=== PATIENT | female | born 1965 | race Caucasian/White ===

== ENCOUNTER → 2016-09-18 | Day surgery (SDC) | payer BC ==
[2016-09-13 16:17] VITALS: BMI 34.9
[~2016-09-18] MED LIST: LACTATED RINGERS 1,000 ML IV SCH; LIDOCAINE 1% 20 ML VIAL (10MG/ML) FOR IV START INTRADERMA ONE; PROPOFOL 10 MG/ML 20 ML VIAL IV ONE
[2016-09-18 10:21] VITALS: TEMP 97.4
[2016-09-18 11:36] VITALS: RESP 16
--- NOTE | 2016-09-18 11:44 | P.PCN ---
Date of Procedure: 09/18/16 Procedure(s) Performed: Procedure: Total colonoscopy. Preoperative diagnosis screening for neoplasia. Postoperative diagnosis: Sigmoid diverticulosis with no evidence of acute diverticulitis, strictures, polyps or cancer. Preparation: HalfLytely prep. Sedation: Was provided by anesthesia. Brief clinical history: The patient is a 51-year-old female who is referred for this evaluation for screening for neoplasia. The patient had no prior colonoscopy. She has been having issues with urinary incontinence and she is having bladder suspension surgery and hysterectomy in the near future. This evaluation was requested for screening. Procedure: With the patient on her left lateral decubitus position and after informed consent and adequate sedation, the perianal area was inspected and it did not show any fissures or fistulas. There were no masses felt on digital rectal examination. The Olympus CFQ 160L video colonoscope was then inserted in the rectum in the usual fashion and advanced to the cecum. There were multiple diverticular orifices seen scattered in the sigmoid but I saw no evidence of acute diverticulitis or strictures. The mucosa appeared healthy. No polyps or tumors were seen. I retroflexed endoscope in the rectum before the endoscope was withdrawn. The patient tolerated the procedure well. Plan: The patient was reassured. Discussed dietary measures. She will follow- up with you as planned. I recommended repeat exam in 10 years.
[2016-09-18 11:51] VITALS: BP 140/86; PULSE 96
== END | disposition home or self-care (01) ==
LOC: ORWHC2ENDO 09:20
DX: Z12.11 Encounter for screening for malignant neoplasm of colon (principal); K57.30 Diverticulosis of large intestine without perforation or abscess without bleeding; J44.9 Chronic obstructive pulmonary disease, unspecified; J45.909 Unspecified asthma, uncomplicated; Z79.899 Other long term (current) drug therapy
CPT/HCPCS: J2704; G0121

== ENCOUNTER → 2016-09-18 | Outpatient (CLI) | payer BC ==
--- NOTE | 2016-09-18 14:52 | MM ---
Reason for exam: screening (asymptomatic). Baseline mammogram. Physical Findings: Nurse did not find any significant physical abnormalities on exam. MG Screening Mammo w CAD Bilateral CC and MLO view(s) were taken. There are scattered fibroglandular densities. Finding: There is a typically benign varied sized masses in the right breast laterally on CC view, 6-7cm from the nipple. These results were verbally communicated with the patient and result sheet given to the patient on 09/18/16. ASSESSMENT: Incomplete: need additional imaging evaluation, BI-RAD 0 RECOMMENDATION: Ultrasound of the right breast.
--- NOTE | 2016-09-18 14:54 | USB ---
Reason for exam: additional evaluation requested from abnormal screening. US Breast Workup Limited RT Right breast ultrasound demonstrates a 0.3 x 0.2 x 0.3cm oval lesion too small to characterize and a 0.6 x 0.3 x 0.6cm oval, cystic cluster. These results were verbally communicated with the patient and result sheet given to the patient on 09/18/16. ASSESSMENT: Probably benign, BI-RAD 3 RECOMMENDATION: Follow-up diagnostic mammogram and ultrasound of the right breast in 6 months.
== END | disposition home or self-care (01) ==
LOC: RADMAMWWP 12:27
PROVIDERS: ATTEND Obstetrics & Gynecology
DX: Z12.31 Encounter for screening mammogram for malignant neoplasm of breast (principal); R92.8 Other abnormal and inconclusive findings on diagnostic imaging of breast
CPT/HCPCS: 76642; G0202

== ENCOUNTER → 2016-10-30 | Outpatient (CLI) | payer BC ==
[2016-10-30 15:31] LABS: Basophils % (A) 1 %; CH 30.5; Eosinophils # (A) 0.1 k/uL (0-0.7); Eosinophils % (A) 2 %; HGB 16.5 gm/dL (11.4-16.0); Luc # (Auto) 0.09; Luc % (Auto) 2; Lymphocytes # (A) 1.5 k/uL (1.0-4.8); Lymphocytes % (A) 28 %; MCH 29.3 pg (25.0-35.0); MCHC 30.6 g/dL (31.0-37.0); MCV 95.8 fL (80.0-100.0); Mean Platelet Volume 6.7; Monocytes # (A) 0.3 k/uL (0-1.0); Monocytes % (A) 5 %; Neutrophils # (A) 3.4 k/uL (1.3-7.7); Neutrophils % (A) 62 %; RBC 5.63 m/uL (3.80-5.40); RDW 14.2 % (11.5-15.5); WBC 5.4 k/uL (3.8-10.6); WBC (Perox) 5.27
[2016-10-30 15:48] LABS: Anion Gap 10 mmol/L; Blood Urea Nitrogen 6 mg/dL (7-17); Calcium 9.8 mg/dL (8.4-10.2); Carbon Dioxide 31 mmol/L (22-30); Chloride 101 mmol/L (98-107); Glucose 116 mg/dL (74-99); Non-African American GFR(MDRD) >60 (>60 ml/min/1.73 sqM); Sodium 142 mmol/L (137-145)
== END | disposition home or self-care (01) ==
LOC: LABPAT 14:49
PROVIDERS: ATTEND Obstetrics & Gynecology
DX: Z01.818 Encounter for other preprocedural examination (principal); N39.3 Stress incontinence (female) (male); R35.0 Frequency of micturition; N81.2 Incomplete uterovaginal prolapse; E66.9 Obesity, unspecified
CPT/HCPCS: 80048; 85025; 86850; 86900; 86901; 87086

== ENCOUNTER 2016-11-09 05:55 | Day surgery (SDC) | payer BC ==
--- NOTE | 2016-11-02 09:45 | HP ---
DATE OF ADMISSION: This is a 51-year-old white female, 3, para 1-2-0-3, who presented for consultation with a symptomatic cystocele, being cared for by Dr. Nino. Question was would patient be candidate for vaginal hysterectomy concurrently. Patient does report a urinary bulge that has increased over the past several years. She is sexually active. There is no pain with intercourse. There has been no unusual vaginal bleeding. Recent Pap smear is within normal limits. Patient does complain of urinary stress incontinence daily, and is scheduled for a sling procedure with Dr. Nino. Review of systems is otherwise negative. Past medical history is significant for asthma, emphysema, obesity, and a history of kidney infection in the past. PAST SURGICAL HISTORY: Adenoidectomy and tonsillectomy in 1980, cholecystectomy 2011, collapsed lung repair in the past, laser ablation of the cervix, tubal ligation 1989. CURRENT MEDICATIONS: 1. Chantix orally twice daily. 2. Spiriva inhaler daily. 3. Ventolin HFA 90 mcg inhaler 1 puff every 4 hours and p.r.n. ALLERGIES: None known. Family history is significant for blood clots in the lungs and legs of her brother, father and sister, COPD of her mother, obesity in the family, as well as thyroid issues on the maternal side of the family. Reproductive history is significant for 3 vaginal deliveries, healthy, normal infants. 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 REVIEW OF SYSTEMS: As noted, is otherwise negative. On exam, this is a pleasant white female, 5 foot 5-1/2 inches, 208 pounds, BMI 34, blood pressure 122/82, patient is afebrile. The HEENT exam reveals no thyromegaly, good dentition, good range of motion in the neck, no lymphadenopathy. Cardiac exam reveals regular rate and rhythm with no murmur, click or rub. Chest is clear to auscultation in all garcia anteriorly and posteriorly. Breast exam reveals breasts to be bilaterally symmetric, nontender, mobile, no nipple discharge, skin changes or axillary adenopathy. Abdominal exam reveals the abdomen to be moderately obese, no organosplenomegaly, active bowel sounds, no CVA tenderness, there are no hernias present. On external genitalia evaluation the external genitalia are normal in appearance for stated age, no unusual discharge or inflammatory lesions. The bladder is nontender. The cervix appears multiparous, healthy and pink. Pap smear is performed. There is a grade 2 to 3 uterine prolapse noted with cough, as well as a grade 2 to 3 cystocele and urinary leakage with Valsalva. Adnexa reveal no masses, adnexa are smooth and symmetric bilaterally. Rectal exam reveals no hemorrhoids, no rectal lesions or masses, no obvious rectocele. FIT negative stool sample. No unusual lymphadenopathy noted in the inguinal region. Neurologic exam reveals normal judgment and insight, normal mood and affect, patient is oriented x3. IMPRESSION: Increasingly symptomatic stress urinary incontinence, cystocele and uterine prolapse. PLAN: We will proceed with vaginal hysterectomy along with cystocele repair at the time of sling procedure. This is scheduled at [facility] for 11/08/2016. Patient is aware of the risks, benefits, and alternatives of our plan. We have discussed the risk of bleeding, infection, perforation or damage to bladder, bowel, ureters, blood vessels, or indeed any pelvic or abdominal organs. A second opinion has been offered and declined. The ACOG pamphlet on this procedure have been given to the patient for her review. I believe she understands our discussion with no reservation or question.
[2016-11-06 15:34] VITALS: BMI 34.4
[~2016-11-09 05:55] MED LIST changes: +DEXAMETHASONE SOD PHOSPHATE 10 MG/ML 1 ML VIAL IV ONE; +GENTAMICIN 120 MG in SODIUM CHLORIDE 0.9% 100 ML IVPB ONE; +HYDROmorphone 1 MG/ML 1 ML SYRINGE IVP PRN; -LACTATED RINGERS 1,000 ML IV SCH; -LIDOCAINE 1% 20 ML VIAL (10MG/ML) FOR IV START INTRADERMA ONE; +LIDOCAINE 1% 20 ML VIAL (10MG/ML) FOR IV START INTRADERMA PRN; +MIDAZOLAM 2 MG/2 ML VIAL IV PRN; +ONDANSETRON 4 MG/2 ML VIAL IVP ONE; -PROPOFOL 10 MG/ML 20 ML VIAL IV ONE; +SCOPOLAMINE 1.5MG/72HR PATCH TRANSDERM ONE; +ceFAZolin 1,000 MG in DEXTROSE/WATER 1 50ML.BAG IV ONE
[2016-11-09] MEDS ORDERED: ALBUTEROL NEBULIZED 2.5 MG/3 ML INHALATION STA (06:36)
[2016-11-09] MEDS: LACTATED RINGERS 1,000 ML IV SCH ×3 (07:00→21:42)
[2016-11-09] MEDS ORDERED: PROPOFOL 10 MG/ML 20 ML VIAL IV ONE (07:05)
[2016-11-09] MEDS ORDERED: PHENYLEPHRINE-0.9% NACL SYG 1 MG/10 ML SYRINGE ONE (07:05)
[2016-11-09] MEDS ORDERED: MORPHINE SULFATE (PF) 0.3 MG/0.3 ML SYR ONE (07:05)
[2016-11-09] MEDS ORDERED: MIDAZOLAM 2 MG/2 ML VIAL ONE (07:05)
[2016-11-09] MEDS ORDERED: VASOPRESSIN 20 UNIT/ML 1 ML VIAL SQ ONE ×2 (07:34→08:07)
[2016-11-09] MEDS ORDERED: BACITRACIN 500 UNIT/GM OINT 28.4 GM TUBE TOPICAL ONE ×2 (07:39→08:07)
[2016-11-09] MEDS ORDERED: KETOROLAC 30 MG/ML 1 ML VIAL IVP PRN (07:51)
[2016-11-09] MEDS ORDERED: diphenhydrAMINE 50 MG/ML 1 ML VIAL IVP PRN ×2 (07:51→08:41)
[2016-11-09] MEDS ORDERED: ONDANSETRON 4 MG/2 ML VIAL IVP PRN ×2 (07:51→08:41)
[2016-11-09] MEDS ORDERED: NALOXONE 0.4 MG/ML 1 ML VIAL IV PRN (07:51)
[2016-11-09] MEDS ORDERED: MORPHINE SULFATE 4 MG/ML SYRINGE IVP PRN (07:51)
[2016-11-09] MEDS ORDERED: GENTAMICIN 80 MG in SODIUM CHLORIDE 0.9% 500 ML IRRIGATION ONE (08:17)
[2016-11-09] MEDS ORDERED: LACTATED RINGERS 1,000 ML IV ONE (08:38)
[2016-11-09] MEDS ORDERED: IBUPROFEN 600 MG TAB PO PRN (08:41)
[2016-11-09] MEDS ORDERED: METOCLOPRAMIDE 5 MG/ML 2 ML VIAL IVP PRN (08:41)
[2016-11-09] MEDS ORDERED: ZOLPIDEM 5 MG TAB PO PRN (08:41)
[2016-11-09] MEDS ORDERED: Acetaminophen-Codeine 300-30mg TAB PO PRN (08:41)
--- NOTE | 2016-11-09 08:41 | P.OP ---
Date of Procedure: 11/09/16 Preoperative Diagnosis: Uterine prolapse, cystocele, stress urinary incontinence Postoperative Diagnosis: Normal, atrophic appearing ovaries bilaterally Procedure(s) Performed: Vaginal hysterectomy, cystocele repair, transvaginal tape Anesthesia: spinal Surgeon: Mary Stephens Roofing Foreman #1: Yary Muñoz Estimated Blood Loss (ml): 50 IV fluids (ml): 850 Urine output (ml): 50 Pathology: other (Cervix and uterus) Condition: stable Disposition: PACU Operative Findings: Normal-appearing, atrophic ovaries bilaterally Description of Procedure: Patient is brought to the operating suite where a spinal analgesia is administered. She's placed in the dorsal lithotomy position. The cervix, vagina, perineum and lower abdominal regions are all prepped and draped in the usual sterile fashion. The appropriate timeout was performed to assure proper patient and procedural identification. Antibiotics are given. Bladder is drained for approximately 50 mL of clear yellow urine. Weighted speculum was placed into the vagina and the anterior lip is grasped with a double-tooth tenaculum. The cervix is injected circumferentially with a dilute Pitressin solution. A [place]goon blade scalpel is used circumferentially with V like positioning at 6:00, to incise the vaginal mucosa. Sponge rolled finger is used to sweep the mucosa from the underlying fascial plane. Peritoneum was entered at 6:00, suture tied with 2-0 Vicryl, held with a hemostat, and then the large billed speculum was placed into the peritoneal cavity. The right uterosacral ligament is identified, clamped and held with a hemostat. Same is done on the contralateral side. At all times the vaginal mucosa is swept well from the operative field to avoid bladder and/or ureteral injury. Uterine vasculature is identified, clamped cut and suture ligated. 2 additional pedicles are taken superior to the vessels. The uterus is then "walked out" posteriorly. Robert clamps are used across the final pedicles and the cervix and uterus are removed and sent to pathology for evaluation. These pedicles are Robin stitched, flashed, and re-stitched for excellent hemostasis. Sponge stick is used to visualize the ovaries, they are small and atrophic bilaterally. The billed speculum is replaced with the shallow speculum, and the previously placed 2-0 Vicryl suture at 6:00 is brought around in a pursestring fashion to close the peritoneal cavity. The previously held uterosacral cardinal ligament complex these are brought across to incorporate the opposite complex as well as vaginal mucosa. The vagina is then closed posteriorly with a additional [id number] suture. Allis clamps are used on the remaining vaginal mucosa. It is injected in the midline with the same dilute Pitressin solution. Metzenbaum scissors are used to undermine the mucosa and it is opened in the midline to approximately 1-1/2 cm inferior to the urethra. The tissue is held in a fanlike fashion with Allis clamps, a single 2-0 Vicryl stitches placed. Guevara catheter was also placed in the urine is noted to be clear. Dr. Buckner then joins us in the room and the transvaginal tape procedure is performed. Please see separately dictated note for details. The vaginal mucosa is then brought together in the midline to close the mucosal defect in a running locking manner using 2-0 Vicryl suture. Hemostasis is good. The vagina is packed with a 1 inch iodophor gauze with basic tracing. All sponge needle and enhancement counts are correct at the end of the procedure. Patient is brought back to the recovery room in good condition with stable vital signs including blood pressure 98/49, pulse 97, 98% O2 saturation.
--- NOTE | 2016-11-09 09:06 | P.OP ---
Date of Procedure: 11/09/16 Preoperative Diagnosis: Mixed Urinary Incontinence Postoperative Diagnosis: Same Procedure(s) Performed: Obtryx trans-obturator sling Anesthesia: GETACHEW Surgeon: Vicente Nino Die Reamer #1: Mary Stephens Estimated Blood Loss (ml): 50 IV fluids (ml): 150 Pathology: none sent Condition: stable Disposition: PACU Indications for Procedure: She is a 51 year old female with mixed urinary incontinence, which requires the use of 3-4 pads daily. The stress component is predominant. She has a cystocele on exam. She was unable to tolerate oxybutynin, and Myrbetriq failed to help. 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 Dr. Stephens will perform a TVH with anterior repair. Operative Findings: No evidence of bladder injury. Description of Procedure: I entered the operating room after Dr. Stephens had completed the vaginal hysterectomy and cystocele repair. The patient was in the dorsolithotomy position, with her legs supported in candycane stirrups. The patient's condition was stable. Metzenbaum scissors were used to dissect laterally within the submucosal plane, to the inferior pubic ramus. The scalpel was used to make bilateral groin incisions at the level of the clitoris. Subcutaneous tissues were spread with a hemostat. Each of the helical needles were passed through the respective groin incision, and turned such that the needle tip wrapped around the pubis. The needle tips were guided digitally into the vaginal incision. The Obtryx graft, which had been previously soaked in antibiotic solution, was secured to the needle tips in the standard fashion. The needles were then withdrawn, and the position of the graft was adjusted such that it overlie the mid urethra, as desired. With a hemostat placed between the graft and the urethra to prevent tension of the graft over the urethra, the plastic sheath was removed from the ends of the graft. The ends of the graft were cut beneath the skin incisions, and these incisions were closed using 4-0 Vicryl suture in a subcuticular fashion. Some oozing was noted from the right side of the vaginal incision, and electrocautery was used to controlsuch that there was only minimal bruising. The vaginal incision was closed using 2-0 Vicryl suture in a running fashion. Cystoscopy was performed. The 30 lens was used to introduce the 17-Greek Storz cystoscopic sheath through the urethra and into the bladder under direct vision. The urethra and bladder were unremarkable. There was no evidence of perforation. Both ureteral orifices were of normal anatomic location and configuration, and clear urine effluxed from both. No tumors or foreign bodies were seen. The cystoscope was removed, and the Guevara catheter was replaced into the bladder. Vaginal packing was placed. All sponge and needle counts were correct. The patient tolerated the procedure well was taken to the recovery room in stable condition.
[2016-11-09] MEDS: ALBUTEROL NEBULIZED 2.5 MG/3 ML INHALATION PRN (15:11)
[2016-11-09] MEDS: ceFAZolin 1,000 MG in DEXTROSE/WATER 1 50ML.BAG IVPB SCH (15:48)
[2016-11-09] MEDS ORDERED: ceFAZolin 1 GM in SODIUM CHLORIDE 0.9% 100 ML IVPB SCH (16:00)
[2016-11-09] MEDS ORDERED: SODIUM CHLORIDE 0.9% 500 ML IV ONE (19:40)
[2016-11-10] MEDS: ceFAZolin 1,000 MG in DEXTROSE/WATER 1 50ML.BAG IVPB SCH ×2 (00:33→07:44)
[2016-11-10] MEDS: ALBUTEROL NEBULIZED 2.5 MG/3 ML INHALATION PRN ×2 (06:09→11:31)
--- NOTE | 2016-11-10 07:25 | P.DS ---
Providers Date of admission: 11/09/16 Expected date of discharge: 11/10/16 Attending physician: Mary Stephens Primary care physician: Feliciano Vasu [facility] Course: Male presented to the hospital with increasing perineal bulge as well as stress urinary incontinence. She elected to proceed with vaginal hysterectomy, cystocele repair, and transvaginal tape procedure. Urology in gynecology both following the patient, surgery scheduled, currently. Please see dictated history and physical for details. Patient underwent a vaginal hysterectomy, anterior colporrhaphy, and transvaginal tape procedure on 11/09/2016. She did well intraoperatively. Ovaries were inspected, noted to be atrophic and bilaterally symmetric, left in situ. Please see dictated operative note for details. Postoperatively are biggest issue has been the patient's respiratory status. She has received breathing treatments, but continues to have bilateral crackles. She has a long-term history of smoking, at least 1 pack per day. I have discussed with her this morning the importance of smoking cessation. I discussed this with her family yesterday postoperatively as well. She has made the commitment to me to stop smoking. Her abdomen is soft and nontender, no CVA tenderness. Extremities are negative for edema. There are good peripheral pulses. The vaginal pack is been removed, the Guevara catheter has also been discontinued. 's to advance diet and activity this morning. Patient may shower. Bladder training has commenced. If residuals are less than 100 mL, plan is for discharge home later today. She will follow-up in the office with me in 2 weeks. She will use [id number] Aleve, 2 pills as needed for pain. I have reminded her no intercourse, tampons or douching. No heavy lifting. No driving or vacuuming for 2 weeks. She will call with any foul smelling or copious vaginal drainage, with any pain not alleviated by the Aleve, with any difficulties voiding, or indeed with any concerns. Patient will follow-up with Dr. Hudson per his specific recommendations. Patient Condition at Discharge: Good Plan - Discharge Summary New Discharge Prescriptions: Cephalexin [Keflex] 500 mg PO Q8HR #15 cap Hydrocodone/Acetaminophen [[place] 5-325] 1 - 2 each PO Q4HR PRN #20 tab PRN Reason: Pain Discharge Medication List Albuterol Inhaler [Ventolin Hfa Inhaler] 1 - 2 puff INHALATION Q6HR PRN [History] Tiotropium [place] [Spiriva] 1 cap INHALATION DAILY 11/06/16 [History] Cephalexin [Keflex] 500 mg PO Q8HR #15 cap 11/09/16 [Rx] Hydrocodone/Acetaminophen [[place] 5-325] 1 - 2 each PO Q4HR PRN #20 tab 11/09/16 [Rx] Activity/Diet/Wound Care/Special Instructions: Diet as tolerated. Okay to shower. No driving for 1 week. No lifting or strenuous activity.
--- NOTE | 2016-11-10 07:34 | P.PN ---
Subjective The patient underwent an anterior repair and trans-obturator tape by Drs. Stephens and Mica yesterday. She is feeling well. Her catheter and packing of been removed. If she voids well she'll be discharged home later today. She will follow-up in our office in one week. Postoperative instructions have been given. Objective - Vital Signs Vital signs: Vital Signs Temp 97.1 F L 11/10/16 06:00 Pulse 80 11/10/16 06:15 Resp 16 11/10/16 06:00 BP 94/64 11/10/16 06:00 Pulse Ox 90 L 11/10/16 06:00 Intake & Output 11/09/16 11/10/16 11/10/16 18:59 06:59 18:59 Intake Total 1504 340 Output Total 240 400 Balance 1264 -60 Intake: IV 1504 Oral 340 Output: Urine 140 400 Estimated Blood Loss 100 Other: Voiding Method Indwelling Catheter Indwelling Catheter # Voids 100
[2016-11-10] MEDS ORDERED: ACETAMINOPHEN TAB 325 MG TAB PO PRN (08:43)
--- NOTE | 2016-11-10 09:44 | P.PN ---
Progress Note - Text Postoperative day 1 status post vaginal hysterectomy under spinal anesthesia, and intrathecal morphine given for postoperative analgesia, patient doing well, there is no anesthesia related complications, further management as per her primary team
[2016-11-10] MEDS: LACTATED RINGERS 1,000 ML IV SCH ×2 (10:44→15:15)
[2016-11-10 12:19] VITALS: RESP 20
[2016-11-10 13:48] VITALS: BP 118/65; TEMP 98.4
[2016-11-10] MEDS ORDERED: IPRATROPIUM-ALBUTEROL 3 ML NEB INHALATION PRN (13:48)
[2016-11-10] MEDS ORDERED: SYMBICORT 160-4.5 MCG INHALER INHALATION SCH (14:00)
--- NOTE | 2016-11-10 14:52 | XR ---
EXAMINATION TYPE: XR chest 2V DATE OF EXAM: 11/10/2016 2:49 PM HISTORY: Hypoxia. REFERENCE: NONE. FINDINGS: The lungs are clear. Pleural space are clear. Heart size is upper limits of normal. IMPRESSION: NO ACUTE INTRATHORACIC ABNORMALITY.
[2016-11-10] MEDS ORDERED: predniSONE 20 MG TAB PO STA (15:12)
[2016-11-10 15:20] VITALS: PULSE 101
[2016-11-10] MEDS ORDERED: IPRATROPIUM-ALBUTEROL 3 ML NEB INHALATION SCH (16:00)
--- NOTE | 2016-11-10 16:37 | CONS ---
DATE OF CONSULTATION: Patient is a 51-year-old who came in with a symptomatic cystocele. Patient underwent operative intervention and patient is clinically doing well except that patient's saturations have gone down. Patient is a smoker; was actively smoking ( ) before surgery. Patient does have history of COPD. On examination, patient does not have much cough but has very minimal air entry into bilateral lung garcia. Patient denied any fever or chills. Chest x-ray did not show any pneumonic process. Patient was initially saturating at 88% earlier today morning on room air at rest, but now increased it to 92%. I wanted her to stay in the hospital for one night for systemic steroids, inhalation treatments, but patient is not willing to stay, because of which I will go ahead and give her a weaning dose of steroids. Patient is already on Keflex, which is helpful for bronchitis, although patient does not appear to have any bacterial bronchitis at this point of time. Patient is already having Spiriva, tiotropium, which she can continue. Patient was asked to follow with Dr. Sellers closely, and if she has increasing shortness of breath and respiratory distress, patient will call Dr. Sellers. REVIEW OF SYSTEMS: CONSTITUTIONAL: No fever, no malaise, no fatigue. HEENT: No recent visual problems or hearing problems. Denied any sore throat. CARDIOVASCULAR: No chest pain, orthopnea, PND, no palpitations, no syncope. PULMONARY: As described in HPI. GASTROINTESTINAL: No diarrhea, no nausea, no vomiting, no abdominal pain. Normoactive bowel sounds. NEUROLOGICAL: No headaches, no weakness, no numbness. HEMATOLOGICAL: Denies any bleeding or petechiae. GENITOURINARY: Denies any burning micturition, frequency, or urgency. MUSCULOSKELETAL/RHEUMATOLOGICAL: Denies any joint pain, swelling, or any muscle pain. ENDOCRINE: Denies any polyuria or polydipsia. The rest of the 14 point review of systems is negative. Home medications include: 1. Tiotropium. 2. Albuterol. 3. Prednisone. 4. Hydrocodone/acetaminophen. 5. Keflex. Past medical history includes: 1. COPD. 2. Cholecystectomy. 3. Tonsillectomy. 4. Tubal ligation surgery. 5. Uterine ablation surgery. 6. Vaginal hysterectomy on this admission. SOCIAL HISTORY: Patient does smoke half a pack per day. Denied any alcohol abuse or any drug abuse. FAMILY HISTORY: Significant for DVT and PE in the past. PHYSICAL EXAMINATION: VITAL SIGNS: Temperature 98.4, pulse of around 109. This tachycardia is secondary to hypoxemia. Respiratory rate of 20. Blood pressure is 118/65. Saturating at 92% on room air. GENERAL: The patient is alert and oriented x3, not in any acute distress. Well developed, well nourished. HEENT: Pupils are round and equally reacting to light. EOMI. No scleral icterus. No conjunctival pallor. Normocephalic, atraumatic. No pharyngeal erythema. No thyromegaly. CARDIOVASCULAR: S1 and S2 present. No murmurs, rubs, or gallops. PULMONARY: Significantly air entry into bilateral lung garcia. No wheezing was appreciated. No crackles were appreciated. ABDOMEN: Soft, nontender, nondistended, normoactive bowel sounds. No palpable organomegaly. MUSCULOSKELETAL: No joint swelling or deformity. EXTREMITIES: No cyanosis, clubbing, or pedal edema. NEUROLOGICAL: Gross neurological examination did not reveal any focal deficits. SKIN: No rashes. Chest x-ray did not show a pneumonic process. I do not have any other laboratory data available. ASSESSMENT AND PLAN: 1. Chronic obstructive pulmonary disease exacerbation. Patient is not willing to stay. Ideally would stay one more night. I will go ahead and give her systemic steroids. Patient will continue her inhalational treatments. Patient is on Keflex postoperatively, which she will continue. 2. Vaginal hysterectomy. Postoperatively patient is otherwise clinically doing well except for that hypoxemia as mentioned above. 3. Nicotine abuse. Extensive counseling was provided. As patient is not willing to stay, patient is okay to discharge from my perspective. Patient will need to follow up with Dr. Sellers in 3 to 7 days. Thank you for letting me participate in this patient's care.
== END 2016-11-10 16:08 | disposition home or self-care (01) ==
LOC: OR 05:55 → 6PED 08:50 → OR 11-10 16:08
PROVIDERS: ATTEND Obstetrics & Gynecology
DX: N81.2 Incomplete uterovaginal prolapse (principal); N39.46 Mixed incontinence; N80.0 Endometriosis of uterus; R09.02 Hypoxemia; J44.1 Chronic obstructive pulmonary disease with (acute) exacerbation; J45.909 Unspecified asthma, uncomplicated; E66.9 Obesity, unspecified; Z68.34 Body mass index [BMI] 34.0-34.9, adult; F17.200 Nicotine dependence, unspecified, uncomplicated; N97.1 Female infertility of tubal origin; Z79.52 Long term (current) use of systemic steroids; Z79.899 Other long term (current) drug therapy
CPT/HCPCS: 94640 ×4; 88307; 71020; 57288; 58260; C1771; J2250; J1580 ×2; J1100; J2405; J2274; J1885; J0690 ×2; J2370; J2704; J7512; 86850; 86900; 86901

== ENCOUNTER → 2017-03-26 | Outpatient (CLI) | payer BC ==
--- NOTE | 2017-03-27 08:31 | MM ---
Reason for exam: follow-up at short interval from prior study. Last mammogram was performed 6 months ago. Physical Findings: Nurse did not find any significant physical abnormalities on exam. MG Diagnostic Mammo RT w CAD CC and MLO view(s) were taken of the right breast. Prior study comparison: September 18, 2016, bilateral MG screening mammo w CAD. There are scattered fibroglandular densities. Lateral breast nodularity is not significantly changed from prior, 6 months previously. These results were verbally communicated with the patient and result sheet given to the patient on 03/26/17. ASSESSMENT: Incomplete: need additional imaging evaluation, BI-RAD 0 RECOMMENDATION: Ultrasound of the right breast.
--- NOTE | 2017-03-27 08:34 | USB ---
Reason for exam: additional evaluation requested from abnormal screening. US Breast RT Right breast ultrasound includes all four quadrants, the retroareolar region and axilla. Finding demonstrates a 0.3 x 0.3 x 0.2cm lesion too small to characterize at 9 o'clock, unchanged and a 0.6 x 0.5 x 0.3cm cystic lesion with septation at 10 o'clock versus 6 x 3 x 6mm previously. These findings are stable for 6 months. An additional follow up can be performed. These results were verbally communicated with the patient and result sheet given to the patient on 03/26/17. ASSESSMENT: Probably benign, BI-RAD 3 RECOMMENDATION: Follow-up diagnostic mammogram of both breasts in 6 months. Ultrasound of the right breast in 6 months.
== END | disposition home or self-care (01) ==
LOC: RADMAMWWP 13:24
PROVIDERS: ATTEND Obstetrics & Gynecology
DX: R92.8 Other abnormal and inconclusive findings on diagnostic imaging of breast (principal)
CPT/HCPCS: 76641; G0206

== ENCOUNTER → 2018-02-19 | Outpatient (CLI) | payer BC ==
--- NOTE | 2018-02-19 08:56 | XR ---
EXAMINATION TYPE: XR chest 2V DATE OF EXAM: 02/19/2018 COMPARISON: 11/10/2016 TECHNIQUE: PA and lateral views submitted. HISTORY: COPD FINDINGS: The lungs are clear and there is no pneumothorax, pleural effusion, or focal pneumonia. Atheroscler otic change of the aorta. Mild hyperinflation. Mild thickening of the right paratracheal stripe. IMPRESSION: 1. No acute process. Correlate for COPD. There is mild thickening of the right paratracheal stripe wh ich could be correlated with CT scan to exclude adenopathy.
== END | disposition home or self-care (01) ==
LOC: RADXRMAIN 08:40
PROVIDERS: ATTEND Internal Medicine Critical Care Medicine
DX: J39.8 Other specified diseases of upper respiratory tract (principal); J44.9 Chronic obstructive pulmonary disease, unspecified
CPT/HCPCS: 71046

== ENCOUNTER 2018-10-06 03:13 | Inpatient (IN) | payer BC ==
[2018-10-06 03:51] LABS: Basophils % (A) 0 %; Eosinophils % (A) 1 %; HGB 15.9 gm/dL (11.4-16.0); Lymphocytes # (A) 0.5 k/uL (1.0-4.8); Lymphocytes % (A) 11 %; MCH 28.4 pg (25.0-35.0); MCHC 31.8 g/dL (31.0-37.0); MCV 89.3 fL (80.0-100.0); Mean Platelet Volume 7.1; Monocytes # (A) 0.4 k/uL (0-1.0); Monocytes % (A) 8 %; Neutrophils # (A) 3.7 k/uL (1.3-7.7); Neutrophils % (A) 79 %; Platelet Count 162 k/uL (150-450); RDW 14.8 % (11.5-15.5); WBC 4.7 k/uL (3.8-10.6)
--- NOTE | 2018-10-06 03:57 | XR ---
EXAM: XR Chest, 2 Views CLINICAL HISTORY: ITS.REASON XR Reason: difficulty breathing TECHNIQUE: Frontal and lateral views of the chest. COMPARISON: Chest radiographs 02/19/2018. FINDINGS: Lungs: Unremarkable. No consolidation. Pleural space: Unremarkable. No pneumothorax. Heart: Unremarkable. No cardiomegaly. Mediastinum: Unremarkable. Bones/joints: Unremarkable. IMPRESSION: No acute cardiopulmonary abnormality.
[2018-10-06 04:01] LABS: ALT 33 U/L (9-52); AST 38 U/L (14-36); Alkaline Phosphatase 81 U/L (38-126); Anion Gap 10 mmol/L; Blood Urea Nitrogen 7 mg/dL (7-17); Calcium 8.7 mg/dL (8.4-10.2); Carbon Dioxide 32 mmol/L (22-30); Chloride 90 mmol/L (98-107); Glucose 191 mg/dL (74-99); Potassium 3.8 mmol/L (3.5-5.1); Sodium 132 mmol/L (137-145); Total Bilirubin 0.7 mg/dL (0.2-1.3); Total Protein 6.9 g/dL (6.3-8.2)
[2018-10-06 04:05] LABS: D-Dimer 0.57 mg/L FEU (<0.60); INR 0.9 (<1.2); Partial Thromboplastin Time 27.4 sec (22.0-30.0); Prothrombin Time 9.8 sec (9.0-12.0)
[2018-10-06] MEDS ORDERED: IPRATROPIUM-ALBUTEROL 3 ML NEB INHALATION STA (04:25)
[2018-10-06] MEDS ORDERED: predniSONE 20 MG TAB PO STA (04:25)
[2018-10-06] MEDS ORDERED: ACETAMINOPHEN TAB 325 MG TAB PO STA (04:33)
[2018-10-06] MEDS ORDERED: HYDROcodone/APAP 5-325MG 1 EACH TAB PO PRN (05:21)
--- NOTE | 2018-10-06 05:23 | ED ---
SOB HPI - General Chief Complaint: Shortness of Breath Stated Complaint: CHARLENE Time Seen by Provider: 10/06/18 03:32 Source: patient Mode of arrival: ambulatory Limitations: no limitations - History of Present Illness Initial Comments: This patient's 53-year-old woman with history of COPD who presents with shortness of breath and cough going on for 2-3 days now. Patient states that her home medications do not seem to be helping much. She denies chest pain. She has been feeling hot and cold but has not taken temperature. No change in urination or bowel movements. No leg pain or swelling. MD Complaint: shortness of breath, cough Onset/Timin -: days(s) Consistency: constant Improves With: nothing Worsens With: exertion Known History Of: COPD Associated Symptoms: cough Treatments Prior to Arrival: none - Related Data Home Medications Medication Instructions Recorded Confirmed Albuterol Inhaler [Ventolin Hfa 1 - 2 puff INHALATION Q6HR PRN 09/13/16 11/09/16 Inhaler] Tiotropium [place] [Spiriva] 1 cap INHALATION DAILY 11/06/16 11/09/16 Previous Rx's Medication Instructions Recorded Cephalexin [Keflex] 500 mg PO Q8HR #15 cap 11/09/16 Hydrocodone/Acetaminophen [[place] 1 - 2 each PO Q4HR PRN #20 tab 11/09/16 5-325] predniSONE 10 mg PO DAILY #30 tab 11/10/16 Allergies Allergy/AdvReac Type Severity Reaction Status Date / Time No Known Allergies Allergy Verified 10/06/18 03:22 Review of Systems ROS Statement: Those systems with pertinent positive or pertinent negative responses have been documented in the HPI. ROS Other: All systems not noted in ROS Statement are negative. Constitutional: Reports: fever (Subjective) Respiratory: Reports: cough, dyspnea, wheezes Cardiovascular: Denies: chest pain, palpitations, orthopnea, edema, syncope Gastrointestinal: Denies: abdominal pain, vomiting, diarrhea Genitourinary: Denies: dysuria, hematuria Musculoskeletal: Reports: myalgia. Denies: back pain Skin: Denies: rash Neurological: Denies: headache, weakness, numbness Past Medical History Past Medical History: COPD Additional Past Medical History / Comment(s): URINE INCONTINENCE History of Any Multi-Drug Resistant Organisms: None Reported Past Surgical History: Cholecystectomy, Tonsillectomy, Tubal Ligation Additional Past Surgical History / Comment(s): CERVICAL SURGERY, CHEST TUBE Past Anesthesia/Blood Transfusion Reactions: Motion Sickness Past Psychological History: No Psychological Hx Reported Smoking Status: Current every day smoker Past Alcohol Use History: None Reported Past Drug Use History: None Reported - Past Family History Sister(s) Family Medical History: Deep Vein Thrombosis (DVT), Pulmonary Embolus Brother(s) Family Medical History: Deep Vein Thrombosis (DVT) General Exam Limitations: no limitations General appearance: alert, in no apparent distress Head exam: Present: atraumatic, normocephalic Eye exam: Present: normal appearance. Absent: scleral icterus, conjunctival injection ENT exam: Present: normal oropharynx Neck exam: Present: normal inspection Respiratory exam: Present: wheezes, decreased breath sounds. Absent: normal lung sounds bilaterally, respiratory distress, rales, rhonchi, stridor, accessory muscle use Cardiovascular Exam: Present: normal rhythm, tachycardia, normal heart sounds. Absent: systolic murmur, diastolic murmur, rubs, gallop GI/Abdominal exam: Present: soft. Absent: distended, tenderness, guarding, rebound, rigid, mass Extremities exam: Present: normal inspection, normal capillary refill. Absent: pedal edema, calf tenderness Back exam: Present: normal inspection. Absent: CVA tenderness (R), CVA tendern ess (L) Neurological exam: Present: alert Skin exam: Present: warm, dry, intact, normal color. Absent: rash Course Vital Signs 10/06/18 10/06/18 10/06/18 03:18 03:43 04:41 Temperature 100.6 F H Pulse Rate 129 H 115 H Respiratory 34 H 26 H Rate Blood Pressure 139/72 O2 Sat by Pulse 73 L Oximetry 10/06/18 10/06/18 10/06/18 04:48 04:55 05:00 Temperature 99.6 F Pulse Rate 115 H 111 H 108 H Respiratory 20 20 Rate Blood Pressure 138/67 137/67 O2 Sat by Pulse 97 98 Oximetry Medical Decision Making - Medical Decision Making Patient's 53-year-old woman with dyspnea, cough, and wheezing. Clinically she appears be having exacerbation of COPD. Workup also reveals influenza. The patient is feeling a bit better following initial treatment, will admit to have further COPD treatment - Lab Data Result diagrams: 10/06/18 03:35 10/06/18 03:35 Lab Results 10/06/18 10/06/18 10/06/18 Range/Units 03:35 03:35 03:35 WBC 4.7 (3.8-10.6) k/uL RBC 5.60 H (3.80-5.40) m/uL Hgb 15.9 (11.4-16.0) gm/dL Hct 50.0 H (34.0-46.0) % MCV 89.3 (80.0-100.0) fL MCH 28.4 (25.0-35.0) pg MCHC 31.8 (31.0-37.0) g/dL RDW 14.8 (11.5-15.5) % Plt Count 162 (150-450) k/uL Neutrophils % 79 % Lymphocytes % 11 % Monocytes % 8 % Eosinophils % 1 % Basophils % 0 % Neutrophils # 3.7 (1.3-7.7) k/uL Lymphocytes # 0.5 L (1.0-4.8) k/uL Monocytes # 0.4 (0-1.0) k/uL Eosinophils # 0.0 (0-0.7) k/uL Basophils # 0.0 (0-0.2) k/uL PT 9.8 (9.0-12.0) sec INR 0.9 (<1.2) APTT 27.4 (22.0-30.0) sec D-Dimer 0.57 (<0.60) mg/L FEU Sodium 132 L (137-145) mmol/L Potassium 3.8 (3.5-5.1) mmol/L Chloride 90 L (98-107) mmol/L Carbon Dioxide 32 H (22-30) mmol/L Anion Gap 10 mmol/L BUN 7 (7-17) mg/dL Creatinine 0.66 (0.52-1.04) mg/dL Est GFR (CKD-EPI)AfAm >90 (>60 ml/min/1.73 sqM) Est GFR (CKD-EPI)NonAf >90 (>60 ml/min/1.73 sqM) Glucose 191 H (74-99) mg/dL Calcium 8.7 (8.4-10.2) mg/dL Total Bilirubin 0.7 (0.2-1.3) mg/dL AST 38 H (14-36) U/L ALT 33 (9-52) U/L Alkaline Phosphatase 81 (38-126) U/L Troponin I (0.000-0.034) ng/mL NT-Pro-B Natriuret Pep pg/mL Total Protein 6.9 (6.3-8.2) g/dL Albumin 4.0 (3.5-5.0) g/dL Influenza Type A RNA (Not Detectd) Influenza Type B (PCR) (Not Detectd) 10/06/18 10/06/18 10/06/18 Range/Units 03:35 03:35 03:40 WBC (3.8-10.6) k/uL RBC (3.80-5.40) m/uL Hgb (11.4-16.0) gm/dL Hct (34.0-46.0) % MCV (80.0-100.0) fL MCH (25.0-35.0) pg MCHC (31.0-37.0) g/dL RDW (11.5-15.5) % Plt Count (150-450) k/uL Neutrophils % % Lymphocytes % % Monocytes % % Eosinophils % % Basophils % % Neutrophils # (1.3-7.7) k/uL Lymphocytes # (1.0-4.8) k/uL Monocytes # (0-1.0) k/uL Eosinophils # (0-0.7) k/uL Basophils # (0-0.2) k/uL PT (9.0-12.0) sec INR (<1.2) APTT (22.0-30.0) sec D-Dimer (<0.60) mg/L FEU Sodium (137-145) mmol/L Potassium (3.5-5.1) mmol/L Chloride (98-107) mmol/L Carbon Dioxide (22-30) mmol/L Anion Gap mmol/L BUN (7-17) mg/dL Creatinine (0.52-1.04) mg/dL Est GFR (CKD-EPI)AfAm (>60 ml/min/1.73 sqM) Est GFR (CKD-EPI)NonAf (>60 ml/min/1.73 sqM) Glucose (74-99) mg/dL Calcium (8.4-10.2) mg/dL Total Bilirubin (0.2-1.3) mg/dL AST (14-36) U/L ALT (9-52) U/L Alkaline Phosphatase (38-126) U/L Troponin I <0.012 (0.000-0.034) ng/mL NT-Pro-B Natriuret Pep 102 pg/mL Total Protein (6.3-8.2) g/dL Albumin (3.5-5.0) g/dL Influenza Type A RNA Detected H (Not Detectd) Influenza Type B (PCR) Not Detected (Not Detectd) - EKG Data -: EKG Interpreted by Fl EKG shows normal: sinus rhythm, axis (Normal), intervals (Normal), QRS complexes (Low-voltage QRS), ST-T waves (Normal) Rate: tachycardia (Rate 126 bpm) Disposition Clinical Impression: Acute exacerbation of chronic obstructive airways disease, Influenza Disposition: ADMITTED IP TO THIS HOSP Condition: Fair Is patient prescribed a controlled substance at d/c from ED?: No
[2018-10-06] MEDS: IPRATROPIUM-ALBUTEROL 3 ML NEB INHALATION SCH ×4 (07:55→18:49)
[2018-10-06] MEDS: IPRATROPIUM 0.5 MG/2.5 ML NEBU INHALATION SCH ×2 (07:55→11:12)
[2018-10-06] MEDS ORDERED: predniSONE 20 MG TAB PO SCH (09:00)
[2018-10-06 10:05] VITALS: BMI 36.6
[2018-10-06 10:56] LABS: ABG Base Excess 8.9 mmol/L; ABG HCO3 37 mmol/L (21-25); ABG Oxygen Saturation 92.6 % (94-97); ABG PH 7.22 (7.35-7.45); ABG PO2 71 mmHg (83-108); ABG TCO2 39 mmol/L (19-24)
[2018-10-06 11:13] LABS: ABG PCO2 89 mmHg (35-45)
[2018-10-06] MEDS ORDERED: IPRATROPIUM-ALBUTEROL 3 ML NEB INHALATION PRN (11:45)
[2018-10-06] MEDS: methylPREDNISolone SOD SUCCI 125 MG/2 ML VIAL IV SCH ×3 (11:51→23:39)
--- NOTE | 2018-10-06 11:54 | P.CNPUL ---
History of Present Illness Consult date: 10/06/18 Requesting physician: Bonnie Maria Reason for consult: dyspnea, COPD Chief complaint: Shortness of breath, cough, congestion History of present illness: This is a 53-year-old female patient who follows with Dr. Sellers as her primary care physician. She has a history of severe Gold stage IV chronic obstructive pulmonary disease with an FEV1 value 21% of predicted. She also has continued and ongoing tobacco dependence. She is treated with Spiriva and albuterol in the outpatient setting. History of noncompliance. She also has obstructive sleep apnea diagnosed by Dr. Lopez in June 2018. AHI 12 with increased to 20 while lying supine. She also had severe nocturnal desaturations. The patient states she did not follow-up and receive a CPAP or any other treatment in that regard. She presented here to the emergency room early this morning with complaints of increasing shortness of breath for the past 2-3 days. She was admitted for influenza A and COPD exacerbation. She was seen this morning in consultation on the regular medical floor. She was somewhat obtunded and difficult to arouse but once awake she was denying any worsening shortness of breath cough or congestion. She was maintaining O2 saturations in the low 90s on 2 L/m per nasal cannula. Arterial blood gases were obtained and she was found to be significantly hypercapnic with this pCO2 of 89, pO2 of 71 and a pH of 7.22. She was immediately placed on BiPAP 14/6 and 35% FiO2. She is continuing to maintain good O2 saturations in the 90s. Chest x-ray showed no acute pulmonary process. She is initiated on DuoNeb inhalations 4 times a day and when necessary, Pulmicort and Perforomist inhalations twice a day, azithromycin and IV Solu-Medrol. She is also started on Tamiflu. Review of Systems ROS unobtainable: due to mental status Past Medical History Past Medical History: COPD Additional Past Medical History / Comment(s): STRESS URINARY INCONTINENCE. MINIMAL LUNG FUNCTION. SLEEP APNEA (DOES NOT USE CPAP) History of Any Multi-Drug Resistant Organisms: None Reported Past Surgical History: Cholecystectomy, Tonsillectomy, Tubal Ligation Additional Past Surgical History / Comment(s): CERVICAL SURGERY, CHEST TUBE Past Anesthesia/Blood Transfusion Reactions: Motion Sickness Past Psychological History: No Psychological Hx Reported Smoking Status: Current every day smoker Past Alcohol Use History: None Reported Additional Past Alcohol Use History / Comment(s): STARTED SMOKING AT AGE 17 SMO KES 1/2 TO 1 PPD - Past Family History Sister(s) Family Medical History: Deep Vein Thrombosis (DVT), Pulmonary Embolus Brother(s) Family Medical History: Deep Vein Thrombosis (DVT) Medications and Allergies Home Medications Medication Instructions Recorded Confirmed Type Albuterol Inhaler [Ventolin Hfa 2 puff INHALATION RT-Q6H PRN 09/13/16 10/06/18 History Inhaler] Tiotropium [place] [Spiriva] 1 cap INHALATION RT-DAILY 11/06/16 10/06/18 History Fluticasone/Vilanterol [Breo 1 puff INHALATION RT-DAILY 10/06/18 10/06/18 History Ellipta 100-25 Mcg Inhaler] Allergies Allergy/AdvReac Type Severity Reaction Status Date / Time No Known Allergies Allergy Verified 10/06/18 11:04 Physical Exam Vitals: Vital Signs Temp Pulse Pulse Resp BP BP Pulse Ox 10/06/18 11:27 94 10/06/18 11:15 90 10/06/18 08:09 98 10/06/18 07:56 94 10/06/18 06:54 99.2 F 110 H 16 116/76 10/06/18 05:00 108 H 20 137/67 98 10/06/18 04:55 99.6 F 111 H 20 138/67 97 10/06/18 04:48 115 H 10/06/18 04:41 115 H 10/06/18 03:43 26 H 10/06/18 03:18 100.6 F H 129 H 34 H 139/72 73 L Intake and Output 10/05/18 10/06/18 10/06/18 22:59 06:59 14:59 Other: Weight 99.79 kg GENERAL EXAM: 53-year-old obese female patient. Arousable, comfortable in no apparent distress. HEAD: Normocephalic. EYES: Normal reaction of pupils, equal size. NOSE: Clear with pink turbinates. THROAT: Crowding of the posterior pharynx. No erythema or exudates. NECK: Short. No masses, no JVD. CHEST: No chest wall deformity. LUNGS: Equal air entry with bilateral wheezing, diminished. CVS: S1 and S2 normal with no audible murmur, regular rhythm. ABDOMEN: No hepatosplenomegaly, normal bowel sounds, no guarding or rigidity. SPINE: No scoliosis or deformity SKIN: No rashes CENTRAL NERVOUS SYSTEM: No focal deficits, tone is normal in all 4 extremities. EXTREMITIES: There is no peripheral edema. No clubbing, no cyanosis. Peripheral pulses are intact. Results - Laboratory Findings CBC and BMP: 10/06/18 03:35 10/06/18 03:35 ABG ABG pH 7.22 (7.35-7.45) L 10/06/18 10:24 ABG pCO2 89 mmHg (35-45) H* 10/06/18 10:24 ABG pO2 71 mmHg (83-108) L 10/06/18 10:24 ABG O2 Saturation 92.6 % (94-97) L 10/06/18 10:24 PT/INR, D-dimer PT 9.8 sec (9.0-12.0) 10/06/18 03:35 INR 0.9 (<1.2) 10/06/18 03:35 D-Dimer 0.57 mg/L FEU (<0.60) 10/06/18 03:35 Abnormal lab findings: Abnormal Labs 10/06/18 10/06/18 10/06/18 03:35 03:35 03:40 RBC 5.60 H Hct 50.0 H Lymphocytes # 0.5 L ABG pH ABG pCO2 ABG pO2 ABG HCO3 ABG Total CO2 ABG O2 Saturation Sodium 132 L Chloride 90 L Carbon Dioxide 32 H Glucose 191 H AST 38 H Influenza Type A RNA Detected H 10/06/18 10:24 RBC Hct Lymphocytes # ABG pH 7.22 L ABG pCO2 89 H* ABG pO2 71 L ABG HCO3 37 H ABG Total CO2 39 H ABG O2 Saturation 92.6 L Sodium Chloride Carbon Dioxide Glucose AST Influenza Type A RNA - Diagnostic Findings Chest x-ray: image reviewed (No acute pulmonary process) Assessment and Plan Assessment: Impression: #1 Acute hypercapnic respiratory failure secondary to an acute exacerbation of severe chronic obstructive pulmonary disease with FEV1 value 21% of predicted, complicated by influenza A infection. #2 Chronic and ongoing tobacco dependence. #3 Obstructive sleep apnea, not followed up for CPAP placement. #4 Morbid obesity. #5 History of noncompliance. Plan: The patient was seen and evaluated by Dr. Goodwin. Chest x-ray, arterial blood gases and labs were all reviewed. We did place the patient on BiPAP 14/6 and 35% FiO2. Initiated IV Solu-Medrol, DuoNeb inhalations 4 times a day and when necessary, Pulmicort and Perforomist inhalations, empiric antibiotics. Started Tamiflu. Continue to monitor her closely. We will continue to follow and make further recommendations based on her clinical status. I, the cosigning physician, performed a history & physical examination of the patient. Lungs sounds with bilateral wheezing, diminished. Maintaining good O2 saturations in the 90s on IPAP at 35% FiO2. I discussed the assessment and plan of care with my nurse practitioner, Carmella Cabrera. I attest to the above consultation as dictated by her. Time with Patient: Greater than 30
[2018-10-06 14:06] LABS: ABG Base Excess 10.3 mmol/L; ABG HCO3 37 mmol/L (21-25); ABG Oxygen Saturation 93.4 % (94-97); ABG PH 7.27 (7.35-7.45); ABG PO2 68 mmHg (83-108); ABG TCO2 40 mmol/L (19-24)
[2018-10-06 14:26] LABS: ABG PCO2 82 mmHg (35-45)
[2018-10-06] MEDS: OSELTAMIVIR 75 MG CAP PO SCH ×2 (14:54→20:35)
[2018-10-06] MEDS: AZITHROMYCIN 500 MG in SODIUM CHLORIDE 0.9% 250 ML IVPB SCH (14:54)
[2018-10-06 17:00] LABS: Glucose,Whole Blood 194 mg/dL (75-99)
[2018-10-06] MEDS: INSULIN ASPART (NovoLOG) 100 UNIT/ML VIAL SQ SCH ×2 (17:29→20:36)
[2018-10-06] MEDS: FORMOTEROL FUMARATE 20 MCG/2 ML NEBU INHALATION SCH (18:49)
[2018-10-06] MEDS: BUDESONIDE 1 MG/2 ML NEBU INHALATION SCH (18:49)
[2018-10-06] MEDS ORDERED: ACETAMINOPHEN TAB 500 MG TAB PO PRN (19:54)
[2018-10-06] MEDS ORDERED: ALPRAZolam 0.25 MG TAB PO PRN (19:54)
[2018-10-06] MEDS: HEPARIN SODIUM,PORCINE 5,000 UNIT/ML 1 ML VIAL SQ SCH (20:35)
[2018-10-06 20:36] LABS: Glucose,Whole Blood 194 mg/dL (75-99)
--- NOTE | 2018-10-06 22:25 | HP ---
HISTORY AND PHYSICAL CHIEF COMPLAINT: Shortness of breath. HISTORY OF PRESENT ILLNESS: This 53-year-old woman with a past medical history of multiple medical problems including COPD, history of , history of minimal lung functions, sleep apnea, history of cholecystectomy, history of nicotine dependence being followed by Dr. Sellers in the outpatient setting, was complaining shortness of breath for the past several days. Patient had significant difficulty in breathing. Patient also became more stuporous and patient came to [facility] and admitted to the hospital for further evaluation and treatment. The initial chest x-ray personally reviewed by me showed no evidence of acute pneumonia. However, the patient has significant respiratory acidosis 7.22 with pCO2 89. BiPAP was initiated. Pulmonary consultation was sought with Dr. Goodwin. Sodium was found to be 132. Influenza A is positive. PAST MEDICAL HISTORY: Past medical history of COPD, history of stress incontinence, cholecystectomy, tonsillectomy. MEDICATIONS: Prior to admission include home medications are: 1. Spiriva 1 puff daily. 2. Ventolin inhaler 2 puffs p.r.n. 3. Breo Ellipta 100/25 mg 1 puff daily. ALLERGIES: None. FAMILY HISTORY: Family history of DVT, history of pulmonary embolism in the family. SOCIAL HISTORY: No history of smoking. No history of alcohol. REVIEW OF SYMPTOMS: Review of systems could not be taken, the patient is stuporous. PHYSICAL EXAM: Patient is stuporous. Pulse is 98. Blood pressure 130/77, respiration 18, temperature 99.2, pulse ox 97% on BiPAP. HEENT: Conjunctivae normal. Oral mucosa moist. Neck is no jugular venous distention. No carotid bruit. No lymph node enlargement. Cardiovascular systems: S1, S2 muffled. RESPIRATORY: Breath sounds diminished in the bases. Bilateral scattered rhonchi and crackles. Expiratory wheezing also present. ABDOMEN: Soft, obese, nontender. Legs: No edema. No swelling. Central nervous system: Diffusely weak. Skin: No ulcer, rash, bleeding. JOINTS: No active deforming arthropathy. LABS: WBC 5.7, hemoglobin 15.9, ABGs noted twice. Sodium 132, influenza A is positive. Glucose 194. ASSESSMENT: 1. Chronic obstructive pulmonary disease acute exacerbation with acute hypoxic hypercarbic respiratory failure with acute purulent tracheobronchitis with acute influenza A. 2. Change in mental status, acute metabolic encephalopathy from acute hypercarbic respiratory failure. 3. Hyponatremia. 4. Increased random blood sugar. 5. Continued ongoing nicotine dependence. 6. History of stress incontinence. 7. Obstructive sleep apnea. 8. History of cholecystectomy. 9. History of cervical surgery. 10.History of motion sickness. RECOMMENDATIONS AND DISCUSSION: In this 53-year-old woman who presented with multiple complex medical issues, we will monitor the patient closely, continue the current medications, management and symptomatic treatment. We will initiate broad-spectrum IV antibiotics. We will also recommend IV steroids, intensive bronchodilators. Pulmonary consultation. Otherwise, I would also recommend BiPAP. Follow the cultures. DVT prophylaxis. Overall prognosis is extremely guarded because of multiple complex medical issues. Further recommendations to follow. A copy of dictation being forwarded to Dr. Sellers who is the primary physician. MMTAWNY / SHAHNAZ: [id number] / MTDD
[2018-10-07] MEDS: methylPREDNISolone SOD SUCCI 125 MG/2 ML VIAL IV SCH ×4 (05:27→23:39)
[2018-10-07 07:15] LABS: Glucose,Whole Blood 204 mg/dL (75-99)
[2018-10-07] MEDS: BUDESONIDE 1 MG/2 ML NEBU INHALATION SCH ×2 (07:17→19:03)
[2018-10-07] MEDS: FORMOTEROL FUMARATE 20 MCG/2 ML NEBU INHALATION SCH ×2 (07:17→19:03)
[2018-10-07] MEDS: IPRATROPIUM-ALBUTEROL 3 ML NEB INHALATION SCH ×4 (07:17→19:03)
[2018-10-07] MEDS: OSELTAMIVIR 75 MG CAP PO SCH ×2 (08:01→21:11)
[2018-10-07] MEDS: HEPARIN SODIUM,PORCINE 5,000 UNIT/ML 1 ML VIAL SQ SCH ×2 (08:01→21:11)
[2018-10-07] MEDS: AZITHROMYCIN 500 MG in SODIUM CHLORIDE 0.9% 250 ML IVPB SCH (08:01)
[2018-10-07] MEDS: INSULIN ASPART (NovoLOG) 100 UNIT/ML VIAL SQ SCH ×4 (08:01→21:11)
[2018-10-07] MEDS: PANTOPRAZOLE 40 MG/10 ML VIAL IVP SCH (08:01)
[2018-10-07 10:43] LABS: Basophils % (A) 0 %; Eosinophils % (A) 1 %; HCT 48.6 % (34.0-46.0); HGB 14.9 gm/dL (11.4-16.0); Hypochromasia Moderate; Lymphocytes # (A) 0.6 k/uL (1.0-4.8); Lymphocytes % (A) 11 %; MCH 28.6 pg (25.0-35.0); MCHC 30.7 g/dL (31.0-37.0); MCV 93.1 fL (80.0-100.0); Mean Platelet Volume 7.2; Monocytes # (A) 0.3 k/uL (0-1.0); Monocytes % (A) 5 %; Neutrophils # (A) 4.9 k/uL (1.3-7.7); Neutrophils % (A) 83 %; Platelet Count 171 k/uL (150-450); RBC 5.22 m/uL (3.80-5.40); RDW 14.5 % (11.5-15.5); WBC 5.9 k/uL (3.8-10.6)
[2018-10-07 10:51] LABS: Anion Gap 5 mmol/L; Blood Urea Nitrogen 11 mg/dL (7-17); Calcium 8.8 mg/dL (8.4-10.2); Chloride 90 mmol/L (98-107); Glucose 244 mg/dL (74-99); Potassium 4.9 mmol/L (3.5-5.1); Sodium 135 mmol/L (137-145)
[2018-10-07 11:00] LABS: Carbon Dioxide 40 mmol/L (22-30)
[2018-10-07 11:48] LABS: Glucose,Whole Blood 198 mg/dL (75-99)
--- NOTE | 2018-10-07 13:55 | P.PN ---
Subjective Progress Note Date: 10/07/18 Principal diagnosis: Acute hypercapnic respiratory failure secondary to acute exacerbation of severe chronic obstructive pulmonary disease triggered by influenza A infection This is a 53-year-old female patient who follows with Dr. Sellers as her primary care physician. She has a history of severe Gold stage IV chronic obstructive pulmonary disease with an FEV1 value 21% of predicted. She also has continued and ongoing tobacco dependence. She is treated with Spiriva and albuterol in the outpatient setting. History of noncompliance. She also has obstructive sleep apnea diagnosed by Dr. Lopez in June 2018. AHI 12 with increased to 20 while lying supine. She also had severe nocturnal desaturations. The patient states she did not follow-up and receive a CPAP or any other treatment in that regard. She presented here to the emergency room early this morning wi th complaints of increasing shortness of breath for the past 2-3 days. She was admitted for influenza A and COPD exacerbation. She was seen this morning in consultation on the regular medical floor. She was somewhat obtunded and difficult to arouse but once awake she was denying any worsening shortness of breath cough or congestion. She was maintaining O2 saturations in the low 90s on 2 L/m per nasal cannula. Arterial blood gases were obtained and she was found to be significantly hypercapnic with this pCO2 of 89, pO2 of 71 and a pH of 7.22. She was immediately placed on BiPAP 14/6 and 35% FiO2. She is continuing to maintain good O2 saturations in the 90s. Chest x-ray showed no acute pulmonary process. She is initiated on DuoNeb inhalations 4 times a day and when necessary, Pulmicort and Perforomist inhalations twice a day, azithromycin and IV Solu-Medrol. She is also started on Tamiflu. On 10/07/2018 patient seen in follow-up on medical surgical floor. She sits up on the edge of the bed, in no acute distress, still dyspneic with exertion, lung sounds are diminished with end expiratory wheezes, she is currently on 4 L of oxygen with a pulse ox of 92%, afebrile, she did wear the BiPAP support last night, today's labs have been reviewed, white blood cell, is 5.9, hemoglobin is 14.9, sodium is 135, potassium is 4.9, chloride is 90, CO2 is 40, BUN is 11, creatinine is 0.62. Blood culture showed no growth, urine culture is pending. Patient remains on nebulized bronchodilators, she is on Zithromax, and Tamiflu, and IV Solu-Medrol 60 mg every 6 hours. Improving. Objective - Vital Signs Vital signs: Vital Signs Temp 95.4 F L 10/07/18 05:50 Pulse 94 10/07/18 11:26 Resp 20 10/07/18 05:50 BP 124/87 10/07/18 05:50 Pulse Ox 92 L 10/07/18 07:18 Intake & Output 10/06/18 10/07/18 10/07/18 18:59 06:59 18:59 Intake Total 200 Balance 200 Intake: Oral 200 Other: # Voids 3 2 2 # Bowel Movements 1 0 - Exam GENERAL EXAM: Alert, pleasant, 53-year-old white female patient, on 4 L of oxygen with pulse ox of 92%, comfortable in no apparent distress. HEAD: Normocephalic/atraumatic. EYES: Normal reaction of pupils, equal size. Conjunctiva pink, sclera white. NOSE: Clear with pink turbinates. THROAT: No erythema or exudates. NECK: No masses, no JVD, no thyroid enlargement, no adenopathy. CHEST: No chest wall deformity. Symmetrical expansion. LUNGS: Equal air entry with diminished breath sounds with expiratory wheezes CVS: Regular rate and rhythm, normal S1 and S2, no gallops, no murmurs, no rubs ABDOMEN: Soft, nontender. No hepatosplenomegaly, normal bowel sounds, no guarding or rigidity. EXTREMITIES: No clubbing, no edema, no cyanosis, 2+ pulses and upper and lower extremities. MUSCULOSKELETAL: Muscle strength and tone normal. SPINE: No scoliosis or deformity SKIN: No rashes CENTRAL NERVOUS SYSTEM: Alert and oriented -3. No focal deficits, tone is normal in all 4 extremities. PSYCHIATRIC: Alert and oriented -3. Appropriate affect. Intact judgment and insight. - Labs CBC & Chem 7: 10/07/18 09:30 10/07/18 09:30 Labs: Abnormal Lab Results - Last 24 Hours (Table) 10/06/18 10/06/18 10/06/18 Range/Units 13:49 16:58 20:33 Hct (34.0-46.0) % MCHC (31.0-37.0) g/dL Lymphocytes # (1.0-4.8) k/uL ABG pH 7.27 L (7.35-7.45) ABG pCO2 82 H* (35-45) mmHg ABG pO2 68 L (83-108) mmHg ABG HCO3 37 H (21-25) mmol/L ABG Total CO2 40 H (19-24) mmol/L ABG O2 Saturation 93.4 L (94-97) % Sodium (137-145) mmol/L Chloride (98-107) mmol/L Carbon Dioxide (22-30) mmol/L Glucose (74-99) mg/dL POC Glucose (mg/dL) 194 H 194 H (75-99) mg/dL 10/07/18 10/07/18 10/07/18 Range/Units 06:55 09:30 09:30 Hct 48.6 H (34.0-46.0) % MCHC 30.7 L (31.0-37.0) g/dL Lymphocytes # 0.6 L (1.0-4.8) k/uL ABG pH (7.35-7.45) ABG pCO2 (35-45) mmHg ABG pO2 (83-108) mmHg ABG HCO3 (21-25) mmol/L ABG Total CO2 (19-24) mmol/L ABG O2 Saturation (94-97) % Sodium 135 L (137-145) mmol/L Chloride 90 L (98-107) mmol/L Carbon Dioxide 40 H (22-30) mmol/L Glucose 244 H (74-99) mg/dL POC Glucose (mg/dL) 204 H (75-99) mg/dL 10/07/18 Range/Units 11:42 Hct (34.0-46.0) % MCHC (31.0-37.0) g/dL Lymphocytes # (1.0-4.8) k/uL ABG pH (7.35-7.45) ABG pCO2 (35-45) mmHg ABG pO2 (83-108) mmHg ABG HCO3 (21-25) mmol/L ABG Total CO2 (19-24) mmol/L ABG O2 Saturation (94-97) % Sodium (137-145) mmol/L Chloride (98-107) mmol/L Carbon Dioxide (22-30) mmol/L Glucose (74-99) mg/dL POC Glucose (mg/dL) 198 H (75-99) mg/dL Microbiology - Last 24 Hours (Table) 10/07/18 06:00 Urine Culture - Preliminary Urine,Clean Catch 10/06/18 03:35 Blood Culture - Preliminary Blood No Growth after 24 hours Assessment and Plan Plan: Assessment: #1 Acute hypercapnic respiratory failure secondary to an acute exacerbation of severe chronic obstructive pulmonary disease with FEV1 value 21% of predicted, complicated by influenza A infection. #2 Chronic and ongoing tobacco dependence. #3 Obstructive sleep apnea, not followed up for CPAP placement. #4 Morbid obesity. #5 History of noncompliance. Plan: Continue current medical treatment, same dose IV steroids, Zithromax and Tamiflu, nebulized bronchodilators. Patient is improving, still dyspneic and bronchospastic, not quite back to baseline, BiPAP support as needed, smoking cessation counseling was done. I performed a history & physical examination of the patient and discussed their management with my nurse practitioner, Obdulia Blair. I reviewed the nurse practitioner's note and agree with the documented findings and plan of care. Lung sounds are positive for diminished breath sounds with end expiratory wheezes The findings and the impression was discussed with the patient. I attest to the documentation by the nurse practitioner. Time with Patient: Less than 30
[2018-10-07 17:22] LABS: Glucose,Whole Blood 165 mg/dL (75-99)
--- NOTE | 2018-10-07 18:06 | PN ---
PROGRESS NOTE DATE OF SERVICE: 10/07/2018 This 53-year-old woman who presented with COPD, acute exacerbation, as well as influenza is being closely monitored. No chest pain. No palpitations. No fever. Patient is slightly better today. Patient has acute hypoxic respiratory failure. Dr. Rodriguez is following the patient closely. Past medical history reviewed. REVIEW OF SYSTEMS: CARDIOVASCULAR SYSTEM: No angina, palpitations. RESPIRATORY SYSTEM: As mentioned earlier. GI: As mentioned earlier. : No dysuria or retention. NERVOUS SYSTEM: No numbness, weakness. CURRENT MEDICATIONS: Reviewed. They include: 1. Tylenol p.r.n. 2. [place] 5 mg. 3. DuoNeb q.i.d. and p.r.n. 4. Xanax 0.25 t.i.d. 5. Zithromax 500 mg daily. 6. Pulmicort 1 mg. 7. Perforomist. 8. Heparin 5000 units subcutaneously b.i.d. 9. Solu-Medrol 60 IV q.6. 10.Tamiflu 75 mg b.i.d. 11.Protonix 40 mg daily. PHYSICAL EXAMINATION: Patient is alert, oriented x3. Pulse 115, blood pressure 138/66, respiration 20, temperature 97.2, pulse ox 90% on 4 L. HEENT: Conjunctivae normal. NECK: No jugular venous distention. CARDIOVASCULAR SYSTEM: S1, S2 muffled. RESPIRATORY SYSTEM: Breath sounds diminished at the bases. Bilateral scattered rhonchi and crackles. Expiratory wheezing also present. ABDOMEN: Soft, non-tender. LEGS: No edema. No swelling. NERVOUS SYSTEM: No focal deficit. LABS: WBC 5.9, hemoglobin 14.9. ASSESSMENT: 1. Chronic obstructive pulmonary disease, acute exacerbation, with acute hypoxic hypercapnic respiratory failure with acute purulent tracheobronchitis with acute influenza A. 2. Change in mental status with metabolic encephalopathy from acute hypercarbic respiratory failure. 3. Hyponatremia. 4. Increased random blood sugar. 5. Continued ongoing nicotine dependence. 6. History of stress incontinence. 7. Obstructive sleep apnea. 8. History of cholecystectomy. 9. History of cervical surgery. 10.History of motion sickness. RECOMMENDATIONS AND DISCUSSION: I recommend to continue current medications, continue with the monitoring, symptomatic treatment. Continue with antibiotics. Continue the bronchodilators. Continue with IV steroids. Closely follow with Dr. Rodriguez. Prognosis guarded because of multiple complex medical issues. Continue with antivirals. Further recommendations to follow. MMODL / IJN: [id number] /
[2018-10-07 23:10] LABS: Glucose,Whole Blood 200 mg/dL (75-99)
[2018-10-08] MEDS: methylPREDNISolone SOD SUCCI 125 MG/2 ML VIAL IV SCH ×3 (05:39→16:59)
[2018-10-08] MEDS: FORMOTEROL FUMARATE 20 MCG/2 ML NEBU INHALATION SCH ×2 (07:05→19:22)
[2018-10-08] MEDS: BUDESONIDE 1 MG/2 ML NEBU INHALATION SCH ×2 (07:05→19:22)
[2018-10-08] MEDS: IPRATROPIUM-ALBUTEROL 3 ML NEB INHALATION SCH ×4 (07:05→19:22)
[2018-10-08 07:07] LABS: Glucose,Whole Blood 164 mg/dL (75-99)
[2018-10-08] MEDS: AZITHROMYCIN 500 MG TAB PO SCH (07:54)
[2018-10-08] MEDS: INSULIN ASPART (NovoLOG) 100 UNIT/ML VIAL SQ SCH ×4 (07:54→21:43)
[2018-10-08] MEDS: OSELTAMIVIR 75 MG CAP PO SCH ×2 (07:54→21:43)
[2018-10-08] MEDS: HEPARIN SODIUM,PORCINE 5,000 UNIT/ML 1 ML VIAL SQ SCH ×2 (07:54→21:43)
[2018-10-08] MEDS: PANTOPRAZOLE 40 MG/10 ML VIAL IVP SCH (07:54)
[2018-10-08 09:48] LABS: Basophils % (A) 0 %; Eosinophils % (A) 0 %; HCT 48.4 % (34.0-46.0); HGB 14.4 gm/dL (11.4-16.0); Hypochromasia Moderate; Lymphocytes # (A) 0.6 k/uL (1.0-4.8); Lymphocytes % (A) 8 %; MCH 27.9 pg (25.0-35.0); MCHC 29.8 g/dL (31.0-37.0); MCV 93.7 fL (80.0-100.0); Mean Platelet Volume 6.9; Monocytes # (A) 0.3 k/uL (0-1.0); Monocytes % (A) 4 %; Neutrophils # (A) 6.7 k/uL (1.3-7.7); Neutrophils % (A) 87 %; Platelet Count 183 k/uL (150-450); RBC 5.16 m/uL (3.80-5.40); RDW 14.5 % (11.5-15.5); WBC 7.7 k/uL (3.8-10.6)
[2018-10-08 10:19] LABS: Anion Gap 5 mmol/L; Blood Urea Nitrogen 15 mg/dL (7-17); Calcium 8.8 mg/dL (8.4-10.2); Carbon Dioxide 38 mmol/L (22-30); Chloride 92 mmol/L (98-107); Glucose 263 mg/dL (74-99); Potassium 4.8 mmol/L (3.5-5.1); Sodium 135 mmol/L (137-145)
[2018-10-08 12:30] LABS: Glucose,Whole Blood 158 mg/dL (75-99)
--- NOTE | 2018-10-08 13:59 | P.PN ---
Subjective Progress Note Date: 10/08/18 Principal diagnosis: Acute hypercapnic respiratory failure secondary to acute exacerbation of severe chronic obstructive pulmonary disease triggered by influenza A infection This is a 53-year-old female patient who follows with Dr. Sellers as her primary care physician. She has a history of severe Gold stage IV chronic obstructive pulmonary disease with an FEV1 value 21% of predicted. She also has continued and ongoing tobacco dependence. She is treated with Spiriva and albuterol in the outpatient setting. History of noncompliance. She also has obstructive sleep apnea diagnosed by Dr. Lopez in June 2018. AHI 12 with increased to 20 while lying supine. She also had severe nocturnal desaturations. The patient states she did not follow-up and receive a CPAP or any other treatment in that regard. She presented here to the emergency room early this morning wi th complaints of increasing shortness of breath for the past 2-3 days. She was admitted for influenza A and COPD exacerbation. She was seen this morning in consultation on the regular medical floor. She was somewhat obtunded and difficult to arouse but once awake she was denying any worsening shortness of breath cough or congestion. She was maintaining O2 saturations in the low 90s on 2 L/m per nasal cannula. Arterial blood gases were obtained and she was found to be significantly hypercapnic with this pCO2 of 89, pO2 of 71 and a pH of 7.22. She was immediately placed on BiPAP 14/6 and 35% FiO2. She is continuing to maintain good O2 saturations in the 90s. Chest x-ray showed no acute pulmonary process. She is initiated on DuoNeb inhalations 4 times a day and when necessary, Pulmicort and Perforomist inhalations twice a day, azithromycin and IV Solu-Medrol. She is also started on Tamiflu. On 10/07/2018 patient seen in follow-up on medical surgical floor. She sits up on the edge of the bed, in no acute distress, still dyspneic with exertion, lung sounds are diminished with end expiratory wheezes, she is currently on 4 L of oxygen with a pulse ox of 92%, afebrile, she did wear the BiPAP support last night, today's labs have been reviewed, white blood cell, is 5.9, hemoglobin is 14.9, sodium is 135, potassium is 4.9, chloride is 90, CO2 is 40, BUN is 11, creatinine is 0.62. Blood culture showed no growth, urine culture is pending. Patient remains on nebulized bronchodilators, she is on Zithromax, and Tamiflu, and IV Solu-Medrol 60 mg every 6 hours. Improving. The patient is seen today 10/08/2018 in follow-up on the regular medical floor. She is currently sitting up at the bedside. Awake and alert in no acute distress. She is breathing easier today. She does get still quite dyspneic on minimal exertion while up to the bathroom and back. She is currently maintaining good O2 saturations in the 90s on 4 L/m per nasal cannula. She's afebrile. Hemodynamically stable. Her culture preliminary for gram-negative bacilli. Blood and sputum cultures pending. White count 7.7. Hemoglobin 14.4. Creatinine 0.63. She remains on DuoNeb inhalations, Pulmicort and Perforomist inhalations, IV Solu-Medrol, Tamiflu and azithromycin. Objective - Vital Signs Vital signs: Vital Signs Temp 97.5 F L 10/08/18 05:05 Pulse 98 10/08/18 07:24 Resp 20 10/08/18 05:05 BP 126/77 10/08/18 05:05 Pulse Ox 96 10/08/18 05:05 Intake & Output 10/07/18 10/08/18 10/08/18 18:59 06:59 18:59 Intake Total 240 400 240 Output Total 2 Balance 240 398 240 Intake: Oral 240 400 240 Output: Urine 2 Other: Voiding Method Toilet # Voids 2 1 1 # Bowel Movements 0 0 - Exam GENERAL EXAM: Alert, pleasant, 53-year-old white female patient, on 4 L of oxygen with pulse ox of 96%, comfortable in no apparent distress. HEAD: Normocephalic/atraumatic. EYES: Normal reaction of pupils, equal size. Conjunctiva pink, sclera white. NOSE: Clear with pink turbinates. THROAT: No erythema or exudates. NECK: No masses, no JVD, no thyroid enlargement, no adenopathy. CHEST: No chest wall deformity. Symmetrical expansion. LUNGS: Equal air entry with diminished breath sounds with expiratory wheezes CVS: Regular rate and rhythm, normal S1 and S2, no gallops, no murmurs, no rubs ABDOMEN: Soft, nontender. No hepatosplenomegaly, normal bowel sounds, no guarding or rigidity. EXTREMITIES: No clubbing, no edema, no cyanosis, 2+ pulses and upper and lower extremities. MUSCULOSKELETAL: Muscle strength and tone normal. SPINE: No scoliosis or deformity SKIN: No rashes CENTRAL NERVOUS SYSTEM: Alert and oriented -3. No focal deficits, tone is normal in all 4 extremities. PSYCHIATRIC: Alert and oriented -3. Appropriate affect. Intact judgment and insight. - Labs CBC & Chem 7: 10/08/18 09:35 10/08/18 09:35 Labs: Abnormal Lab Results - Last 24 Hours (Table) 10/07/18 10/07/18 10/08/18 Range/Units 17:14 20:38 06:55 Hct (34.0-46.0) % MCHC (31.0-37.0) g/dL Lymphocytes # (1.0-4.8) k/uL Sodium (137-145) mmol/L Chloride (98-107) mmol/L Carbon Dioxide (22-30) mmol/L Glucose (74-99) mg/dL POC Glucose (mg/dL) 165 H 200 H 164 H (75-99) mg/dL 10/08/18 10/08/18 10/08/18 Range/Units 09:35 09:35 12:12 Hct 48.4 H (34.0-46.0) % MCHC 29.8 L (31.0-37.0) g/dL Lymphocytes # 0.6 L (1.0-4.8) k/uL Sodium 135 L (137-145) mmol/L Chloride 92 L (98-107) mmol/L Carbon Dioxide 38 H (22-30) mmol/L Glucose 263 H (74-99) mg/dL POC Glucose (mg/dL) 158 H (75-99) mg/dL Microbiology - Last 24 Hours (Table) 10/07/18 06:00 Urine Culture - Preliminary Urine,Clean Catch Gram Neg Bacilli 10/06/18 03:35 Blood Culture - Preliminary Blood No Growth after 48 hours 10/07/18 11:45 Gram Stain - Preliminary Sputum Assessment and Plan Assessment: Impression: #1 Acute hypercapnic respiratory failure secondary to an acute exacerbation of severe chronic obstructive pulmonary disease with FEV1 value 21% of predicted, complicated by influenza A infection. #2 Chronic and ongoing tobacco dependence. #3 Obstructive sleep apnea, not followed up for CPAP placement. #4 Morbid obesity. #5 History of noncompliance. Plan: The patient was seen and evaluated by Dr. Rodriguez. We'll continue her current treatment plan. Increase her activity as tolerated. We will continue to follow and make further recommendations based on her clinical status. I, the cosigning physician, performed a history & physical examination of the patient. Lungs sounds with bilateral wheezing, diminished. Maintaining good O2 saturations in the 90s on 4 L/m per nasal cannula. I discussed the assessment and plan of care with my nurse practitioner, Carmella Cabrera. I attest to the above consultation as dictated by her.
[2018-10-08 17:08] LABS: Glucose,Whole Blood 144 mg/dL (75-99)
--- NOTE | 2018-10-08 19:30 | PN ---
PROGRESS NOTE DATE OF SERVICE: 10/08/2018 This 53-year-old woman who was admitted with COPD acute exacerbation as well as change in mental status, is being closely monitored. No chest pain. No palpitations. No fever. EXAM: Alert and oriented x3. Pulse 95, blood pressure 140/52, respiration 20, temperature 97.1, pulse ox 97% on 4 L. HEENT is conjunctivae normal. NECK: No jugular venous distention. CARDIOVASCULAR: S1, S2. RESPIRATORY: Breath sounds diminished in the bases. Bilateral scattered rhonchi and crackles. Abdomen soft obese. Legs are no edema. No swelling. central nervous system: No focal deficits. LABORATORY DATA: WBC 11.6, hemoglobin 14.4. Sodium 135. ASSESSMENT: 1. Chronic obstructive pulmonary disease acute exacerbation with acute hypoxic respiratory failure as well as acute purulent tracheobronchitis, acute influenza A. 2. Change in mental status with acute metabolic encephalopathy secondary from acute hypercarbic respiratory failure status post BiPAP. 3. Hyponatremia. 4. Increased random blood sugar. 5. Continued ongoing nicotine dependence. 6. History of stress incontinence. 7. History of obstructive sleep apnea. 8. History of cholecystectomy. 9. History of a cervical surgery. 10.History of motion sickness. RECOMMENDATIONS AND DISCUSSION: Recommend to continue current medications. Continue with monitoring and symptomatic treatment. Otherwise, continue with antibiotics. Otherwise I will recommend to continue with the Tamiflu. Continue with the rest of the medication. Continue bronchodilators. Closely follow with Pulmonary. Increase ambulation. Guarded prognosis. Further recommendations to follow. MMODL / IJN: [id number] /
[2018-10-08 21:09] LABS: Glucose,Whole Blood 269 mg/dL (75-99)
[2018-10-08 21:24] VITALS: RESP 18
[2018-10-09] MEDS: methylPREDNISolone SOD SUCCI 125 MG/2 ML VIAL IV SCH ×3 (00:55→12:50)
[2018-10-09 05:16] VITALS: BP 121/66; TEMP 96.3
[2018-10-09 07:05] LABS: Glucose,Whole Blood 176 mg/dL (75-99)
[2018-10-09] MEDS: PANTOPRAZOLE 40 MG/10 ML VIAL IVP SCH (07:10)
[2018-10-09] MEDS: HEPARIN SODIUM,PORCINE 5,000 UNIT/ML 1 ML VIAL SQ SCH (07:11)
[2018-10-09] MEDS: OSELTAMIVIR 75 MG CAP PO SCH (07:11)
[2018-10-09] MEDS: INSULIN ASPART (NovoLOG) 100 UNIT/ML VIAL SQ SCH ×2 (07:11→12:50)
[2018-10-09] MEDS: BUDESONIDE 1 MG/2 ML NEBU INHALATION SCH (08:51)
[2018-10-09] MEDS: IPRATROPIUM-ALBUTEROL 3 ML NEB INHALATION SCH ×2 (08:51→11:54)
[2018-10-09] MEDS: FORMOTEROL FUMARATE 20 MCG/2 ML NEBU INHALATION SCH (08:51)
[2018-10-09 09:43] LABS: Basophils % (A) 1 %; Eosinophils % (A) 0 %; HCT 49.5 % (34.0-46.0); HGB 15.4 gm/dL (11.4-16.0); Hypochromasia Slight; Lymphocytes # (A) 0.6 k/uL (1.0-4.8); Lymphocytes % (A) 10 %; MCH 28.5 pg (25.0-35.0); MCHC 31.1 g/dL (31.0-37.0); MCV 91.7 fL (80.0-100.0); Mean Platelet Volume 6.8; Monocytes # (A) 0.4 k/uL (0-1.0); Monocytes % (A) 5 %; Neutrophils # (A) 5.3 k/uL (1.3-7.7); Neutrophils % (A) 82 %; Platelet Count 200 k/uL (150-450); RBC 5.39 m/uL (3.80-5.40); RDW 14.4 % (11.5-15.5); WBC 6.5 k/uL (3.8-10.6)
[2018-10-09] MEDS: AZITHROMYCIN 500 MG TAB PO SCH (09:49)
[2018-10-09 10:08] LABS: Blood Urea Nitrogen 15 mg/dL (7-17); Calcium 8.9 mg/dL (8.4-10.2); Chloride 89 mmol/L (98-107); Glucose 161 mg/dL (74-99); Potassium 4.8 mmol/L (3.5-5.1); Sodium 136 mmol/L (137-145)
[2018-10-09 10:15] LABS: Anion Gap 4 mmol/L
[2018-10-09 10:52] LABS: Carbon Dioxide 43 mmol/L (22-30)
[2018-10-09 11:28] LABS: Glucose,Whole Blood 183 mg/dL (75-99)
[2018-10-09 11:58] VITALS: PULSE 108
--- NOTE | 2018-10-09 11:58 | P.PN ---
Subjective Progress Note Date: 10/09/18 Principal diagnosis: Acute hypercapnic respiratory failure secondary to acute exacerbation of severe chronic obstructive pulmonary disease triggered by influenza A infection This is a 53-year-old female patient who follows with Dr. Sellers as her primary care physician. She has a history of severe Gold stage IV chronic obstructive pulmonary disease with an FEV1 value 21% of predicted. She also has continued and ongoing tobacco dependence. She is treated with Spiriva and albuterol in the outpatient setting. History of noncompliance. She also has obstructive sleep apnea diagnosed by Dr. Lopez in June 2018. AHI 12 with increased to 20 while lying supine. She also had severe nocturnal desaturations. The patient states she did not follow-up and receive a CPAP or any other treatment in that regard. She presented here to the emergency room early this morning wi th complaints of increasing shortness of breath for the past 2-3 days. She was admitted for influenza A and COPD exacerbation. She was seen this morning in consultation on the regular medical floor. She was somewhat obtunded and difficult to arouse but once awake she was denying any worsening shortness of breath cough or congestion. She was maintaining O2 saturations in the low 90s on 2 L/m per nasal cannula. Arterial blood gases were obtained and she was found to be significantly hypercapnic with this pCO2 of 89, pO2 of 71 and a pH of 7.22. She was immediately placed on BiPAP 14/6 and 35% FiO2. She is continuing to maintain good O2 saturations in the 90s. Chest x-ray showed no acute pulmonary process. She is initiated on DuoNeb inhalations 4 times a day and when necessary, Pulmicort and Perforomist inhalations twice a day, azithromycin and IV Solu-Medrol. She is also started on Tamiflu. On 10/07/2018 patient seen in follow-up on medical surgical floor. She sits up on the edge of the bed, in no acute distress, still dyspneic with exertion, lung sounds are diminished with end expiratory wheezes, she is currently on 4 L of oxygen with a pulse ox of 92%, afebrile, she did wear the BiPAP support last night, today's labs have been reviewed, white blood cell, is 5.9, hemoglobin is 14.9, sodium is 135, potassium is 4.9, chloride is 90, CO2 is 40, BUN is 11, creatinine is 0.62. Blood culture showed no growth, urine culture is pending. Patient remains on nebulized bronchodilators, she is on Zithromax, and Tamiflu, and IV Solu-Medrol 60 mg every 6 hours. Improving. On 10/09/2018 patient seen in follow-up on medical surgical floor. Awake and alert, in no acute distress. Remains on 4 L of oxygen and her pulse ox is around 91-92%, she is afebrile, slightly tachycardic, with a heart rate up to 107 BPM, she states her breathing is improving, she is much less bronchospastic and congested on today's exam, only minimal end expiratory wheezing on today's exam. She does get dyspneic with exertion, but recovers well. Today's labs have been reviewed, white blood cell count of 6.5, hemoglobin is 15.4, sodium is 136, potassium is 4.8, chloride is 89, CO2 is 43, BUN is 15 and creatinine 0.53. Urine culture showed E. coli, and sputum culture with Zulema only. Patient is complaining course of Tamiflu, she is on Zithromax for empiric antibiotic coverage, Objective - Vital Signs Vital signs: Vital Signs Temp 96.3 F L 10/09/18 05:15 Pulse 112 H 10/09/18 11:45 Resp 18 10/09/18 05:15 BP 121/66 10/09/18 05:15 Pulse Ox 86 L 10/09/18 11:45 Intake & Output 10/08/18 10/09/18 10/09/18 18:59 06:59 18:59 Intake Total 480 240 Balance 480 240 Intake: Oral 480 240 Other: Voiding Method Toilet Toilet # Voids 1 2 # Bowel Movements 0 - Exam GENERAL EXAM: Alert, pleasant, 53-year-old white female patient, on 4 L of oxygen with pulse ox of 92%, comfortable in no apparent distress. HEAD: Normocephalic/atraumatic. EYES: Normal reaction of pupils, equal size. Conjunctiva pink, sclera white. NOSE: Clear with pink turbinates. THROAT: No erythema or exudates. NECK: No masses, no JVD, no thyroid enlargement, no adenopathy. CHEST: No chest wall deformity. Symmetrical expansion. LUNGS: Equal air entry with diminished breath sounds with minimal expiratory wheezes CVS: Regular rate and rhythm, normal S1 and S2, no gallops, no murmurs, no rubs ABDOMEN: Soft, nontender. No hepatosplenomegaly, normal bowel sounds, no guarding or rigidity. EXTREMITIES: No clubbing, no edema, no cyanosis, 2+ pulses and upper and lower extremities. MUSCULOSKELETAL: Muscle strength and tone normal. SPINE: No scoliosis or deformity SKIN: No rashes CENTRAL NERVOUS SYSTEM: Alert and oriented -3. No focal deficits, tone is normal in all 4 extremities. PSYCHIATRIC: Alert and oriented -3. Appropriate affect. Intact judgment and insight. - Labs CBC & Chem 7: 10/09/18 09:12 10/09/18 09:12 Labs: Abnormal Lab Results - Last 24 Hours (Table) 10/08/18 10/08/18 10/08/18 Range/Units 12:12 16:58 21:07 Hct (34.0-46.0) % Lymphocytes # (1.0-4.8) k/uL Sodium (137-145) mmol/L Chloride (98-107) mmol/L Carbon Dioxide (22-30) mmol/L Glucose (74-99) mg/dL POC Glucose (mg/dL) 158 H 144 H 269 H (75-99) mg/dL 10/09/18 10/09/18 10/09/18 Range/Units 06:55 09:12 09:12 Hct 49.5 H (34.0-46.0) % Lymphocytes # 0.6 L (1.0-4.8) k/uL Sodium 136 L (137-145) mmol/L Chloride 89 L (98-107) mmol/L Carbon Dioxide 43 H* (22-30) mmol/L Glucose 161 H (74-99) mg/dL POC Glucose (mg/dL) 176 H (75-99) mg/dL 10/09/18 Range/Units 11:25 Hct (34.0-46.0) % Lymphocytes # (1.0-4.8) k/uL Sodium (137-145) mmol/L Chloride (98-107) mmol/L Carbon Dioxide (22-30) mmol/L Glucose (74-99) mg/dL POC Glucose (mg/dL) 183 H (75-99) mg/dL Microbiology - Last 24 Hours (Table) 10/07/18 11:45 Gram Stain - Final Sputum Sputum Culture - Final Zulema albicans 10/07/18 06:00 Urine Culture - Final Urine,Clean Catch Escherichia coli 10/06/18 03:35 Blood Culture - Preliminary Blood No Growth after 72 hours Assessment and Plan Plan: Assessment: #1 Acute hypercapnic respiratory failure secondary to an acute exacerbation of severe chronic obstructive pulmonary disease with FEV1 value 21% of predicted, complicated by influenza A infection. #2 Chronic and ongoing tobacco dependence. #3 Obstructive sleep apnea, not followed up for CPAP placement. #4 Morbid obesity. #5 History of noncompliance. #6 urinary tract infection with urine cultures positive for E. coli Plan: Patient continues to improve, no worsening dyspnea, less Reynaldo spastic and dyspneic. Does qualify for home oxygen, from pulmonary perspective patient could be considered for discharge home today on home oxygen between 2-4 L. She can finish her outpatient course of Tamiflu, she is going home on oral course of Ceftin and Zithromax, prednisone taper, she can resume Breo-Ellipta, Spiriva, she has nebulized treatments at home I performed a history & physical examination of the patient and discussed their management with my nurse practitioner, Obdulia Blair. I reviewed the nurse practitioner's note and agree with the documented findings and plan of care. Lung sounds are positive for diminished breath sounds with end expiratory wheezes The findings and the impression was discussed with the patient. I attest to the documentation by the nurse practitioner. Time with Patient: Less than 30
--- NOTE | 2018-10-09 17:16 | PN ---
PROGRESS NOTE DATE OF SERVICE: 10/09/2018 This 53-year-old woman who was admitted with COPD, acute exacerbation, and change in mental status is being closely monitored. The patient also has acute influenza A. Pulmonary is following the patient closely. The patient is still short of breath and weak, but slightly better compared to yesterday. On exam, alert and oriented x3. Pulse 106, blood pressure 108/55, respiratory rate 20, temperature 98 degrees, pulse ox 94% on room air. HEENT: Conjunctivae normal. NECK: No jugular venous distention. CARDIOVASCULAR SYSTEM: S1, S2 muffled. RESPIRATORY SYSTEM: Breath sounds diminished at the bases. A few scattered rhonchi and crackles. Expiratory wheezing also present. ABDOMEN: Soft. Non-tender. LEGS: No edema. No swelling. NERVOUS SYSTEM: No focal deficit. LABS: WBC ntd, hemoglobin 9.6, sodium 140, potassium 4.9. Glucose noted. ASSESSMENT: 1. Chronic obstructive pulmonary disease, acute exacerbation, with acute hypoxic respiratory failure as well as acute purulent tracheobronchitis with acute influenza A. 2. Change in mental status with acute metabolic encephalopathy secondary from acute hypercapnic respiratory failure, status post BiPAP. 3. Hyponatremia. 4. Increased random blood sugar. 5. Continued ongoing nicotine dependence. 6. History of stress incontinence. 7. History of obstructive sleep apnea. 8. History of cholecystectomy. 9. History of cervical surgery. 10.History of motion sickness. RECOMMENDATIONS AND DISCUSSION: I recommend to continue current medications, continue with the monitoring, symptomatic treatment. Otherwise at this time I recommend following closely with Pulmonary. Taper the steroids further to p.o. steroids. Blood sugar is slightly elevated. Will continue to monitor. Hemoglobin A1c is still not available. Further recommendations to follow. MMODL / IJN: [id number] / MTDD
--- NOTE | 2018-10-09 22:43 | DS ---
DISCHARGE SUMMARY DATE OF SERVICE: 10/09/2018. FINAL DIAGNOSES: 1. Chronic obstructive pulmonary disease exacerbation with acute hypoxic respiratory failure as well as acute purulent tracheobronchitis acute influenza. 2. Change in mental status acute metabolic acidosis secondary to acute hypoxic hypercarbic respiratory failure status post BiPAP. 3. Hyponatremia. 4. Increased random blood sugar. 5. Continued ongoing nicotine dependence. 6. History of stress incontinence. 7. History of obstructive sleep apnea. 8. History of cholecystectomy. 9. History of cervical surgery. 10.History of motion sickness. DISCHARGE DISPOSITION: The patient is being discharged in stable condition with guarded prognosis. Discharge cleared by Pulmonary, Dr. Rodriguez. HISTORY OF PRESENT ILLNESS: This 53-year-old woman with a past medical history of multiple medical problems, including COPD acute exacerbation also tracheobronchitis and acute hypoxic respiratory failure, treated with antibiotics and bronchodilators, steroids. Patient improved significantly. The patient is also followed by Dr. Sellers in the outpatient setting. Influenza positive. The patient was given antivirals also. EXAM: Alert oriented x3. Vitals are stable. Cardiovascular: S1, S2 normal. Respirations: A few scattered rhonchi and crackles. Abdomen soft. Central nervous system: No focal deficits. DISCHARGE ADVICE AND MEDICATIONS: 1. Diet is cardiac diet. 2. Activity limited until followup. 3. Follow up with Dr. Sellers in 2-3 days. 4. Follow up with Dr. Rodriguez as recommended. MEDICATIONS: 1. Breo Ellipta 125 mg 1 puff daily. 2. Spiriva 1 puff daily. 3. Ventolin HFA 2 puffs q.6h p.r.n. 4. Ceftin 500 mg p.o. daily for 3 days. 5. DuoNeb q.i.d. and p.r.n. 6. Prednisone 40 mg daily for 3 days, 30 for 3 days 20 for 3 days, 10 for three days. Then stop. 7. Tamiflu 75 mg p.o. b.i.d. for 3 more days. 8. Zithromax 500 mg p.o. daily. Once again, the patient is being discharged in stable condition with guarded prognosis. MMODL / IJN: [id number] /
== END 2018-10-09 14:53 | disposition home or self-care (01) | DRG 189 ==
LOC: EC 03:13 → 4MS4W 05:19
PROVIDERS: ADMIT Internal Medicine; ATTEND Internal Medicine
PROC: 5A09357 Assistance with Respiratory Ventilation, Less than 24 Consecutive Hours, Continuous Positive Airway Pressure (ICD-10-PCS; principal; 2018-10-06)
DX: J96.01 Acute respiratory failure with hypoxia (principal); G93.41 Metabolic encephalopathy; E87.2 Acidosis; J44.1 Chronic obstructive pulmonary disease with (acute) exacerbation; E87.1 Hypo-osmolality and hyponatremia; N39.0 Urinary tract infection, site not specified; E66.01 Morbid (severe) obesity due to excess calories; J96.02 Acute respiratory failure with hypercapnia; J10.1 Influenza due to other identified influenza virus with other respiratory manifestations; N39.3 Stress incontinence (female) (male); G47.33 Obstructive sleep apnea (adult) (pediatric); F17.210 Nicotine dependence, cigarettes, uncomplicated; B96.20 Unspecified Escherichia coli [E. coli] as the cause of diseases classified elsewhere; R00.0 Tachycardia, unspecified; Z68.36 Body mass index [BMI] 36.0-36.9, adult; Z91.19 Patient's noncompliance with other medical treatment and regimen; Z79.899 Other long term (current) drug therapy; Z90.49 Acquired absence of other specified parts of digestive tract; Z98.51 Tubal ligation status; Z82.49 Family history of ischemic heart disease and other diseases of the circulatory system
CPT/HCPCS: 36415; 36600; 71046; 80048; 80053; 82805; 83880; 84484; 85025; 85379; 85610; 85730; 87040; 87070; 87077; 87086; 87186; 87205; 87502; 93005; 94640; 94660; 94760; 99285

== ENCOUNTER → 2019-09-26 | Outpatient (CLI) | payer OTHER ==
--- NOTE | 2019-09-26 11:24 | XR ---
EXAMINATION TYPE: XR Hip Bilateral Complete DATE OF EXAM: 09/26/2019 CLINICAL HISTORY: Bilateral hip pain TECHNIQUE: AP and frogleg views of the bilateral hips were obtained. COMPARISON: None. FINDINGS: There is no acute fracture/dislocation evident in either hip. The joint space in the bila teral hips appear within normal limits. The overlying soft tissue appears unremarkable. IMPRESSION: There is no acute fracture or dislocation in either hip. No significant radiographic seq uela of arthropathy bilaterally.
--- NOTE | 2019-09-26 11:55 | XR ---
EXAMINATION TYPE: XR lumbosacral spine min 4V DATE OF EXAM: 09/26/2019 CLINICAL HISTORY: Low back pain TECHNIQUE: Frontal, lateral, and oblique images of the lumbar spine are obtained. COMPARISON: Chest x-ray dated 02/19/2018 and 11/10/2016 FINDINGS: There are 5 lumbar type vertebral bodies identified. Minimal dextroscoliosis of the lumbar spine. Moderate degenerative change of the lumbar spine is seen as multilevel facet arthropathy. Com pression deformity is present of the T12 vertebral body that is age indeterminant. There is diffuse o sseous demineralization. Extensive atherosclerosis of the abdominal aorta. Pars interarticularis defe cts are not identified on the oblique images. Cholecystectomy clips are seen. IMPRESSION: 1. No acute fracture or dislocation is seen in the lumbar spine. However there is a mild compression deformity of the T12 vertebral body that is age-indeterminate. This is not clearly seen on any prior chest x-rays. Correlate with point tenderness to determine the need for MRI to evaluate for bone kaiden ow edema. 2. Moderate multilevel degenerative disc disease of the lumbar spine.
== END | disposition home or self-care (01) ==
LOC: RADXRMAIN 10:42
PROVIDERS: ATTEND Internal Medicine
DX: M51.36 Other intervertebral disc degeneration, lumbar region (principal); M25.559 Pain in unspecified hip
CPT/HCPCS: 72110; 73521

== ENCOUNTER → 2021-06-09 | Outpatient (CLI) | payer MEDICARE ==
--- NOTE | 2021-06-10 11:01 | ECHOF ---
Referral Reason:R60.0 Localized edema MEASUREMENTS -------- HEIGHT: 165.1 cm WEIGHT: 102.5 kg BP: 120/58 RVIDd: 3.1 cm (< 3.3) IVSd: 0.9 cm (0.6 - 1.1) LVIDd: 4.4 cm (3.9 - 5.3) LVPWd: 1.1 cm (0.6 - 1.1) IVSs: 1.7 cm LVIDs: 2.8 cm LVPWs: 1.5 cm LA Diam: 2.6 cm (2.7 - 3.8) LAESV Index (A-L): 19.61 ml/m Ao Diam: 2.8 cm (2.0 - 3.7) AV Cusp: 1.7 cm (1.5 - 2.6) MV EXCURSION: 18.048 mm (> 18.000) MV EF SLOPE: 44 mm/s (70 - 150) EPSS: 0.6 cm MV E Gomez: 1.15 m/s MV DecT: 244 ms MV A Gomez: 1.09 m/s MV E/A Ratio: 1.06 FINDINGS -------- Sinus rhythm. This was a technically difficult study with suboptimal parasternal views. The left ventricular size is normal. There is borderline concentric left ventricular hypertrophy. Overall left ventricular systolic function is normal with, an EF between 55 - 60 %. The right ventricle is normal in size. Normal LA size by volume 22+/-6 ml/m2. The right atrium is normal in size. Interatrial and interventricular septum intact. The aortic valve is trileaflet, and appears structurally normal. No aortic stenosis or regurgitation. Mild mitral annular calcification present. The tricuspid valve appears structurally normal. There is no pulmonic regurgitation present. The aortic root size is normal. Normal inferior vena cava with normal inspiratory collapse consistent with estimated right atrial pre ssure of 5 mmHg. There is no pericardial effusion. CONCLUSIONS -------- 1. The left ventricular size is normal. 2. There is borderline concentric left ventricular hypertrophy. 3. Overall left ventricular systolic function is normal with, an EF between 55 - 60 %. 4. The aortic valve is trileaflet, and appears structurally normal. No aortic stenosis or regurgitati on. 5. Mild mitral annular calcification present. 6. The aortic root size is normal. 7. There is no pericardial effusion. FORESTRY CONTRACTOR: Arlene Shearer RDCS
== END | disposition home or self-care (01) ==
LOC: RADECHMAIN 14:53
PROVIDERS: ATTEND Internal Medicine Critical Care Medicine
DX: I05.8 Other rheumatic mitral valve diseases (principal)
CPT/HCPCS: 93306

== ENCOUNTER 2021-07-04 18:58 | Inpatient (IN) | payer MEDICARE, OTHER ==
[2021-07-04] MEDS ORDERED: SUCCINYLCHOLINE CHLORIDE VIAL 200 MG/10 ML VIAL IV STA (19:13)
[2021-07-04] MEDS ORDERED: MIDAZOLAM 1 MG/ML 5 ML VIAL IV STA (19:13)
[2021-07-04] MEDS ORDERED: IPRATROPIUM 0.5 MG/2.5 ML NEBU INHALATION STA (19:16)
[2021-07-04] MEDS ORDERED: ALBUTEROL NEBULIZED 2.5 MG/3 ML INHALATION STA (19:16)
--- NOTE | 2021-07-04 19:23 | ED ---
General Adult HPI - General Chief complaint: Shortness of Breath Stated complaint: CHARLENE Time Seen by Provider: 07/04/21 18:58 Source: patient, EMS, RN notes reviewed, old records reviewed Mode of arrival: EMS Limitations: no limitations - History of Present Illness Initial comments: This a 56-year-old female presents emergency department with past medical history significant for COPD. According to EMS the patient was having difficulty breathing. Of hours when they were called. When he arrived to the scene she was responsible however the patient nonrebreather and gave her a couple breathing treatments and she started to respond to them and talking in short sentences. Patient pulse ox was 97% and was looking better. EMS states once they rolled into the emergency department she seemed to take a turn for the worst in her breathing became much more labored she became more unresponsive until she was completely unresponsive and this is the time I entered the room. At this point tenderness no further history - Related Data Home Medications Medication Instructions Recorded Confirmed Albuterol Inhaler (Mhu) [Ventolin 2 puff INHALATION RT-Q6H PRN 09/13/16 10/06/18 Hfa Inhaler (Mhu)] Tiotropium [place] [Spiriva] 1 cap INHALATION RT-DAILY 11/06/16 10/06/18 Fluticasone/Vilanterol [Breo 1 puff INHALATION RT-DAILY 10/06/18 10/06/18 Ellipta 100-25 Mcg Inhaler] Previous Rx's Medication Instructions Recorded Azithromycin [Zithromax] 500 mg PO DAILY #5 tab 10/09/18 Cefuroxime Axetil [Ceftin] 500 mg PO BID 3 Days #6 tab 10/09/18 Ipratropium-Albuterol Nebulize 3 ml INHALATION RT-QID ampul.neb 10/09/18 [Duoneb 0.5 mg-3 mg/3 ml Soln] Oseltamivir [Tamiflu] 75 mg PO Q12HR #6 cap 10/09/18 predniSONE 10 mg PO DIRECTED #30 tab 10/09/18 Allergies Allergy/AdvReac Type Severity Reaction Status Date / Time No Known Allergies Allergy Verified 10/06/18 11:04 Review of Systems ROS Statement: Those systems with pertinent positive or pertinent negative responses have been documented in the HPI. ROS Other: All systems not noted in ROS Statement are negative. Past Medical History Past Medical History: COPD Additional Past Medical History / Comment(s): STRESS URINARY INCONTINENCE. MINIMAL LUNG FUNCTION. SLEEP APNEA (DOES NOT USE CPAP) History of Any Multi-Drug Resistant Organisms: None Reported Past Surgical History: Cholecystectomy, Tonsillectomy, Tubal Ligation Additional Past Surgical History / Comment(s): CERVICAL SURGERY, CHEST TUBE Past Anesthesia/Blood Transfusion Reactions: Motion Sickness Past Psychological History: No Psychological Hx Reported Past Alcohol Use History: None Reported - Past Family History Sister(s) Family Medical History: Deep Vein Thrombosis (DVT), Pulmonary Embolus Brother(s) Family Medical History: Deep Vein Thrombosis (DVT) General Exam - General Exam Comments Initial Comments: GENERAL: Patient is well-developed and well-nourished. Patient is nontoxic and well- hydrated and is in severe distress. ENT: Neck is soft and supple. No significant lymphadenopathy is noted. Oropharynx is clear. Moist mucous membranes. Neck has full range of motion without eliciting any pain. EYES: The sclera were anicteric and conjunctiva were pink and moist. Extraocular movements were intact and pupils were equal round and reactive to light. Eyelids were unremarkable. PULMONARY: Patient's breath sounds are extremely diminished. CARDIOVASCULAR: There is a regular rate and rhythm without any murmurs gallops or rubs. ABDOMEN: Soft and nontender with normal bowel sounds. SKIN: Skin is clear with no lesions or rashes and otherwise unremarkable. NEUROLOGIC: Patient is unresponsive. MUSCULOSKELETAL: No lower extremity swelling or edema. No calf tenderness. LYMPHATICS: No significant lymphadenopathy is noted PSYCHIATRIC: Unable to assess she Limitations: no limitations Course Vital Signs 07/04/21 07/04/21 18:59 19:25 Temperature 98.1 F Pulse Rate 51 L 105 H Respiratory 24 Rate Blood Pressure 86/61 O2 Sat by Pulse 94 L Oximetry Procedures - Intubation Sedative: Versed Paralytic: Succinylcholine Laryngoscope: Jessica Size: 3 ET Tube Size: 7.5 ET Tube Uncuffed: No Tube Secured Location: teeth Tube Placement Confirmation: visualized tube passing through cords, equal breath sounds bilaterally, no breath sounds over epigastrium, confirmation by capnometry Patient Tolerated Procedure: well Intubation Complications: none Medical Decision Making - Medical Decision Making Patient is unresponsive and barely moving any air at this point time I took the patient to trauma 1 and intubated the patient. EKG shows sinus tachycardia 114 bpm MD interval 214 QRS 76 QT interval 318 QTC is 4:30. Patient's EKG shows no ST segment elevation or depression. Lab called and stated he had a hemolyzed sample. Potassium was 6.9. I repeated the potassium. I spoke with the [facility] hospitalist and agreed to admit the patient admitted the patient wrote admitting orders and I consulted - Lab Data Result diagrams: 07/04/21 19:19 07/04/21 19:19 Lab Results 07/04/21 07/04/21 07/04/21 Range/Units 19:19 19:19 19:19 WBC 9.1 (3.8-10.6) k/uL RBC 5.08 (3.80-5.40) m/uL Hgb 15.4 (11.4-16.0) gm/dL Hct 51.1 H (34.0-46.0) % MCV 100.6 H (80.0-100.0) fL MCH 30.4 (25.0-35.0) pg MCHC 30.2 L (31.0-37.0) g/dL RDW 15.4 (11.5-15.5) % Plt Count 216 (150-450) k/uL MPV 7.5 Neutrophils % 83 % Lymphocytes % 9 % Monocytes % 5 % Eosinophils % 1 % Basophils % 1 % Neutrophils # 7.6 (1.3-7.7) k/uL Lymphocytes # 0.9 L (1.0-4.8) k/uL Monocytes # 0.4 (0-1.0) k/uL Eosinophils # 0.1 (0-0.7) k/uL Basophils # 0.1 (0-0.2) k/uL Hypochromasia Marked Macrocytosis Slight PT 9.6 (9.0-12.0) sec INR 0.9 (<1.2) APTT 25.8 (22.0-30.0) sec D-Dimer 0.34 (<0.60) mg/L FEU Sample Site ABG pH (7.35-7.45) ABG pCO2 (35-45) mmHg ABG pO2 (83-108) mmHg ABG HCO3 (21-25) mmol/L ABG Total CO2 (19-24) mmol/L ABG O2 Saturation (94-97) % ABG Base Excess mmol/L Shin Test FiO2 % Sodium (137-145) mmol/L Potassium (3.5-5.1) mmol/L Chloride (98-107) mmol/L Carbon Dioxide (22-30) mmol/L Anion Gap mmol/L BUN (7-17) mg/dL Creatinine (0.52-1.04) mg/dL Est GFR (CKD-EPI)AfAm (>60 ml/min/1.73 sqM) Est GFR (CKD-EPI)NonAf (>60 ml/min/1.73 sqM) Glucose (74-99) mg/dL Plasma Lactic Acid Guevara (0.7-2.0) mmol/L Calcium (8.4-10.2) mg/dL Magnesium (1.6-2.3) mg/dL Total Bilirubin (0.2-1.3) mg/dL AST (14-36) U/L ALT (4-34) U/L Alkaline Phosphatase (38-126) U/L Troponin I (0.000-0.034) ng/mL Total Protein (6.3-8.2) g/dL Albumin (3.5-5.0) g/dL Coronavirus (PCR) Not Detected (Not Detectd) 07/04/21 07/04/21 07/04/21 Range/Units 19:19 19:19 19:19 WBC (3.8-10.6) k/uL RBC (3.80-5.40) m/uL Hgb (11.4-16.0) gm/dL Hct (34.0-46.0) % MCV (80.0-100.0) fL MCH (25.0-35.0) pg MCHC (31.0-37.0) g/dL RDW (11.5-15.5) % Plt Count (150-450) k/uL MPV Neutrophils % % Lymphocytes % % Monocytes % % Eosinophils % % Basophils % % Neutrophils # (1.3-7.7) k/uL Lymphocytes # (1.0-4.8) k/uL Monocytes # (0-1.0) k/uL Eosinophils # (0-0.7) k/uL Basophils # (0-0.2) k/uL Hypochromasia Macrocytosis PT (9.0-12.0) sec INR (<1.2) APTT (22.0-30.0) sec D-Dimer (<0.60) mg/L FEU Sample Site ABG pH (7.35-7.45) ABG pCO2 (35-45) mmHg ABG pO2 (83-108) mmHg ABG HCO3 (21-25) mmol/L ABG Total CO2 (19-24) mmol/L ABG O2 Saturation (94-97) % ABG Base Excess mmol/L Shin Test FiO2 % Sodium 127 L (137-145) mmol/L Potassium 6.9 H* (3.5-5.1) mmol/L Chloride 83 L (98-107) mmol/L Carbon Dioxide 38 H (22-30) mmol/L Anion Gap 6 mmol/L BUN 7 (7-17) mg/dL Creatinine 0.43 L (0.52-1.04) mg/dL Est GFR (CKD-EPI)AfAm >90 (>60 ml/min/1.73 sqM) Est GFR (CKD-EPI)NonAf >90 (>60 ml/min/1.73 sqM) Glucose 283 H (74-99) mg/dL Plasma Lactic Acid Guevara 1.5 (0.7-2.0) mmol/L Calcium 9.0 (8.4-10.2) mg/dL Magnesium 1.9 (1.6-2.3) mg/dL Total Bilirubin 0.8 (0.2-1.3) mg/dL AST 45 H (14-36) U/L ALT 21 (4-34) U/L Alkaline Phosphatase 90 (38-126) U/L Troponin I <0.012 (0.000-0.034) ng/mL Total Protein 7.6 (6.3-8.2) g/dL Albumin 4.0 (3.5-5.0) g/dL Coronavirus (PCR) (Not Detectd) 07/04/21 Range/Units 19:46 WBC (3.8-10.6) k/uL RBC (3.80-5.40) m/uL Hgb (11.4-16.0) gm/dL Hct (34.0-46.0) % MCV (80.0-100.0) fL MCH (25.0-35.0) pg MCHC (31.0-37.0) g/dL RDW (11.5-15.5) % Plt Count (150-450) k/uL MPV Neutrophils % % Lymphocytes % % Monocytes % % Eosinophils % % Basophils % % Neutrophils # (1.3-7.7) k/uL Lymphocytes # (1.0-4.8) k/uL Monocytes # (0-1.0) k/uL Eosinophils # (0-0.7) k/uL Basophils # (0-0.2) k/uL Hypochromasia Macrocytosis PT (9.0-12.0) sec INR (<1.2) APTT (22.0-30.0) sec D-Dimer (<0.60) mg/L FEU Sample Site rrad ABG pH 7.18 L* (7.35-7.45) ABG pCO2 105 H* (35-45) mmHg ABG pO2 >400 H (83-108) mmHg ABG HCO3 39 H (21-25) mmol/L ABG Total CO2 42 H (19-24) mmol/L ABG O2 Saturation 100.0 H (94-97) % ABG Base Excess 10.6 mmol/L Shin Test Yes FiO2 100 % Sodium (137-145) mmol/L Potassium (3.5-5.1) mmol/L Chloride (98-107) mmol/L Carbon Dioxide (22-30) mmol/L Anion Gap mmol/L BUN (7-17) mg/dL Creatinine (0.52-1.04) mg/dL Est GFR (CKD-EPI)AfAm (>60 ml/min/1.73 sqM) Est GFR (CKD-EPI)NonAf (>60 ml/min/1.73 sqM) Glucose (74-99) mg/dL Plasma Lactic Acid Guevara (0.7-2.0) mmol/L Calcium (8.4-10.2) mg/dL Magnesium (1.6-2.3) mg/dL Total Bilirubin (0.2-1.3) mg/dL AST (14-36) U/L ALT (4-34) U/L Alkaline Phosphatase (38-126) U/L Troponin I (0.000-0.034) ng/mL Total Protein (6.3-8.2) g/dL Albumin (3.5-5.0) g/dL Coronavirus (PCR) (Not Detectd) Critical Care Time Critical Care Time: Yes Total Critical Care Time: 35 Disposition Clinical Impression: COPD exacerbation, Respiratory failure, Hypercapnia, Hyperkalemia Disposition: ADMITTED IP TO THIS HOSP Referrals: Fan Sellers MD [Primary Care Provider] - 1-2 days Time of Disposition: 20:44
[2021-07-04 19:38] LABS: Basophils # (A) 0.1 k/uL (0-0.2); Basophils % (A) 1 %; Eosinophils # (A) 0.1 k/uL (0-0.7); Eosinophils % (A) 1 %; HCT 51.1 % (34.0-46.0); HGB 15.4 gm/dL (11.4-16.0); Hypochromasia Marked; Lymphocytes # (A) 0.9 k/uL (1.0-4.8); Lymphocytes % (A) 9 %; MCH 30.4 pg (25.0-35.0); MCHC 30.2 g/dL (31.0-37.0); MCV 100.6 fL (80.0-100.0); Macrocytosis Slight; Mean Platelet Volume 7.5; Monocytes # (A) 0.4 k/uL (0-1.0); Monocytes % (A) 5 %; Neutrophils # (A) 7.6 k/uL (1.3-7.7); Neutrophils % (A) 83 %; Platelet Count 216 k/uL (150-450); RBC 5.08 m/uL (3.80-5.40); RDW 15.4 % (11.5-15.5); WBC 9.1 k/uL (3.8-10.6)
[2021-07-04 19:48] LABS: ALT 21 U/L (4-34); African American GFR (CKD) >90 (>60 ml/min/1.73 sqM); Anion Gap 6 mmol/L; Blood Urea Nitrogen 7 mg/dL (7-17); Carbon Dioxide 38 mmol/L (22-30); Chloride 83 mmol/L (98-107); Glucose 283 mg/dL (74-99); Non-African American GFR(CKD) >90 (>60 ml/min/1.73 sqM); Sodium 127 mmol/L (137-145); Total Bilirubin 0.8 mg/dL (0.2-1.3)
[2021-07-04 19:55] LABS: ABG Base Excess 10.6 mmol/L; ABG HCO3 39 mmol/L (21-25); ABG PO2 >400 mmHg (83-108); ABG TCO2 42 mmol/L (19-24); Allen Test Performed? Yes
[2021-07-04 20:00] LABS: AST 45 U/L (14-36); Alkaline Phosphatase 90 U/L (38-126); Magnesium 1.9 mg/dL (1.6-2.3); Potassium 6.9 mmol/L (3.5-5.1); Total Protein 7.6 g/dL (6.3-8.2)
[2021-07-04] MEDS ORDERED: CALCIUM CHLORIDE 100 MG/ML 10 ML SYRINGE IVP STA (20:00)
--- NOTE | 2021-07-04 20:02 | XR ---
EXAMINATION TYPE: XR chest 1V portable DATE OF EXAM: 07/04/2021 7:40 PM COMPARISON: Chest radiograph 10/06/2018 CLINICAL INDICATION:Female, 56 years old with history of og/et placement; TECHNIQUE: Frontal view of the chest. FINDINGS: Lungs/Pleura: Haziness to the lungs most pronounced in the lung bases. Evidence of pneumothorax or pl eural effusion. Pulmonary vascularity: Unremarkable. Heart/mediastinum: Cardiomediastinal silhouette is unremarkable. Musculoskeletal: No acute osseous pathology. Lines/Tubes: Endotracheal tube with distal tip at the level of the aortic arch Nasogastric tube with its distal tip and side-port projecting under the diaphragm. IMPRESSION: 1. Support Tubes in appropriate position. 2. Airspace opacities worse in the lung bases related for atypical pneumonia.
[2021-07-04 20:03] LABS: INR 0.9 (<1.2); Partial Thromboplastin Time 25.8 sec (22.0-30.0); Prothrombin Time 9.6 sec (9.0-12.0)
[2021-07-04 20:03] LABS: ABG PCO2 105 mmHg (35-45); ABG PH 7.18 (7.35-7.45)
[2021-07-04] MEDS ORDERED: LORazepam 2 MG/ML INJ IV STA (20:14)
[2021-07-04] MEDS ORDERED: NALOXONE 0.4 MG/ML 1 ML VIAL IV PRN (20:45)
[2021-07-05] MEDS: methylPREDNISolone SOD SUCCI 125 MG/2 ML VIAL IV SCH ×5 (00:31→23:55)
[2021-07-05 01:36] LABS: Glucose,Whole Blood 302 mg/dL (75-99)
[2021-07-05 02:59] LABS: Glucose,Whole Blood 334 mg/dL (75-99)
[2021-07-05] MEDS: INSULIN ASPART (NovoLOG) 100 UNIT/ML VIAL SQ SCH ×4 (03:10→23:55)
[2021-07-05 05:51] LABS: ABG Base Excess 15.3 mmol/L; ABG Oxygen Saturation 99.8 % (94-97); ABG PCO2 59 mmHg (35-45); ABG PH 7.44 (7.35-7.45); ABG PO2 141 mmHg (83-108); ABG TCO2 41 mmol/L (19-24); Allen Test Performed? Yes
[2021-07-05 05:53] LABS: ABG HCO3 40 mmol/L (21-25)
[2021-07-05 06:03] LABS: African American GFR (CKD) >90 (>60 ml/min/1.73 sqM); Anion Gap 7 mmol/L; Blood Urea Nitrogen 12 mg/dL (7-17); Calcium 9.7 mg/dL (8.4-10.2); Carbon Dioxide 37 mmol/L (22-30); Chloride 84 mmol/L (98-107); Glucose 289 mg/dL (74-99); Magnesium 1.9 mg/dL (1.6-2.3); Non-African American GFR(CKD) >90 (>60 ml/min/1.73 sqM); Potassium 4.9 mmol/L (3.5-5.1); Sodium 128 mmol/L (137-145)
[2021-07-05 06:16] LABS: Appearance,Urine Clear (Clear); Bilirubin,Urine Negative (Negative); Blood,Urine Negative (Negative); Color,Urine Yellow; Glucose,Urine (UA) 4+ (Negative); Ketones,Urine 1+ (Negative); Leukocyte Esterase,Urine Negative (Negative); Nitrite,Urine Negative (Negative); Protein,Urine Trace (Negative); Specific Gravity,Urine 1.031 (1.001-1.035); Urobilinogen,Urine <2.0 mg/dL (<2.0)
[2021-07-05 06:52] LABS: Basophils % (A) 0 %; Eosinophils % (A) 0 %; HCT 45.9 % (34.0-46.0); Hypochromasia Marked; Lymphocytes # (A) 0.5 k/uL (1.0-4.8); Lymphocytes % (A) 8 %; MCH 30.5 pg (25.0-35.0); MCHC 30.5 g/dL (31.0-37.0); MCV 99.7 fL (80.0-100.0); Macrocytosis Slight; Monocytes # (A) 0.1 k/uL (0-1.0); Monocytes % (A) 2 %; Neutrophils # (A) 5.2 k/uL (1.3-7.7); Neutrophils % (A) 90 %; Platelet Count 210 k/uL (150-450); RBC 4.61 m/uL (3.80-5.40); RDW 15.6 % (11.5-15.5); WBC 5.8 k/uL (3.8-10.6)
[2021-07-05] MEDS: MAGNESIUM SULFATE-D5W PMX 1 GM in DEXTROSE/WATER 1 100ML.BAG IVPB SCH ×2 (07:10→08:47)
--- NOTE | 2021-07-05 07:57 | XR ---
EXAMINATION TYPE: XR chest 1V portable DATE OF EXAM: 07/05/2021 COMPARISON: 07/04/2021 HISTORY: SOB, Follow Up FINDINGS: Indwelling tubes and catheters are unchanged. Date reticulonodular infiltrates left midlung zone and left lower lobe. Stable appearance of the cardio-mediastinal structures at this time. Hyperinflation compatible with COPD. IMPRESSION: 1. Stable portable chest. Clinical correlation and follow up until resolution is recommended.
[2021-07-05] MEDS: HEPARIN SODIUM,PORCINE/PF 5,000 UNIT/0.5 ML SYRINGE SQ SCH ×3 (08:47→23:56)
[2021-07-05] MEDS: CHLORHEXIDINE GLUCONATE 15 ML CUP MUCOUS MEM SCH ×2 (08:47→20:32)
[2021-07-05] MEDS: PANTOPRAZOLE 40 MG/10 ML VIAL IV SCH (08:47)
[2021-07-05] MEDS: SODIUM CHLORIDE 0.9% 1,000 ML IV SCH (09:30)
--- NOTE | 2021-07-05 10:08 | P.HPIM ---
History of Present Illness 56-year-old female with known history of COPD can use to smoke came in with complaints of difficulty breathing her overall condition progressively worsened in ER patient ended up being intubated. Patient is a presently clinically doing well patient is on FiO2 of 50% PEEP of 5 had low volume of 400 saturating well planning and extubating patient is off sedation. Patient had fevers in ER there is probably an infiltrate on the chest x-ray and being treated for pneumonia. It is presently on ceftriaxone and azithromycin. The patient wears oxygen at home. REVIEW OF SYSTEMS: About obtain due to to her clinical condition PHYSICAL EXAMINATION: GENERAL: The patient is abated coming out of sedation on ventilatory support, not in any acute distress. Well developed, well nourished. HEENT: Pupils are round and equally reacting to light. EOMI. No scleral icterus. No conjunctival pallor. Normocephalic, atraumatic. No pharyngeal erythema. No thyromegaly. CARDIOVASCULAR: S1 and S2 present. No murmurs, rubs, or gallops. PULMONARY: Please air entry with bilateral expiratory wheezing ABDOMEN: Soft, nontender, nondistended, normoactive bowel sounds. No palpable organomegaly. MUSCULOSKELETAL: No joint swelling or deformity. EXTREMITIES: No cyanosis, clubbing, or pedal edema. NEUROLOGICAL: On sedation is coming out of sedation should initiation of undergoing weaning trials SKIN: No rashes. Assessment and plan -Acute hypercapnic respiratory failure secondary to COPD exacerbation patient had severe hypercapnia which improved now on ventilator support. Weaning trial today - sepsis secondary to come in today quite pneumonia for which patient is on Rocephin and azithromycin which will be continued -Elevated blood sugars will obtain hemoglobin A1c patient will be on sliding scale insulin was also started on long-acting insulin to avoid the IV insulin. was probably diabetic and was never diagnosed. -Obesity -Nicotine use counseling will be provided once patient is extubated. -hyponatremia probably hypovolemic patient will be started on IV fluids will also obtain a BNP patient does have a some bilateral lower extremity edema. Although clinically cannot appreciate any JVD DVT prophylaxis: Subcutaneous heparin Past Medical History Past Medical History: COPD Additional Past Medical History / Comment(s): STRESS URINARY INCONTINENCE. MINIMAL LUNG FUNCTION. SLEEP APNEA (DOES NOT USE CPAP) History of Any Multi-Drug Resistant Organisms: None Reported Past Surgical History: Cholecystectomy, Tonsillectomy, Tubal Ligation Additional Past Surgical History / Comment(s): CERVICAL SURGERY, pneumothorax CHEST TUBE Past Anesthesia/Blood Transfusion Reactions: No Reported Reaction Past Psychological History: No Psychological Hx Reported Smoking Status: Current every day smoker Past Alcohol Use History: None Reported Past Drug Use History: None Reported - Past Family History Sister(s) Family Medical History: Deep Vein Thrombosis (DVT), Pulmonary Embolus Brother(s) Family Medical History: Deep Vein Thrombosis (DVT) Medications and Allergies Home Medications Medication Instructions Recorded Confirmed Type Albuterol Sulfate [Albuterol 2 puff PO RT-Q6H PRN 07/04/21 07/04/21 History Sulfate Hfa] Fluticasone/Umeclidin/Vilanter 1 puff INHALATION RT-DAILY 07/04/21 07/04/21 History [Trelegy Ellipta 100-62.5-25] Furosemide [Lasix] 40 mg PO DAILY 07/04/21 07/04/21 History guaiFENesin SYRUP 100MG/5ML 400 mg PO Q4H PRN 07/04/21 07/04/21 History [Robitussin] guaiFENesin [Mucinex] 600 mg PO BID PRN 07/04/21 07/04/21 History Allergies Allergy/AdvReac Type Severity Reaction Status Date / Time No Known Allergies Allergy Verified 07/04/21 20:59 Physical Exam Vitals: Vital Signs Temp Pulse Resp BP Pulse Ox 07/05/21 07:00 85 20 105/61 94 L 07/05/21 06:30 86 20 113/65 94 L 07/05/21 06:00 87 20 99/75 94 L 07/05/21 05:30 89 20 113/84 94 L 07/05/21 05:00 85 20 104/75 93 L 07/05/21 04:30 86 20 105/73 94 L 07/05/21 04:00 99.9 F H 97 21 124/96 93 L 07/05/21 03:30 87 20 103/74 95 07/05/21 03:15 20 07/05/21 03:00 87 20 93/67 95 07/05/21 02:30 92 20 94/68 95 07/05/21 02:00 103 H 23 108/71 92 L 07/05/21 01:46 20 07/05/21 01:32 100.2 F H 98 20 117/72 92 L 07/05/21 00:30 91 20 125/64 97 07/05/21 00:10 86 20 119/66 96 07/05/21 00:00 87 20 122/65 96 07/04/21 23:40 87 20 125/64 97 07/04/21 23:30 85 20 134/70 98 07/04/21 23:10 94 22 115/62 98 07/04/21 23:00 85 20 122/60 98 07/04/21 22:40 84 20 125/66 98 07/04/21 22:30 84 20 110/63 96 07/04/21 22:20 84 20 110/63 99 07/04/21 22:10 81 20 105/62 98 07/04/21 22:00 82 20 110/60 98 07/04/21 21:40 82 20 105/60 99 07/04/21 21:30 82 20 113/60 99 07/04/21 21:20 85 20 113/60 99 07/04/21 21:10 86 20 113/58 99 07/04/21 21:00 87 20 107/58 95 07/04/21 20:50 98.2 F 90 20 107/58 97 07/04/21 20:40 89 22 104/58 100 07/04/21 20:35 90 20 110/53 100 07/04/21 20:15 88 20 102/57 95 07/04/21 19:40 98 20 135/64 97 07/04/21 19:37 101 H 20 116/54 96 07/04/21 19:30 96 20 125/59 98 07/04/21 19:25 100 20 120/67 98 07/04/21 19:20 102 H 20 125/75 97 07/04/21 19:15 117 H 16 142/101 96 07/04/21 19:09 106 H 16 124/100 07/04/21 18:59 98.1 F 51 L 24 86/61 94 L Intake and Output 07/04/21 07/05/21 07/05/21 22:59 06:59 14:59 Intake Total 4.964 202.482 Output Total 415 Balance 4.964 -212.518 Intake: Intake, IV Titration 4.964 202.482 Amount propofoL 1,000 mg In 4.964 202.482 Empty Bag 1 bag @ Titrate IV .Q0M [facility] Rx#: [id number] Output: Urine 415 Other: Voiding Method Indwelling Catheter Weight 101.8 kg 101.8 kg Results CBC & Chem 7: 07/05/21 05:24 07/05/21 05:24 Labs: Abnormal Lab Results - Last 24 Hours (Table) 07/04/21 07/04/21 07/04/21 Range/Units 19:19 19:19 19:46 Hct 51.1 H (34.0-46.0) % MCV 100.6 H (80.0-100.0) fL MCHC 30.2 L (31.0-37.0) g/dL RDW (11.5-15.5) % Lymphocytes # 0.9 L (1.0-4.8) k/uL ABG pH 7.18 L* (7.35-7.45) ABG pCO2 105 H* (35-45) mmHg ABG pO2 >400 H (83-108) mmHg ABG HCO3 39 H (21-25) mmol/L ABG Total CO2 42 H (19-24) mmol/L ABG O2 Saturation 100.0 H (94-97) % Sodium 127 L (137-145) mmol/L Potassium 6.9 H* (3.5-5.1) mmol/L Chloride 83 L (98-107) mmol/L Carbon Dioxide 38 H (22-30) mmol/L Creatinine 0.43 L (0.52-1.04) mg/dL Glucose 283 H (74-99) mg/dL POC Glucose (mg/dL) (75-99) mg/dL AST 45 H (14-36) U/L Urine Protein (Negative) Urine Glucose (UA) (Negative) Urine Ketones (Negative) 07/05/21 07/05/21 07/05/21 Range/Units 01:33 02:57 05:24 Hct (34.0-46.0) % MCV (80.0-100.0) fL MCHC 30.5 L (31.0-37.0) g/dL RDW 15.6 H (11.5-15.5) % Lymphocytes # 0.5 L (1.0-4.8) k/uL ABG pH (7.35-7.45) ABG pCO2 (35-45) mmHg ABG pO2 (83-108) mmHg ABG HCO3 (21-25) mmol/L ABG Total CO2 (19-24) mmol/L ABG O2 Saturation (94-97) % Sodium (137-145) mmol/L Potassium (3.5-5.1) mmol/L Chloride (98-107) mmol/L Carbon Dioxide (22-30) mmol/L Creatinine (0.52-1.04) mg/dL Glucose (74-99) mg/dL POC Glucose (mg/dL) 302 H 334 H (75-99) mg/dL AST (14-36) U/L Urine Protein (Negative) Urine Glucose (UA) (Negative) Urine Ketones (Negative) 07/05/21 07/05/21 07/05/21 Range/Units 05:24 05:50 05:58 Hct (34.0-46.0) % MCV (80.0-100.0) fL MCHC (31.0-37.0) g/dL RDW (11.5-15.5) % Lymphocytes # (1.0-4.8) k/uL ABG pH (7.35-7.45) ABG pCO2 59 H (35-45) mmHg ABG pO2 141 H (83-108) mmHg ABG HCO3 40 H* (21-25) mmol/L ABG Total CO2 41 H (19-24) mmol/L ABG O2 Saturation 99.8 H (94-97) % Sodium 128 L (137-145) mmol/L Potassium (3.5-5.1) mmol/L Chloride 84 L (98-107) mmol/L Carbon Dioxide 37 H (22-30) mmol/L Creatinine (0.52-1.04) mg/dL Glucose 289 H (74-99) mg/dL POC Glucose (mg/dL) (75-99) mg/dL AST (14-36) U/L Urine Protein Trace H (Negative) Urine Glucose (UA) 4+ H (Negative) Urine Ketones 1+ H (Negative) Thrombosis Risk Factor Assmnt - Choose All That Apply Any of the Below Risk Factors Present?: Yes Each Factor Represents 1 point: Abnormal pulmonary function (COPD), Age 41-60 years, Medical pt on bed rest, Obesity (BMI >25) Other Risk Factors: Yes Each Risk Factor Represents 2 Points: Patient confined to bed Each Risk Factor Represents 3 Points: Family history of DVT/PE Other congenital or acquired thrombophilia - If yes, enter type in comment: No Thrombosis Risk Factor Assessment Total Risk Factor Score: 9 Thrombosis Risk Factor Assessment Level: High Risk
[2021-07-05 11:33] LABS: Glucose,Whole Blood 260 mg/dL (75-99)
[2021-07-05] MEDS: INSULIN DETEMIR (LEVEMIR) 100 UNIT/ML SYR SQ SCH (11:47)
--- NOTE | 2021-07-05 12:27 | P.CNPUL ---
History of Present Illness Consult date: 07/05/21 Requesting physician: Jakub Gordon Reason for consult: COPD Chief complaint: Shortness of breath History of present illness: This is a 56-year-old female with history of severe COPD, she has called stage IV COPD, FEV1 is 21% of the predicted. Patient continues to smoke in spite of her severe underlying COPD, maintained on bronchodilators on outpatient basis, she is not on any prednisone. Patient is also known to have history of obstructive sleep apnea syndrome, relatively mild, patient had history of severe nocturnal desaturations in the past, and she is not compliant with CPAP. Her last hospital admission was in 2019 similar to this admission, and at that time she had acute exacerbation of COPD, she required BiPAP treatment at the time, and she responded well. This time the patient came in in extreme respiratory distress, EMS arrived to see the patient having difficulty breathing, and she was placed on a nonrebreather, brought into the ER, and S1 as she arrived the patient had to be intubated she was unresponsive to any stimuli. ABG post intubation showed a pO2 of over 400 pCO2 of 105 pH of 7.18., This indicated that the patient had severe hypercapnic respiratory failure requiring intubation and mechanical ventilation. Follow-up ABG this morning showed a pO2 of 141 pCO2 59 pH of 7.44. Patient was on propofol, she was on mechanical ventilation when I saw her this morning, and I went ahead and recommended holding sedatives, recommending placing the patient on pressure support of 10 and CPAP for 30 minute trial, and if tolerated I plan to extubate the patient. Patient is now on assist control rate of 16, volume 400 FiO2 40% and PEEP of 5. She is on propofol which I have discontinued. Chest x-ray showed limited left lower lobe infiltrate. Patient is already on Rocephin, and I will add Zithromax. Review of Systems ROS unobtainable: due to endotracheal tube Past Medical History Past Medical History: COPD Additional Past Medical History / Comment(s): STRESS URINARY INCONTINENCE. MINIMAL LUNG FUNCTION. SLEEP APNEA (DOES NOT USE CPAP) History of Any Multi-Drug Resistant Organisms: None Reported Past Surgical History: Cholecystectomy, Tonsillectomy, Tubal Ligation Additional Past Surgical History / Comment(s): CERVICAL SURGERY, pneumothorax CHEST TUBE Past Anesthesia/Blood Transfusion Reactions: No Reported Reaction Past Psychological History: No Psychological Hx Reported Smoking Status: Current every day smoker Past Alcohol Use History: None Reported Past Drug Use History: None Reported - Past Family History Sister(s) Family Medical History: Deep Vein Thrombosis (DVT), Pulmonary Embolus Brother(s) Family Medical History: Deep Vein Thrombosis (DVT) Medications and Allergies Home Medications Medication Instructions Recorded Confirmed Type Albuterol Sulfate [Albuterol 2 puff PO RT-Q6H PRN 07/04/21 07/04/21 History Sulfate Hfa] Fluticasone/Umeclidin/Vilanter 1 puff INHALATION RT-DAILY 07/04/21 07/04/21 History [Trelegy Ellipta 100-62.5-25] Furosemide [Lasix] 40 mg PO DAILY 07/04/21 07/04/21 History guaiFENesin SYRUP 100MG/5ML 400 mg PO Q4H PRN 07/04/21 07/04/21 History [Robitussin] guaiFENesin [Mucinex] 600 mg PO BID PRN 07/04/21 07/04/21 History Allergies Allergy/AdvReac Type Severity Reaction Status Date / Time No Known Allergies Allergy Verified 07/04/21 20:59 Physical Exam Vitals: Vital Signs Temp Pulse Resp BP Pulse Ox 07/05/21 12:00 97.9 F 98 17 133/70 93 L 07/05/21 11:00 105 H 21 150/79 94 L 07/05/21 10:30 108 H 26 H 150/72 93 L 07/05/21 10:00 111 H 26 H 160/69 92 L 07/05/21 09:30 98 26 H 90 L 07/05/21 09:00 86 20 107/67 07/05/21 08:30 84 20 119/67 94 L 07/05/21 08:00 97.8 F 82 21 111/60 94 L 07/05/21 07:30 85 20 108/58 95 07/05/21 07:00 85 20 105/61 94 L 07/05/21 06:30 86 20 113/65 94 L 07/05/21 06:00 87 20 99/75 94 L 07/05/21 05:30 89 20 113/84 94 L 07/05/21 05:00 85 20 104/75 93 L 07/05/21 04:30 86 20 105/73 94 L 07/05/21 04:00 99.9 F H 97 21 124/96 93 L 07/05/21 03:30 87 20 103/74 95 07/05/21 03:15 20 07/05/21 03:00 87 20 93/67 95 07/05/21 02:30 92 20 94/68 95 07/05/21 02:00 103 H 23 108/71 92 L 07/05/21 01:46 20 07/05/21 01:32 100.2 F H 98 20 117/72 92 L 07/05/21 00:30 91 20 125/64 97 07/05/21 00:10 86 20 119/66 96 07/05/21 00:00 87 20 122/65 96 07/04/21 23:40 87 20 125/64 97 07/04/21 23:30 85 20 134/70 98 07/04/21 23:10 94 22 115/62 98 07/04/21 23:00 85 20 122/60 98 07/04/21 22:40 84 20 125/66 98 07/04/21 22:30 84 20 110/63 96 07/04/21 22:20 84 20 110/63 99 07/04/21 22:10 81 20 105/62 98 07/04/21 22:00 82 20 110/60 98 07/04/21 21:40 82 20 105/60 99 07/04/21 21:30 82 20 113/60 99 07/04/21 21:20 85 20 113/60 99 07/04/21 21:10 86 20 113/58 99 07/04/21 21:00 87 20 107/58 95 07/04/21 20:50 98.2 F 90 20 107/58 97 07/04/21 20:40 89 22 104/58 100 07/04/21 20:35 90 20 110/53 100 07/04/21 20:15 88 20 102/57 95 07/04/21 19:40 98 20 135/64 97 07/04/21 19:37 101 H 20 116/54 96 07/04/21 19:30 96 20 125/59 98 07/04/21 19:25 100 20 120/67 98 07/04/21 19:20 102 H 20 125/75 97 07/04/21 19:15 117 H 16 142/101 96 07/04/21 19:09 106 H 16 124/100 07/04/21 18:59 98.1 F 51 L 24 86/61 94 L Intake and Output 07/04/21 07/05/21 07/05/21 22:59 06:59 14:59 Intake Total 4.964 202.482 265 Output Total 415 835 Balance 4.964 -212.518 -570 Intake: IV 265 Sodium Chloride 0.9% 1, 265 000 ml @ 75 mls/hr IV . [id number] [facility] Rx#:[id number] Intake, IV Titration 4.964 202.482 Amount propofoL 1,000 mg In 4.964 202.482 Empty Bag 1 bag @ Titrate IV .Q0M [facility] Rx#: [id number] Output: Urine 415 835 Other: Voiding Method Indwelling Catheter Indwelling Catheter Weight 101.8 kg 101.8 kg GENERAL EXAM: 56-year-old female obese, intubated and mechanically ventilated. HEAD: Normocephalic. Atraumatic, endotracheal tube and orogastric tube are intact. EYES: Normal reaction of pupils, equal size. NOSE: Clear with pink turbinates. THROAT: Crowding of the posterior pharynx. No erythema or exudates. NECK: Short. No masses, no JVD. CHEST: No chest wall deformity. LUNGS: Diminished breath sound bilaterally no rhonchi no wheezes symmetrical chest expansion noted. CVS: S1 and S2 normal with no audible murmur, regular rhythm. ABDOMEN: No hepatosplenomegaly, normal bowel sounds, no guarding or rigidity. SKIN: No rashes CENTRAL NERVOUS SYSTEM: Patient was assessed while sedated and off sedation, she was noted to be appropriate off propofol, and followed simple instructions.. EXTREMITIES: Normal mood affect and normal mental status examination off sedation. Results - Laboratory Findings CBC and BMP: 07/05/21 05:24 07/05/21 05:24 ABG ABG pH 7.44 (7.35-7.45) 07/05/21 05:50 ABG pCO2 59 mmHg (35-45) H 07/05/21 05:50 ABG pO2 141 mmHg (83-108) H 07/05/21 05:50 ABG O2 Saturation 99.8 % (94-97) H 07/05/21 05:50 PT/INR, D-dimer PT 9.6 sec (9.0-12.0) 07/04/21 19:19 INR 0.9 (<1.2) 07/04/21 19:19 D-Dimer 0.34 mg/L FEU (<0.60) 07/04/21 19:19 Abnormal lab findings: Abnormal Labs 07/04/21 07/04/21 07/04/21 19:19 19:19 19:46 Hct 51.1 H MCV 100.6 H MCHC 30.2 L RDW Lymphocytes # 0.9 L ABG pH 7.18 L* ABG pCO2 105 H* ABG pO2 >400 H ABG HCO3 39 H ABG Total CO2 42 H ABG O2 Saturation 100.0 H Sodium 127 L Potassium 6.9 H* Chloride 83 L Carbon Dioxide 38 H Creatinine 0.43 L Glucose 283 H POC Glucose (mg/dL) AST 45 H Urine Protein Urine Glucose (UA) Urine Ketones 07/05/21 07/05/21 07/05/21 01:33 02:57 05:24 Hct MCV MCHC 30.5 L RDW 15.6 H Lymphocytes # 0.5 L ABG pH ABG pCO2 ABG pO2 ABG HCO3 ABG Total CO2 ABG O2 Saturation Sodium Potassium Chloride Carbon Dioxide Creatinine Glucose POC Glucose (mg/dL) 302 H 334 H AST Urine Protein Urine Glucose (UA) Urine Ketones 07/05/21 07/05/21 07/05/21 05:24 05:50 05:58 Hct MCV MCHC RDW Lymphocytes # ABG pH ABG pCO2 59 H ABG pO2 141 H ABG HCO3 40 H* ABG Total CO2 41 H ABG O2 Saturation 99.8 H Sodium 128 L Potassium Chloride 84 L Carbon Dioxide 37 H Creatinine Glucose 289 H POC Glucose (mg/dL) AST Urine Protein Trace H Urine Glucose (UA) 4+ H Urine Ketones 1+ H 07/05/21 11:32 Hct MCV MCHC RDW Lymphocytes # ABG pH ABG pCO2 ABG pO2 ABG HCO3 ABG Total CO2 ABG O2 Saturation Sodium Potassium Chloride Carbon Dioxide Creatinine Glucose POC Glucose (mg/dL) 260 H AST Urine Protein Urine Glucose (UA) Urine Ketones - Diagnostic Findings Chest x-ray: image reviewed (As noted in HPI.) Assessment and Plan Assessment: Impression: Acute hypercapnic respiratory failure secondary to severe COPD exacerbation, and acute community-acquired pneumonia involving the left lower lobe. Chronic ongoing tobacco dependence History of obstructive sleep apnea noncompliant with CPAP Morbid obesity Recommendation: Continue ventilatory support for now. Discontinue sedation and assess for possible weaning Trial of pressure support and CPAP and if tolerated extubate. Extubate to BiPAP if needed Continue bronchodilators, DuoNeb Pulmicort and Perforomist. Continue steroids Continue antibiotics, patient is now on Zithromax and Rocephin. Continue GI and DVT prophylaxis Counseling regarding smoking cessation Counseling regarding compliance and follow-up on outpatient basis regularly for her underlying COPD which is severe We will continue to follow Critical care time is over 30 minutes. Time with Patient: Greater than 30
[2021-07-05] MEDS: AZITHROMYCIN 500 MG TAB PO SCH (16:31)
[2021-07-05 17:28] LABS: Glucose,Whole Blood 222 mg/dL (75-99)
[2021-07-05] MEDS: BUDESONIDE 0.5 MG/2 ML NEBU INHALATION SCH (20:11)
[2021-07-05] MEDS: IPRATROPIUM-ALBUTEROL 3 ML NEB INHALATION PRN (20:11)
[2021-07-05] MEDS: FORMOTEROL FUMARATE 20 MCG/2 ML NEBU INHALATION SCH (20:11)
[2021-07-05 23:48] LABS: Glucose,Whole Blood 200 mg/dL (75-99)
[2021-07-06 05:49] LABS: Basophils % (A) 0 %; Eosinophils # (A) 0.1 k/uL (0-0.7); Eosinophils % (A) 0 %; HCT 45.5 % (34.0-46.0); HGB 13.8 gm/dL (11.4-16.0); Hypochromasia Marked; Lymphocytes # (A) 0.7 k/uL (1.0-4.8); Lymphocytes % (A) 6 %; MCH 30.5 pg (25.0-35.0); MCHC 30.4 g/dL (31.0-37.0); MCV 100.4 fL (80.0-100.0); Macrocytosis Slight; Mean Platelet Volume 7.3; Monocytes # (A) 0.3 k/uL (0-1.0); Monocytes % (A) 3 %; Neutrophils # (A) 10.3 k/uL (1.3-7.7); Neutrophils % (A) 90 %; Platelet Count 174 k/uL (150-450); RBC 4.53 m/uL (3.80-5.40); RDW 15.2 % (11.5-15.5); WBC 11.4 k/uL (3.8-10.6)
[2021-07-06 06:09] LABS: African American GFR (CKD) >90 (>60 ml/min/1.73 sqM); Anion Gap 2 mmol/L; Blood Urea Nitrogen 21 mg/dL (7-17); Calcium 8.7 mg/dL (8.4-10.2); Carbon Dioxide 40 mmol/L (22-30); Chloride 92 mmol/L (98-107); Glucose 195 mg/dL (74-99); Magnesium 2.3 mg/dL (1.6-2.3); Non-African American GFR(CKD) >90 (>60 ml/min/1.73 sqM); Potassium 5.2 mmol/L (3.5-5.1); Sodium 134 mmol/L (137-145)
[2021-07-06 07:24] LABS: Glucose,Whole Blood 222 mg/dL (75-99)
[2021-07-06] MEDS: methylPREDNISolone SOD SUCCI 125 MG/2 ML VIAL IV SCH ×4 (07:26→23:36)
[2021-07-06] MEDS: INSULIN ASPART (NovoLOG) 100 UNIT/ML VIAL SQ SCH ×4 (07:27→23:35)
[2021-07-06] MEDS: BUDESONIDE 0.5 MG/2 ML NEBU INHALATION SCH ×2 (08:03→21:03)
[2021-07-06] MEDS: IPRATROPIUM-ALBUTEROL 3 ML NEB INHALATION PRN ×3 (08:03→16:39)
--- NOTE | 2021-07-06 08:03 | XR ---
EXAMINATION TYPE: XR chest 1V portable DATE OF EXAM: 07/06/2021 COMPARISON: 07/05/2021 HISTORY: SOB, Follow Up FINDINGS: NG tube and endotracheal tube have been removed. Tracheostomy tube is in place. Scattered reticular infiltrates persist unchanged. Stable appearance of the cardio-mediastinal structures at this time. IMPRESSION: 1. Scattered reticular infiltrates persist unchanged.
[2021-07-06] MEDS: FORMOTEROL FUMARATE 20 MCG/2 ML NEBU INHALATION SCH ×2 (08:04→21:03)
[2021-07-06] MEDS: HEPARIN SODIUM,PORCINE/PF 5,000 UNIT/0.5 ML SYRINGE SQ SCH ×3 (08:20→23:35)
[2021-07-06] MEDS: INSULIN DETEMIR (LEVEMIR) 100 UNIT/ML SYR SQ SCH (08:20)
[2021-07-06] MEDS: PANTOPRAZOLE 40 MG/10 ML VIAL IV SCH (09:43)
[2021-07-06] MEDS: CHLORHEXIDINE GLUCONATE 15 ML CUP MUCOUS MEM SCH (09:44)
[2021-07-06] MEDS: SODIUM CHLORIDE 0.9% 1,000 ML IV SCH ×4 (09:45→22:29)
[2021-07-06] MEDS: AZITHROMYCIN 500 MG TAB PO SCH (09:47)
[2021-07-06 11:43] LABS: Glucose,Whole Blood 173 mg/dL (75-99)
--- NOTE | 2021-07-06 14:02 | P.PN ---
Subjective Progress Note Date: 07/06/21 Principal diagnosis: Acute hypercapnic respiratory failure secondary to acute exacerbation of COPD and acute community-acquired pneumonia involving left lower lobe This is a 56-year-old female with history of severe COPD, she has called stage IV COPD, FEV1 is 21% of the predicted. Patient continues to smoke in spite of her severe underlying COPD, maintained on bronchodilators on outpatient basis, she is not on any prednisone. Patient is also known to have history of obstru ctive sleep apnea syndrome, relatively mild, patient had history of severe nocturnal desaturations in the past, and she is not compliant with CPAP. Her last hospital admission was in 2019 similar to this admission, and at that time she had acute exacerbation of COPD, she required BiPAP treatment at the time, and she responded well. This time the patient came in in extreme respiratory distress, EMS arrived to see the patient having difficulty breathing, and she was placed on a nonrebreather, brought into the ER, and S1 as she arrived the patient had to be intubated she was unresponsive to any stimuli. ABG post intubation showed a pO2 of over 400 pCO2 of 105 pH of 7.18., This indicated leodan t the patient had severe hypercapnic respiratory failure requiring intubation and mechanical ventilation. Follow-up ABG this morning showed a pO2 of 141 pCO2 59 pH of 7.44. Patient was on propofol, she was on mechanical ventilation when I saw her this morning, and I went ahead and recommended holding sedatives, recommending placing the patient on pressure support of 10 and CPAP for 30 minute trial, and if tolerated I plan to extubate the patient. Patient is now on assist control rate of 16, volume 400 FiO2 40% and PEEP of 5. She is on propofol which I have discontinued. Chest x-ray showed limited left lower lobe infiltrate. Patient is already on Rocephin, and I will add Zithromax. Reevaluated today on 07/06/21, patient was extubated yesterday, remains on BiPAP, she is on FiO2 50%, IPAP 14, EPAP of 6. Patient is tolerating BiPAP well, he desaturates easily off BiPAP, chest x-ray today showed scattered reticular infiltrates unchanged from her admission chest x-ray. Mostly in the left lower lobe. Patient is on antibiotics for presumptive community-acquired pneumonia in the form of Rocephin and Zithromax. Patient is also on bronchodilators for underlying severe COPD, normally she has an FEV1 in the range of 20%. WBC count is 11.4 hemoglobin 13.8 electrolytes are normal renal profile is normal Objective - Vital Signs Vital signs: Vital Signs Temp 98.3 F 07/06/21 12:00 Pulse 94 07/06/21 12:17 Resp 20 07/06/21 12:00 BP 115/57 07/06/21 12:00 Pulse Ox 96 07/06/21 12:00 Intake & Output 07/05/21 07/06/21 07/06/21 18:59 06:59 18:59 Intake Total 815 900 450 Output Total 1984 705 240 Balance -1170 195 210 Weight 104.3 kg Intake: IV 715 900 450 Sodium Chloride 0.9% 1, 715 900 450 000 ml @ 75 mls/hr IV . [id number] [facility] Rx#:[id number] Oral 100 Output: Urine 1984 705 240 Other: Voiding Method Indwelling Catheter Indwelling Catheter Indwelling Catheter - Exam GENERAL EXAM: 56-year-old female obese, on BiPAP. Comfortable, in no distress. HEAD: Normocephalic. Atraumatic EYES: Normal reaction of pupils, equal size. NOSE: Clear with pink turbinates. THROAT: Crowding of the posterior pharynx. No erythema or exudates. NECK: Short. No masses, no JVD. CHEST: No chest wall deformity. LUNGS: Diminished breath sound bilaterally no rhonchi no wheezes symmetrical chest expansion noted. CVS: S1 and S2 normal with no audible murmur, regular rhythm. ABDOMEN: No hepatosplenomegaly, normal bowel sounds, no guarding or rigidity. SKIN: No rashes CENTRAL NERVOUS SYSTEM: Alert and oriented 3 no gross focal deficits. EXTREMITIES: Normal mood affect and normal mental status examination off sedation. - Labs CBC & Chem 7: 07/06/21 05:35 07/06/21 05:35 Labs: Abnormal Lab Results - Last 24 Hours (Table) 07/05/21 07/05/21 07/05/21 Range/Units 05:24 17:27 23:46 WBC (3.8-10.6) k/uL MCV (80.0-100.0) fL MCHC (31.0-37.0) g/dL Neutrophils # (1.3-7.7) k/uL Lymphocytes # (1.0-4.8) k/uL Sodium (137-145) mmol/L Potassium (3.5-5.1) mmol/L Chloride (98-107) mmol/L Carbon Dioxide (22-30) mmol/L BUN (7-17) mg/dL Glucose (74-99) mg/dL POC Glucose (mg/dL) 222 H 200 H (75-99) mg/dL Hemoglobin A1c 8.4 H (4.0-6.0) % 07/06/21 07/06/21 07/06/21 Range/Units 05:35 05:35 07:23 WBC 11.4 H (3.8-10.6) k/uL MCV 100.4 H (80.0-100.0) fL MCHC 30.4 L (31.0-37.0) g/dL Neutrophils # 10.3 H (1.3-7.7) k/uL Lymphocytes # 0.7 L (1.0-4.8) k/uL Sodium 134 L (137-145) mmol/L Potassium 5.2 H (3.5-5.1) mmol/L Chloride 92 L (98-107) mmol/L Carbon Dioxide 40 H (22-30) mmol/L BUN 21 H (7-17) mg/dL Glucose 195 H (74-99) mg/dL POC Glucose (mg/dL) 222 H (75-99) mg/dL Hemoglobin A1c (4.0-6.0) % 07/06/21 Range/Units 11:41 WBC (3.8-10.6) k/uL MCV (80.0-100.0) fL MCHC (31.0-37.0) g/dL Neutrophils # (1.3-7.7) k/uL Lymphocytes # (1.0-4.8) k/uL Sodium (137-145) mmol/L Potassium (3.5-5.1) mmol/L Chloride (98-107) mmol/L Carbon Dioxide (22-30) mmol/L BUN (7-17) mg/dL Glucose (74-99) mg/dL POC Glucose (mg/dL) 173 H (75-99) mg/dL Hemoglobin A1c (4.0-6.0) % Microbiology - Last 24 Hours (Table) 07/04/21 19:19 Blood Culture - Preliminary Blood No Growth after 24 hours 07/04/21 19:19 Blood Culture - Preliminary Blood No Growth after 24 hours 07/04/21 20:00 Gram Stain - Preliminary Sputum Sputum Culture - Preliminary Assessment and Plan Assessment: Impression: Acute hypercapnic respiratory failure secondary to severe COPD exacerbation, and acute community-acquired pneumonia involving the left lower lobe. Requiring intubation and mechanical ventilation on her initial presentation, patient was extubated to BiPAP within 24 hours from her admission and she remains on BiPAP. Presently on 50% FiO2 and I cut down to 45%, she is also on IPAP of 14 and EPAP of 6. Chronic ongoing tobacco dependence History of obstructive sleep apnea noncompliant with CPAP Morbid obesity Recommendation: Continue BiPAP, and transition eventually to nasal cannula. Use BiPAP as needed Continue bronchodilators, DuoNeb Pulmicort and Perforomist. Continue steroids Continue antibiotics, patient is now on Zithromax and Rocephin. Continue GI and DVT prophylaxis Counseling regarding smoking cessation We'll continue to monitor in the ICU for the next 24 hours and arrange for transfer to medical floor in a.m. Time with Patient: Less than 30
[2021-07-06 19:49] LABS: Glucose,Whole Blood 211 mg/dL (75-99)
[2021-07-06] MEDS ORDERED: diphenhydrAMINE 50 MG/ML 1 ML VIAL IVP ONE (21:15)
[2021-07-06] MEDS ORDERED: guaiFENesin-Coden 100-10MG/5ML 10 ML CUP PO PRN (21:43)
[2021-07-06] MEDS: BENZONATATE 100 MG CAP PO SCH (22:29)
[2021-07-06 23:34] LABS: Glucose,Whole Blood 177 mg/dL (75-99)
[2021-07-07 04:33] LABS: Basophils % (A) 0 %; Eosinophils % (A) 0 %; HCT 46.3 % (34.0-46.0); HGB 13.6 gm/dL (11.4-16.0); Hypochromasia Marked; Lymphocytes # (A) 0.6 k/uL (1.0-4.8); Lymphocytes % (A) 6 %; MCH 29.7 pg (25.0-35.0); MCHC 29.4 g/dL (31.0-37.0); MCV 100.8 fL (80.0-100.0); Macrocytosis Slight; Mean Platelet Volume 7.6; Monocytes # (A) 0.3 k/uL (0-1.0); Monocytes % (A) 3 %; Neutrophils # (A) 9.2 k/uL (1.3-7.7); Neutrophils % (A) 91 %; Platelet Count 213 k/uL (150-450); RBC 4.59 m/uL (3.80-5.40); RDW 14.9 % (11.5-15.5); WBC 10.1 k/uL (3.8-10.6)
[2021-07-07 04:51] LABS: African American GFR (CKD) >90 (>60 ml/min/1.73 sqM); Blood Urea Nitrogen 22 mg/dL (7-17); Calcium 8.8 mg/dL (8.4-10.2); Chloride 90 mmol/L (98-107); Glucose 169 mg/dL (74-99); Non-African American GFR(CKD) >90 (>60 ml/min/1.73 sqM); Potassium 4.9 mmol/L (3.5-5.1); Sodium 135 mmol/L (137-145)
[2021-07-07 04:58] LABS: Anion Gap 1 mmol/L
[2021-07-07 05:02] LABS: Carbon Dioxide 44 mmol/L (22-30)
[2021-07-07 05:16] LABS: Glucose,Whole Blood 173 mg/dL (75-99)
[2021-07-07] MEDS: methylPREDNISolone SOD SUCCI 125 MG/2 ML VIAL IV SCH ×4 (05:51→23:46)
[2021-07-07] MEDS: INSULIN ASPART (NovoLOG) 100 UNIT/ML VIAL SQ SCH ×4 (05:51→21:13)
[2021-07-07] MEDS: INSULIN DETEMIR (LEVEMIR) 100 UNIT/ML SYR SQ SCH (06:57)
--- NOTE | 2021-07-07 07:54 | XR ---
EXAMINATION TYPE: XR chest 1V portable DATE OF EXAM: 07/07/2021 COMPARISON: 07/06/2021 HISTORY: Shortness of breath TECHNIQUE: Frontal and lateral views of the chest are obtained. FINDINGS: Scattered senescent parenchymal changes noted. Hyperinflation compatible with COPD. Vague basilar reticulonodular infiltrates are noted. No significant change appreciated. Heart size is stable. Mediastinal structures are stable and grossly unremarkable. No evidence for hilar prominence. Degenerative changes dorsal spine. IMPRESSION: 1. Vague basilar reticulonodular infiltrates are noted. No significant change appreciated.
--- NOTE | 2021-07-07 08:11 | P.PN ---
Subjective Progress Note Date: 07/07/21 This is a 56-year-old female with history of severe COPD, she has called stage IV COPD, FEV1 is 21% of the predicted. Patient continues to smoke in spite of her severe underlying COPD, maintained on bronchodilators on outpatient basis, she is not on any prednisone. Patient is also known to have history of obstructive sleep apnea syndrome, relatively mild, patient had history of severe nocturnal desaturations in the past, and she is not compliant with CPAP. Her last hospital admission was in 2019 similar to this admission, and at that time she had acute exacerbation of COPD, she required BiPAP treatment at the time, and she responded well. This time the patient came in in extreme respiratory d istress, EMS arrived to see the patient having difficulty breathing, and she was placed on a nonrebreather, brought into the ER, and S1 as she arrived the patient had to be intubated she was unresponsive to any stimuli. ABG post intubation showed a pO2 of over 400 pCO2 of 105 pH of 7.18., This indicated that the patient had severe hypercapnic respiratory failure requiring intubation and mechanical ventilation. Follow-up ABG this morning showed a pO2 of 141 pCO2 59 pH of 7.44. Patient was on propofol, she was on mechanical ventilation when I saw her this morning, and I went ahead and recommended holding sedatives, recommending placing the patient on pressure support of 10 and CPAP for 30 minute trial, and if tolerated I plan to extubate the patient. Patient is now on assist control rate of 16, volume 400 FiO2 40% and PEEP of 5. She is on propofol which I have discontinued. Chest x-ray showed limited left lower lobe infiltrate. Patient is already on Rocephin, and I will add Zithromax. Reevaluated today on 07/06/21, patient was extubated yesterday, remains on BiPAP, she is on FiO2 50%, IPAP 14, EPAP of 6. Patient is tolerating BiPAP well, he desaturates easily off BiPAP, chest x-ray today showed scattered reticular infiltrates unchanged from her admission chest x-ray. Mostly in the left lower lobe. Patient is on antibiotics for presumptive community-acquired pneumonia in the form of Rocephin and Zithromax. Patient is also on bronchodilators for underlying severe COPD, normally she has an FEV1 in the range of 20%. WBC count is 11.4 hemoglobin 13.8 electrolytes are normal renal profile is normal 07/07/2021, the patient remains extubated and this morning patient remains on a BiPAP at a pressure of 14/6 cm of water and FiO2 of 45%. The chest x-ray from this morning is essentially unchanged. The patient has emphysematous changes in the upper lobes bilaterally. Diaphragms are sharp and there is no consolidation or airspace disease or any signs of fluid overload. Note that the patient has advanced severe COPD with an FEV1 of 21% of predicted. She remains on a combination of bronchodilators and steroids. Her COVID 19 testing came back negative. The patient was given IV Rocephin as an empiric antibiotic coverage. She remains on also on Zithromax 500 mg by mouth daily. She is also on a Medrol 60 mg every 6 hours. She remains on DuoNeb nebulized treatments around the clock. IV fluids are running at 75 mL an hour. Echocardiogram showed a prese rved LV function with an ejection fraction of 55%. The patient remains on Levemir insulin 15 units daily along with a sliding scale coverage. Clinically, the patient is awake and alert. On today's evaluation, she is generating a tidal volume of around 500 mL at least on a mechanical noninvasive positive pressure ventilator and the patient is breathing in the mid 20s. She is quite comfortable. No signs of any significant bronchospasm or wheezing. No signs of any CO2 narcosis. Objective - Vital Signs Vital signs: Vital Signs Temp 97.9 F 07/07/21 08:00 Pulse 87 07/07/21 08:00 Resp 18 07/07/21 08:00 BP 140/80 07/07/21 08:00 Pulse Ox 97 07/07/21 08:00 Intake & Output 07/06/21 07/07/21 07/07/21 18:59 06:59 18:59 Intake Total 900 975 75 Output Total 585 655 60 Balance 315 320 15 Weight 104 kg Intake: IV 900 975 75 Sodium Chloride 0.9% 1, 900 975 75 000 ml @ 75 mls/hr IV . [id number] [facility] Rx#:[id number] Output: Urine 585 655 60 Other: Voiding Method Indwelling Catheter Indwelling Catheter Indwelling Catheter - Exam GENERAL EXAM: 56-year-old female obese, on BiPAP. Comfortable, in no distress. HEAD: Normocephalic. Atraumatic EYES: Normal reaction of pupils, equal size. NOSE: Clear with pink turbinates. THROAT: Crowding of the posterior pharynx. No erythema or exudates. NECK: Short. No masses, no JVD. CHEST: No chest wall deformity. LUNGS: Diminished breath sound bilaterally no rhonchi no wheezes symmetrical chest expansion noted. CVS: S1 and S2 normal with no audible murmur, regular rhythm. ABDOMEN: No hepatosplenomegaly, normal bowel sounds, no guarding or rigidity. SKIN: No rashes CENTRAL NERVOUS SYSTEM: Alert and oriented 3 no gross focal deficits. EXTREMITIES: Normal mood affect and normal mental status examination off sedation. - Labs CBC & Chem 7: 07/07/21 03:48 07/07/21 03:48 Labs: Abnormal Lab Results - Last 24 Hours (Table) 07/06/21 07/06/21 07/06/21 Range/Units 11:41 19:48 23:33 Hct (34.0-46.0) % MCV (80.0-100.0) fL MCHC (31.0-37.0) g/dL Neutrophils # (1.3-7.7) k/uL Lymphocytes # (1.0-4.8) k/uL Sodium (137-145) mmol/L Chloride (98-107) mmol/L Carbon Dioxide (22-30) mmol/L BUN (7-17) mg/dL Glucose (74-99) mg/dL POC Glucose (mg/dL) 173 H 211 H 177 H (75-99) mg/dL 07/07/21 07/07/21 07/07/21 Range/Units 03:48 03:48 05:15 Hct 46.3 H (34.0-46.0) % MCV 100.8 H (80.0-100.0) fL MCHC 29.4 L (31.0-37.0) g/dL Neutrophils # 9.2 H (1.3-7.7) k/uL Lymphocytes # 0.6 L (1.0-4.8) k/uL Sodium 135 L (137-145) mmol/L Chloride 90 L (98-107) mmol/L Carbon Dioxide 44 H* (22-30) mmol/L BUN 22 H (7-17) mg/dL Glucose 169 H (74-99) mg/dL POC Glucose (mg/dL) 173 H (75-99) mg/dL Microbiology - Last 24 Hours (Table) 07/04/21 19:19 Blood Culture - Preliminary Blood No Growth after 48 hours 07/04/21 19:19 Blood Culture - Preliminary Blood No Growth after 48 hours Assessment and Plan Plan: 1 Acute hypercapnic respiratory failure secondary to severe COPD exacerbation, and acute community-acquired pneumonia involving the left lower lobe. 2 status post intubation and mechanical ventilation on her initial presentation, patient was extubated to BiPAP within 24 hours from her admission and she remains on BiPAP. Presently on 45% FiO2 and I cut down to 45%, she is also on IPAP of 14 and EPAP of 6. 3 Chronic ongoing tobacco dependence 4 History of obstructive sleep apnea noncompliant with CPAP 5 Morbid obesity Recommendation: The patient has been maintained on a combination of Symbicort and Spiriva on outpatient basis. These will be resumed. The hospital. Both medications are available on formulary. Meanwhile, we'll put her on DuoNeb nebulized treatments 4 times a day [id number] and IV Solu-Medrol will be continued for another 24 hours. Discontinue the BiPAP and use oxygen by nasal cannula and titrated. Within saturation above 90% Given a dose of Diamox 500 mg IV push 1 Breakfast this am Continue antibiotics, patient is now on Zithromax and Rocephin. Continue GI and DVT prophylaxis Counseling regarding smoking cessation We'll continue to monitor in the ICU for the next 24 hours
[2021-07-07] MEDS: HEPARIN SODIUM,PORCINE/PF 5,000 UNIT/0.5 ML SYRINGE SQ SCH ×3 (08:48→23:46)
[2021-07-07] MEDS: AZITHROMYCIN 500 MG TAB PO SCH (08:49)
[2021-07-07] MEDS: BENZONATATE 100 MG CAP PO SCH ×3 (08:50→21:13)
[2021-07-07] MEDS: PANTOPRAZOLE 40 MG/10 ML VIAL IV SCH (08:50)
[2021-07-07] MEDS: SODIUM CHLORIDE 0.9% 1,000 ML IV SCH (10:00)
[2021-07-07 11:34] LABS: Glucose,Whole Blood 256 mg/dL (75-99)
[2021-07-07] MEDS: IPRATROPIUM-ALBUTEROL 3 ML NEB INHALATION SCH ×3 (15:49→21:04)
[2021-07-07 16:55] LABS: Glucose,Whole Blood 223 mg/dL (75-99)
[2021-07-07 20:30] LABS: Glucose,Whole Blood 225 mg/dL (75-99)
[2021-07-07] MEDS: SYMBICORT 160-4.5 MCG INHALER INHALATION SCH (22:08)
[2021-07-08] MEDS: BUDESONIDE 0.5 MG/2 ML NEBU INHALATION SCH (01:10)
[2021-07-08] MEDS: FORMOTEROL FUMARATE 20 MCG/2 ML NEBU INHALATION SCH (01:10)
[2021-07-08] MEDS: methylPREDNISolone SOD SUCCI 125 MG/2 ML VIAL IV SCH ×3 (05:45→17:07)
[2021-07-08 07:07] LABS: Glucose,Whole Blood 231 mg/dL (75-99)
[2021-07-08] MEDS: BENZONATATE 100 MG CAP PO SCH ×2 (07:38→16:58)
[2021-07-08] MEDS: AZITHROMYCIN 500 MG TAB PO SCH (07:38)
[2021-07-08] MEDS: HEPARIN SODIUM,PORCINE/PF 5,000 UNIT/0.5 ML SYRINGE SQ SCH ×2 (07:40→16:58)
[2021-07-08] MEDS: INSULIN DETEMIR (LEVEMIR) 100 UNIT/ML SYR SQ SCH (07:40)
[2021-07-08] MEDS: INSULIN ASPART (NovoLOG) 100 UNIT/ML VIAL SQ SCH ×3 (07:40→16:58)
[2021-07-08] MEDS: IPRATROPIUM-ALBUTEROL 3 ML NEB INHALATION SCH ×4 (08:23→20:36)
[2021-07-08] MEDS: SYMBICORT 160-4.5 MCG INHALER INHALATION SCH ×2 (08:23→20:36)
[2021-07-08] MEDS: PANTOPRAZOLE 40 MG/10 ML VIAL IV SCH (09:09)
[2021-07-08 11:34] LABS: Glucose,Whole Blood 246 mg/dL (75-99)
[2021-07-08 12:31] LABS: Basophils % (A) 0 %; Eosinophils % (A) 0 %; HCT 50.7 % (34.0-46.0); HGB 14.8 gm/dL (11.4-16.0); Hypochromasia Marked; Lymphocytes # (A) 0.4 k/uL (1.0-4.8); Lymphocytes % (A) 5 %; MCHC 29.3 g/dL (31.0-37.0); MCV 102.4 fL (80.0-100.0); Macrocytosis Slight; Mean Platelet Volume 7.5; Monocytes # (A) 0.4 k/uL (0-1.0); Monocytes % (A) 5 %; Neutrophils % (A) 88 %; Platelet Count 195 k/uL (150-450); RBC 4.95 m/uL (3.80-5.40); RDW 14.8 % (11.5-15.5)
[2021-07-08 12:46] LABS: ALT 40 U/L (4-34); AST 49 U/L (14-36); African American GFR (CKD) >90 (>60 ml/min/1.73 sqM); Albumin 3.7 g/dL (3.5-5.0); Albumin/Globulin Ratio 1.3; Alkaline Phosphatase 65 U/L (38-126); Blood Urea Nitrogen 22 mg/dL (7-17); Calcium 9.3 mg/dL (8.4-10.2); Chloride 88 mmol/L (98-107); Globulin 2.9 g/dL; Glucose 245 mg/dL (74-99); Non-African American GFR(CKD) 84 (>60 ml/min/1.73 sqM); Potassium 4.4 mmol/L (3.5-5.1); Sodium 138 mmol/L (137-145); Total Bilirubin 0.3 mg/dL (0.2-1.3); Total Protein 6.6 g/dL (6.3-8.2)
[2021-07-08 12:53] LABS: Anion Gap 8 mmol/L
[2021-07-08 12:58] LABS: Carbon Dioxide 42 mmol/L (22-30)
--- NOTE | 2021-07-08 14:45 | P.PN ---
Subjective Progress Note Date: 07/08/21 This is a 56-year-old female with history of severe COPD, she has called stage IV COPD, FEV1 is 21% of the predicted. Patient continues to smoke in spite of her severe underlying COPD, maintained on bronchodilators on outpatient basis, she is not on any prednisone. Patient is also known to have history of obstructive sleep apnea syndrome, relatively mild, patient had history of severe nocturnal desaturations in the past, and she is not compliant with CPAP. Her last hospital admission was in 2019 similar to this admission, and at that time she had acute exacerbation of COPD, she required BiPAP treatment at the time, and she responded well. This time the patient came in in extreme respiratory d istress, EMS arrived to see the patient having difficulty breathing, and she was placed on a nonrebreather, brought into the ER, and S1 as she arrived the patient had to be intubated she was unresponsive to any stimuli. ABG post intubation showed a pO2 of over 400 pCO2 of 105 pH of 7.18., This indicated that the patient had severe hypercapnic respiratory failure requiring intubation and mechanical ventilation. Follow-up ABG this morning showed a pO2 of 141 pCO2 59 pH of 7.44. Patient was on propofol, she was on mechanical ventilation when I saw her this morning, and I went ahead and recommended holding sedatives, recommending placing the patient on pressure support of 10 and CPAP for 30 minute trial, and if tolerated I plan to extubate the patient. Patient is now on assist control rate of 16, volume 400 FiO2 40% and PEEP of 5. She is on propofol which I have discontinued. Chest x-ray showed limited left lower lobe infiltrate. Patient is already on Rocephin, and I will add Zithromax. Reevaluated today on 07/06/21, patient was extubated yesterday, remains on BiPAP, she is on FiO2 50%, IPAP 14, EPAP of 6. Patient is tolerating BiPAP well, he desaturates easily off BiPAP, chest x-ray today showed scattered reticular infiltrates unchanged from her admission chest x-ray. Mostly in the left lower lobe. Patient is on antibiotics for presumptive community-acquired pneumonia in the form of Rocephin and Zithromax. Patient is also on bronchodilators for underlying severe COPD, normally she has an FEV1 in the range of 20%. WBC count is 11.4 hemoglobin 13.8 electrolytes are normal renal profile is normal 07/07/2021, the patient remains extubated and this morning patient remains on a BiPAP at a pressure of 14/6 cm of water and FiO2 of 45%. The chest x-ray from this morning is essentially unchanged. The patient has emphysematous changes in the upper lobes bilaterally. Diaphragms are sharp and there is no consolidation or airspace disease or any signs of fluid overload. Note that the patient has advanced severe COPD with an FEV1 of 21% of predicted. She remains on a combination of bronchodilators and steroids. Her COVID 19 testing came back negative. The patient was given IV Rocephin as an empiric antibiotic coverage. She remains on also on Zithromax 500 mg by mouth daily. She is also on a Medrol 60 mg every 6 hours. She remains on DuoNeb nebulized treatments around the clock. IV fluids are running at 75 mL an hour. Echocardiogram showed a prese rved LV function with an ejection fraction of 55%. The patient remains on Levemir insulin 15 units daily along with a sliding scale coverage. Clinically, the patient is awake and alert. On today's evaluation, she is generating a tidal volume of around 500 mL at least on a mechanical noninvasive positive pressure ventilator and the patient is breathing in the mid 20s. She is quite comfortable. No signs of any significant bronchospasm or wheezing. No signs of any CO2 narcosis. 07/08/2021, the patient is off the BiPAP and the patient's cousin 40s about 2 by nasal cannula. Note that the patient has COPD with an FEV1 of 21% of predicted and the patient using BiPAP on and off during the day and she has a portable BiPAP machine at the bedside at a pressure of 14/6 cm of water. She is feeling well. However her exercise capacity is quite limited and she gets short of breath with minimal amount of activity. No altered mentation. No signs of any CO2 narcosis patient remains on empiric antibiotic coverage with accommodation. And Zithromax. She is on DuoNeb nebulized treatment [id number] and she is also on IV Solu Medrol 60 every grams IV push every 6 hours. The patient is also on heparin 5000 units subcu every 8 hours and the patient is on Levemir insulin 15 units once a day along with NovoLog site scale coverage. No significant swelling lower extremities. No chest pain. No pleurisy. No angina. Objective - Vital Signs Vital signs: Vital Signs Temp 98.2 F 07/08/21 14:00 Pulse 94 07/08/21 14:00 Resp 18 07/08/21 14:00 BP 149/77 07/08/21 14:00 Pulse Ox 95 07/08/21 14:00 Intake & Output 07/07/21 07/08/21 07/08/21 18:59 06:59 18:59 Intake Total 565 Output Total 1165 325 Balance -600 -325 Intake: IV 215 Sodium Chloride 0.9% 1, 215 000 ml @ 20 mls/hr IV . Q[facility]H [facility] Rx#:[id number] Oral 350 Output: Urine 1165 325 Other: Voiding Method Bedside Commode Bedside Commode # Voids 6 # Bowel Movements 1 - Exam GENERAL EXAM: 56-year-old female obese, on BiPAP. Comfortable, in no distress. HEAD: Normocephalic. Atraumatic EYES: Normal reaction of pupils, equal size. NOSE: Clear with pink turbinates. THROAT: Crowding of the posterior pharynx. No erythema or exudates. NECK: Short. No masses, no JVD. CHEST: No chest wall deformity. LUNGS: Diminished breath sound bilaterally no rhonchi no wheezes symmetrical chest expansion noted. CVS: S1 and S2 normal with no audible murmur, regular rhythm. ABDOMEN: No hepatosplenomegaly, normal bowel sounds, no guarding or rigidity. SKIN: No rashes CENTRAL NERVOUS SYSTEM: Alert and oriented 3 no gross focal deficits. EXTREMITIES: Normal mood affect and normal mental status examination off sedation. - Labs CBC & Chem 7: 07/08/21 12:20 07/08/21 12:20 Labs: Abnormal Lab Results - Last 24 Hours (Table) 07/07/21 07/07/21 07/08/21 Range/Units 16:52 20:27 07:06 Hct (34.0-46.0) % MCV (80.0-100.0) fL MCHC (31.0-37.0) g/dL Lymphocytes # (1.0-4.8) k/uL Chloride (98-107) mmol/L Carbon Dioxide (22-30) mmol/L BUN (7-17) mg/dL Glucose (74-99) mg/dL POC Glucose (mg/dL) 223 H 225 H 231 H (75-99) mg/dL AST (14-36) U/L ALT (4-34) U/L 07/08/21 07/08/21 07/08/21 Range/Units 11:32 12:20 12:20 Hct 50.7 H (34.0-46.0) % MCV 102.4 H (80.0-100.0) fL MCHC 29.3 L (31.0-37.0) g/dL Lymphocytes # 0.4 L (1.0-4.8) k/uL Chloride 88 L (98-107) mmol/L Carbon Dioxide 42 H* (22-30) mmol/L BUN 22 H (7-17) mg/dL Glucose 245 H (74-99) mg/dL POC Glucose (mg/dL) 246 H (75-99) mg/dL AST 49 H (14-36) U/L ALT 40 H (4-34) U/L Microbiology - Last 24 Hours (Table) 07/04/21 19:19 Blood Culture - Preliminary Blood No Growth after 72 hours 07/04/21 19:19 Blood Culture - Preliminary Blood No Growth after 72 hours 07/04/21 20:00 Gram Stain - Final Sputum Sputum Culture - Final Assessment and Plan Plan: 1 Acute hypercapnic respiratory failure secondary to severe COPD exacerbation, and acute community-acquired pneumonia involving the left lower lobe. Clinically stable and the patient is currently on 40 to document is a cannula. The patient is still on examination bronchodilators and steroids and antibiotics. 2 status post intubation and mechanical ventilation on her initial presentation, patient was extubated to BiPAP within 24 hours from her admission and she remains on BiPAP. Presently on 45% FiO2 and I cut down to 45%, she is also on IPAP of 14 and EPAP of 6. The patient was taken off the BiPAP this morning and the patient is currently on 40 to document nasal cannula. 3 Chronic ongoing tobacco dependence 4 History of obstructive sleep apnea noncompliant with CPAP 5 Morbid obesity Recommendation: The patient has been maintained on DuoNeb nebulized treatments 4 times a day [id number] and IV Solu-Medrol will be continued for another 24 hours. Oxygen 4 L per minute nasal cannula She was given a dose of Diamox yesterday and the electrodes is still showing significant metabolic alkalosis with a serum bicarb of 42. I'm going to give another dose of Diamox 500 mg IV push. Continued IV Solu Medrol Continue antibiotics, patient is now on Zithromax and Rocephin. Continue GI and DVT prophylaxis Counseling regarding smoking cessation We'll continue to monitor
[2021-07-08 16:24] LABS: Glucose,Whole Blood 208 mg/dL (75-99)
[2021-07-08 20:28] LABS: Glucose,Whole Blood 186 mg/dL (75-99)
[2021-07-09 00:34] LABS: Glucose,Whole Blood 195 mg/dL (75-99)
[2021-07-09] MEDS: INSULIN ASPART (NovoLOG) 100 UNIT/ML VIAL SQ SCH ×5 (01:10→20:51)
[2021-07-09] MEDS: methylPREDNISolone SOD SUCCI 125 MG/2 ML VIAL IV SCH ×4 (01:10→18:17)
[2021-07-09] MEDS: HEPARIN SODIUM,PORCINE/PF 5,000 UNIT/0.5 ML SYRINGE SQ SCH ×3 (01:11→17:49)
[2021-07-09] MEDS: BENZONATATE 100 MG CAP PO SCH ×4 (01:11→20:51)
[2021-07-09 06:54] LABS: Glucose,Whole Blood 181 mg/dL (75-99)
[2021-07-09] MEDS: INSULIN DETEMIR (LEVEMIR) 100 UNIT/ML SYR SQ SCH (07:05)
[2021-07-09] MEDS: AZITHROMYCIN 500 MG TAB PO SCH (07:06)
[2021-07-09] MEDS: IPRATROPIUM-ALBUTEROL 3 ML NEB INHALATION SCH ×4 (09:27→21:10)
[2021-07-09] MEDS: SYMBICORT 160-4.5 MCG INHALER INHALATION SCH ×2 (09:27→21:10)
[2021-07-09] MEDS: PANTOPRAZOLE 40 MG/10 ML VIAL IV SCH (10:14)
[2021-07-09 11:34] LABS: Glucose,Whole Blood 224 mg/dL (75-99)
--- NOTE | 2021-07-09 12:16 | P.PN ---
Subjective Progress Note Date: 07/09/21 This is a 56-year-old female with history of severe COPD, she has called stage IV COPD, FEV1 is 21% of the predicted. Patient continues to smoke in spite of her severe underlying COPD, maintained on bronchodilators on outpatient basis, she is not on any prednisone. Patient is also known to have history of obstructive sleep apnea syndrome, relatively mild, patient had history of severe nocturnal desaturations in the past, and she is not compliant with CPAP. Her last hospital admission was in 2019 similar to this admission, and at that time she had acute exacerbation of COPD, she required BiPAP treatment at the time, and she responded well. This time the patient came in in extreme respiratory d istress, EMS arrived to see the patient having difficulty breathing, and she was placed on a nonrebreather, brought into the ER, and S1 as she arrived the patient had to be intubated she was unresponsive to any stimuli. ABG post intubation showed a pO2 of over 400 pCO2 of 105 pH of 7.18., This indicated that the patient had severe hypercapnic respiratory failure requiring intubation and mechanical ventilation. Follow-up ABG this morning showed a pO2 of 141 pCO2 59 pH of 7.44. Patient was on propofol, she was on mechanical ventilation when I saw her this morning, and I went ahead and recommended holding sedatives, recommending placing the patient on pressure support of 10 and CPAP for 30 minute trial, and if tolerated I plan to extubate the patient. Patient is now on assist control rate of 16, volume 400 FiO2 40% and PEEP of 5. She is on propofol which I have discontinued. Chest x-ray showed limited left lower lobe infiltrate. Patient is already on Rocephin, and I will add Zithromax. Reevaluated today on 07/06/21, patient was extubated yesterday, remains on BiPAP, she is on FiO2 50%, IPAP 14, EPAP of 6. Patient is tolerating BiPAP well, he desaturates easily off BiPAP, chest x-ray today showed scattered reticular infiltrates unchanged from her admission chest x-ray. Mostly in the left lower lobe. Patient is on antibiotics for presumptive community-acquired pneumonia in the form of Rocephin and Zithromax. Patient is also on bronchodilators for underlying severe COPD, normally she has an FEV1 in the range of 20%. WBC count is 11.4 hemoglobin 13.8 electrolytes are normal renal profile is normal 07/07/2021, the patient remains extubated and this morning patient remains on a BiPAP at a pressure of 14/6 cm of water and FiO2 of 45%. The chest x-ray from this morning is essentially unchanged. The patient has emphysematous changes in the upper lobes bilaterally. Diaphragms are sharp and there is no consolidation or airspace disease or any signs of fluid overload. Note that the patient has advanced severe COPD with an FEV1 of 21% of predicted. She remains on a combination of bronchodilators and steroids. Her COVID 19 testing came back negative. The patient was given IV Rocephin as an empiric antibiotic coverage. She remains on also on Zithromax 500 mg by mouth daily. She is also on a Medrol 60 mg every 6 hours. She remains on DuoNeb nebulized treatments around the clock. IV fluids are running at 75 mL an hour. Echocardiogram showed a prese rved LV function with an ejection fraction of 55%. The patient remains on Levemir insulin 15 units daily along with a sliding scale coverage. Clinically, the patient is awake and alert. On today's evaluation, she is generating a tidal volume of around 500 mL at least on a mechanical noninvasive positive pressure ventilator and the patient is breathing in the mid 20s. She is quite comfortable. No signs of any significant bronchospasm or wheezing. No signs of any CO2 narcosis. 07/08/2021, the patient is off the BiPAP and the patient's cousin 40s about 2 by nasal cannula. Note that the patient has COPD with an FEV1 of 21% of predicted and the patient using BiPAP on and off during the day and she has a portable BiPAP machine at the bedside at a pressure of 14/6 cm of water. She is feeling well. However her exercise capacity is quite limited and she gets short of breath with minimal amount of activity. No altered mentation. No signs of any CO2 narcosis patient remains on empiric antibiotic coverage with accommodation. And Zithromax. She is on DuoNeb nebulized treatment [id number] and she is also on IV Solu Medrol 60 every grams IV push every 6 hours. The patient is also on heparin 5000 units subcu every 8 hours and the patient is on Levemir insulin 15 units once a day along with NovoLog site scale coverage. No significant swelling lower extremities. No chest pain. No pleurisy. No angina. 07/09/2021, the patient is wearing her BiPAP at a pressure of 14/6 cm of water. She is more comfortable in the BiPAP. Her breath sounds remain quite diminished. She is able to come off the BiPAP and she will utilize oxygen at 4 L during which she should be able to eat and maintain her nutrition. She remains on DuoNeb nebulized treatments around the clock patient remains on Symbicort patient remains on IV Solu Medrol 60 mg every 6 hours. There is a 7 COPD with an FEV1 of 21% of predicted and the patient has been oxygen dependent for several years. She exacerbated that she initially had CO2 narcosis and acute exacerbation is recovered. The patient's serum bicarbonate was at 42 from yesterday the patient was given a dose of Diamox. Repeat electrical still pending for now. If there is significant alkalosis, another dose of Diamox will be given to this patient. Otherwise, no change in her condition. She remains on Levemir insulin 50 units along with NovoLog sliding scale coverage. No chest pain. No angina. No palpitations. Blood sugar from today's at 224. Objective - Vital Signs Vital signs: Vital Signs Temp 97.1 F L 07/09/21 08:00 Pulse 88 07/09/21 12:05 Resp 20 07/09/21 08:00 BP 165/75 07/09/21 08:00 Pulse Ox 87 L 07/09/21 08:00 Intake & Output 07/08/21 07/09/21 07/09/21 18:59 06:59 18:59 Output Total 201 Balance -201 Output: Urine 201 Other: Voiding Method Bedside Commode # Voids 2 - Exam GENERAL EXAM: 56-year-old female obese, on BiPAP. Comfortable, in no distress. The patient is also utilizing BiPAP at a pressure of 14/6 cm of water. No signs of any CO2 narcosis. She is arousable and she was communicate effectively. HEAD: Normocephalic. Atraumatic EYES: Normal reaction of pupils, equal size. NOSE: Clear with pink turbinates. THROAT: Crowding of the posterior pharynx. No erythema or exudates. NECK: Short. No masses, no JVD. CHEST: No chest wall deformity. LUNGS: Diminished breath sound bilaterally no rhonchi no wheezes symmetrical chest expansion noted. CVS: S1 and S2 normal with no audible murmur, regular rhythm. ABDOMEN: No hepatosplenomegaly, normal bowel sounds, no guarding or rigidity. SKIN: No rashes CENTRAL NERVOUS SYSTEM: Alert and oriented 3 no gross focal deficits. EXTREMITIES: Normal mood affect and normal mental status examination off sedation. - Labs CBC & Chem 7: 07/08/21 12:20 07/08/21 12:20 Labs: Abnormal Lab Results - Last 24 Hours (Table) 07/08/21 07/08/21 07/08/21 Range/Units 12:20 12:20 16:23 Hct 50.7 H (34.0-46.0) % MCV 102.4 H (80.0-100.0) fL MCHC 29.3 L (31.0-37.0) g/dL Lymphocytes # 0.4 L (1.0-4.8) k/uL Chloride 88 L (98-107) mmol/L Carbon Dioxide 42 H* (22-30) mmol/L BUN 22 H (7-17) mg/dL Glucose 245 H (74-99) mg/dL POC Glucose (mg/dL) 208 H (75-99) mg/dL AST 49 H (14-36) U/L ALT 40 H (4-34) U/L 07/08/21 07/09/21 07/09/21 Range/Units 20:26 00:30 06:52 Hct (34.0-46.0) % MCV (80.0-100.0) fL MCHC (31.0-37.0) g/dL Lymphocytes # (1.0-4.8) k/uL Chloride (98-107) mmol/L Carbon Dioxide (22-30) mmol/L BUN (7-17) mg/dL Glucose (74-99) mg/dL POC Glucose (mg/dL) 186 H 195 H 181 H (75-99) mg/dL AST (14-36) U/L ALT (4-34) U/L 07/09/21 Range/Units 11:33 Hct (34.0-46.0) % MCV (80.0-100.0) fL MCHC (31.0-37.0) g/dL Lymphocytes # (1.0-4.8) k/uL Chloride (98-107) mmol/L Carbon Dioxide (22-30) mmol/L BUN (7-17) mg/dL Glucose (74-99) mg/dL POC Glucose (mg/dL) 224 H (75-99) mg/dL AST (14-36) U/L ALT (4-34) U/L Microbiology - Last 24 Hours (Table) 07/04/21 19:19 Blood Culture - Preliminary Blood No Growth after 96 hours 07/04/21 19:19 Blood Culture - Preliminary Blood No Growth after 96 hours Assessment and Plan Plan: 1 Acute hypercapnic respiratory failure secondary to severe COPD exacerbation, and acute community-acquired pneumonia involving the left lower lobe. The patient utilizing BiPAP on and off at a pressure of 14/6 cm of water and once more comfortable she is being switched to 46 per minute nasal cannula. 2 status post intubation and mechanical ventilation on her initial presentation, patient was extubated 3 severe COPD with a baseline FEV1 of 20-21% of predicted and the patient has chronic oxygen dependence and she is a chronic smoker 4 History of obstructive sleep apnea noncompliant with CPAP 5 Morbid obesity, current BMI is at 40.6 Recommendation: Continue BiPAP 14/6 cm of water and FiO2 to be titrated to maintain a saturation above 90% Once of the BiPAP use his 4 L approximately nasal cannula Continue DuoNeb nebulized treatments 4 times a day [id number] and IV Solu- Medrol will be continued for another 24 hours. Awaiting the follow-up electrolytes of into this will be the follow-up serum bicarb and may benefit from addition of Diamox and there is significant hiro losis Continued IV Solu Medrol Continue antibiotics, patient is now on Zithromax and Rocephin. Continue GI and DVT prophylaxis Counseling regarding smoking cessation We'll continue to monitor Watch for any signs of CO2 narcosis Long-term prognosis poor baseline above-mentioned comorbidities.
[2021-07-09 12:47] LABS: Basophils % (A) 0 %; Eosinophils % (A) 0 %; HCT 49.6 % (34.0-46.0); HGB 14.8 gm/dL (11.4-16.0); Hypochromasia Marked; Lymphocytes # (A) 0.6 k/uL (1.0-4.8); Lymphocytes % (A) 8 %; MCH 30.1 pg (25.0-35.0); MCHC 29.8 g/dL (31.0-37.0); Macrocytosis Slight; Mean Platelet Volume 7.4; Monocytes # (A) 0.3 k/uL (0-1.0); Monocytes % (A) 4 %; Neutrophils # (A) 6.2 k/uL (1.3-7.7); Neutrophils % (A) 87 %; Platelet Count 187 k/uL (150-450); RBC 4.91 m/uL (3.80-5.40); RDW 14.6 % (11.5-15.5); WBC 7.2 k/uL (3.8-10.6)
[2021-07-09 16:24] LABS: Glucose,Whole Blood 206 mg/dL (75-99)
[2021-07-09 17:27] LABS: African American GFR (CKD) 118.9 (60.0-200.0); Albumin/Globulin Ratio 1.74 (1.60-3.17); Anion Gap 3.5 mmol/L (10.00-18.00); BUN/Creat Ratio 27.67 Ratio (12.00-20.00); Blood Urea Nitrogen 16.6 mg/dL (9.0-27.0); Calcium 9.3 mg/dL (8.7-10.3); Carbon Dioxide 42.5 mmol/L (20.0-27.5); Globulin 2.3 g/dL (1.6-3.3); Non-African American GFR(CKD) 102.6 (60.0-200.0); Potassium 4.2 mmol/L (3.5-5.5); Total Bilirubin 0.3 mg/dL (0.30-1.20); Total Protein 6.3 g/dL (6.2-8.2)
[2021-07-09 20:48] LABS: Glucose,Whole Blood 202 mg/dL (75-99)
--- NOTE | 2021-07-10 00:29 | P.PN ---
Subjective Progress Note Date: 07/06/21 56-year-old female with known history of COPD can use to smoke came in with complaints of difficulty breathing her overall condition progressively worsened in ER patient ended up being intubated. Patient is a presently clinically doing well patient is on FiO2 of 50% PEEP of 5 had low volume of 400 saturating well planning and extubating patient is off sedation. Patient had fevers in ER there is probably an infiltrate on the chest x-ray and being treated for pneumonia. It is presently on ceftriaxone and azithromycin. The patient wears oxygen at home. 07/06/2021 Patient was extubated yesterday. Currently in the MICU. On BiPAP. Awake alert and oriented. Chest x-ray showed scattered reticular infiltrates unchanged from her prior x-ray.. Patient is on antibiotics above ceftriaxone azithromycin for possible pneumonia. Continued on IV steroids and bronchodilators. Laboratory data showed WBC 11.4 hemoglobin 13.8 and platelets 174 Sodium 134 potassium 5.2 chloride 92 BUN 21 creatinine 0.5 Blood sugar is 195 pulmonary is on board. REVIEW OF SYSTEMS CONSTITUTIONAL: Denies fever or chills. CARDIOVASCULAR: Denies chest pain, orthopnea, PND or palpitations. RESPIRATORY: Denies cough. GASTROINTESTINAL: Denies abdominal pain, diarrhea, constipation, nausea or vomiting. MUSCULOSKELETAL: Denies myalgias. NEUROLOGIC: Denies numbness, tingling or weakness. ENDOCRINE: Denies fatigue, weight change, polydipsia or polyurina. GENITOURINARY: Denies burning, hematuria or urgency with micturation. HEMATOLOGIC: Denies history of anemia or bleeding. Current medications reviewed. Objective - Vital Signs Vital signs: Vital Signs Temp 98.0 F 07/06/21 16:00 Pulse 104 H 07/06/21 17:00 Resp 34 H 07/06/21 17:00 BP 122/63 07/06/21 17:00 Pulse Ox 94 L 07/06/21 17:00 Intake & Output 07/05/21 07/06/21 07/06/21 18:59 06:59 18:59 Intake Total 815 900 825 Output Total 1985 705 510 Balance -1170 195 315 Weight 104.3 kg Intake: IV 715 900 825 Sodium Chloride 0.9% 1, 715 900 825 000 ml @ 75 mls/hr IV . [id number] [facility] Rx#:[id number] Oral 100 Output: Urine 1984 706 510 Other: Voiding Method Indwelling Catheter Indwelling Catheter Indwelling Catheter - Exam PHYSICAL EXAMINATION: Patient is lying in the bed comfortably, no acute distress, awake alert and oriented. on bipap. HEENT: Normocephalic. Neck is supple. Pupils reactive. Nostrils clear. Oral cavity is moist. Neck reveals no JVD, carotid bruits, or thyromegaly. CHEST EXAMINATION: Trachea is central. Symmetrical expansion. Bilateral diffuse wheezing and diminished sounds.. CARDIAC: Normal S1, S2 with no gallops. No murmurs ABDOMEN: Soft. Bowel sounds normal. No organomegaly. No abdominal bruits. Extremities: reveal no edema. No clubbing or cyanosis Neurologically awake, alert, oriented x3 with well-coordinated movements. No focal deficits noted Skin: No rash or skin lesions. Psychiatric: Cooperative. Nonsuicidal Musculoskeletal: No joint swelling or deformity. Normal range of motion. - Labs CBC & Chem 7: 07/09/21 12:32 07/09/21 12:32 Labs: Abnormal Lab Results - Last 24 Hours (Table) 07/05/21 07/05/21 07/05/21 Range/Units 05:24 17:27 23:46 WBC (3.8-10.6) k/uL MCV (80.0-100.0) fL MCHC (31.0-37.0) g/dL Neutrophils # (1.3-7.7) k/uL Lymphocytes # (1.0-4.8) k/uL Sodium (137-145) mmol/L Potassium (3.5-5.1) mmol/L Chloride (98-107) mmol/L Carbon Dioxide (22-30) mmol/L BUN (7-17) mg/dL Glucose (74-99) mg/dL POC Glucose (mg/dL) 222 H 200 H (75-99) mg/dL Hemoglobin A1c 8.4 H (4.0-6.0) % 07/06/21 07/06/21 07/06/21 Range/Units 05:35 05:35 07:23 WBC 11.4 H (3.8-10.6) k/uL MCV 100.4 H (80.0-100.0) fL MCHC 30.4 L (31.0-37.0) g/dL Neutrophils # 10.3 H (1.3-7.7) k/uL Lymphocytes # 0.7 L (1.0-4.8) k/uL Sodium 134 L (137-145) mmol/L Potassium 5.2 H (3.5-5.1) mmol/L Chloride 92 L (98-107) mmol/L Carbon Dioxide 40 H (22-30) mmol/L BUN 21 H (7-17) mg/dL Glucose 195 H (74-99) mg/dL POC Glucose (mg/dL) 222 H (75-99) mg/dL Hemoglobin A1c (4.0-6.0) % 07/06/21 Range/Units 11:41 WBC (3.8-10.6) k/uL MCV (80.0-100.0) fL MCHC (31.0-37.0) g/dL Neutrophils # (1.3-7.7) k/uL Lymphocytes # (1.0-4.8) k/uL Sodium (137-145) mmol/L Potassium (3.5-5.1) mmol/L Chloride (98-107) mmol/L Carbon Dioxide (22-30) mmol/L BUN (7-17) mg/dL Glucose (74-99) mg/dL POC Glucose (mg/dL) 173 H (75-99) mg/dL Hemoglobin A1c (4.0-6.0) % Microbiology - Last 24 Hours (Table) 07/04/21 19:19 Blood Culture - Preliminary Blood No Growth after 24 hours 07/04/21 19:19 Blood Culture - Preliminary Blood No Growth after 24 hours 07/04/21 20:00 Gram Stain - Preliminary Sputum Sputum Culture - Preliminary Assessment and Plan Assessment: Assessment and plan -Acute hypercapnic respiratory failure secondary to COPD exacerbation patient had severe hypercapnia , extubated on 07/05 - sepsis secondary to come in today quite pneumonia for which patient is on Rocephin and azithromycin which will be continued -Elevated blood sugars will obtain hemoglobin A1c patient will be on sliding scale insulin was also started on long-acting insulin to avoid the IV insulin. pt was probably diabetic and was never diagnosed. -Obesity -Nicotine use counseling will be provided once patient is extubated. -hyponatremia probably hypovolemic patient will be started on IV fluids will also obtain a BNP patient does have a some bilateral lower extremity edema. Although clinically cannot appreciate any JVD DVT prophylaxis: Subcutaneous heparin Time with Patient: Greater than 30
--- NOTE | 2021-07-10 00:33 | P.PN ---
Subjective Progress Note Date: 07/07/21 56-year-old female with known history of COPD can use to smoke came in with complaints of difficulty breathing her overall condition progressively worsened in ER patient ended up being intubated. Patient is a presently clinically doing well patient is on FiO2 of 50% PEEP of 5 had low volume of 400 saturating well planning and extubating patient is off sedation. Patient had fevers in ER there is probably an infiltrate on the chest x-ray and being treated for pneumonia. It is presently on ceftriaxone and azithromycin. The patient wears oxygen at home. 07/06/2021 Patient was extubated yesterday. Currently in the MICU. On BiPAP. Awake alert and oriented. Chest x-ray showed scattered reticular infiltrates unchanged from her prior x-ray.. Patient is on antibiotics above ceftriaxone azithromycin for possible pneumonia. Continued on IV steroids and bronchodilators. Laboratory data showed WBC 11.4 hemoglobin 13.8 and platelets 174 Sodium 134 potassium 5.2 chloride 92 BUN 21 creatinine 0.5 Blood sugar is 195 pulmonary is on board. [id number] Patient is in the MICU. Currently sitting in a chair. Was on BiPAP and was transitioned to oxygen via nasal cannula. Chest x-ray today showed vague basilar reticulonodular infiltrates are noted. No significant change. Patient is being continued on IV Solu-Medrol and duo nebs. Currently on antibiotics involve ceftriaxone and azithromycin. Blood sugar is better controlled and continue with Levemir and insulin sliding scale. Patient's breathing status is better today. Able to be transferred to chair. No complaints of chest pain. Able to tolerate oral diet today. REVIEW OF SYSTEMS CONSTITUTIONAL: Denies fever or chills. CARDIOVASCULAR: Denies chest pain, orthopnea, PND or palpitations. RESPIRATORY: Denies cough. GASTROINTESTINAL: Denies abdominal pain, diarrhea, constipation, nausea or vomiting. MUSCULOSKELETAL: Denies myalgias. NEUROLOGIC: Denies numbness, tingling or weakness. ENDOCRINE: Denies fatigue, weight change, polydipsia or polyurina. GENITOURINARY: Denies burning, hematuria or urgency with micturation. HEMATOLOGIC: Denies history of anemia or bleeding. Current medications reviewed. Objective - Vital Signs Vital signs: Vital Signs Temp 98.1 F 07/07/21 16:45 Pulse 98 07/07/21 21:15 Resp 20 07/07/21 16:45 BP 140/73 07/07/21 16:45 Pulse Ox 92 L 07/07/21 16:45 Intake & Output 07/07/21 07/07/21 07/08/21 06:59 18:59 06:59 Intake Total 975 565 Output Total 655 1165 Balance 320 -600 Weight 104 kg Intake: IV 975 215 Sodium Chloride 0.9% 1, 975 215 000 ml @ 20 mls/hr IV . Q24H [facility] Rx#:[id number] Oral 350 Output: Urine 655 1165 Other: Voiding Method Indwelling Catheter Bedside Commode Bedside Commode - Exam PHYSICAL EXAMINATION: Patient is lying in the bed comfortably, no acute distress, awake alert and o riented. on bipap. HEENT: Normocephalic. Neck is supple. Pupils reactive. Nostrils clear. Oral cavi ty is moist. Neck reveals no JVD, carotid bruits, or thyromegaly. CHEST EXAMINATION: Trachea is central. Symmetrical expansion. Bilateral Improved air entry. Diffuse wheezing present... CARDIAC: Normal S1, S2 with no gallops. No murmurs ABDOMEN: Soft. Bowel sounds normal. No organomegaly. No abdominal bruits. Extremities: reveal no edema. No clubbing or cyanosis Neurologically awake, alert, oriented x3 with well-coordinated movements. No focal deficits noted Skin: No rash or skin lesions. Psychiatric: Cooperative. Nonsuicidal Musculoskeletal: No joint swelling or deformity. Normal range of motion. - Labs CBC & Chem 7: 07/09/21 12:32 07/09/21 12:32 Labs: Abnormal Lab Results - Last 24 Hours (Table) 07/06/21 07/07/21 07/07/21 Range/Units 23:33 03:48 03:48 Hct 46.3 H (34.0-46.0) % MCV 100.8 H (80.0-100.0) fL MCHC 29.4 L (31.0-37.0) g/dL Neutrophils # 9.2 H (1.3-7.7) k/uL Lymphocytes # 0.6 L (1.0-4.8) k/uL Sodium 135 L (137-145) mmol/L Chloride 90 L (98-107) mmol/L Carbon Dioxide 44 H* (22-30) mmol/L BUN 22 H (7-17) mg/dL Glucose 169 H (74-99) mg/dL POC Glucose (mg/dL) 177 H (75-99) mg/dL 07/07/21 07/07/21 07/07/21 Range/Units 05:15 11:33 16:52 Hct (34.0-46.0) % MCV (80.0-100.0) fL MCHC (31.0-37.0) g/dL Neutrophils # (1.3-7.7) k/uL Lymphocytes # (1.0-4.8) k/uL Sodium (137-145) mmol/L Chloride (98-107) mmol/L Carbon Dioxide (22-30) mmol/L BUN (7-17) mg/dL Glucose (74-99) mg/dL POC Glucose (mg/dL) 173 H 256 H 223 H (75-99) mg/dL 07/07/21 Range/Units 20:27 Hct (34.0-46.0) % MCV (80.0-100.0) fL MCHC (31.0-37.0) g/dL Neutrophils # (1.3-7.7) k/uL Lymphocytes # (1.0-4.8) k/uL Sodium (137-145) mmol/L Chloride (98-107) mmol/L Carbon Dioxide (22-30) mmol/L BUN (7-17) mg/dL Glucose (74-99) mg/dL POC Glucose (mg/dL) 225 H (75-99) mg/dL Microbiology - Last 24 Hours (Table) 07/04/21 20:00 Gram Stain - Final Sputum Sputum Culture - Final 07/04/21 19:19 Blood Culture - Preliminary Blood No Growth after 48 hours 07/04/21 19:19 Blood Culture - Preliminary Blood No Growth after 48 hours Assessment and Plan Assessment: Assessment and plan -Acute hypercapnic respiratory failure secondary to COPD exacerbation patient had severe hypercapnia , extubated on 07/05 - sepsis secondary to come in today quite pneumonia for which patient is on Rocephin and azithromycin which will be continued -Elevated blood sugars will obtain hemoglobin A1c patient will be on sliding scale insulin was also started on long-acting insulin to avoid the IV insulin. pt was probably diabetic and was never diagnosed. -Obesity -Nicotine use counseling will be provided once patient is extubated. -hyponatremia probably hypovolemic patient will be started on IV fluids will also obtain a BNP patient does have a some bilateral lower extremity edema. Although clinically cannot appreciate any JVD DVT prophylaxis: Subcutaneous heparin
--- NOTE | 2021-07-10 00:34 | P.PN ---
Subjective Progress Note Date: 07/08/21 56-year-old female with known history of COPD can use to smoke came in with complaints of difficulty breathing her overall condition progressively worsened in ER patient ended up being intubated. Patient is a presently clinically doing well patient is on FiO2 of 50% PEEP of 5 had low volume of 400 saturating well planning and extubating patient is off sedation. Patient had fevers in ER there is probably an infiltrate on the chest x-ray and being treated for pneumonia. It is presently on ceftriaxone and azithromycin. The patient wears oxygen at home. 07/06/2021 Patient was extubated yesterday. Currently in the MICU. On BiPAP. Awake alert and oriented. Chest x-ray showed scattered reticular infiltrates unchanged from her prior x-ray.. Patient is on antibiotics above ceftriaxone azithromycin for possible pneumonia. Continued on IV steroids and bronchodilators. Laboratory data showed WBC 11.4 hemoglobin 13.8 and platelets 174 Sodium 134 potassium 5.2 chloride 92 BUN 21 creatinine 0.5 Blood sugar is 195 pulmonary is on board. [id number] Patient is in the MICU. Currently sitting in a chair. Was on BiPAP and was transitioned to oxygen via nasal cannula. Chest x-ray today showed vague basilar reticulonodular infiltrates are noted. No significant change. Patient is being continued on IV Solu-Medrol and duo nebs. Currently on antibiotics involve ceftriaxone and azithromycin. Blood sugar is better controlled and continue with Levemir and insulin sliding scale. Patient's breathing status is better today. Able to be transferred to chair. No complaints of chest pain. Able to tolerate oral diet today. 07/08/2021 Patient is currently oxygen via nasal cannula. Intermittently using BiPAP. Breathing is much easier today. Denied any complaints of chest pain. Currently on empiric antibiotics in the form of ceftriaxone and azithromycin. Otherwise patient is being continued on IV Solu-Medrol and duo nebs. Continue insulin regimen. Patient is being transferred to medical floor. Pulmonary is on board. REVIEW OF SYSTEMS CONSTITUTIONAL: Denies fever or chills. CARDIOVASCULAR: Denies chest pain, orthopnea, PND or palpitations. RESPIRATORY: Denies cough. GASTROINTESTINAL: Denies abdominal pain, diarrhea, constipation, nausea or vomiting. MUSCULOSKELETAL: Denies myalgias. NEUROLOGIC: Denies numbness, tingling or weakness. ENDOCRINE: Denies fatigue, weight change, polydipsia or polyurina. GENITOURINARY: Denies burning, hematuria or urgency with micturation. HEMATOLOGIC: Denies history of anemia or bleeding. Current medications reviewed. Objective - Vital Signs Vital signs: Vital Signs Temp 97.7 F 07/08/21 19:30 Pulse 88 07/08/21 20:52 Resp 16 07/08/21 19:30 BP 137/73 07/08/21 19:30 Pulse Ox 99 07/08/21 19:30 Intake & Output 07/08/21 07/08/21 07/09/21 06:59 18:59 06:59 Output Total 325 101 Balance -325 -101 Output: Urine 325 101 Other: Voiding Method Bedside Commode # Voids 6 2 # Bowel Movements 1 - Exam PHYSICAL EXAMINATION: Patient is lying in the bed comfortably, no acute distress, awake alert and oriented. on bipap. HEENT: Normocephalic. Neck is supple. Pupils reactive. Nostrils clear. Oral cavity is moist. Neck reveals no JVD, carotid bruits, or thyromegaly. CHEST EXAMINATION: Trachea is central. Symmetrical expansion. Bilateral Improved air entry. Diffuse wheezing present... CARDIAC: Normal S1, S2 with no gallops. No murmurs ABDOMEN: Soft. Bowel sounds normal. No organomegaly. No abdominal bruits. Extremities: reveal no edema. No clubbing or cyanosis Neurologically awake, alert, oriented x3 with well-coordinated movements. No focal deficits noted Skin: No rash or skin lesions. Psychiatric: Cooperative. Nonsuicidal Musculoskeletal: No joint swelling or deformity. Normal range of motion. - Labs CBC & Chem 7: 07/09/21 12:32 07/09/21 12:32 Labs: Abnormal Lab Results - Last 24 Hours (Table) 07/08/21 07/08/21 07/08/21 Range/Units 07:06 11:32 12:20 Hct 50.7 H (34.0-46.0) % MCV 102.4 H (80.0-100.0) fL MCHC 29.3 L (31.0-37.0) g/dL Lymphocytes # 0.4 L (1.0-4.8) k/uL Chloride (98-107) mmol/L Carbon Dioxide (22-30) mmol/L BUN (7-17) mg/dL Glucose (74-99) mg/dL POC Glucose (mg/dL) 231 H 246 H (75-99) mg/dL AST (14-36) U/L ALT (4-34) U/L 07/08/21 07/08/21 07/08/21 Range/Units 12:20 16:23 20:26 Hct (34.0-46.0) % MCV (80.0-100.0) fL MCHC (31.0-37.0) g/dL Lymphocytes # (1.0-4.8) k/uL Chloride 88 L (98-107) mmol/L Carbon Dioxide 42 H* (22-30) mmol/L BUN 22 H (7-17) mg/dL Glucose 245 H (74-99) mg/dL POC Glucose (mg/dL) 208 H 186 H (75-99) mg/dL AST 49 H (14-36) U/L ALT 40 H (4-34) U/L Microbiology - Last 24 Hours (Table) 07/04/21 19:19 Blood Culture - Preliminary Blood No Growth after 96 hours 07/04/21 19:19 Blood Culture - Preliminary Blood No Growth after 96 hours Assessment and Plan Assessment: Assessment and plan -Acute hypercapnic respiratory failure secondary to COPD exacerbation patient had severe hypercapnia , extubated on 07/05 - sepsis secondary to come in today quite pneumonia for which patient is on Rocephin and azithromycin which will be continued -Elevated blood sugars will obtain hemoglobin A1c patient will be on sliding scale insulin was also started on long-acting insulin to avoid the IV insulin. pt was probably diabetic and was never diagnosed. -Obesity -Nicotine use counseling will be provided once patient is extubated. -hyponatremia probably hypovolemic patient will be started on IV fluids will also obtain a BNP patient does have a some bilateral lower extremity edema. Although clinically cannot appreciate any JVD DVT prophylaxis: Subcutaneous heparin
--- NOTE | 2021-07-10 00:38 | P.PN ---
Subjective Progress Note Date: 07/09/21 56-year-old female with known history of COPD can use to smoke came in with complaints of difficulty breathing her overall condition progressively worsened in ER patient ended up being intubated. Patient is a presently clinically doing well patient is on FiO2 of 50% PEEP of 5 had low volume of 400 saturating well planning and extubating patient is off sedation. Patient had fevers in ER there is probably an infiltrate on the chest x-ray and being treated for pneumonia. It is presently on ceftriaxone and azithromycin. The patient wears oxygen at home. 07/06/2021 Patient was extubated yesterday. Currently in the MICU. On BiPAP. Awake alert and oriented. Chest x-ray showed scattered reticular infiltrates unchanged from her prior x-ray.. Patient is on antibiotics above ceftriaxone azithromycin for possible pneumonia. Continued on IV steroids and bronchodilators. Laboratory data showed WBC 11.4 hemoglobin 13.8 and platelets 174 Sodium 134 potassium 5.2 chloride 92 BUN 21 creatinine 0.5 Blood sugar is 195 pulmonary is on board. [id number] Patient is in the MICU. Currently sitting in a chair. Was on BiPAP and was transitioned to oxygen via nasal cannula. Chest x-ray today showed vague basilar reticulonodular infiltrates are noted. No significant change. Patient is being continued on IV Solu-Medrol and duo nebs. Currently on antibiotics involve ceftriaxone and azithromycin. Blood sugar is better controlled and continue with Levemir and insulin sliding scale. Patient's breathing status is better today. Able to be transferred to chair. No complaints of chest pain. Able to tolerate oral diet today. 07/08/2021 Patient is currently oxygen via nasal cannula. Intermittently using BiPAP. Breathing is much easier today. Denied any complaints of chest pain. Currently on empiric antibiotics in the form of ceftriaxone and azithromycin. Otherwise patient is being continued on IV Solu-Medrol and duo nebs. Continue insulin regimen. Patient is being transferred to medical floor. Pulmonary is on board. 07/09/2021 Patient is currently in the medical floor. On oxygen at 4 L via nasal cannula. Patient is reduced BiPAP 14 / 6 cm of water today morning. Patient is still having bilateral expiratory wheezing. Currently being continued on IV steroids and duo nebs and antibiotics in the form of ceftriaxone and azithromycin. Patient is newly diagnosed diabetic A1c 8.4. Continue with Levemir and insulin sliding scale. REVIEW OF SYSTEMS CONSTITUTIONAL: Denies fever or chills. CARDIOVASCULAR: Denies chest pain, orthopnea, PND or palpitations. RESPIRATORY: Denies cough. GASTROINTESTINAL: Denies abdominal pain, diarrhea, constipation, nausea or vomiting. MUSCULOSKELETAL: Denies myalgias. NEUROLOGIC: Denies numbness, tingling or weakness. ENDOCRINE: Denies fatigue, weight change, polydipsia or polyurina. GENITOURINARY: Denies burning, hematuria or urgency with micturation. HEMATOLOGIC: Denies history of anemia or bleeding. Current medications reviewed. Objective - Vital Signs Vital signs: Vital Signs Temp 97.8 F 07/09/21 14:00 Pulse 93 07/09/21 21:24 Resp 24 07/09/21 14:00 BP 144/77 07/09/21 14:00 Pulse Ox 95 07/09/21 14:00 Intake & Output 07/09/21 07/09/21 07/10/21 06:59 18:59 06:59 Output Total 201 Balance -201 Output: Urine 201 Other: Voiding Method Bedside Commode # Voids 2 - Exam PHYSICAL EXAMINATION: Patient is lying in the bed comfortably, no acute distress, awake alert and oriented. on bipap. HEENT: Normocephalic. Neck is supple. Pupils reactive. Nostrils clear. Oral c avity is moist. Neck reveals no JVD, carotid bruits, or thyromegaly. CHEST EXAMINATION: Trachea is central. Symmetrical expansion. Bilateral Improved air entry. Diffuse wheezing present... CARDIAC: Normal S1, S2 with no gallops. No murmurs ABDOMEN: Soft. Bowel sounds normal. No organomegaly. No abdominal bruits. Extremities: reveal no edema. No clubbing or cyanosis Neurologically awake, alert, oriented x3 with well-coordinated movements. No focal deficits noted Skin: No rash or skin lesions. Psychiatric: Cooperative. Nonsuicidal Musculoskeletal: No joint swelling or deformity. Normal range of motion. - Labs CBC & Chem 7: 07/09/21 12:32 07/09/21 12:32 Labs: Abnormal Lab Results - Last 24 Hours (Table) 07/09/21 07/09/21 07/09/21 Range/Units 00:30 06:52 11:33 Hct (34.0-46.0) % MCV (80.0-100.0) fL MCHC (31.0-37.0) g/dL Lymphocytes # (1.0-4.8) k/uL Chloride (96-109) mmol/L Carbon Dioxide (20.0-27.5) mmol/L Anion Gap (10.00-18.00) mmol/L BUN/Creatinine Ratio (12.00-20.00) Ratio Glucose (70-110) mg/dL POC Glucose (mg/dL) 195 H 181 H 224 H (75-99) mg/dL AST (13-35) U/L ALT (8-44) U/L 07/09/21 07/09/21 07/09/21 Range/Units 12:32 12:32 16:23 Hct 49.6 H (34.0-46.0) % MCV 101.0 H (80.0-100.0) fL MCHC 29.8 L (31.0-37.0) g/dL Lymphocytes # 0.6 L (1.0-4.8) k/uL Chloride 94 L (96-109) mmol/L Carbon Dioxide 42.5 H* (20.0-27.5) mmol/L Anion Gap 3.50 L (10.00-18.00) mmol/L BUN/Creatinine Ratio 27.67 H (12.00-20.00) Ratio Glucose 223 H (70-110) mg/dL POC Glucose (mg/dL) 206 H (75-99) mg/dL AST 36 H (13-35) U/L ALT 49 H (8-44) U/L 07/09/21 Range/Units 20:46 Hct (34.0-46.0) % MCV (80.0-100.0) fL MCHC (31.0-37.0) g/dL Lymphocytes # (1.0-4.8) k/uL Chloride (96-109) mmol/L Carbon Dioxide (20.0-27.5) mmol/L Anion Gap (10.00-18.00) mmol/L BUN/Creatinine Ratio (12.00-20.00) Ratio Glucose (70-110) mg/dL POC Glucose (mg/dL) 202 H (75-99) mg/dL AST (13-35) U/L ALT (8-44) U/L Microbiology - Last 24 Hours (Table) 07/04/21 19:19 Blood Culture - Preliminary Blood No Growth after 96 hours 07/04/21 19:19 Blood Culture - Preliminary Blood No Growth after 96 hours Assessment and Plan Assessment: Assessment and plan -Acute hypercapnic respiratory failure secondary to COPD exacerbation patient had severe hypercapnia , extubated on 07/05 -sepsis secondary to possible pneumonia for which patient is on Rocephin and azithromycin which will be continued -Elevated blood sugars Newly diagnosed diabetes with A1c 8.4. Continue with Levemir 15 units and insulin sliding scale. -Obesity -Nicotine use counseling will be provided once patient is extubated. -hyponatremia probably hypovolemic DVT prophylaxis: Subcutaneous heparin
[2021-07-10] MEDS: HEPARIN SODIUM,PORCINE/PF 5,000 UNIT/0.5 ML SYRINGE SQ SCH ×3 (00:53→15:38)
[2021-07-10] MEDS: methylPREDNISolone SOD SUCCI 125 MG/2 ML VIAL IV SCH ×4 (00:54→17:25)
[2021-07-10 07:02] LABS: Glucose,Whole Blood 210 mg/dL (75-99)
[2021-07-10] MEDS: INSULIN DETEMIR (LEVEMIR) 100 UNIT/ML SYR SQ SCH (07:23)
[2021-07-10] MEDS: INSULIN ASPART (NovoLOG) 100 UNIT/ML VIAL SQ SCH ×4 (07:24→21:35)
[2021-07-10] MEDS: AZITHROMYCIN 500 MG TAB PO SCH (07:24)
[2021-07-10] MEDS: BENZONATATE 100 MG CAP PO SCH ×3 (07:24→21:36)
[2021-07-10] MEDS: PANTOPRAZOLE 40 MG/10 ML VIAL IV SCH (07:25)
[2021-07-10] MEDS: IPRATROPIUM-ALBUTEROL 3 ML NEB INHALATION SCH ×4 (09:57→21:33)
[2021-07-10] MEDS: SYMBICORT 160-4.5 MCG INHALER INHALATION SCH ×2 (09:57→21:33)
[2021-07-10 10:41] LABS: Basophils # (A) 0.01 X 10*3/uL (0.00-0.10); Basophils % (A) 0.2 %; Eosinophils # (A) 0 X 10*3/uL (0.04-0.35); Eosinophils % (A) 0 %; HCT 46.9 % (37.2-46.3); HGB 13.5 g/dL (12.0-15.0); Lymphocytes # (A) 0.49 X 10*3/uL (0.90-5.00); Lymphocytes % (A) 9.6 %; MCHC 28.8 g/dL (32.0-37.0); MCV 100.6 fL (80.0-97.0); Mean Platelet Volume 10.2 fL (9.5-12.2); Monocytes # (A) 0.29 X 10*3/uL (0.20-1.00); Monocytes % (A) 5.7 %; Neutrophils # (A) 4.27 X 10*3/uL (1.80-7.70); Neutrophils % (A) 83.5 %; Platelet Count 176 X 10*3/uL (140-440); RBC 4.66 X 10*6/uL (4.10-5.20); RDW 14.7 % (11.5-14.5); WBC 5.11 X 10*3/uL (4.50-10.00)
[2021-07-10 11:24] LABS: African American GFR (CKD) 124.6 (60.0-200.0); Anion Gap 9.3 mmol/L (10.00-18.00); BUN/Creat Ratio 30.9 Ratio (12.00-20.00); Blood Urea Nitrogen 16.1 mg/dL (9.0-27.0); Calcium 8.9 mg/dL (8.7-10.3); Carbon Dioxide 39.2 mmol/L (20.0-27.5); Non-African American GFR(CKD) 107.5 (60.0-200.0); Potassium 4.3 mmol/L (3.5-5.5)
[2021-07-10 12:13] LABS: Glucose,Whole Blood 185 mg/dL (75-99)
--- NOTE | 2021-07-10 14:40 | P.PN ---
Subjective Progress Note Date: 07/10/21 This is a 56-year-old female with history of severe COPD, she has called stage IV COPD, FEV1 is 21% of the predicted. Patient continues to smoke in spite of her severe underlying COPD, maintained on bronchodilators on outpatient basis, she is not on any prednisone. Patient is also known to have history of obstructive sleep apnea syndrome, relatively mild, patient had history of severe nocturnal desaturations in the past, and she is not compliant with CPAP. Her last hospital admission was in 2019 similar to this admission, and at that time she had acute exacerbation of COPD, she required BiPAP treatment at the time, and she responded well. This time the patient came in in extreme respiratory di stress, EMS arrived to see the patient having difficulty breathing, and she was placed on a nonrebreather, brought into the ER, and S1 as she arrived the patient had to be intubated she was unresponsive to any stimuli. ABG post intubation showed a pO2 of over 400 pCO2 of 105 pH of 7.18., This indicated that the patient had severe hypercapnic respiratory failure requiring intubation and mechanical ventilation. Follow-up ABG this morning showed a pO2 of 141 pCO2 59 pH of 7.44. Patient was on propofol, she was on mechanical ventilation when I saw her this morning, and I went ahead and recommended holding sedatives, recommending placing the patient on pressure support of 10 and CPAP for 30 m inute trial, and if tolerated I plan to extubate the patient. Patient is now on assist control rate of 16, volume 400 FiO2 40% and PEEP of 5. She is on propofol which I have discontinued. Chest x-ray showed limited left lower lobe infiltrate. Patient is already on Rocephin, and I will add Zithromax. Reevaluated today on 07/06/21, patient was extubated yesterday, remains on BiPAP, she is on FiO2 50%, IPAP 14, EPAP of 6. Patient is tolerating BiPAP well, he desaturates easily off BiPAP, chest x-ray today showed scattered reticular infiltrates unchanged from her admission chest x-ray. Mostly in the left lower lobe. Patient is on antibiotics for presumptive community-acquired pneumonia in the form of Rocephin and Zithromax. Patient is also on bronchodilators for underlying severe COPD, normally she has an FEV1 in the range of 20%. WBC count is 11.4 hemoglobin 13.8 electrolytes are normal renal profile is normal 07/07/2021, the patient remains extubated and this morning patient remains on a BiPAP at a pressure of 14/6 cm of water and FiO2 of 45%. The chest x-ray from this morning is essentially unchanged. The patient has emphysematous changes in the upper lobes bilaterally. Diaphragms are sharp and there is no consolidation or airspace disease or any signs of fluid overload. Note that the patient has advanced severe COPD with an FEV1 of 21% of predicted. She remains on a combination of bronchodilators and steroids. Her COVID 19 testing came back negative. The patient was given IV Rocephin as an empiric antibiotic coverage. She remains on also on Zithromax 500 mg by mouth daily. She is also on a Medrol 60 mg every 6 hours. She remains on DuoNeb nebulized treatments around the clock. IV fluids are running at 75 mL an hour. Echocardiogram showed a preser sergio LV function with an ejection fraction of 55%. The patient remains on Levemir insulin 15 units daily along with a sliding scale coverage. Clinically, the patient is awake and alert. On today's evaluation, she is generating a tidal volume of around 500 mL at least on a mechanical noninvasive positive pressure ventilator and the patient is breathing in the mid 20s. She is quite comfortable. No signs of any significant bronchospasm or wheezing. No signs of any CO2 narcosis. 07/08/2021, the patient is off the BiPAP and the patient's cousin 40s about 2 by nasal cannula. Note that the patient has COPD with an FEV1 of 21% of predicted and the patient using BiPAP on and off during the day and she has a portable BiPAP machine at the bedside at a pressure of 14/6 cm of water. She is feeling well. However her exercise capacity is quite limited and she gets short of breath with minimal amount of activity. No altered mentation. No signs of any CO2 narcosis patient remains on empiric antibiotic coverage with accommodation. And Zithromax. She is on DuoNeb nebulized treatment [id number] and she is also on IV Solu Medrol 60 every grams IV push every 6 hours. The patient is a lso on heparin 5000 units subcu every 8 hours and the patient is on Levemir insulin 15 units once a day along with NovoLog site scale coverage. No significant swelling lower extremities. No chest pain. No pleurisy. No angina. 07/09/2021, the patient is wearing her BiPAP at a pressure of 14/6 cm of water. She is more comfortable in the BiPAP. Her breath sounds remain quite diminished. She is able to come off the BiPAP and she will utilize oxygen at 4 L during which she should be able to eat and maintain her nutrition. She remains on DuoNeb nebulized treatments around the clock patient remains on Symbicort patient remains on IV Solu Medrol 60 mg every 6 hours. There is a 7 COPD with an FEV1 of 21% of predicted and the patient has been oxygen dependent for several years. She exacerbated that she initially had CO2 narcosis and acute exacerbation is recovered. The patient's serum bicarbonate was at 42 from yesterday the patient was given a dose of Diamox. Repeat electrical still pending for now. If there is significant alkalosis, another dose of Diamox will be given to this patient. Otherwise, no change in her condition. She remains on Levemir insulin 50 units along with NovoLog sliding scale coverage. No chest pain. No angina. No palpitations. Blood sugar from today's at 224. The patient is seen today 07/10/2021 in follow-up on the regular medical floor. She is currently sitting up in a chair at the bedside. She remains on BiPAP 14/6 and 50% FiO2 donating with oxygen at 5 L/m per nasal cannula. Blood culture reveals no growth. Sputum culture reveals no growth. White count 5.1. Hemoglobin 13.5. Sodium 140. Potassium 4.3. Creatinine 0.5. Glucose 191. She is continued on antibiotics in the form of ceftriaxone and azithromycin. Remains on Symbicort, DuoNeb inhalations, IV Solu-Medrol. Objective - Vital Signs Vital signs: Vital Signs Temp 97.9 F 07/10/21 01:51 Pulse 89 07/10/21 11:34 Resp 17 07/10/21 07:59 BP 169/94 07/10/21 07:59 Pulse Ox 96 07/10/21 07:59 Intake & Output 07/09/21 07/10/21 07/10/21 18:59 06:59 18:59 Output Total 550 Balance -550 Output: Urine 550 Other: # Voids 2 2 # Bowel Movements 0 - Exam GENERAL EXAM: Pleasant 56-year-old obese female. Comfortable, in no distress. The patient is on 5 L nasal cannula. Alternating with BiPAP at a pressure of 14/6 cm of water. No signs of any CO2 narcosis. She is arousable and she was communicate effectively. HEAD: Normocephalic. Atraumatic EYES: Normal reaction of pupils, equal size. NOSE: Clear with pink turbinates. THROAT: Crowding of the posterior pharynx. No erythema or exudates. NECK: Short. No masses, no JVD. CHEST: No chest wall deformity. LUNGS: Diminished breath sound bilaterally no rhonchi no wheezes symmetrical chest expansion noted. CVS: S1 and S2 normal with no audible murmur, regular rhythm. ABDOMEN: No hepatosplenomegaly, normal bowel sounds, no guarding or rigidity. SKIN: No rashes CENTRAL NERVOUS SYSTEM: Alert and oriented 3 no gross focal deficits. EXTREMITIES: Normal mood affect and normal mental status examination off sedation. - Labs CBC & Chem 7: 07/10/21 05:13 07/10/21 05:13 Labs: Abnormal Lab Results - Last 24 Hours (Table) 07/09/21 07/09/21 07/09/21 Range/Units 12:32 16:23 20:46 Hct (37.2-46.3) % MCV (80.0-97.0) fL MCHC (32.0-37.0) g/dL RDW (11.5-14.5) % Immature Gran # (0.00-0.04) X 10*3/uL Lymphocytes # (0.90-5.00) X 10*3/uL Eosinophils # (0.04-0.35) X 10*3/uL Chloride 94 L (96-109) mmol/L Carbon Dioxide 42.5 H* (20.0-27.5) mmol/L Anion Gap 3.50 L (10.00-18.00) mmol/L Creatinine (0.6-1.5) mg/dL BUN/Creatinine Ratio 27.67 H (12.00-20.00) Ratio Glucose 223 H (70-110) mg/dL POC Glucose (mg/dL) 206 H 202 H (75-99) mg/dL AST 36 H (13-35) U/L ALT 49 H (8-44) U/L 07/10/21 07/10/21 07/10/21 Range/Units 05:13 05:13 07:01 Hct 46.9 H (37.2-46.3) % MCV 100.6 H (80.0-97.0) fL MCHC 28.8 L (32.0-37.0) g/dL RDW 14.7 H (11.5-14.5) % Immature Gran # 0.05 H (0.00-0.04) X 10*3/uL Lymphocytes # 0.49 L (0.90-5.00) X 10*3/uL Eosinophils # 0 L (0.04-0.35) X 10*3/uL Chloride 92 L (96-109) mmol/L Carbon Dioxide 39.2 H (20.0-27.5) mmol/L Anion Gap 9.30 L (10.00-18.00) mmol/L Creatinine 0.5 L (0.6-1.5) mg/dL BUN/Creatinine Ratio 30.90 H (12.00-20.00) Ratio Glucose 191 H (70-110) mg/dL POC Glucose (mg/dL) 210 H (75-99) mg/dL AST (13-35) U/L ALT (8-44) U/L 07/10/21 Range/Units 12:12 Hct (37.2-46.3) % MCV (80.0-97.0) fL MCHC (32.0-37.0) g/dL RDW (11.5-14.5) % Immature Gran # (0.00-0.04) X 10*3/uL Lymphocytes # (0.90-5.00) X 10*3/uL Eosinophils # (0.04-0.35) X 10*3/uL Chloride (96-109) mmol/L Carbon Dioxide (20.0-27.5) mmol/L Anion Gap (10.00-18.00) mmol/L Creatinine (0.6-1.5) mg/dL BUN/Creatinine Ratio (12.00-20.00) Ratio Glucose (70-110) mg/dL POC Glucose (mg/dL) 185 H (75-99) mg/dL AST (13-35) U/L ALT (8-44) U/L Microbiology - Last 24 Hours (Table) 07/04/21 19:19 Blood Culture - Preliminary Blood No Growth after 120 hours 07/04/21 19:19 Blood Culture - Preliminary Blood No Growth after 120 hours Assessment and Plan Assessment: 1 Acute hypercapnic respiratory failure secondary to severe COPD exacerbation, and acute community-acquired pneumonia involving the left lower lobe. The patient utilizing BiPAP on and off at a pressure of 14/6 cm of water and once mo re comfortable she is being switched to 46 per minute nasal cannula. 2 status post intubation and mechanical ventilation on her initial presentation, patient was extubated 3 severe COPD with a baseline FEV1 of 20-21% of predicted and the patient has chronic oxygen dependence and she is a chronic smoker 4 History of obstructive sleep apnea noncompliant with CPAP 5 Morbid obesity, current BMI is at 40.6 Recommendation: The patient was seen and evaluated Stable and on 5 L alternating with BiPAP Continue the current treatment plan Titrate the FiO2 as tolerated Increase her activity as tolerated We will continue to follow I, the cosigning physician, performed a history & physical examination of the patient. Lungs sounds are clear, diminished. Maintaining good O2 saturations in the 90s on 5 L nasal cannula. I discussed the assessment and plan of care with my nurse practitioner, Carmella Cabrera. I attest to the above note as dictated by her.
[2021-07-10 16:42] LABS: Glucose,Whole Blood 153 mg/dL (75-99)
[2021-07-10 21:26] LABS: Glucose,Whole Blood 169 mg/dL (75-99)
[2021-07-11] MEDS: HEPARIN SODIUM,PORCINE/PF 5,000 UNIT/0.5 ML SYRINGE SQ SCH ×3 (00:11→15:23)
[2021-07-11] MEDS: methylPREDNISolone SOD SUCCI 125 MG/2 ML VIAL IV SCH ×4 (00:11→17:17)
--- NOTE | 2021-07-11 01:52 | P.PN ---
Subjective Progress Note Date: 07/10/21 56-year-old female with known history of COPD can use to smoke came in with complaints of difficulty breathing her overall condition progressively worsened in ER patient ended up being intubated. Patient is a presently clinically doing well patient is on FiO2 of 50% PEEP of 5 had low volume of 400 saturating well planning and extubating patient is off sedation. Patient had fevers in ER there is probably an infiltrate on the chest x-ray and being treated for pneumonia. It is presently on ceftriaxone and azithromycin. The patient wears oxygen at home. 07/06/2021 Patient was extubated yesterday. Currently in the MICU. On BiPAP. Awake alert and oriented. Chest x-ray showed scattered reticular infiltrates unchanged from her prior x-ray.. Patient is on antibiotics above ceftriaxone azithromycin for possible pneumonia. Continued on IV steroids and bronchodilators. Laboratory data showed WBC 11.4 hemoglobin 13.8 and platelets 174 Sodium 134 potassium 5.2 chloride 92 BUN 21 creatinine 0.5 Blood sugar is 195 pulmonary is on board. [id number] Patient is in the MICU. Currently sitting in a chair. Was on BiPAP and was transitioned to oxygen via nasal cannula. Chest x-ray today showed vague basilar reticulonodular infiltrates are noted. No significant change. Patient is being continued on IV Solu-Medrol and duo nebs. Currently on antibiotics involve ceftriaxone and azithromycin. Blood sugar is better controlled and continue with Levemir and insulin sliding scale. Patient's breathing status is better today. Able to be transferred to chair. No complaints of chest pain. Able to tolerate oral diet today. 07/08/2021 Patient is currently oxygen via nasal cannula. Intermittently using BiPAP. Breathing is much easier today. Denied any complaints of chest pain. Currently on empiric antibiotics in the form of ceftriaxone and azithromycin. Otherwise patient is being continued on IV Solu-Medrol and duo nebs. Continue insulin regimen. Patient is being transferred to medical floor. Pulmonary is on board. 07/09/2021 Patient is currently in the medical floor. On oxygen at 4 L via nasal cannula. Patient is reduced BiPAP 14 / 6 cm of water today morning. Patient is still having bilateral expiratory wheezing. Currently being continued on IV steroids and duo nebs and antibiotics in the form of ceftriaxone and azithromycin. Patient is newly diagnosed diabetic A1c 8.4. Continue with Levemir and insulin sliding scale. 07/10/2021 Patient is currently sitting in a recliner. Currently on BiPAP. 14 x 16 with FiO2 50%. And oxygen at 6 L via nasal cannula. No complaints of chest pain. No fever no chills. No nausea vomiting abdominal pain or diarrhea. Patient is able to tolerate oral diet off BiPAP. Laboratory showed RBC 5.1 hemoglobin 13.5 and platelets 176 Bicarb is 39.2 BUN 16.1 creatinine 0.5 and blood sugar is 171 Pulmonary is on board. REVIEW OF SYSTEMS CONSTITUTIONAL: Denies fever or chills. CARDIOVASCULAR: Denies chest pain, orthopnea, PND or palpitations. RESPIRATORY: Denies cough. GASTROINTESTINAL: Denies abdominal pain, diarrhea, constipation, nausea or vomiting. MUSCULOSKELETAL: Denies myalgias. NEUROLOGIC: Denies numbness, tingling or weakness. ENDOCRINE: Denies fatigue, weight change, polydipsia or polyurina. GENITOURINARY: Denies burning, hematuria or urgency with micturation. HEMATOLOGIC: Denies history of anemia or bleeding. Current medications reviewed. Objective - Vital Signs Vital signs: Vital Signs Temp 97.9 F 07/10/21 01:51 Pulse 86 07/10/21 15:14 Resp 16 07/10/21 14:00 BP 161/90 07/10/21 14:00 Pulse Ox 100 07/10/21 14:00 Intake & Output 07/09/21 07/10/21 07/10/21 18:59 06:59 18:59 Output Total 550 250 Balance -550 -250 Output: Urine 550 250 Other: # Voids 2 2 # Bowel Movements 0 - Exam PHYSICAL EXAMINATION: Patient is lying in the bed comfortably, no acute distress, awake alert and oriented. on bipap. HEENT: Normocephalic. Neck is supple. Pupils reactive. Nostrils clear. Oral cavity is moist. Neck reveals no JVD, carotid bruits, or thyromegaly. CHEST EXAMINATION: Trachea is central. Symmetrical expansion. Bilateral Improved air entry. Diffuse wheezing present... CARDIAC: Normal S1, S2 with no gallops. No murmurs ABDOMEN: Soft. Bowel sounds normal. No organomegaly. No abdominal bruits. Extremities: reveal no edema. No clubbing or cyanosis Neurologically awake, alert, oriented x3 with well-coordinated movements. No focal deficits noted Skin: No rash or skin lesions. Psychiatric: Cooperative. Nonsuicidal Musculoskeletal: No joint swelling or deformity. Normal range of motion. - Labs CBC & Chem 7: 07/10/21 05:13 07/10/21 05:13 Labs: Abnormal Lab Results - Last 24 Hours (Table) 07/09/21 07/09/21 07/10/21 Range/Units 12:32 20:46 05:13 Hct 46.9 H (37.2-46.3) % MCV 100.6 H (80.0-97.0) fL MCHC 28.8 L (32.0-37.0) g/dL RDW 14.7 H (11.5-14.5) % Immature Gran # 0.05 H (0.00-0.04) X 10*3/uL Lymphocytes # 0.49 L (0.90-5.00) X 10*3/uL Eosinophils # 0 L (0.04-0.35) X 10*3/uL Chloride 94 L (96-109) mmol/L Carbon Dioxide 42.5 H* (20.0-27.5) mmol/L Anion Gap 3.50 L (10.00-18.00) mmol/L Creatinine (0.6-1.5) mg/dL BUN/Creatinine Ratio 27.67 H (12.00-20.00) Ratio Glucose 223 H (70-110) mg/dL POC Glucose (mg/dL) 202 H (75-99) mg/dL AST 36 H (13-35) U/L ALT 49 H (8-44) U/L 07/10/21 07/10/21 07/10/21 Range/Units 05:13 07:01 12:12 Hct (37.2-46.3) % MCV (80.0-97.0) fL MCHC (32.0-37.0) g/dL RDW (11.5-14.5) % Immature Gran # (0.00-0.04) X 10*3/uL Lymphocytes # (0.90-5.00) X 10*3/uL Eosinophils # (0.04-0.35) X 10*3/uL Chloride 92 L (96-109) mmol/L Carbon Dioxide 39.2 H (20.0-27.5) mmol/L Anion Gap 9.30 L (10.00-18.00) mmol/L Creatinine 0.5 L (0.6-1.5) mg/dL BUN/Creatinine Ratio 30.90 H (12.00-20.00) Ratio Glucose 191 H (70-110) mg/dL POC Glucose (mg/dL) 210 H 185 H (75-99) mg/dL AST (13-35) U/L ALT (8-44) U/L Microbiology - Last 24 Hours (Table) 07/04/21 19:19 Blood Culture - Preliminary Blood No Growth after 120 hours 07/04/21 19:19 Blood Culture - Preliminary Blood No Growth after 120 hours Assessment and Plan Assessment: Assessment and plan -Acute hypercapnic respiratory failure secondary to COPD exacerbation patient had severe hypercapnia , extubated on 07/05. on BIPAP -sepsis secondary to possible pneumonia for which patient is on Rocephin and azithromycin which will be continued -Elevated blood sugars Newly diagnosed diabetes with A1c 8.4. Continue with Levemir 15 units and insulin sliding scale. -Obesity -Nicotine use counseling will be provided. -hyponatremia probably hypovolemic DVT prophylaxis: Subcutaneous heparin
[2021-07-11 07:19] LABS: Glucose,Whole Blood 170 mg/dL (75-99)
[2021-07-11] MEDS: INSULIN ASPART (NovoLOG) 100 UNIT/ML VIAL SQ SCH ×4 (07:21→21:56)
[2021-07-11] MEDS: BENZONATATE 100 MG CAP PO SCH ×3 (07:21→21:56)
[2021-07-11] MEDS: PANTOPRAZOLE 40 MG/10 ML VIAL IV SCH (07:21)
[2021-07-11] MEDS: INSULIN DETEMIR (LEVEMIR) 100 UNIT/ML SYR SQ SCH (07:21)
[2021-07-11] MEDS: AZITHROMYCIN 500 MG TAB PO SCH (07:22)
[2021-07-11] MEDS: SYMBICORT 160-4.5 MCG INHALER INHALATION SCH ×2 (07:48→20:42)
[2021-07-11] MEDS: IPRATROPIUM-ALBUTEROL 3 ML NEB INHALATION SCH ×4 (07:48→20:42)
[2021-07-11 09:09] LABS: Basophils # (A) 0.02 X 10*3/uL (0.00-0.10); Basophils % (A) 0.4 %; Eosinophils # (A) 0 X 10*3/uL (0.04-0.35); Eosinophils % (A) 0 %; HGB 14.1 g/dL (12.0-15.0); Lymphocytes # (A) 0.33 X 10*3/uL (0.90-5.00); Lymphocytes % (A) 7.2 %; MCH 29.4 pg (27.0-32.0); MCHC 29.4 g/dL (32.0-37.0); Mean Platelet Volume 9.7 fL (9.5-12.2); Monocytes # (A) 0.24 X 10*3/uL (0.20-1.00); Monocytes % (A) 5.2 %; Neutrophils # (A) 3.95 X 10*3/uL (1.80-7.70); Neutrophils % (A) 86.1 %; Platelet Count 154 X 10*3/uL (140-440); RDW 14.6 % (11.5-14.5); WBC 4.59 X 10*3/uL (4.50-10.00)
[2021-07-11 09:24] LABS: African American GFR (CKD) 126.3 (60.0-200.0); BUN/Creat Ratio 33.4 Ratio (12.00-20.00); Blood Urea Nitrogen 16.7 mg/dL (9.0-27.0)
[2021-07-11 11:40] LABS: Glucose,Whole Blood 190 mg/dL (75-99)
[2021-07-11] MEDS ORDERED: FUROSEMIDE 10 MG/ML 4 ML VIAL IV STA (14:59)
[2021-07-11 15:18] VITALS: BMI 40.6
[2021-07-11] MEDS: NICOTINE 14MG/24HR PATCH TRANSDERM SCH (15:23)
[2021-07-11 16:42] LABS: Glucose,Whole Blood 236 mg/dL (75-99)
--- NOTE | 2021-07-11 17:01 | P.PN ---
Subjective Progress Note Date: 07/11/21 Principal diagnosis: Shortness of breath On 07/11/2021 patient seen in follow-up on medical surgical floor, she is awake and alert, in no acute distress, she states she is breathing better, she is able to speak in full sentences, still dyspneic with exertion, but overall feels that she is improving, she is being treated for acute exacerbation of COPD, and left lower lobe pneumonia possibly community-acquired, denies any fever or chills, denies any chest pain. Remains on azithromycin and Rocephin for antibiotic coverage, blood and sputum cultures have shown no growth. Normally wears 3 L at home on a regular basis. She is currently at 7 L of oxygen pulse ox of 99% FiO2 has been turned down to 6 L. Today's labs have been reviewed, her white blood cell count is 4.5, hemoglobin is 14.1, sodium is 138, potassium is 5.0, BUN 16 creatinine 0.5. ProBNP is 171 is within normal limits. Some mild generalized edema, could benefit from a dose of Lasix. Objective - Vital Signs Vital signs: Vital Signs Temp 97.8 F 07/11/21 14:00 Pulse 80 07/11/21 14:00 Resp 18 07/11/21 14:00 BP 147/72 07/11/21 14:00 Pulse Ox 97 07/11/21 14:00 Intake & Output 07/10/21 07/11/21 07/11/21 18:59 06:59 18:59 Output Total 250 400 Balance -250 -400 Weight 104 kg Output: Urine 250 400 Other: Voiding Method Bedside Commode # Voids 3 # Bowel Movements 0 - Exam GENERAL EXAM: Alert, pleasant, 56-year-old white female, on 7 L of oxygen a pulse ox of 99%, comfortable in no apparent distress. HEAD: Normocephalic/atraumatic. EYES: Normal reaction of pupils, equal size. Conjunctiva pink, sclera white. NOSE: Clear with pink turbinates. THROAT: No erythema or exudates. NECK: No masses, no JVD, no thyroid enlargement, no adenopathy. CHEST: No chest wall deformity. Symmetrical expansion. LUNGS: Equal air entry with no crackles, wheeze, rhonchi or dullness. CVS: Regular rate and rhythm, normal S1 and S2, no gallops, no murmurs, no rubs ABDOMEN: Soft, nontender. No hepatosplenomegaly, normal bowel sounds, no guar ding or rigidity. EXTREMITIES: No clubbing, mild pretib edema no cyanosis, 2+ pulses and upper and lower extremities. MUSCULOSKELETAL: Muscle strength and tone normal. SPINE: No scoliosis or deformity SKIN: No rashes CENTRAL NERVOUS SYSTEM: Alert and oriented -3. No focal deficits, tone is normal in all 4 extremities. PSYCHIATRIC: Alert and oriented -3. Appropriate affect. Intact judgment and insight. - Labs CBC & Chem 7: 07/11/21 05:13 07/11/21 05:13 Labs: Abnormal Lab Results - Last 24 Hours (Table) 07/10/21 07/11/21 07/11/21 Range/Units 21:22 05:13 05:13 Hct 48.0 H (37.2-46.3) % MCV 100.0 H (80.0-97.0) fL MCHC 29.4 L (32.0-37.0) g/dL RDW 14.6 H (11.5-14.5) % Immature Gran # 0.05 H (0.00-0.04) X 10*3/uL Lymphocytes # 0.33 L (0.90-5.00) X 10*3/uL Eosinophils # 0 L (0.04-0.35) X 10*3/uL Chloride 92 L (96-109) mmol/L Carbon Dioxide 35.0 H (20.0-27.5) mmol/L Creatinine 0.5 L (0.6-1.5) mg/dL BUN/Creatinine Ratio 33.40 H (12.00-20.00) Ratio Glucose 167 H (70-110) mg/dL POC Glucose (mg/dL) 169 H (75-99) mg/dL 07/11/21 07/11/21 07/11/21 Range/Units 07:18 11:39 16:40 Hct (37.2-46.3) % MCV (80.0-97.0) fL MCHC (32.0-37.0) g/dL RDW (11.5-14.5) % Immature Gran # (0.00-0.04) X 10*3/uL Lymphocytes # (0.90-5.00) X 10*3/uL Eosinophils # (0.04-0.35) X 10*3/uL Chloride (96-109) mmol/L Carbon Dioxide (20.0-27.5) mmol/L Creatinine (0.6-1.5) mg/dL BUN/Creatinine Ratio (12.00-20.00) Ratio Glucose (70-110) mg/dL POC Glucose (mg/dL) 170 H 190 H 236 H (75-99) mg/dL Microbiology - Last 24 Hours (Table) 07/04/21 19:19 Blood Culture - Final Blood No Growth after 144 hours 07/04/21 19:19 Blood Culture - Final Blood No Growth after 144 hours Assessment and Plan Plan: Assessment: #1. Acute on chronic hypoxic and hypercapnic respiratory failure secondary to severe COPD exacerbation, and acute community acquired pneumonia involving the left lower lobe. Patient is improving, currently off BiPAP support, and is currently down to 6 L. Upon initial presentation patient required intubation and mechanical ventilatory support, was successfully weaned and extubated #2. Severe COPD with FEV1 of 20-21% with chronic hypoxic respiratory failure, patient usually worse during half liters of oxygen on a regular basis #3. Chronic and ongoing history of smoking #4. History of obstructive sleep apnea noncompliant with CPAP #5. Morbid obesity current BMI is 40.6 kg/m Plan: Continue current medical treatment Continue with IV steroids We'll give the patient a dose of IV Lasix Send the sputum culture Continue current antibiotics Send a follow-up pro-calcitonin level Follow up chest x-ray tomorrow Continue weaning FiO2 to keep O2 sats ration is at or above 88% Increase activity as tolerated I performed a history & physical examination of the patient and discussed their management with my nurse practitioner, Obdulia Blair. I reviewed the nurse practitioner's note and agree with the documented findings and plan of care. Lung sounds are positive for dim breath sounds throughout the lung garcia. The findings and the impression was discussed with the patient. I attest to the documentation by the nurse practitioner. Time with Patient: Less than 30
[2021-07-11 20:56] LABS: Glucose,Whole Blood 261 mg/dL (75-99)
--- NOTE | 2021-07-11 22:53 | P.PN ---
Subjective Progress Note Date: 07/11/21 56-year-old female with known history of COPD can use to smoke came in with complaints of difficulty breathing her overall condition progressively worsened in ER patient ended up being intubated. Patient is a presently clinically doing well patient is on FiO2 of 50% PEEP of 5 had low volume of 400 saturating well planning and extubating patient is off sedation. Patient had fevers in ER there is probably an infiltrate on the chest x-ray and being treated for pneumonia. It is presently on ceftriaxone and azithromycin. The patient wears oxygen at home. 07/06/2021 Patient was extubated yesterday. Currently in the MICU. On BiPAP. Awake alert and oriented. Chest x-ray showed scattered reticular infiltrates unchanged from her prior x-ray.. Patient is on antibiotics above ceftriaxone azithromycin for possible pneumonia. Continued on IV steroids and bronchodilators. Laboratory data showed WBC 11.4 hemoglobin 13.8 and platelets 174 Sodium 134 potassium 5.2 chloride 92 BUN 21 creatinine 0.5 Blood sugar is 195 pulmonary is on board. [id number] Patient is in the MICU. Currently sitting in a chair. Was on BiPAP and was transitioned to oxygen via nasal cannula. Chest x-ray today showed vague basilar reticulonodular infiltrates are noted. No significant change. Patient is being continued on IV Solu-Medrol and duo nebs. Currently on antibiotics involve ceftriaxone and azithromycin. Blood sugar is better controlled and continue with Levemir and insulin sliding scale. Patient's breathing status is better today. Able to be transferred to chair. No complaints of chest pain. Able to tolerate oral diet today. 07/08/2021 Patient is currently oxygen via nasal cannula. Intermittently using BiPAP. Breathing is much easier today. Denied any complaints of chest pain. Currently on empiric antibiotics in the form of ceftriaxone and azithromycin. Otherwise patient is being continued on IV Solu-Medrol and duo nebs. Continue insulin regimen. Patient is being transferred to medical floor. Pulmonary is on board. 07/09/2021 Patient is currently in the medical floor. On oxygen at 4 L via nasal cannula. Patient is reduced BiPAP 14 / 6 cm of water today morning. Patient is still having bilateral expiratory wheezing. Currently being continued on IV steroids and duo nebs and antibiotics in the form of ceftriaxone and azithromycin. Patient is newly diagnosed diabetic A1c 8.4. Continue with Levemir and insulin sliding scale. 07/10/2021 Patient is currently sitting in a recliner. Currently on BiPAP. 14 x 6 with FiO2 50%. And oxygen at 6 L via nasal cannula. No complaints of chest pain. No fever no chills. No nausea vomiting abdominal pain or diarrhea. Patient is able to tolerate oral diet off BiPAP. Laboratory showed RBC 5.1 hemoglobin 13.5 and platelets 176 Bicarb is 39.2 BUN 16.1 creatinine 0.5 and blood sugar is 171 Pulmonary is on board. 07/11/2021 Patient is currently sitting in the chair. Awake alert and oriented x3. 6 L oxygen nasal cannula. Patient was able to take off BiPAP during lunchtime and able to eat.. patient is on BiPAP most of the time. Patient has been afebrile. Denied any nausea vomiting abdominal pain. Cough without any sputum production. No headache or dizziness or lightheadedness. Pulmonary is following. Patient is being continued on IV Solu-Medrol 60 mg every 6 hourly and duo nebs. Blood sugar is controlled. Laboratory showed sodium 138 potassium 5.0 chloride 92 bicarbonate 35 BUN 16.7 creatinine 0.5 pulmonary is on board. REVIEW OF SYSTEMS CONSTITUTIONAL: Denies fever or chills. CARDIOVASCULAR: Denies chest pain, orthopnea, PND or palpitations. RESPIRATORY: Denies cough. GASTROINTESTINAL: Denies abdominal pain, diarrhea, constipation, nausea or vomiting. MUSCULOSKELETAL: Denies myalgias. NEUROLOGIC: Denies numbness, tingling or weakness. ENDOCRINE: Denies fatigue, weight change, polydipsia or polyurina. GENITOURINARY: Denies burning, hematuria or urgency with micturation. HEMATOLOGIC: Denies history of anemia or bleeding. Current medications reviewed. Objective - Vital Signs Vital signs: Vital Signs Temp 98.2 F 07/11/21 19:58 Pulse 88 07/11/21 20:52 Resp 18 07/11/21 14:00 BP 169/92 07/11/21 19:58 Pulse Ox 98 07/11/21 19:58 Intake & Output 07/11/21 07/11/21 07/12/21 06:59 18:59 06:59 Output Total 2300 Balance -2300 Weight 104 kg Output: Urine 2300 Other: Voiding Method Bedside Commode # Voids 3 # Bowel Movements 0 - Exam PHYSICAL EXAMINATION: Patient is lying in the bed comfortably, no acute distress, awake alert and oriented. on bipap. HEENT: Normocephalic. Neck is supple. Pupils reactive. Nostrils clear. Oral cavity is moist. Neck reveals no JVD, carotid bruits, or thyromegaly. CHEST EXAMINATION: Trachea is central. Symmetrical expansion. Bilateral Improved air entry. Diffuse wheezing present... CARDIAC: Normal S1, S2 with no gallops. No murmurs ABDOMEN: Soft. Bowel sounds normal. No organomegaly. No abdominal bruits. Extremities: reveal no edema. No clubbing or cyanosis Neurologically awake, alert, oriented x3 with well-coordinated movements. No focal deficits noted Skin: No rash or skin lesions. Psychiatric: Cooperative. Nonsuicidal Musculoskeletal: No joint swelling or deformity. Normal range of motion. - Labs CBC & Chem 7: 07/12/21 04:35 07/12/21 04:35 Labs: Abnormal Lab Results - Last 24 Hours (Table) 07/11/21 07/11/21 07/11/21 Range/Units 05:13 05:13 07:18 Hct 48.0 H (37.2-46.3) % MCV 100.0 H (80.0-97.0) fL MCHC 29.4 L (32.0-37.0) g/dL RDW 14.6 H (11.5-14.5) % Immature Gran # 0.05 H (0.00-0.04) X 10*3/uL Lymphocytes # 0.33 L (0.90-5.00) X 10*3/uL Eosinophils # 0 L (0.04-0.35) X 10*3/uL Chloride 92 L (96-109) mmol/L Carbon Dioxide 35.0 H (20.0-27.5) mmol/L Creatinine 0.5 L (0.6-1.5) mg/dL BUN/Creatinine Ratio 33.40 H (12.00-20.00) Ratio Glucose 167 H (70-110) mg/dL POC Glucose (mg/dL) 170 H (75-99) mg/dL 07/11/21 07/11/21 07/11/21 Range/Units 11:39 16:40 20:53 Hct (37.2-46.3) % MCV (80.0-97.0) fL MCHC (32.0-37.0) g/dL RDW (11.5-14.5) % Immature Gran # (0.00-0.04) X 10*3/uL Lymphocytes # (0.90-5.00) X 10*3/uL Eosinophils # (0.04-0.35) X 10*3/uL Chloride (96-109) mmol/L Carbon Dioxide (20.0-27.5) mmol/L Creatinine (0.6-1.5) mg/dL BUN/Creatinine Ratio (12.00-20.00) Ratio Glucose (70-110) mg/dL POC Glucose (mg/dL) 190 H 236 H 261 H (75-99) mg/dL Microbiology - Last 24 Hours (Table) 07/04/21 19:19 Blood Culture - Final Blood No Growth after 144 hours 07/04/21 19:19 Blood Culture - Final Blood No Growth after 144 hours Assessment and Plan Assessment: Assessment and plan -Acute hypercapnic respiratory failure secondary to COPD exacerbation patient had severe hypercapnia , extubated on 07/05. on BIPAP -sepsis secondary to possible pneumonia for which patient is on Rocephin and azithromycin which will be continued -Elevated blood sugars Newly diagnosed diabetes with A1c 8.4. Continue with Levemir 15 units and insulin sliding scale. -Obesity -Nicotine use counseling will be provided. -hyponatremia probably hypovolemic DVT prophylaxis: Subcutaneous heparin
[2021-07-12] MEDS: HEPARIN SODIUM,PORCINE/PF 5,000 UNIT/0.5 ML SYRINGE SQ SCH ×3 (00:22→17:09)
[2021-07-12] MEDS: methylPREDNISolone SOD SUCCI 125 MG/2 ML VIAL IV SCH ×3 (00:22→12:47)
[2021-07-12 07:14] LABS: Glucose,Whole Blood 184 mg/dL (75-99)
[2021-07-12] MEDS: PANTOPRAZOLE 40 MG/10 ML VIAL IV SCH (08:06)
[2021-07-12] MEDS: NICOTINE 14MG/24HR PATCH TRANSDERM SCH ×2 (08:06→08:16)
[2021-07-12] MEDS: INSULIN DETEMIR (LEVEMIR) 100 UNIT/ML SYR SQ SCH (08:06)
[2021-07-12] MEDS: INSULIN ASPART (NovoLOG) 100 UNIT/ML VIAL SQ SCH ×4 (08:07→20:34)
[2021-07-12] MEDS: BENZONATATE 100 MG CAP PO SCH ×3 (08:07→20:33)
[2021-07-12] MEDS: AZITHROMYCIN 500 MG TAB PO SCH (08:07)
--- NOTE | 2021-07-12 08:57 | XR ---
EXAMINATION TYPE: XR chest 1V portable DATE OF EXAM: 07/12/2021 COMPARISON: Chest x-ray 07/07/2021 HISTORY: Shortness of breath TECHNIQUE: Single frontal view of the chest is obtained. FINDINGS: Prominent lung volumes are consistent with underlying COPD, apical emphysematous change ma y be present. Cardiac mediastinal silhouette is likely stable accounting for differences in technique . Aorta is dense. No evident pneumothorax or pleural effusion. No airspace disease evident, mild inte rstitial prominence noted towards the lung bases. IMPRESSION: Correlate for COPD.
[2021-07-12 09:02] LABS: Basophils # (A) 0.01 X 10*3/uL (0.00-0.10); Basophils % (A) 0.2 %; Eosinophils # (A) 0 X 10*3/uL (0.04-0.35); Eosinophils % (A) 0 %; HCT 51.3 % (37.2-46.3); HGB 14.7 g/dL (12.0-15.0); Lymphocytes # (A) 0.36 X 10*3/uL (0.90-5.00); MCH 28.9 pg (27.0-32.0); MCHC 28.7 g/dL (32.0-37.0); MCV 100.8 fL (80.0-97.0); Mean Platelet Volume 10.3 fL (9.5-12.2); Monocytes # (A) 0.45 X 10*3/uL (0.20-1.00); Monocytes % (A) 8.7 %; Neutrophils % (A) 83.1 %; Platelet Count 149 X 10*3/uL (140-440); RBC 5.09 X 10*6/uL (4.10-5.20); RDW 14.3 % (11.5-14.5); WBC 5.17 X 10*3/uL (4.50-10.00)
[2021-07-12 09:19] LABS: African American GFR (CKD) 126.3 (60.0-200.0); Albumin 3.8 g/dL (3.8-4.9); Albumin/Globulin Ratio 2.11 (1.60-3.17); Anion Gap 10.4 mmol/L (10.00-18.00); BUN/Creat Ratio 32.2 Ratio (12.00-20.00); Blood Urea Nitrogen 16.1 mg/dL (9.0-27.0); Carbon Dioxide 41.6 mmol/L (20.0-27.5); Globulin 1.8 g/dL (1.6-3.3); Potassium 4.1 mmol/L (3.5-5.5); Total Bilirubin 0.5 mg/dL (0.30-1.20); Total Protein 5.6 g/dL (6.2-8.2)
[2021-07-12] MEDS: SYMBICORT 160-4.5 MCG INHALER INHALATION SCH ×2 (09:51→21:40)
[2021-07-12] MEDS: IPRATROPIUM-ALBUTEROL 3 ML NEB INHALATION SCH ×4 (09:51→21:39)
[2021-07-12 11:26] LABS: Glucose,Whole Blood 178 mg/dL (75-99)
[2021-07-12] MEDS ORDERED: FUROSEMIDE 10 MG/ML 4 ML VIAL IV STA (13:17)
--- NOTE | 2021-07-12 15:42 | P.PN ---
Subjective Progress Note Date: 07/12/21 Principal diagnosis: Shortness of breath On 07/11/2021 patient seen in follow-up on medical surgical floor, she is awake and alert, in no acute distress, she states she is breathing better, she is able to speak in full sentences, still dyspneic with exertion, but overall feels that she is improving, she is being treated for acute exacerbation of COPD, and left lower lobe pneumonia possibly community-acquired, denies any fever or chills, denies any chest pain. Remains on azithromycin and Rocephin for antibiotic coverage, blood and sputum cultures have shown no growth. Normally wears 3 L at home on a regular basis. She is currently at 7 L of oxygen pulse ox of 99% FiO2 has been turned down to 6 L. Today's labs have been reviewed, her white blood cell count is 4.5, hemoglobin is 14.1, sodium is 138, potassium is 5.0, BUN 16 creatinine 0.5. ProBNP is 171 is within normal limits. Some mild generalized edema, could benefit from a dose of Lasix. On 07/12/2021 patient seen in follow-up on the medical surgical floor. She is currently on 4 L of oxygen her pulse ox is 90%, oxygenation has improved since yesterday, and FiO2 came down from 7 L down to 4 L. Afebrile, hemodynamically stable, patient has been given diuretics, she received one-time dose of IV Lasix, diuresed significantly, she is in -2.3 L over the last 24 hours. Lower extremity edema is improving. Today's labs have been reviewed, white blood cell count is 5.17, hemoglobin of 14.7, sodium is 140, potassium is 4.1, chloride is 88, CO2 is 41, BUN is 16.1, creatinine 0.5. Pro-calcitonin level came back negative at 0.06. We discontinued azithromycin and Rocephin. Objective - Vital Signs Vital signs: Vital Signs Temp 98.0 F 07/12/21 13:36 Pulse 93 07/12/21 13:36 Resp 18 07/12/21 13:36 BP 157/78 07/12/21 13:36 Pulse Ox 90 L 07/12/21 13:36 Intake & Output 07/11/21 07/12/21 07/12/21 18:59 06:59 18:59 Intake Total 150 Output Total 2300 6 Balance -2300 -6 150 Weight 104 kg Intake: Oral 150 Output: Urine 2300 6 Other: Voiding Method Bedside Commode # Voids 4 # Bowel Movements 0 - Exam GENERAL EXAM: Alert, pleasant, 56-year-old white female, on 4 L of oxygen a pulse ox of 90%, comfortable in no apparent distress. HEAD: Normocephalic/atraumatic. EYES: Normal reaction of pupils, equal size. Conjunctiva pink, sclera white. NOSE: Clear with pink turbinates. THROAT: No erythema or exudates. NECK: No masses, no JVD, no thyroid enlargement, no adenopathy. CHEST: No chest wall deformity. Symmetrical expansion. LUNGS: Equal air entry with no crackles, wheeze, rhonchi or dullness. CVS: Regular rate and rhythm, normal S1 and S2, no gallops, no murmurs, no rubs ABDOMEN: Soft, nontender. No hepatosplenomegaly, normal bowel sounds, no guarding or rigidity. EXTREMITIES: No clubbing, mild pretib edema no cyanosis, 2+ pulses and upper and lower extremities. MUSCULOSKELETAL: Muscle strength and tone normal. SPINE: No scoliosis or deformity SKIN: No rashes CENTRAL NERVOUS SYSTEM: Alert and oriented -3. No focal deficits, tone is normal in all 4 extremities. PSYCHIATRIC: Alert and oriented -3. Appropriate affect. Intact judgment and insight. - Labs CBC & Chem 7: 07/12/21 04:35 07/12/21 04:35 Labs: Abnormal Lab Results - Last 24 Hours (Table) 07/11/21 07/11/21 07/12/21 Range/Units 16:40 20:53 04:35 Hct 51.3 H (37.2-46.3) % MCV 100.8 H (80.0-97.0) fL MCHC 28.7 L (32.0-37.0) g/dL Immature Gran # 0.05 H (0.00-0.04) X 10*3/uL Lymphocytes # 0.36 L (0.90-5.00) X 10*3/uL Eosinophils # 0 L (0.04-0.35) X 10*3/uL Chloride (96-109) mmol/L Carbon Dioxide (20.0-27.5) mmol/L Creatinine (0.6-1.5) mg/dL BUN/Creatinine Ratio (12.00-20.00) Ratio Glucose (70-110) mg/dL POC Glucose (mg/dL) 236 H 261 H (75-99) mg/dL ALT (8-44) U/L Total Protein (6.2-8.2) g/dL 07/12/21 07/12/21 07/12/21 Range/Units 04:35 07:13 11:25 Hct (37.2-46.3) % MCV (80.0-97.0) fL MCHC (32.0-37.0) g/dL Immature Gran # (0.00-0.04) X 10*3/uL Lymphocytes # (0.90-5.00) X 10*3/uL Eosinophils # (0.04-0.35) X 10*3/uL Chloride 88 L (96-109) mmol/L Carbon Dioxide 41.6 H* (20.0-27.5) mmol/L Creatinine 0.5 L (0.6-1.5) mg/dL BUN/Creatinine Ratio 32.20 H (12.00-20.00) Ratio Glucose 157 H (70-110) mg/dL POC Glucose (mg/dL) 184 H 178 H (75-99) mg/dL ALT 53 H (8-44) U/L Total Protein 5.6 L (6.2-8.2) g/dL Assessment and Plan Plan: Assessment: #1. Acute on chronic hypoxic and hypercapnic respiratory failure secondary to severe COPD exacerbation, and acute community acquired pneumonia involving the left lower lobe. Patient is improving, currently off BiPAP support, and is currently down to 6 L. Upon initial presentation patient required intubation and mechanical ventilatory support, was successfully weaned and extubated #2. Severe COPD with FEV1 of 20-21% with chronic hypoxic respiratory failure, patient usually worse during half liters of oxygen on a regular basis #3. Chronic and ongoing history of smoking #4. History of obstructive sleep apnea noncompliant with CPAP #5. Morbid obesity current BMI is 40.6 kg/m Plan: Breathing is improving, Bulky the patient on the dose of Lasix Start Diamox 250 mg IV push twice a day Continue same dose IV steroids and nebulized bronchodilators Continue weaning FiO2 to keep O2 sats at or above 88% Increase activity as tolerated Continue current medical treatment Continue with IV steroids Follow-up chest x-ray has been reviewed, no airspace disease, no pneumothorax or pleural effusion. Clinically patient is improving If continues to improve consider discharge home in the next 24-48 hours I performed a history & physical examination of the patient and discussed their management with my nurse practitioner, Obdulia Blair. I reviewed the nurse practitioner's note and agree with the documented findings and plan of care. Lung sounds are positive for dim breath sounds throughout the lung garcia. The findings and the impression was discussed with the patient. I attest to the documentation by the nurse practitioner. Time with Patient: Less than 30
[2021-07-12 16:48] LABS: Glucose,Whole Blood 171 mg/dL (75-99)
[2021-07-12 20:10] LABS: Glucose,Whole Blood 313 mg/dL (75-99)
[2021-07-12] MEDS: methylPREDNISolone SOD SUCCI 40 MG/ML 1 ML VIAL IV SCH (20:33)
[2021-07-13] MEDS: HEPARIN SODIUM,PORCINE/PF 5,000 UNIT/0.5 ML SYRINGE SQ SCH ×4 (00:12→21:12)
[2021-07-13] MEDS ORDERED: NICOTINE 14MG/24HR PATCH TRANSDERM STA (00:16)
[2021-07-13] MEDS: methylPREDNISolone SOD SUCCI 40 MG/ML 1 ML VIAL IV SCH ×3 (05:09→21:11)
[2021-07-13 07:39] LABS: Glucose,Whole Blood 205 mg/dL (75-99)
[2021-07-13] MEDS: IPRATROPIUM-ALBUTEROL 3 ML NEB INHALATION SCH ×4 (08:01→19:59)
[2021-07-13] MEDS: SYMBICORT 160-4.5 MCG INHALER INHALATION SCH ×2 (08:02→19:59)
[2021-07-13] MEDS: NICOTINE 14MG/24HR PATCH TRANSDERM SCH (08:03)
[2021-07-13] MEDS: PANTOPRAZOLE 40 MG/10 ML VIAL IV SCH (08:03)
[2021-07-13] MEDS: INSULIN ASPART (NovoLOG) 100 UNIT/ML VIAL SQ SCH ×4 (08:04→21:11)
[2021-07-13] MEDS: INSULIN DETEMIR (LEVEMIR) 100 UNIT/ML SYR SQ SCH (08:05)
[2021-07-13] MEDS: BENZONATATE 100 MG CAP PO SCH ×3 (08:05→21:11)
[2021-07-13 09:32] LABS: African American GFR (CKD) 118.9 (60.0-200.0); Anion Gap 14.1 mmol/L (10.00-18.00); BUN/Creat Ratio 31.5 Ratio (12.00-20.00); Blood Urea Nitrogen 18.9 mg/dL (9.0-27.0); Calcium 9.5 mg/dL (8.7-10.3); Carbon Dioxide 32.9 mmol/L (20.0-27.5); Non-African American GFR(CKD) 102.6 (60.0-200.0); Potassium 4.6 mmol/L (3.5-5.5)
[2021-07-13] MEDS ORDERED: FUROSEMIDE 10 MG/ML 4 ML VIAL IV STA (11:15)
[2021-07-13 11:34] LABS: Glucose,Whole Blood 317 mg/dL (75-99)
--- NOTE | 2021-07-13 14:12 | P.PN ---
Subjective Progress Note Date: 07/13/21 Principal diagnosis: Shortness of breath On 07/11/2021 patient seen in follow-up on medical surgical floor, she is awake and alert, in no acute distress, she states she is breathing better, she is able to speak in full sentences, still dyspneic with exertion, but overall feels that she is improving, she is being treated for acute exacerbation of COPD, and left lower lobe pneumonia possibly community-acquired, denies any fever or chills, denies any chest pain. Remains on azithromycin and Rocephin for antibiotic coverage, blood and sputum cultures have shown no growth. Normally wears 3 L at home on a regular basis. She is currently at 7 L of oxygen pulse ox of 99% FiO2 has been turned down to 6 L. Today's labs have been reviewed, her white blood cell count is 4.5, hemoglobin is 14.1, sodium is 138, potassium is 5.0, BUN 16 creatinine 0.5. ProBNP is 171 is within normal limits. Some mild generalized edema, could benefit from a dose of Lasix. On 07/12/2021 patient seen in follow-up on the medical surgical floor. She is currently on 4 L of oxygen her pulse ox is 90%, oxygenation has improved since yesterday, and FiO2 came down from 7 L down to 4 L. Afebrile, hemodynamically stable, patient has been given diuretics, she received one-time dose of IV Lasix, diuresed significantly, she is in -2.3 L over the last 24 hours. Lower extremity edema is improving. Today's labs have been reviewed, white blood cell count is 5.17, hemoglobin of 14.7, sodium is 140, potassium is 4.1, chloride is 88, CO2 is 41, BUN is 16.1, creatinine 0.5. Pro-calcitonin level came back negative at 0.06. We discontinued azithromycin and Rocephin. On 07/13/2021 patient seen in follow-up on medical surgical floor. She is breathing easier, she is currently down to 4 L of oxygen, and her pulse ox is 97%, she has been wearing CPAP at night, she remains on IV diuretics, and she is in -2.3 L net fluid balance over the last any 4 hours, she still has some residual lower extremity edema but overall edema has improved, no cough, no chest congestion, lung sounds are diminished, no rhonchi or wheezing, she's been afebrile. Patient states she has gotten up with physical therapy and was able to walk in the hallway, tolerated activity feeling well. Today's labs have been reviewed, her sodium is 137, potassium is 4.6, chloride is 90, CO2 is 32, BUN is 18 and creatinine 0.6, patient is on IV Diamox 250 mg every 12 hours. She remains on nebulized bronchodilators, and IV steroids with Solu-Medrol 40 mg every 8 hours. Objective - Vital Signs Vital signs: Vital Signs Temp 98.0 F 07/12/21 19:11 Pulse 85 07/13/21 12:02 Resp 17 07/13/21 08:00 BP 116/74 07/13/21 08:00 Pulse Ox 92 L 07/13/21 08:00 Intake & Output 07/12/21 07/13/21 07/13/21 18:59 06:59 18:59 Intake Total 300 Balance 300 Intake: Oral 300 Other: # Voids 4 - Exam GENERAL EXAM: Alert, pleasant, 56-year-old white female, on 4 L of oxygen a pulse ox of 97%, comfortable in no apparent distress. HEAD: Normocephalic/atraumatic. EYES: Normal reaction of pupils, equal size. Conjunctiva pink, sclera white. NOSE: Clear with pink turbinates. THROAT: No erythema or exudates. NECK: No masses, no JVD, no thyroid enlargement, no adenopathy. CHEST: No chest wall deformity. Symmetrical expansion. LUNGS: Equal air entry with no crackles, wheeze, rhonchi or dullness. CVS: Regular rate and rhythm, normal S1 and S2, no gallops, no murmurs, no rubs ABDOMEN: Soft, nontender. No hepatosplenomegaly, normal bowel sounds, no guarding or rigidity. EXTREMITIES: No clubbing, mild pretib edema no cyanosis, 2+ pulses and upper and lower extremities. MUSCULOSKELETAL: Muscle strength and tone normal. SPINE: No scoliosis or deformity SKIN: No rashes CENTRAL NERVOUS SYSTEM: Alert and oriented -3. No focal deficits, tone is normal in all 4 extremities. PSYCHIATRIC: Alert and oriented -3. Appropriate affect. Intact judgment and insight. - Labs CBC & Chem 7: 07/12/21 04:35 07/13/21 04:16 Labs: Abnormal Lab Results - Last 24 Hours (Table) 07/12/21 07/12/21 07/13/21 Range/Units 16:47 20:10 04:16 Chloride 90 L (96-109) mmol/L Carbon Dioxide 32.9 H (20.0-27.5) mmol/L BUN/Creatinine Ratio 31.50 H (12.00-20.00) Ratio Glucose 193 H (70-110) mg/dL POC Glucose (mg/dL) 171 H 313 H (75-99) mg/dL 07/13/21 07/13/21 Range/Units 07:38 11:33 Chloride (96-109) mmol/L Carbon Dioxide (20.0-27.5) mmol/L BUN/Creatinine Ratio (12.00-20.00) Ratio Glucose (70-110) mg/dL POC Glucose (mg/dL) 205 H 317 H (75-99) mg/dL Assessment and Plan Plan: Assessment: #1. Acute on chronic hypoxic and hypercapnic respiratory failure secondary to severe COPD exacerbation, and acute community acquired pneumonia involving the left lower lobe. Patient is improving, currently off BiPAP support, and is currently down to 6 L. Upon initial presentation patient required intubation and mechanical ventilatory support, was successfully weaned and extubated #2. Severe COPD with FEV1 of 20-21% with chronic hypoxic respiratory failure, patient usually worse during half liters of oxygen on a regular basis #3. Chronic and ongoing history of smoking #4. History of obstructive sleep apnea noncompliant with CPAP #5. Morbid obesity current BMI is 40.6 kg/m Plan: Breathing continues to improve Patient will be given 1 more dose of IV Lasix today Continue with Diamox 250 mg twice daily We'll switch IV Solu-Medrol down to 40 mg every 12 hours Continue nebulized bronchodilators Increase activity as tolerated If remains stable continues to improve, we'll consider discharge home in the next 24 hours I performed a history & physical examination of the patient and discussed their management with my nurse practitioner, Obdulia Blair. I reviewed the nurse practitioner's note and agree with the documented findings and plan of care. Lung sounds are positive for dim breath sounds throughout the lung garcia. The findings and the impression was discussed with the patient. I attest to the documentation by the nurse practitioner. Time with Patient: Less than 30
[2021-07-13 14:24] VITALS: RESP 18
[2021-07-13 16:55] LABS: Glucose,Whole Blood 203 mg/dL (75-99)
[2021-07-13 20:45] LABS: Glucose,Whole Blood 320 mg/dL (75-99)
[2021-07-14 07:07] LABS: Glucose,Whole Blood 236 mg/dL (75-99)
[2021-07-14] MEDS: INSULIN DETEMIR (LEVEMIR) 100 UNIT/ML SYR SQ SCH (07:53)
[2021-07-14] MEDS: BENZONATATE 100 MG CAP PO SCH ×2 (07:53→15:20)
[2021-07-14] MEDS: PANTOPRAZOLE 40 MG/10 ML VIAL IV SCH (07:54)
[2021-07-14] MEDS: IPRATROPIUM-ALBUTEROL 3 ML NEB INHALATION SCH ×2 (07:54→11:46)
[2021-07-14] MEDS: SYMBICORT 160-4.5 MCG INHALER INHALATION SCH (07:54)
[2021-07-14] MEDS: HEPARIN SODIUM,PORCINE/PF 5,000 UNIT/0.5 ML SYRINGE SQ SCH (07:54)
[2021-07-14] MEDS: INSULIN ASPART (NovoLOG) 100 UNIT/ML VIAL SQ SCH ×2 (07:55→11:54)
[2021-07-14] MEDS: methylPREDNISolone SOD SUCCI 40 MG/ML 1 ML VIAL IV SCH (07:55)
--- NOTE | 2021-07-14 09:05 | XR ---
EXAMINATION TYPE: XR chest 1V portable DATE OF EXAM: 07/14/2021 COMPARISON: Chest x-ray 07/12/2021 HISTORY: Dyspnea, shortness of breath TECHNIQUE: Single frontal view of the chest is obtained. FINDINGS: Technique is apical lordotic. Emphysematous changes are again seen. Cardiac mediastinal si lhouette is stable. No airspace disease, pneumothorax, or pleural effusion. No interval change. Aorta is dense. IMPRESSION: No acute process.
[2021-07-14 09:48] LABS: African American GFR (CKD) 118.9 (60.0-200.0); Anion Gap 8.9 mmol/L (10.00-18.00); BUN/Creat Ratio 33.33 Ratio (12.00-20.00); Calcium 9.3 mg/dL (8.7-10.3); Carbon Dioxide 36.1 mmol/L (20.0-27.5); Non-African American GFR(CKD) 102.6 (60.0-200.0)
[2021-07-14 09:49] VITALS: BP 127/77; TEMP 98
[2021-07-14] MEDS: NICOTINE 14MG/24HR PATCH TRANSDERM SCH (10:12)
--- NOTE | 2021-07-14 10:34 | P.PN ---
Subjective Progress Note Date: 07/12/21 56-year-old female with known history of COPD can use to smoke came in with complaints of difficulty breathing her overall condition progressively worsened in ER patient ended up being intubated. Patient is a presently clinically doing well patient is on FiO2 of 50% PEEP of 5 had low volume of 400 saturating well planning and extubating patient is off sedation. Patient had fevers in ER there is probably an infiltrate on the chest x-ray and being treated for pneumonia. It is presently on ceftriaxone and azithromycin. The patient wears oxygen at home. 07/06/2021 Patient was extubated yesterday. Currently in the MICU. On BiPAP. Awake alert and oriented. Chest x-ray showed scattered reticular infiltrates unchanged from her prior x-ray.. Patient is on antibiotics above ceftriaxone azithromycin for possible pneumonia. Continued on IV steroids and bronchodilators. Laboratory data showed WBC 11.4 hemoglobin 13.8 and platelets 174 Sodium 134 potassium 5.2 chloride 92 BUN 21 creatinine 0.5 Blood sugar is 195 pulmonary is on board. [id number] Patient is in the MICU. Currently sitting in a chair. Was on BiPAP and was transitioned to oxygen via nasal cannula. Chest x-ray today showed vague basilar reticulonodular infiltrates are noted. No significant change. Patient is being continued on IV Solu-Medrol and duo nebs. Currently on antibiotics involve ceftriaxone and azithromycin. Blood sugar is better controlled and continue with Levemir and insulin sliding scale. Patient's breathing status is better today. Able to be transferred to chair. No complaints of chest pain. Able to tolerate oral diet today. 07/08/2021 Patient is currently oxygen via nasal cannula. Intermittently using BiPAP. Breathing is much easier today. Denied any complaints of chest pain. Currently on empiric antibiotics in the form of ceftriaxone and azithromycin. Otherwise patient is being continued on IV Solu-Medrol and duo nebs. Continue insulin regimen. Patient is being transferred to medical floor. Pulmonary is on board. 07/09/2021 Patient is currently in the medical floor. On oxygen at 4 L via nasal cannula. Patient is reduced BiPAP 14 / 6 cm of water today morning. Patient is still having bilateral expiratory wheezing. Currently being continued on IV steroids and duo nebs and antibiotics in the form of ceftriaxone and azithromycin. Patient is newly diagnosed diabetic A1c 8.4. Continue with Levemir and insulin sliding scale. 07/10/2021 Patient is currently sitting in a recliner. Currently on BiPAP. 14 x 6 with FiO2 50%. And oxygen at 6 L via nasal cannula. No complaints of chest pain. No fever no chills. No nausea vomiting abdominal pain or diarrhea. Patient is able to tolerate oral diet off BiPAP. Laboratory showed RBC 5.1 hemoglobin 13.5 and platelets 176 Bicarb is 39.2 BUN 16.1 creatinine 0.5 and blood sugar is 171 Pulmonary is on board. 07/11/2021 Patient is currently sitting in the chair. Awake alert and oriented x3. 6 L oxygen nasal cannula. Patient was able to take off BiPAP during lunchtime and able to eat.. patient is on BiPAP most of the time. Patient has been afebrile. Denied any nausea vomiting abdominal pain. Cough without any sputum production. No headache or dizziness or lightheadedness. Pulmonary is following. Patient is being continued on IV Solu-Medrol 60 mg every 6 hourly and duo nebs. Blood sugar is controlled. Laboratory showed sodium 138 potassium 5.0 chloride 92 bicarbonate 35 BUN 16.7 creatinine 0.5 pulmonary is on board. 07/12/2021 Patient is currently sitting in a chair. He recatheterize x3. Awake alert and oriented x3. Patient is using BiPAP and is also on 4 L oxygen via nasal cannula. Patient was given a dose of IV Lasix. Bilateral leg swelling is improving. Her laboratory showed sodium 140 potassium 4.1 chloride 88 bicarb is 41.6 BUN 16.1 and creatinine 0.5 and blood sugar is 157 Patient is being continued on Solu-Medrol 60 mg every 6 hourly and was also be continued on Levemir and insulin sliding scale. Patient has been afebrile. Denied any cough or sputum production. No chest pain. No nausea vomiting abdominal pain or diarrhea. Tolerating oral diet without BiPAP. REVIEW OF SYSTEMS CONSTITUTIONAL: Denies fever or chills. CARDIOVASCULAR: Denies chest pain, orthopnea, PND or palpitations. RESPIRATORY: Denies cough. GASTROINTESTINAL: Denies abdominal pain, diarrhea, constipation, nausea or vomiting. MUSCULOSKELETAL: Denies myalgias. NEUROLOGIC: Denies numbness, tingling or weakness. ENDOCRINE: Denies fatigue, weight change, polydipsia or polyurina. GENITOURINARY: Denies burning, hematuria or urgency with micturation. HEMATOLOGIC: Denies history of anemia or bleeding. Current medications reviewed. Objective - Vital Signs Vital signs: Vital Signs Temp 98.0 F 07/12/21 19:11 Pulse 98 07/12/21 19:11 Resp 18 07/12/21 19:11 BP 146/74 07/12/21 19:11 Pulse Ox 97 07/12/21 19:11 Intake & Output 07/12/21 07/12/21 07/13/21 06:59 18:59 06:59 Intake Total 300 Output Total 6 Balance -6 300 Intake: Oral 300 Output: Urine 6 Other: Voiding Method Bedside Commode # Voids 4 # Bowel Movements 0 - Exam PHYSICAL EXAMINATION: Patient is lying in the bed comfortably, no acute distress, awake alert and oriented. on bipap. HEENT: Normocephalic. Neck is supple. Pupils reactive. Nostrils clear. Oral cav ity is moist. Neck reveals no JVD, carotid bruits, or thyromegaly. CHEST EXAMINATION: Trachea is central. Symmetrical expansion. Bilateral Improved air entry. Diffuse wheezing present... CARDIAC: Normal S1, S2 with no gallops. No murmurs ABDOMEN: Soft. Bowel sounds normal. No organomegaly. No abdominal bruits. Extremities: reveal no edema. No clubbing or cyanosis Neurologically awake, alert, oriented x3 with well-coordinated movements. No focal deficits noted Skin: No rash or skin lesions. Psychiatric: Cooperative. Nonsuicidal Musculoskeletal: No joint swelling or deformity. Normal range of motion. - Labs CBC & Chem 7: 07/12/21 04:35 07/14/21 06:01 Labs: Abnormal Lab Results - Last 24 Hours (Table) 07/11/21 07/12/21 07/12/21 Range/Units 20:53 04:35 04:35 Hct 51.3 H (37.2-46.3) % MCV 100.8 H (80.0-97.0) fL MCHC 28.7 L (32.0-37.0) g/dL Immature Gran # 0.05 H (0.00-0.04) X 10*3/uL Lymphocytes # 0.36 L (0.90-5.00) X 10*3/uL Eosinophils # 0 L (0.04-0.35) X 10*3/uL Chloride 88 L (96-109) mmol/L Carbon Dioxide 41.6 H* (20.0-27.5) mmol/L Creatinine 0.5 L (0.6-1.5) mg/dL BUN/Creatinine Ratio 32.20 H (12.00-20.00) Ratio Glucose 157 H (70-110) mg/dL POC Glucose (mg/dL) 261 H (75-99) mg/dL ALT 53 H (8-44) U/L Total Protein 5.6 L (6.2-8.2) g/dL 07/12/21 07/12/21 07/12/21 Range/Units 07:13 11:25 16:47 Hct (37.2-46.3) % MCV (80.0-97.0) fL MCHC (32.0-37.0) g/dL Immature Gran # (0.00-0.04) X 10*3/uL Lymphocytes # (0.90-5.00) X 10*3/uL Eosinophils # (0.04-0.35) X 10*3/uL Chloride (96-109) mmol/L Carbon Dioxide (20.0-27.5) mmol/L Creatinine (0.6-1.5) mg/dL BUN/Creatinine Ratio (12.00-20.00) Ratio Glucose (70-110) mg/dL POC Glucose (mg/dL) 184 H 178 H 171 H (75-99) mg/dL ALT (8-44) U/L Total Protein (6.2-8.2) g/dL Assessment and Plan Assessment: Assessment and plan -Acute hypercapnic respiratory failure secondary to COPD exacerbation patient had severe hypercapnia , extubated on 07/05. on BIPAP -sepsis secondary to possible pneumonia for which patient is on Rocephin and azithromycin which will be continued -Elevated blood sugars Newly diagnosed diabetes with A1c 8.4. Continue with Levemir 15 units and insulin sliding scale. -Obesity -Nicotine use counseling will be provided. -hyponatremia probably hypovolemic DVT prophylaxis: Subcutaneous heparin
--- NOTE | 2021-07-14 10:38 | P.PN ---
Subjective Progress Note Date: 07/13/21 56-year-old female with known history of COPD can use to smoke came in with complaints of difficulty breathing her overall condition progressively worsened in ER patient ended up being intubated. Patient is a presently clinically doing well patient is on FiO2 of 50% PEEP of 5 had low volume of 400 saturating well planning and extubating patient is off sedation. Patient had fevers in ER there is probably an infiltrate on the chest x-ray and being treated for pneumonia. It is presently on ceftriaxone and azithromycin. The patient wears oxygen at home. 07/06/2021 Patient was extubated yesterday. Currently in the MICU. On BiPAP. Awake alert and oriented. Chest x-ray showed scattered reticular infiltrates unchanged from her prior x-ray.. Patient is on antibiotics above ceftriaxone azithromycin for possible pneumonia. Continued on IV steroids and bronchodilators. Laboratory data showed WBC 11.4 hemoglobin 13.8 and platelets 174 Sodium 134 potassium 5.2 chloride 92 BUN 21 creatinine 0.5 Blood sugar is 195 pulmonary is on board. [id number] Patient is in the MICU. Currently sitting in a chair. Was on BiPAP and was transitioned to oxygen via nasal cannula. Chest x-ray today showed vague basilar reticulonodular infiltrates are noted. No significant change. Patient is being continued on IV Solu-Medrol and duo nebs. Currently on antibiotics involve ceftriaxone and azithromycin. Blood sugar is better controlled and continue with Levemir and insulin sliding scale. Patient's breathing status is better today. Able to be transferred to chair. No complaints of chest pain. Able to tolerate oral diet today. 07/08/2021 Patient is currently oxygen via nasal cannula. Intermittently using BiPAP. Breathing is much easier today. Denied any complaints of chest pain. Currently on empiric antibiotics in the form of ceftriaxone and azithromycin. Otherwise patient is being continued on IV Solu-Medrol and duo nebs. Continue insulin regimen. Patient is being transferred to medical floor. Pulmonary is on board. 07/09/2021 Patient is currently in the medical floor. On oxygen at 4 L via nasal cannula. Patient is reduced BiPAP 14 / 6 cm of water today morning. Patient is still having bilateral expiratory wheezing. Currently being continued on IV steroids and duo nebs and antibiotics in the form of ceftriaxone and azithromycin. Patient is newly diagnosed diabetic A1c 8.4. Continue with Levemir and insulin sliding scale. 07/10/2021 Patient is currently sitting in a recliner. Currently on BiPAP. 14 x 6 with FiO2 50%. And oxygen at 6 L via nasal cannula. No complaints of chest pain. No fever no chills. No nausea vomiting abdominal pain or diarrhea. Patient is able to tolerate oral diet off BiPAP. Laboratory showed RBC 5.1 hemoglobin 13.5 and platelets 176 Bicarb is 39.2 BUN 16.1 creatinine 0.5 and blood sugar is 171 Pulmonary is on board. 07/11/2021 Patient is currently sitting in the chair. Awake alert and oriented x3. 6 L oxygen nasal cannula. Patient was able to take off BiPAP during lunchtime and able to eat.. patient is on BiPAP most of the time. Patient has been afebrile. Denied any nausea vomiting abdominal pain. Cough without any sputum production. No headache or dizziness or lightheadedness. Pulmonary is following. Patient is being continued on IV Solu-Medrol 60 mg every 6 hourly and duo nebs. Blood sugar is controlled. Laboratory showed sodium 138 potassium 5.0 chloride 92 bicarbonate 35 BUN 16.7 creatinine 0.5 pulmonary is on board. 07/12/2021 Patient is currently sitting in a chair. He recatheterize x3. Awake alert and oriented x3. Patient is using BiPAP and is also on 4 L oxygen via nasal cannula. Patient was given a dose of IV Lasix. Bilateral leg swelling is improving. Her laboratory showed sodium 140 potassium 4.1 chloride 88 bicarb is 41.6 BUN 16.1 and creatinine 0.5 and blood sugar is 157 Patient is being continued on Solu-Medrol 60 mg every 6 hourly and was also be continued on Levemir and insulin sliding scale. Patient has been afebrile. Denied any cough or sputum production. No chest pain. No nausea vomiting abdominal pain or diarrhea. Tolerating oral diet without BiPAP. 07/13/2021 Patient is currently sitting up in the chair. Feels better. Requiring oxygen 4 L via nasal cannula. Saturating at 93 to 98%. Did use BiPAP last night. Patient was seen by PT OT and was able to ambulate in the hallway. Bilateral lower extremity swelling is improving. Patient was given 40 mg IV push x1 again today. Pulmonary is on board. No complaints of nausea or vomiting or abdominal pain or diarrhea. No dysuria or hematuria. Lab data showed sodium 137 potassium 4.8 chloride 90 bicarb is 32.9 BUN 18.9 and creatinine 0.6 and blood sugar is 193 Patient is Solu-Medrol 40 mg IV every 12 currently. Continue Symbicort and duo nebs. REVIEW OF SYSTEMS CONSTITUTIONAL: Denies fever or chills. CARDIOVASCULAR: Denies chest pain, orthopnea, PND or palpitations. RESPIRATORY: Denies cough. GASTROINTESTINAL: Denies abdominal pain, diarrhea, constipation, nausea or vomiting. MUSCULOSKELETAL: Denies myalgias. NEUROLOGIC: Denies numbness, tingling or weakness. ENDOCRINE: Denies fatigue, weight change, polydipsia or polyurina. GENITOURINARY: Denies burning, hematuria or urgency with micturation. HEMATOLOGIC: Denies history of anemia or bleeding. Current medications reviewed. Objective - Vital Signs Vital signs: Vital Signs Temp 98.1 F 07/13/21 20:31 Pulse 102 H 07/13/21 20:31 Resp 18 07/13/21 20:31 BP 130/68 07/13/21 20:31 Pulse Ox 93 L 07/13/21 20:31 Intake & Output 07/13/21 07/13/21 07/14/21 06:59 18:59 06:59 Weight 104 kg Other: # Voids 4 4 - Exam PHYSICAL EXAMINATION: Patient is lying in the bed comfortably, no acute distress, awake alert and oriented. on bipap. HEENT: Normocephalic. Neck is supple. Pupils reactive. Nostrils clear. Oral c avity is moist. Neck reveals no JVD, carotid bruits, or thyromegaly. CHEST EXAMINATION: Trachea is central. Symmetrical expansion. Bilateral Improved air entry. mild exp wheezing present... CARDIAC: Normal S1, S2 with no gallops. No murmurs ABDOMEN: Soft. Bowel sounds normal. No organomegaly. No abdominal bruits. Extremities: reveal no edema. No clubbing or cyanosis Neurologically awake, alert, oriented x3 with well-coordinated movements. No focal deficits noted Skin: No rash or skin lesions. Psychiatric: Cooperative. Nonsuicidal Musculoskeletal: No joint swelling or deformity. Normal range of motion. - Labs CBC & Chem 7: 07/12/21 04:35 07/14/21 06:01 Labs: Abnormal Lab Results - Last 24 Hours (Table) 07/13/21 07/13/21 07/13/21 Range/Units 04:16 07:38 11:33 Chloride 90 L (96-109) mmol/L Carbon Dioxide 32.9 H (20.0-27.5) mmol/L BUN/Creatinine Ratio 31.50 H (12.00-20.00) Ratio Glucose 193 H (70-110) mg/dL POC Glucose (mg/dL) 205 H 317 H (75-99) mg/dL 07/13/21 07/13/21 Range/Units 16:53 20:43 Chloride (96-109) mmol/L Carbon Dioxide (20.0-27.5) mmol/L BUN/Creatinine Ratio (12.00-20.00) Ratio Glucose (70-110) mg/dL POC Glucose (mg/dL) 203 H 320 H (75-99) mg/dL Assessment and Plan Assessment: Assessment and plan -Acute hypercapnic respiratory failure secondary to COPD exacerbation patient had severe hypercapnia , extubated on 07/05. on BIPAP-->4L NC -sepsis secondary to possible pneumonia for which patient is on Rocephin and azithromycin which will be continued -Elevated blood sugars Newly diagnosed diabetes with A1c 8.4. Continue with Levemir 15 units and insulin sliding scale. -Obesity -Nicotine use counseling will be provided. -hyponatremia probably hypovolemic DVT prophylaxis: Subcutaneous heparin Time with Patient: Greater than 30
[2021-07-14 11:50] LABS: Glucose,Whole Blood 197 mg/dL (75-99)
[2021-07-14 11:59] VITALS: PULSE 99
[2021-07-14] MEDS ORDERED: predniSONE 20 MG TAB PO STA (12:07)
[2021-07-14] MEDS ORDERED: INSULIN ASPART (NovoLOG) 100 UNIT/ML VIAL SQ SCH (12:30)
--- NOTE | 2021-07-14 14:40 | P.PN ---
Subjective Progress Note Date: 07/14/21 Principal diagnosis: Shortness of breath On 07/11/2021 patient seen in follow-up on medical surgical floor, she is awake and alert, in no acute distress, she states she is breathing better, she is able to speak in full sentences, still dyspneic with exertion, but overall feels that she is improving, she is being treated for acute exacerbation of COPD, and left lower lobe pneumonia possibly community-acquired, denies any fever or chills, denies any chest pain. Remains on azithromycin and Rocephin for antibiotic coverage, blood and sputum cultures have shown no growth. Normally wears 3 L at home on a regular basis. She is currently at 7 L of oxygen pulse ox of 99% FiO2 has been turned down to 6 L. Today's labs have been reviewed, her white blood cell count is 4.5, hemoglobin is 14.1, sodium is 138, potassium is 5.0, BUN 16 creatinine 0.5. ProBNP is 171 is within normal limits. Some mild generalized edema, could benefit from a dose of Lasix. On 07/12/2021 patient seen in follow-up on the medical surgical floor. She is currently on 4 L of oxygen her pulse ox is 90%, oxygenation has improved since yesterday, and FiO2 came down from 7 L down to 4 L. Afebrile, hemodynamically stable, patient has been given diuretics, she received one-time dose of IV Lasix, diuresed significantly, she is in -2.3 L over the last 24 hours. Lower extremity edema is improving. Today's labs have been reviewed, white blood cell count is 5.17, hemoglobin of 14.7, sodium is 140, potassium is 4.1, chloride is 88, CO2 is 41, BUN is 16.1, creatinine 0.5. Pro-calcitonin level came back negative at 0.06. We discontinued azithromycin and Rocephin. On 07/13/2021 patient seen in follow-up on medical surgical floor. She is breathing easier, she is currently down to 4 L of oxygen, and her pulse ox is 97%, she has been wearing CPAP at night, she remains on IV diuretics, and she is in -2.3 L net fluid balance over the last any 4 hours, she still has some residual lower extremity edema but overall edema has improved, no cough, no chest congestion, lung sounds are diminished, no rhonchi or wheezing, she's been afebrile. Patient states she has gotten up with physical therapy and was able to walk in the hallway, tolerated activity feeling well. Today's labs have been reviewed, her sodium is 137, potassium is 4.6, chloride is 90, CO2 is 32, BUN is 18 and creatinine 0.6, patient is on IV Diamox 250 mg every 12 hours. She remains on nebulized bronchodilators, and IV steroids with Solu-Medrol 40 mg every 8 hours. On 07/13/2021 patient seen in follow-up on medical surgical floor. She is awake and alert, in no acute distress, she continues to improve, lung sounds are clear, her chest x-ray shows no acute cardiopulmonary process, she is on 4 L of oxygen pulse ox 96%, she's been afebrile, patient has ambulated in the hallway with physical therapy, was able to tolerate activity very well. She remains on nebulized and inhaled bronchodilators, she has been diuresed, lower extremity edema has significantly improved, patient has been stable, and she is being con sidered for discharge home today. Objective - Vital Signs Vital signs: Vital Signs Temp 98.0 F 07/14/21 08:00 Pulse 99 07/14/21 11:58 Resp 18 07/14/21 08:00 BP 127/77 07/14/21 08:00 Pulse Ox 96 07/14/21 08:00 Intake & Output 07/13/21 07/14/21 07/14/21 18:59 06:59 18:59 Weight 104 kg Other: Voiding Method Bedside Commode # Voids 4 3 - Exam GENERAL EXAM: Alert, pleasant, 56-year-old white female, on 4 L of oxygen a pulse ox of 97%, comfortable in no apparent distress. HEAD: Normocephalic/atraumatic. EYES: Normal reaction of pupils, equal size. Conjunctiva pink, sclera white. NOSE: Clear with pink turbinates. THROAT: No erythema or exudates. NECK: No masses, no JVD, no thyroid enlargement, no adenopathy. CHEST: No chest wall deformity. Symmetrical expansion. LUNGS: Equal air entry with no crackles, wheeze, rhonchi or dullness. CVS: Regular rate and rhythm, normal S1 and S2, no gallops, no murmurs, no rubs ABDOMEN: Soft, nontender. No hepatosplenomegaly, normal bowel sounds, no guarding or rigidity. EXTREMITIES: No clubbing, mild pretib edema no cyanosis, 2+ pulses and upper and lower extremities. MUSCULOSKELETAL: Muscle strength and tone normal. SPINE: No scoliosis or deformity SKIN: No rashes CENTRAL NERVOUS SYSTEM: Alert and oriented -3. No focal deficits, tone is normal in all 4 extremities. PSYCHIATRIC: Alert and oriented -3. Appropriate affect. Intact judgment and insight. - Labs CBC & Chem 7: 07/12/21 04:35 07/14/21 06:01 Labs: Abnormal Lab Results - Last 24 Hours (Table) 07/13/21 07/13/21 07/14/21 Range/Units 16:53 20:43 06:01 Chloride 92 L (96-109) mmol/L Carbon Dioxide 36.1 H (20.0-27.5) mmol/L Anion Gap 8.90 L (10.00-18.00) mmol/L BUN/Creatinine Ratio 33.33 H (12.00-20.00) Ratio Glucose 263 H (70-110) mg/dL POC Glucose (mg/dL) 203 H 320 H (75-99) mg/dL 07/14/21 07/14/21 Range/Units 07:05 11:49 Chloride (96-109) mmol/L Carbon Dioxide (20.0-27.5) mmol/L Anion Gap (10.00-18.00) mmol/L BUN/Creatinine Ratio (12.00-20.00) Ratio Glucose (70-110) mg/dL POC Glucose (mg/dL) 236 H 197 H (75-99) mg/dL Assessment and Plan Plan: Assessment: #1. Acute on chronic hypoxic and hypercapnic respiratory failure secondary to severe COPD exacerbation, and acute community acquired pneumonia involving the left lower lobe. Patient is improving, currently off BiPAP support, and is currently down to 6 L. Upon initial presentation patient required intubation and mechanical ventilatory support, was successfully weaned and extubated #2. Severe COPD with FEV1 of 20-21% with chronic hypoxic respiratory failure, patient usually wears 3.5 l/min of oxygen on a regular basis #3. Chronic and ongoing history of smoking #4. History of obstructive sleep apnea noncompliant with CPAP #5. Morbid obesity current BMI is 40.6 kg/m Plan: Breathing continues to improve Patient has been sufficiently diuresed, Oxygenation continues to improve, she normally wears 3-1/2 L on a regular basis, she is currently on 4 L, maintaining stable O2 saturation above 95% Patient's IV steroids can be transitioned to oral prednisone Patient will likely need low dose Lasix on a regular basis 20 mg daily She can complete prednisone taper on an outpatient basis She can resume Trelegy, duoneb and Albuterol inhaler after discharge She stable for discharge home today from pulmonary perspective Outpatient follow-up with Dr. Lopez in 7-10 days I performed a history & physical examination of the patient and discussed their management with my nurse practitioner, Obdulia Blair. I reviewed the nurse practitioner's note and agree with the documented findings and plan of care. Lung sounds are positive for dim breath sounds throughout the lung garcia. The findings and the impression was discussed with the patient. I attest to the documentation by the nurse practitioner. Time with Patient: Less than 30
== END 2021-07-14 16:20 | disposition home health service (06) | DRG 871 ==
LOC: EC 18:58 → 2SICU 20:45 → 4SSUR 07-07 16:27
PROVIDERS: ADMIT Hospitalist; ATTEND Hospitalist
PROC: 0BH17EZ Insertion of Endotracheal Airway into Trachea, Via Natural or Artificial Opening (ICD-10-PCS; principal; 2021-07-04)
PROC: 5A1945Z Respiratory Ventilation, 24-96 Consecutive Hours (ICD-10-PCS; 2021-07-04)
DX: A41.9 Sepsis, unspecified organism (principal); J18.9 Pneumonia, unspecified organism; J96.21 Acute and chronic respiratory failure with hypoxia; J96.22 Acute and chronic respiratory failure with hypercapnia; E87.1 Hypo-osmolality and hyponatremia; J44.0 Chronic obstructive pulmonary disease with (acute) lower respiratory infection; J44.1 Chronic obstructive pulmonary disease with (acute) exacerbation; Z68.41 Body mass index [BMI] 40.0-44.9, adult; E11.65 Type 2 diabetes mellitus with hyperglycemia; E66.01 Morbid (severe) obesity due to excess calories; E86.1 Hypovolemia; E87.5 Hyperkalemia; F17.200 Nicotine dependence, unspecified, uncomplicated; Z79.4 Long term (current) use of insulin; Z79.899 Other long term (current) drug therapy; Z91.19 Patient's noncompliance with other medical treatment and regimen; Z99.81 Dependence on supplemental oxygen; G47.33 Obstructive sleep apnea (adult) (pediatric); N39.3 Stress incontinence (female) (male)
CPT/HCPCS: 31500; 36415; 36600; 71045; 80048; 80053; 81003; 82805; 83036; 83605; 83735; 83880; 84132; 84145; 84484; 85025; 85379; 85610; 85730; 87040; 87070; 87205; 87635; 93005; 94002; 94003; 94640; 94660; 96374; 96375; 99291

== ENCOUNTER 2022-04-05 16:26 | Inpatient (IN) | payer MEDICARE ==
[2022-04-05] MEDS ORDERED: MAGNESIUM SULFATE-D5W PMX 1 GM in DEXTROSE/WATER 1 100ML.BAG IVPB STA (16:45)
[2022-04-05] MEDS ORDERED: methylPREDNISolone SOD SUCCI 125 MG/2 ML VIAL IV STA (16:45)
[2022-04-05] MEDS ORDERED: IPRATROPIUM-ALBUTEROL 3 ML NEB INHALATION STA ×2 (16:45→18:48)
[2022-04-05 17:13] LABS: Basophils % (A) 0 %; Eosinophils # (A) 0.1 k/uL (0-0.7); Eosinophils % (A) 1 %; HCT 51.3 % (34.0-46.0); Hypochromasia Marked; Lymphocytes # (A) 0.4 k/uL (1.0-4.8); Lymphocytes % (A) 5 %; MCH 29.7 pg (25.0-35.0); MCHC 29.2 g/dL (31.0-37.0); MCV 101.7 fL (80.0-100.0); Macrocytosis Slight; Mean Platelet Volume 7.3; Monocytes # (A) 0.3 k/uL (0-1.0); Monocytes % (A) 4 %; Neutrophils # (A) 7.1 k/uL (1.3-7.7); Neutrophils % (A) 90 %; Platelet Count 213 k/uL (150-450); RBC 5.05 m/uL (3.80-5.40); RDW 14.6 % (11.5-15.5); WBC 7.9 k/uL (3.8-10.6)
[2022-04-05 17:24] LABS: ALT 21 U/L (4-34); AST 22 U/L (14-36); African American GFR (CKD) >90 (>60 ml/min/1.73 sqM); Albumin 3.9 g/dL (3.5-5.0); Alkaline Phosphatase 83 U/L (38-126); Blood Urea Nitrogen 10 mg/dL (7-17); Calcium 9.2 mg/dL (8.4-10.2); Chloride 80 mmol/L (98-107); Glucose 293 mg/dL (74-99); Magnesium 1.8 mg/dL (1.6-2.3); Non-African American GFR(CKD) >90 (>60 ml/min/1.73 sqM); Potassium 4.4 mmol/L (3.5-5.1); Sodium 132 mmol/L (137-145); Total Bilirubin 0.9 mg/dL (0.2-1.3); Total Protein 6.2 g/dL (6.3-8.2)
[2022-04-05 17:30] LABS: Anion Gap 7 mmol/L
[2022-04-05 17:34] LABS: INR 0.9 (<1.2); Partial Thromboplastin Time 22.7 sec (22.0-30.0); Prothrombin Time 10.3 sec (9.0-12.0)
[2022-04-05 17:45] LABS: Carbon Dioxide 45 mmol/L (22-30)
--- NOTE | 2022-04-05 18:06 | XR ---
EXAMINATION TYPE: XR chest 1V portable DATE OF EXAM: 04/05/2022 COMPARISON: 08/02/2021 HISTORY: Cough TECHNIQUE: FINDINGS: Heart is normal. Lungs are clear of infiltrate. No heart failure. There are no hilar masses . There are chest leads. There is mild pulmonary hyperinflation. Bony thorax is intact. IMPRESSION: No active cardiopulmonary disease. No change. There is probably COPD.
[2022-04-05] MEDS ORDERED: SODIUM CHLORIDE 0.9% 1,000 ML IV STA (18:37)
[2022-04-05] MEDS ORDERED: ONDANSETRON 4 MG/2 ML VIAL IVP PRN (18:39)
[2022-04-05] MEDS ORDERED: NALOXONE 0.4 MG/ML 1 ML VIAL IV PRN (18:39)
--- NOTE | 2022-04-05 18:42 | ED ---
General Adult HPI - General Chief complaint: Shortness of Breath Stated complaint: CHARLENE Time Seen by Provider: 04/05/22 16:29 Source: patient, EMS, RN notes reviewed, old records reviewed Mode of arrival: EMS Limitations: no limitations - History of Present Illness Initial comments: Patient is a 57 year old female with past medical history remarkable for COPD who presents emergency Department complaining of COPD exacerbation. Symptoms started this morning. States when weather changes, she gets more short of breath. Breathing treatments have not improved it. Endorses a nonproductive cough. Denies any fevers or sick contacts. States she she does not have any chest pain. No history of heart failure. Denies any abdominal pain, nausea, vomiting. Presents for further evaluation at this time. She has been on BiPAP before for COPD and states she believes she is at that point. Denies orthopnea. Denies PND. Denies worsening lower extremity edema. - Related Data Home Medications Medication Instructions Recorded Confirmed Albuterol Sulfate [Albuterol 2 puff PO RT-Q4H 07/04/21 04/05/22 Sulfate Hfa] Fluticasone/Umeclidin/Vilanter 1 puff INHALATION RT-DAILY 07/04/21 04/05/22 [Trelegy Ellipta 100-62.5-25] Furosemide [Lasix] 40 mg PO DAILY 07/04/21 04/05/22 Famotidine [Pepcid] 20 mg PO BID 04/05/22 04/05/22 predniSONE See Taper PO DIRECTED 04/05/22 04/05/22 Previous Rx's Medication Instructions Recorded Ipratropium-Albuterol Nebulize 3 ml INHALATION RT-QID #200 ml 07/14/21 [Duoneb 0.5 mg-3 mg/3 ml Soln] metFORMIN HCL [Glucophage] 500 mg PO BID #60 tab 07/14/21 Allergies Allergy/AdvReac Type Severity Reaction Status Date / Time No Known Allergies Allergy Verified 04/05/22 19:13 Review of Systems ROS Statement: Those systems with pertinent positive or pertinent negative responses have been documented in the HPI. Review of Systems: CONST: Denies fever EYES: Denies blurry vision ENT: Denies nasal congestion C/V: Denies Chest pain RESP: Endorses shortness of breath GI: Denies abdominal pain : Denies dysuria SKIN: Denies rash. MSK: Denies joint pain. NEURO: Denies headache ROS Other: All systems not noted in ROS Statement are negative. Past Medical History Past Medical History: COPD Additional Past Medical History / Comment(s): STRESS URINARY INCONTINENCE. MINIMAL LUNG FUNCTION. SLEEP APNEA (DOES NOT USE CPAP) History of Any Multi-Drug Resistant Organisms: None Reported Past Surgical History: Cholecystectomy, Tonsillectomy, Tubal Ligation Additional Past Surgical History / Comment(s): CERVICAL SURGERY, pneumothorax CHEST TUBE Past Anesthesia/Blood Transfusion Reactions: No Reported Reaction Past Psychological History: No Psychological Hx Reported Smoking Status: Current every day smoker Past Alcohol Use History: None Reported Past Drug Use History: None Reported - Past Family History Sister(s) Family Medical History: Deep Vein Thrombosis (DVT), Pulmonary Embolus Brother(s) Family Medical History: Deep Vein Thrombosis (DVT) General Exam - General Exam Comments Initial Comments: General: Patient is to In mild respiratory distress. HEAD: Normal with no signs of head trauma. EYES: PERRLA, EOMI, conjunctiva normal, no discharge. ENT: Hearing grossly intact, normal oropharynx. RESPIRATORY: Decreased lung sounds in bilateral lung garcia, likely secondary to COPD. Minimal wheezing. Increased work of breathing. Hypoxia in the low 90%. C/V: Mild tachycardia. S1 and S2 auscultated. Peripheral pulses 2+ intact throughout. Minimal pitting edema bilaterally. ABD: Abd is soft, nontender, nondistended EXT: Normal range of motion, no obvious deformity SKIN: No rashes or lesions observed on exposed skin. NEURO: Alert and oriented 4. Limitations: no limitations Course Vital Signs 04/05/22 04/05/22 04/05/22 16:30 16:45 16:52 Temperature 98.4 F Pulse Rate 106 H Respiratory 26 H 30 H Rate Blood Pressure 135/68 O2 Sat by Pulse 92 L Oximetry Fraction of 40 Inspired Oxygen (FIO2) 04/05/22 04/05/22 04/05/22 17:10 17:40 18:10 Temperature Pulse Rate 103 H 101 H 101 H Respiratory 22 19 26 H Rate Blood Pressure 119/69 124/73 136/66 O2 Sat by Pulse 94 L 94 L 92 L Oximetry Fraction of Inspired Oxygen (FIO2) 04/05/22 04/05/22 04/05/22 18:40 18:50 18:54 Temperature Pulse Rate 96 97 97 Respiratory 20 22 Rate Blood Pressure 130/68 130/68 O2 Sat by Pulse 92 L 92 L Oximetry Fraction of 60 Inspired Oxygen (FIO2) 04/05/22 04/05/22 04/05/22 19:00 19:10 19:13 Temperature Pulse Rate 92 92 92 Respiratory 19 20 Rate Blood Pressure O2 Sat by Pulse 99 99 Oximetry Fraction of Inspired Oxygen (FIO2) 04/05/22 04/05/22 04/05/22 19:20 19:30 19:40 Temperature Pulse Rate 96 93 101 H Respiratory 19 19 18 Rate Blood Pressure 132/71 142/71 O2 Sat by Pulse 99 98 97 Oximetry Fraction of Inspired Oxygen (FIO2) 04/05/22 19:50 Temperature Pulse Rate 94 Respiratory 20 Rate Blood Pressure O2 Sat by Pulse 97 Oximetry Fraction of Inspired Oxygen (FIO2) Medical Decision Making - Medical Decision Making Based on the patient's presentation and physical exam, I'm concerned for COPD exacerbation. We will obtain cardiopulmonary laboratory studies. Patiently placed on BiPAP. Breathing treatments will be initiated as well as IV steroids. She was in agreement this plan. Vital signs show increased work of breathing secondary likely to COPD exacerbation. EKG shows no signs of acute ischemia. Laboratory studies are remarkable for an elevated, dioxide of 45. Patient is mildly hyperglycemic to 263. Troponin is undetectable. BNP within normal limits. Covid and flu are negative. Chest x- ray shows no acute cardio pulmonary process. On reevaluation, there was a delay in providing initial breathing treatments due to unavailability of RT. We'll continue to monitor for improvement. She is saturating well on BiPAP. I discussed with her the results of her workup. I would like to admit her to the hospital for COPD exacerbation. She was in agreement this plan. Wheezing and work of breathing are both improved. We will continue steroids as well as breathing treatments and BiPAP. Patient will be admitted to the hospital. I spoke with Padmini of the [facility] who accepted the patient. Patient is admitted in stable condition. - Lab Data Result diagrams: 04/05/22 16:52 04/05/22 16:52 Lab Results 04/05/22 04/05/22 04/05/22 Range/Units 16:52 16:52 16:52 WBC 7.9 (3.8-10.6) k/uL RBC 5.05 (3.80-5.40) m/uL Hgb 15.0 (11.4-16.0) gm/dL Hct 51.3 H (34.0-46.0) % MCV 101.7 H (80.0-100.0) fL MCH 29.7 (25.0-35.0) pg MCHC 29.2 L (31.0-37.0) g/dL RDW 14.6 (11.5-15.5) % Plt Count 213 (150-450) k/uL MPV 7.3 Neutrophils % 90 % Lymphocytes % 5 % Monocytes % 4 % Eosinophils % 1 % Basophils % 0 % Neutrophils # 7.1 (1.3-7.7) k/uL Lymphocytes # 0.4 L (1.0-4.8) k/uL Monocytes # 0.3 (0-1.0) k/uL Eosinophils # 0.1 (0-0.7) k/uL Basophils # 0.0 (0-0.2) k/uL Hypochromasia Marked Macrocytosis Slight PT 10.3 (9.0-12.0) sec INR 0.9 (<1.2) APTT 22.7 (22.0-30.0) sec Sodium 132 L (137-145) mmol/L Potassium 4.4 (3.5-5.1) mmol/L Chloride 80 L (98-107) mmol/L Carbon Dioxide 45 H* (22-30) mmol/L Anion Gap 7 mmol/L BUN 10 (7-17) mg/dL Creatinine 0.40 L (0.52-1.04) mg/dL Est GFR (CKD-EPI)AfAm >90 (>60 ml/min/1.73 sqM) Est GFR (CKD-EPI)NonAf >90 (>60 ml/min/1.73 sqM) Glucose 293 H (74-99) mg/dL Calcium 9.2 (8.4-10.2) mg/dL Magnesium 1.8 (1.6-2.3) mg/dL Total Bilirubin 0.9 (0.2-1.3) mg/dL AST 22 (14-36) U/L ALT 21 (4-34) U/L Alkaline Phosphatase 83 (38-126) U/L Troponin I (0.000-0.034) ng/mL NT-Pro-B Natriuret Pep pg/mL Total Protein 6.2 L (6.3-8.2) g/dL Albumin 3.9 (3.5-5.0) g/dL Coronavirus (PCR) (Not Detectd) Influenza Type A RNA (Not Detectd) Influenza Type B (PCR) (Not Detectd) 04/05/22 04/05/22 04/05/22 Range/Units 16:52 16:52 16:52 WBC (3.8-10.6) k/uL RBC (3.80-5.40) m/uL Hgb (11.4-16.0) gm/dL Hct (34.0-46.0) % MCV (80.0-100.0) fL MCH (25.0-35.0) pg MCHC (31.0-37.0) g/dL RDW (11.5-15.5) % Plt Count (150-450) k/uL MPV Neutrophils % % Lymphocytes % % Monocytes % % Eosinophils % % Basophils % % Neutrophils # (1.3-7.7) k/uL Lymphocytes # (1.0-4.8) k/uL Monocytes # (0-1.0) k/uL Eosinophils # (0-0.7) k/uL Basophils # (0-0.2) k/uL Hypochromasia Macrocytosis PT (9.0-12.0) sec INR (<1.2) APTT (22.0-30.0) sec Sodium (137-145) mmol/L Potassium (3.5-5.1) mmol/L Chloride (98-107) mmol/L Carbon Dioxide (22-30) mmol/L Anion Gap mmol/L BUN (7-17) mg/dL Creatinine (0.52-1.04) mg/dL Est GFR (CKD-EPI)AfAm (>60 ml/min/1.73 sqM) Est GFR (CKD-EPI)NonAf (>60 ml/min/1.73 sqM) Glucose (74-99) mg/dL Calcium (8.4-10.2) mg/dL Magnesium (1.6-2.3) mg/dL Total Bilirubin (0.2-1.3) mg/dL AST (14-36) U/L ALT (4-34) U/L Alkaline Phosphatase (38-126) U/L Troponin I <0.012 (0.000-0.034) ng/mL NT-Pro-B Natriuret Pep pg/mL Total Protein (6.3-8.2) g/dL Albumin (3.5-5.0) g/dL Coronavirus (PCR) Not Detected (Not Detectd) Influenza Type A RNA Not Detected (Not Detectd) Influenza Type B (PCR) Not Detected (Not Detectd) 04/05/22 Range/Units 16:52 WBC (3.8-10.6) k/uL RBC (3.80-5.40) m/uL Hgb (11.4-16.0) gm/dL Hct (34.0-46.0) % MCV (80.0-100.0) fL MCH (25.0-35.0) pg MCHC (31.0-37.0) g/dL RDW (11.5-15.5) % Plt Count (150-450) k/uL MPV Neutrophils % % Lymphocytes % % Monocytes % % Eosinophils % % Basophils % % Neutrophils # (1.3-7.7) k/uL Lymphocytes # (1.0-4.8) k/uL Monocytes # (0-1.0) k/uL Eosinophils # (0-0.7) k/uL Basophils # (0-0.2) k/uL Hypochromasia Macrocytosis PT (9.0-12.0) sec INR (<1.2) APTT (22.0-30.0) sec Sodium (137-145) mmol/L Potassium (3.5-5.1) mmol/L Chloride (98-107) mmol/L Carbon Dioxide (22-30) mmol/L Anion Gap mmol/L BUN (7-17) mg/dL Creatinine (0.52-1.04) mg/dL Est GFR (CKD-EPI)AfAm (>60 ml/min/1.73 sqM) Est GFR (CKD-EPI)NonAf (>60 ml/min/1.73 sqM) Glucose (74-99) mg/dL Calcium (8.4-10.2) mg/dL Magnesium (1.6-2.3) mg/dL Total Bilirubin (0.2-1.3) mg/dL AST (14-36) U/L ALT (4-34) U/L Alkaline Phosphatase (38-126) U/L Troponin I (0.000-0.034) ng/mL NT-Pro-B Natriuret Pep 71 pg/mL Total Protein (6.3-8.2) g/dL Albumin (3.5-5.0) g/dL Coronavirus (PCR) (Not Detectd) Influenza Type A RNA (Not Detectd) Influenza Type B (PCR) (Not Detectd) - EKG Data -: EKG Interpreted by Me EKG Comments: 12-lead Electrocardiogram Interpretation Note EKG was reviewed and interpreted by myself. 12-lead ECG performed at 1648 is interpreted by me as revealing normal sinus rhythm at a rate of 103 beats per minute. [place] is normal. ND interval is 111 ms, QRS duration is 94 ms, QTc is 371 ms.. There were no ST or T wave abnormalities to suggest myocardial ischemia or injury. R wave progression across the precordium was satisfactory. By my interpretation this EKG is non-diagnostic for acute ischemia. Disposition Clinical Impression: COPD exacerbation Disposition: ADMITTED IP TO THIS HOSP Condition: Serious Time of Disposition: 18:20
[2022-04-05] MEDS ORDERED: DEXTROSE 50% SYRINGE 50 ML IVP PRN ×2 (19:03)
[2022-04-05] MEDS ORDERED: IPRATROPIUM-ALBUTEROL 3 ML NEB INHALATION PRN (19:07)
[2022-04-05] MEDS: IPRATROPIUM-ALBUTEROL 3 ML NEB INHALATION SCH (19:33)
[2022-04-05] MEDS ORDERED: IPRATROPIUM-ALBUTEROL 3 ML NEB INHALATION SCH (20:00)
[2022-04-05 21:17] LABS: Glucose,Whole Blood 251 mg/dL (70-110)
[2022-04-05] MEDS: INSULIN DETEMIR (LEVEMIR) 100 UNIT/ML SYR SQ SCH (21:52)
[2022-04-05] MEDS: INSULIN ASPART (NovoLOG) 100 UNIT/ML VIAL SQ SCH (21:52)
[2022-04-05] MEDS: methylPREDNISolone SOD SUCCI 40 MG/ML 1 ML VIAL IV SCH (21:53)
[2022-04-05 22:40] LABS: Glucose,Whole Blood 246 mg/dL (70-110)
[2022-04-05 22:45] LABS: ABG Base Excess 24.5 mmol/L; ABG Oxygen Saturation 98.7 % (94-97); ABG PH 7.26 (7.35-7.45); ABG PO2 109 mmHg (83-108); ABG TCO2 55 mmol/L (19-24); Allen Test Performed? Yes
[2022-04-05 22:51] LABS: ABG HCO3 52 mmol/L (21-25); ABG PCO2 114 mmHg (35-45)
[2022-04-05] MEDS ORDERED: FUROSEMIDE 10 MG/ML 2 ML VIAL IV STA (22:56)
[2022-04-05 23:29] LABS: Glucose,Whole Blood 241 mg/dL (70-110)
[2022-04-06] MEDS: HEPARIN SODIUM,PORCINE/PF 5,000 UNIT/0.5 ML SYRINGE SQ SCH ×4 (01:05→23:27)
[2022-04-06 05:43] LABS: ABG Base Excess 29.9 mmol/L; ABG Oxygen Saturation 90.4 % (94-97); ABG PH 7.36 (7.35-7.45); ABG TCO2 58 mmol/L (19-24); Allen Test Performed? Yes
[2022-04-06 05:47] LABS: ABG HCO3 55 mmol/L (21-25); ABG PCO2 98 mmHg (35-45); ABG PO2 57 mmHg (83-108)
[2022-04-06 05:52] LABS: Basophils % (A) 0 %; Eosinophils % (A) 0 %; HCT 48.4 % (34.0-46.0); HGB 14.4 gm/dL (11.4-16.0); Hypochromasia Marked; Lymphocytes # (A) 0.4 k/uL (1.0-4.8); Lymphocytes % (A) 9 %; MCH 29.7 pg (25.0-35.0); MCHC 29.7 g/dL (31.0-37.0); Macrocytosis Slight; Mean Platelet Volume 7.7; Monocytes # (A) 0.1 k/uL (0-1.0); Monocytes % (A) 2 %; Neutrophils # (A) 3.5 k/uL (1.3-7.7); Neutrophils % (A) 89 %; Platelet Count 187 k/uL (150-450); RBC 4.84 m/uL (3.80-5.40); RDW 14.5 % (11.5-15.5)
[2022-04-06 06:09] LABS: African American GFR (CKD) >90 (>60 ml/min/1.73 sqM); Blood Urea Nitrogen 11 mg/dL (7-17); Calcium 8.6 mg/dL (8.4-10.2); Chloride 80 mmol/L (98-107); Glucose 233 mg/dL (74-99); Non-African American GFR(CKD) >90 (>60 ml/min/1.73 sqM); Potassium 4.6 mmol/L (3.5-5.1); Sodium 134 mmol/L (137-145)
[2022-04-06 06:16] LABS: Anion Gap 5 mmol/L
[2022-04-06 06:46] LABS: Carbon Dioxide 49 mmol/L (22-30)
[2022-04-06 06:58] LABS: Glucose,Whole Blood 225 mg/dL (70-110)
[2022-04-06] MEDS: INSULIN ASPART (NovoLOG) 100 UNIT/ML VIAL SQ SCH ×7 (07:08→21:21)
[2022-04-06] MEDS: IPRATROPIUM-ALBUTEROL 3 ML NEB INHALATION SCH ×4 (07:39→20:24)
[2022-04-06] MEDS ORDERED: ZINC SULFATE 220 MG CAP PO SCH (09:00)
[2022-04-06] MEDS ORDERED: CHOLECALCIFEROL 25 MCG (1000 IU) TABLET PO SCH (09:00)
[2022-04-06] MEDS ORDERED: ASCORBIC ACID 500 MG TAB PO SCH (09:00)
[2022-04-06] MEDS: FAMOTIDINE 20 MG TAB PO SCH (10:44)
[2022-04-06 12:01] LABS: Glucose,Whole Blood 107 mg/dL (70-110)
--- NOTE | 2022-04-06 12:02 | P.CNPUL ---
History of Present Illness Consult date: 04/06/22 Requesting physician: Bonnie Maria Reason for consult: COPD Chief complaint: Shortness of breath History of present illness: This is a 57-year-old female with history of severe COPD, O2 dependent, patient is also known to have history of recurrent hypoxic and hypercapnic respiratory failure. Patient was recently at [facility] with an acute episode of hypercapnic respiratory failure requiring placement on BiPAP. Patient was eventually discharged home on 2 L nasal cannula, and she is chronically on oxygen at home, but she does not have BiPAP at home. Yesterday, the patient came into the ER complaining of increased shortness of breath, cough, wheezing, cough is nonproductive. Patient had no fever no chills, no nausea no vomiting no abdominal pain. Patient was noted to be hypoxic and hypercapnic, patient was initially admitted to the regular medical floor, however the rapid response team was notified about this patient having worsening shortness of breath, wheezing, and worsening pulmonary status ABG done by the rapid response team showed a pO2 of 109 pCO2 114 pH of 7.26. I was notified about this patient, recommended transferred to the ICU, placement on BiPAP, and follow-up ABG this morning showed a pO2 of 57 pCO2 of 98 pH of 7.36. ABG is done on BiPAP with FiO2 of 40%, IPAP of 16 and EPAP of 6. Patient is awake, follows simple instructions, does not seem to be in any distress, however she is still BiPAP dependent at this point. Her IV fluid to KVO. Blood pressure is 107/61, and the patient is hemodynamically stable. Patient was placed back on her bronchodilators, IV Solu-Medrol, and will likely resume to a regular medical floor sometime later today. In the meantime we will hopefully arrange for BiPAP machine to have at home. Review of Systems Constitutional: Negative HEENT: Negative Pulmonary: As noted in HPI Cardiac: Negative GI: Negative Genitourinary: Negative Muscular skeletal: Negative Skin: Negative Endocrine: Negative Hematologic: Negative Psychiatric: Negative Neurologic: Negative Past Medical History Past Medical History: COPD Additional Past Medical History / Comment(s): STRESS URINARY INCONTINENCE. MINIMAL LUNG FUNCTION. SLEEP APNEA (DOES NOT USE CPAP) History of Any Multi-Drug Resistant Organisms: None Reported Past Surgical History: Cholecystectomy, Tonsillectomy, Tubal Ligation Additional Past Surgical History / Comment(s): CERVICAL SURGERY, pneumothorax CHEST TUBE Past Anesthesia/Blood Transfusion Reactions: No Reported Reaction Past Psychological History: No Psychological Hx Reported Smoking Status: Current every day smoker Past Alcohol Use History: None Reported Past Drug Use History: None Reported - Past Family History Sister(s) Family Medical History: Deep Vein Thrombosis (DVT), Pulmonary Embolus Brother(s) Family Medical History: Deep Vein Thrombosis (DVT) Medications and Allergies Home Medications Medication Instructions Recorded Confirmed Type Albuterol Sulfate [Albuterol 2 puff PO RT-Q4H 07/04/21 04/05/22 History Sulfate Hfa] Fluticasone/Umeclidin/Vilanter 1 puff INHALATION RT-DAILY 07/04/21 04/05/22 History [Trelegy Ellipta 100-62.5-25] Furosemide [Lasix] 40 mg PO DAILY 07/04/21 04/05/22 History Ipratropium-Albuterol Nebulize 3 ml INHALATION RT-QID #200 ml 07/14/21 04/05/22 Rx [Duoneb 0.5 mg-3 mg/3 ml Soln] metFORMIN HCL [Glucophage] 500 mg PO BID #60 tab 07/14/21 04/05/22 Rx Famotidine [Pepcid] 20 mg PO BID 04/05/22 04/05/22 History predniSONE See Taper PO DIRECTED 04/05/22 04/05/22 History Allergies Allergy/AdvReac Type Severity Reaction Status Date / Time No Known Allergies Allergy Verified 04/05/22 19:13 Physical Exam Vitals: Vital Signs Temp Pulse Pulse Resp BP BP Pulse Ox 04/06/22 11:33 92 L 04/06/22 11:11 84 04/06/22 11:00 89 04/06/22 10:00 78 5 L 110/76 90 L 04/06/22 09:00 82 20 101/56 89 L 04/06/22 08:02 77 04/06/22 08:00 98.2 F 82 18 122/66 96 04/06/22 07:45 04/06/22 07:44 79 04/06/22 07:00 87 13 120/77 87 L 04/06/22 06:30 82 12 136/81 89 L 04/06/22 06:00 81 3 L 116/61 87 L 04/06/22 05:45 04/06/22 05:30 86 9 L 120/64 90 L 04/06/22 05:00 85 15 136/73 91 L 04/06/22 04:30 85 11 L 130/64 90 L 04/06/22 04:00 98.1 F 79 89 15 129/78 89 L 04/06/22 03:30 79 21 107/59 93 L 04/06/22 03:02 04/06/22 03:00 81 17 124/66 91 L 04/06/22 02:30 85 19 143/68 90 L 04/06/22 02:00 78 15 105/59 85 L 04/06/22 01:30 85 17 111/65 90 L 04/06/22 01:00 82 18 135/71 91 L 04/06/22 00:30 85 20 131/65 89 L 04/06/22 00:00 98.1 F 87 18 143/85 89 L 04/05/22 22:48 04/05/22 21:15 96.9 F L 89 20 141/80 97 04/05/22 19:50 94 20 97 04/05/22 19:40 101 H 18 142/71 97 04/05/22 19:30 93 19 98 04/05/22 19:20 96 19 132/71 99 04/05/22 19:13 92 04/05/22 19:10 92 20 99 04/05/22 19:00 92 19 99 04/05/22 18:54 97 04/05/22 18:50 97 22 130/68 92 L 04/05/22 18:40 96 20 130/68 92 L 04/05/22 18:10 101 H 26 H 136/66 92 L 04/05/22 17:40 101 H 19 124/73 94 L 04/05/22 17:10 103 H 22 119/69 94 L 04/05/22 16:52 04/05/22 16:45 30 H 04/05/22 16:30 98.4 F 106 H 26 H 135/68 92 L FiO2 04/06/22 11:33 04/06/22 11:11 04/06/22 11:00 40 04/06/22 10:00 04/06/22 09:00 04/06/22 08:02 04/06/22 08:00 40 04/06/22 07:45 40 04/06/22 07:44 04/06/22 07:00 04/06/22 06:30 04/06/22 06:00 04/06/22 05:45 30 04/06/22 05:30 04/06/22 05:00 04/06/22 04:30 04/06/22 04:00 04/06/22 03:30 04/06/22 03:02 40 04/06/22 03:00 04/06/22 02:30 04/06/22 02:00 04/06/22 01:30 04/06/22 01:00 04/06/22 00:30 04/06/22 00:00 04/05/22 22:48 40 04/05/22 21:15 60 04/05/22 19:50 04/05/22 19:40 04/05/22 19:30 04/05/22 19:20 04/05/22 19:13 04/05/22 19:10 04/05/22 19:00 04/05/22 18:54 60 04/05/22 18:50 04/05/22 18:40 04/05/22 18:10 04/05/22 17:40 04/05/22 17:10 04/05/22 16:52 40 04/05/22 16:45 04/05/22 16:30 Intake and Output 04/05/22 04/06/22 04/06/22 22:59 06:59 14:59 Intake Total 10 470 40 Output Total 1050 350 Balance 59 -839 -310 Intake: IV 10 470 40 Invasive Line 1 10 30 Sodium Chloride 0.9% 1, 440 40 000 ml @ 130 mls/hr IV . [id number] STA Rx#:[id number] Output: Urine 1050 350 Other: Voiding Method Bedside Commode Diaper Diaper External Catheter # Voids 1 Weight 80.739 kg 86 kg GENERAL EXAM: 57-year-old obese female patient. Arousable, comfortable in no apparent distress. On BiPAP HEAD: Normocephalic. EYES: Normal reaction of pupils, equal size. NOSE: Clear with pink turbinates. THROAT: Crowding of the posterior pharynx. No erythema or exudates. NECK: Short. No masses, no JVD. CHEST: No chest wall deformity. LUNGS: Diminished breath sounds at the bases some wheezing on forced expiratory maneuver noted CVS: S1 and S2 normal with no audible murmur, regular rhythm. ABDOMEN: No hepatosplenomegaly, normal bowel sounds, no guarding or rigidity. SKIN: No rashes CENTRAL NERVOUS SYSTEM: Alert and oriented 3, no gross focal deficit EXTREMITIES: No clubbing edema or cyanosis, good pulses bilaterally. Results - Laboratory Findings CBC and BMP: 04/06/22 05:20 04/06/22 05:20 ABG ABG pH 7.36 (7.35-7.45) 04/06/22 05:40 ABG pCO2 98 mmHg (35-45) H* 04/06/22 05:40 ABG pO2 57 mmHg (83-108) L* 04/06/22 05:40 ABG O2 Saturation 90.4 % (94-97) L 04/06/22 05:40 PT/INR, D-dimer PT 10.3 sec (9.0-12.0) 04/05/22 16:52 INR 0.9 (<1.2) 04/05/22 16:52 Abnormal lab findings: Abnormal Labs 04/05/22 04/05/22 04/05/22 16:52 16:52 16:52 Hct 51.3 H MCV 101.7 H MCHC 29.2 L Lymphocytes # 0.4 L ABG pH ABG pCO2 ABG pO2 ABG HCO3 ABG Total CO2 ABG O2 Saturation Sodium 132 L Chloride 80 L Carbon Dioxide 45 H* Creatinine 0.40 L Glucose 293 H POC Glucose (mg/dL) Hemoglobin A1c 7.6 H Total Protein 6.2 L 04/05/22 04/05/22 04/05/22 21:15 22:38 22:43 Hct MCV MCHC Lymphocytes # ABG pH 7.26 L ABG pCO2 114 H* ABG pO2 109 H ABG HCO3 52 H* ABG Total CO2 55 H ABG O2 Saturation 98.7 H Sodium Chloride Carbon Dioxide Creatinine Glucose POC Glucose (mg/dL) 251 H 246 H Hemoglobin A1c Total Protein 04/05/22 04/06/22 04/06/22 23:27 05:20 05:20 Hct 48.4 H MCV MCHC 29.7 L Lymphocytes # 0.4 L ABG pH ABG pCO2 ABG pO2 ABG HCO3 ABG Total CO2 ABG O2 Saturation Sodium 134 L Chloride 80 L Carbon Dioxide 49 H* Creatinine 0.38 L Glucose 233 H POC Glucose (mg/dL) 241 H Hemoglobin A1c Total Protein 04/06/22 04/06/22 05:40 06:57 Hct MCV MCHC Lymphocytes # ABG pH ABG pCO2 98 H* ABG pO2 57 L* ABG HCO3 55 H* ABG Total CO2 58 H ABG O2 Saturation 90.4 L Sodium Chloride Carbon Dioxide Creatinine Glucose POC Glucose (mg/dL) 225 H Hemoglobin A1c Total Protein - Diagnostic Findings Chest x-ray: image reviewed (No evidence of active disease, chest x-ray is co nsistent with COPD/hyperinflation.) Assessment and Plan Assessment: Impression: Acute on chronic hypoxic and hypercapnic respiratory failure patient is known to have severe COPD, FEV1 is no more than 21% Chronic ongoing tobacco dependence History of obstructive sleep apnea, not compliant with CPAP, patient does not have CPAP or BiPAP at home History of noncompliance. Recommendation: Continue BiPAP for now. Titrate FiO2 maintaining O2 saturation no more than 91% Continue bronchodilators Continue Solu-Medrol GI and DVT prophylaxis Counseled regarding smoking cessation Will find out if the patient couldn't qualify for BiPAP. Otherwise the patient will keep getting readmitted with similar pictures over and over again. Prognosis is guarded We'll continue to follow. Time with Patient: Greater than 30
[2022-04-06] MEDS: methylPREDNISolone SOD SUCCI 40 MG/ML 1 ML VIAL IV SCH ×2 (16:23→23:27)
[2022-04-06 16:26] LABS: Glucose,Whole Blood 140 mg/dL (70-110)
[2022-04-06 21:02] LABS: Glucose,Whole Blood 159 mg/dL (70-110)
[2022-04-06] MEDS: INSULIN DETEMIR (LEVEMIR) 100 UNIT/ML SYR SQ SCH (21:21)
--- NOTE | 2022-04-07 00:04 | P.HPIM ---
History of Present Illness H&P Date: 04/06/22 Patient is a 57-year-old female with a known history of COPD on home oxygen and currently everyday smoker presents to ER with complaints of worsening shortness of breath. Patient also having cough without sputum production. No fever no chills. No nausea vomiting or abdominal pain or diarrhea. Patient was hypoxic and requiring BiPAP on admission. Chest x-ray showed no active Cardiopulmonary disease. No change. There is probably COPD EKG showed sinus tachycardia with short VA interval. Laboratory data showed WBC 7.9 hemoglobin 15.0 and platelets 213 ABGs showed pH 7.26 PCO2 114 and PO2 109 Sodium 132 potassium 4.4 chloride 80 bicarb is 45 BUN 10 and creatinine 0.4 and blood sugar is 293. Liver enzymes are not elevated and COVID-19 PCR not detected. proBNP 71 Acute on chronic hypercarbic and hypoxic respiratory failure requiring BiPAP on admission COPD on home oxygen dependent and chronic hypoxic respiratory failure Obstructive sleep apnea not on CPAP currently at home Hyperglycemia Currently everyday smoker GI and DVT prophylaxis Plan: Patient is being current on oxygen supplementation at 2 L via nasal cannula currently. Off BiPAP. Continue as needed. Pulmonary is on board. Continue with IV steroids, duo nebs and insulin sliding scale patient was started on Levemir 10 units at bedtime and insulin sliding scale. Follow-up A1c level. Continue to monitor closely in the ICU. Past Medical History Past Medical History: COPD Additional Past Medical History / Comment(s): STRESS URINARY INCONTINENCE. MINIMAL LUNG FUNCTION. SLEEP APNEA (DOES NOT USE CPAP) History of Any Multi-Drug Resistant Organisms: None Reported Past Surgical History: Cholecystectomy, Tonsillectomy, Tubal Ligation Additional Past Surgical History / Comment(s): CERVICAL SURGERY, pneumothorax CHEST TUBE Past Anesthesia/Blood Transfusion Reactions: No Reported Reaction Past Psychological History: No Psychological Hx Reported Smoking Status: Current every day smoker Past Alcohol Use History: None Reported Past Drug Use History: None Reported - Past Family History Sister(s) Family Medical History: Deep Vein Thrombosis (DVT), Pulmonary Embolus Brother(s) Family Medical History: Deep Vein Thrombosis (DVT) Medications and Allergies Home Medications Medication Instructions Recorded Confirmed Type Albuterol Sulfate [Albuterol 2 puff PO RT-Q4H 07/04/21 04/05/22 History Sulfate Hfa] Fluticasone/Umeclidin/Vilanter 1 puff INHALATION RT-DAILY 07/04/21 04/05/22 History [Trelegy Ellipta 100-62.5-25] Furosemide [Lasix] 40 mg PO DAILY 07/04/21 04/05/22 History Ipratropium-Albuterol Nebulize 3 ml INHALATION RT-QID #200 ml 07/14/21 04/05/22 Rx [Duoneb 0.5 mg-3 mg/3 ml Soln] metFORMIN HCL [Glucophage] 500 mg PO BID #60 tab 07/14/21 04/05/22 Rx Famotidine [Pepcid] 20 mg PO BID 04/05/22 04/05/22 History predniSONE See Taper PO DIRECTED 04/05/22 04/05/22 History Allergies Allergy/AdvReac Type Severity Reaction Status Date / Time No Known Allergies Allergy Verified 04/05/22 19:13 Physical Exam Vitals: Vital Signs Temp Pulse Pulse Resp BP BP Pulse Ox 04/06/22 08:02 77 04/06/22 08:00 98.2 F 82 18 122/66 96 04/06/22 07:45 04/06/22 07:44 79 04/06/22 07:00 87 13 120/77 87 L 04/06/22 06:30 82 12 136/81 89 L 04/06/22 06:00 81 3 L 116/61 87 L 04/06/22 05:45 04/06/22 05:30 86 9 L 120/64 90 L 04/06/22 05:00 85 15 136/73 91 L 04/06/22 04:30 85 11 L 130/64 90 L 04/06/22 04:00 98.1 F 79 89 15 129/78 89 L 04/06/22 03:30 79 21 107/59 93 L 04/06/22 03:02 04/06/22 03:00 81 17 124/66 91 L 04/06/22 02:30 85 19 143/68 90 L 04/06/22 02:00 78 15 105/59 85 L 04/06/22 01:30 85 17 111/65 90 L 04/06/22 01:00 82 18 135/71 91 L 04/06/22 00:30 85 20 131/65 89 L 04/06/22 00:00 98.1 F 87 18 143/85 89 L 04/05/22 22:48 04/05/22 21:15 96.9 F L 89 20 141/80 97 04/05/22 19:50 94 20 97 04/05/22 19:40 101 H 18 142/71 97 04/05/22 19:30 93 19 98 04/05/22 19:20 96 19 132/71 99 04/05/22 19:13 92 04/05/22 19:10 92 20 99 04/05/22 19:00 92 19 99 04/05/22 18:54 97 04/05/22 18:50 97 22 130/68 92 L 04/05/22 18:40 96 20 130/68 92 L 04/05/22 18:10 101 H 26 H 136/66 92 L 04/05/22 17:40 101 H 19 124/73 94 L 04/05/22 17:10 103 H 22 119/69 94 L 04/05/22 16:52 04/05/22 16:45 30 H 04/05/22 16:30 98.4 F 106 H 26 H 135/68 92 L FiO2 04/06/22 08:02 04/06/22 08:00 40 04/06/22 07:45 40 04/06/22 07:44 04/06/22 07:00 04/06/22 06:30 04/06/22 06:00 04/06/22 05:45 30 04/06/22 05:30 04/06/22 05:00 04/06/22 04:30 04/06/22 04:00 04/06/22 03:30 04/06/22 03:02 40 04/06/22 03:00 04/06/22 02:30 04/06/22 02:00 04/06/22 01:30 04/06/22 01:00 04/06/22 00:30 04/06/22 00:00 04/05/22 22:48 40 04/05/22 21:15 60 04/05/22 19:50 04/05/22 19:40 04/05/22 19:30 04/05/22 19:20 04/05/22 19:13 04/05/22 19:10 04/05/22 19:00 04/05/22 18:54 60 04/05/22 18:50 04/05/22 18:40 04/05/22 18:10 04/05/22 17:40 04/05/22 17:10 04/05/22 16:52 40 04/05/22 16:45 04/05/22 16:30 Intake and Output 04/05/22 04/06/22 04/06/22 22:59 06:59 14:59 Intake Total 10 470 10 Output Total 1050 0 Balance 10 -580 10 Intake: IV 10 470 10 Invasive Line 1 10 30 Sodium Chloride 0.9% 1, 440 10 000 ml @ 130 mls/hr IV . Q7H42M STA Rx#:[id number] Output: Urine 1050 0 Other: Voiding Method Bedside Commode Diaper Diaper External Catheter # Voids 1 Weight 80.739 kg 86 kg Results CBC & Chem 7: 04/06/22 05:20 04/06/22 05:20 Labs: Abnormal Lab Results - Last 24 Hours (Table) 04/05/22 04/05/22 04/05/22 Range/Units 16:52 16:52 16:52 Hct 51.3 H (34.0-46.0) % MCV 101.7 H (80.0-100.0) fL MCHC 29.2 L (31.0-37.0) g/dL Lymphocytes # 0.4 L (1.0-4.8) k/uL ABG pH (7.35-7.45) ABG pCO2 (35-45) mmHg ABG pO2 (83-108) mmHg ABG HCO3 (21-25) mmol/L ABG Total CO2 (19-24) mmol/L ABG O2 Saturation (94-97) % Sodium 132 L (137-145) mmol/L Chloride 80 L (98-107) mmol/L Carbon Dioxide 45 H* (22-30) mmol/L Creatinine 0.40 L (0.52-1.04) mg/dL Glucose 293 H (74-99) mg/dL POC Glucose (mg/dL) (70-110) mg/dL Hemoglobin A1c 7.6 H (0.0-6.0) % Total Protein 6.2 L (6.3-8.2) g/dL 04/05/22 04/05/22 04/05/22 Range/Units 21:15 22:38 22:43 Hct (34.0-46.0) % MCV (80.0-100.0) fL MCHC (31.0-37.0) g/dL Lymphocytes # (1.0-4.8) k/uL ABG pH 7.26 L (7.35-7.45) ABG pCO2 114 H* (35-45) mmHg ABG pO2 109 H (83-108) mmHg ABG HCO3 52 H* (21-25) mmol/L ABG Total CO2 55 H (19-24) mmol/L ABG O2 Saturation 98.7 H (94-97) % Sodium (137-145) mmol/L Chloride (98-107) mmol/L Carbon Dioxide (22-30) mmol/L Creatinine (0.52-1.04) mg/dL Glucose (74-99) mg/dL POC Glucose (mg/dL) 251 H 246 H (70-110) mg/dL Hemoglobin A1c (0.0-6.0) % Total Protein (6.3-8.2) g/dL 04/05/22 04/06/22 04/06/22 Range/Units 23:27 05:20 05:20 Hct 48.4 H (34.0-46.0) % MCV (80.0-100.0) fL MCHC 29.7 L (31.0-37.0) g/dL Lymphocytes # 0.4 L (1.0-4.8) k/uL ABG pH (7.35-7.45) ABG pCO2 (35-45) mmHg ABG pO2 (83-108) mmHg ABG HCO3 (21-25) mmol/L ABG Total CO2 (19-24) mmol/L ABG O2 Saturation (94-97) % Sodium 134 L (137-145) mmol/L Chloride 80 L (98-107) mmol/L Carbon Dioxide 49 H* (22-30) mmol/L Creatinine 0.38 L (0.52-1.04) mg/dL Glucose 233 H (74-99) mg/dL POC Glucose (mg/dL) 241 H (70-110) mg/dL Hemoglobin A1c (0.0-6.0) % Total Protein (6.3-8.2) g/dL 09/29/22 09/29/22 Range/Units 05:40 06:57 Hct (34.0-46.0) % MCV (80.0-100.0) fL MCHC (31.0-37.0) g/dL Lymphocytes # (1.0-4.8) k/uL ABG pH (7.35-7.45) ABG pCO2 98 H* (35-45) mmHg ABG pO2 57 L* (83-108) mmHg ABG HCO3 55 H* (21-25) mmol/L ABG Total CO2 58 H (19-24) mmol/L ABG O2 Saturation 90.4 L (94-97) % Sodium (137-145) mmol/L Chloride (98-107) mmol/L Carbon Dioxide (22-30) mmol/L Creatinine (0.52-1.04) mg/dL Glucose (74-99) mg/dL POC Glucose (mg/dL) 225 H (70-110) mg/dL Hemoglobin A1c (0.0-6.0) % Total Protein (6.3-8.2) g/dL Thrombosis Risk Factor Assmnt - Choose All That Apply Any of the Below Risk Factors Present?: Yes Each Factor Represents 1 point: Abnormal pulmonary function (COPD), Age 41-60 years, Obesity (BMI >25) Other Risk Factors: Yes Each Risk Factor Represents 3 Points: Family history of DVT/PE Other congenital or acquired thrombophilia - If yes, enter type in comment: No Thrombosis Risk Factor Assessment Total Risk Factor Score: 6 Thrombosis Risk Factor Assessment Level: High Risk
[2022-04-07 05:04] LABS: Basophils % (A) 0 %; Eosinophils % (A) 0 %; HCT 47.6 % (34.0-46.0); HGB 13.9 gm/dL (11.4-16.0); Hypochromasia Marked; Lymphocytes # (A) 0.4 k/uL (1.0-4.8); Lymphocytes % (A) 4 %; MCH 29.1 pg (25.0-35.0); MCHC 29.1 g/dL (31.0-37.0); MCV 99.8 fL (80.0-100.0); Macrocytosis Slight; Mean Platelet Volume 7.9; Monocytes # (A) 0.3 k/uL (0-1.0); Monocytes % (A) 3 %; Neutrophils % (A) 92 %; Platelet Count 215 k/uL (150-450); RBC 4.77 m/uL (3.80-5.40); RDW 14.4 % (11.5-15.5); WBC 8.7 k/uL (3.8-10.6)
[2022-04-07 05:18] LABS: African American GFR (CKD) >90 (>60 ml/min/1.73 sqM); Blood Urea Nitrogen 18 mg/dL (7-17); Calcium 9.2 mg/dL (8.4-10.2); Chloride 80 mmol/L (98-107); Glucose 237 mg/dL (74-99); Non-African American GFR(CKD) >90 (>60 ml/min/1.73 sqM); Potassium 4.5 mmol/L (3.5-5.1); Sodium 132 mmol/L (137-145)
[2022-04-07 06:33] LABS: Anion Gap 5 mmol/L; Carbon Dioxide 47 mmol/L (22-30)
[2022-04-07] MEDS: IPRATROPIUM-ALBUTEROL 3 ML NEB INHALATION SCH ×5 (07:19→20:44)
[2022-04-07] MEDS: INSULIN ASPART (NovoLOG) 100 UNIT/ML VIAL SQ SCH ×7 (07:20→21:01)
[2022-04-07] MEDS: SYMBICORT 80-4.5 MCG INHALER INHALATION SCH ×5 (08:02→20:44)
[2022-04-07] MEDS: HEPARIN SODIUM,PORCINE/PF 5,000 UNIT/0.5 ML SYRINGE SQ SCH ×2 (08:09→16:15)
[2022-04-07] MEDS: methylPREDNISolone SOD SUCCI 40 MG/ML 1 ML VIAL IV SCH ×3 (08:09→19:42)
[2022-04-07] MEDS: FAMOTIDINE 20 MG TAB PO SCH (08:09)
--- NOTE | 2022-04-07 11:35 | P.PN ---
Subjective Progress Note Date: 04/07/22 Principal diagnosis: Acute on chronic hypoxic and hypercapnic respiratory failure secondary to severe COPD and acute exacerbation of severe This is a 57-year-old female with history of severe COPD, O2 dependent, patient is also known to have history of recurrent hypoxic and hypercapnic respiratory failure. Patient was recently at [facility] with an acute episod e of hypercapnic respiratory failure requiring placement on BiPAP. Patient was eventually discharged home on 2 L nasal cannula, and she is chronically on oxygen at home, but she does not have BiPAP at home. Yesterday, the patient came into the ER complaining of increased shortness of breath, cough, wheezing, cough is nonproductive. Patient had no fever no chills, no nausea no vomiting no abdominal pain. Patient was noted to be hypoxic and hypercapnic, patient was initially admitted to the regular medical floor, however the rapid response team was notified about this patient having worsening shortness of breath, wheezing, and worsening pulmonary status ABG done by the rapid response team showed a pO2 of 109 pCO2 114 pH of 7.26. I was notified about this patient, recommended transferred to the ICU, placement on BiPAP, and follow-up ABG this morning showed a pO2 of 57 pCO2 of 98 pH of 7.36. ABG is done on BiPAP with FiO2 of 40%, IPAP of 16 and EPAP of 6. Patient is awake, follows simple instructions, does not seem to be in any distress, however she is still BiPAP dependent at thi s point. Her IV fluid to KVO. Blood pressure is 107/61, and the patient is hemodynamically stable. Patient was placed back on her bronchodilators, IV Solu-Medrol, and will likely resume to a regular medical floor sometime later today. In the meantime we will hopefully arrange for BiPAP machine to have at home. Reevaluated today on 04/07/22, patient remains in the ICU, she is presently on overflow, she is doing much better, breathing a lot easier, she is on 3 L nasal cannula, and doing well. She is not requiring BiPAP at this point, but considering her presentation and her recurrent episodes of hypercapnia requiring hospital admission, I believe this patient will definitely benefit from having BiPAP at home. I will try to arrange for the patient to have BiPAP, and the settings will be 16/6 and 30% FiO2. Patient is already on home oxygen. And I believe she needs to have BiPAP. Otherwise the patient will continue to come back to the hospital with similar episodes. In the meantime we'll continue her bronchodilators, and I am planning thoracic the patient out of the ICU to regul az medical floor today. WBC count is 8.7 hemoglobin is 13.9. Normal bicarb is 47 Objective - Vital Signs Vital signs: Vital Signs Temp 98.1 F 04/07/22 08:00 Pulse 94 04/07/22 11:21 Resp 18 04/07/22 08:00 BP 135/64 04/07/22 08:00 Pulse Ox 91 L 04/07/22 08:00 FiO2 28 04/07/22 03:26 Intake & Output 04/06/22 04/07/22 04/07/22 18:59 06:59 18:59 Intake Total 50 750 500 Output Total 500 850 500 Balance -450 -100 0 Weight 84 kg Intake: IV 50 Sodium Chloride 0.9% 1, 50 000 ml @ 130 mls/hr IV . Q7H42M STA Rx#:[id number] Oral 750 500 Output: Urine 500 850 500 Other: Voiding Method Diaper Diaper External Catheter External Catheter # Voids 1 - Exam GENERAL EXAM: 57-year-old obese female patient. In no distress on 3 L nasal cannula HEAD: Normocephalic. EYES: Normal reaction of pupils, equal size. NOSE: Clear with pink turbinates. THROAT: Moist mucous membranes, no erythema, no exudates. NECK: Short. No masses, no JVD. CHEST: No chest wall deformity. LUNGS: Diminished breath sounds, no crackles or rhonchi or wheezing CVS: S1 and S2 normal with no audible murmur, regular rhythm. ABDOMEN: No hepatosplenomegaly, normal bowel sounds, no guarding or rigidity. SKIN: No rashes CENTRAL NERVOUS SYSTEM: Alert and oriented 3, no gross focal deficit EXTREMITIES: No clubbing edema or cyanosis, good pulses bilaterally. - Labs CBC & Chem 7: 04/07/22 04:17 04/07/22 04:17 Labs: Abnormal Lab Results - Last 24 Hours (Table) 04/06/22 04/06/22 04/07/22 Range/Units 16:24 20:59 04:17 Hct 47.6 H (34.0-46.0) % MCHC 29.1 L (31.0-37.0) g/dL Neutrophils # 8.0 H (1.3-7.7) k/uL Lymphocytes # 0.4 L (1.0-4.8) k/uL Sodium (137-145) mmol/L Chloride (98-107) mmol/L Carbon Dioxide (22-30) mmol/L BUN (7-17) mg/dL Glucose (74-99) mg/dL POC Glucose (mg/dL) 140 H 159 H (70-110) mg/dL Hemoglobin A1c (0.0-6.0) % 04/07/22 04/07/22 Range/Units 04:17 04:17 Hct (34.0-46.0) % MCHC (31.0-37.0) g/dL Neutrophils # (1.3-7.7) k/uL Lymphocytes # (1.0-4.8) k/uL Sodium 132 L (137-145) mmol/L Chloride 80 L (98-107) mmol/L Carbon Dioxide 47 H* (22-30) mmol/L BUN 18 H (7-17) mg/dL Glucose 237 H (74-99) mg/dL POC Glucose (mg/dL) (70-110) mg/dL Hemoglobin A1c 7.6 H (0.0-6.0) % Assessment and Plan Assessment: Impression: Acute on chronic hypoxic and hypercapnic respiratory failure patient is known to have severe COPD, FEV1 is no more than 21% Chronic ongoing tobacco dependence History of obstructive sleep apnea, not compliant with CPAP, patient does not have CPAP or BiPAP at home History of noncompliance. Recommendation: Transfer to a regular medical floor Continue bronchodilators Change Solu-Medrol to prednisone GI and DVT prophylaxis Counseled regarding smoking cessation Transferred out of the ICU to regular medical floor We will arrange for possible BiPAP at home and if that becomes available, patient could be discharged home on oral prednisone, oxygen at 30%, IPAP of 16 and EPAP of 6, and hopefully will clear the patient for discharge planning in the next 24 hours. We'll continue to follow. Time with Patient: Less than 30
[2022-04-07 12:04] LABS: Glucose,Whole Blood 250 mg/dL (70-110)
[2022-04-07 16:49] LABS: Glucose,Whole Blood 281 mg/dL (70-110)
[2022-04-07 20:34] LABS: Glucose,Whole Blood 271 mg/dL (70-110)
[2022-04-07] MEDS: INSULIN DETEMIR (LEVEMIR) 100 UNIT/ML SYR SQ SCH (21:01)
[2022-04-07] MEDS ORDERED: MELATONIN 3 MG TABLET PO PRN (21:31)
[2022-04-08] MEDS: HEPARIN SODIUM,PORCINE/PF 5,000 UNIT/0.5 ML SYRINGE SQ SCH ×4 (00:17→23:51)
[2022-04-08] MEDS: methylPREDNISolone SOD SUCCI 40 MG/ML 1 ML VIAL IV SCH ×2 (00:17→08:34)
[2022-04-08 07:11] LABS: Glucose,Whole Blood 235 mg/dL (70-110)
[2022-04-08] MEDS: IPRATROPIUM-ALBUTEROL 3 ML NEB INHALATION SCH ×4 (07:29→19:55)
[2022-04-08] MEDS: SYMBICORT 80-4.5 MCG INHALER INHALATION SCH ×2 (07:29→19:55)
[2022-04-08] MEDS: INSULIN ASPART (NovoLOG) 100 UNIT/ML VIAL SQ SCH ×7 (08:33→20:55)
[2022-04-08] MEDS: FAMOTIDINE 20 MG TAB PO SCH (08:34)
[2022-04-08 09:04] LABS: Basophils # (A) 0.01 X 10*3/uL (0.00-0.10); Basophils % (A) 0.1 %; Eosinophils # (A) 0 X 10*3/uL (0.04-0.35); Eosinophils % (A) 0 %; HCT 47.1 % (37.2-46.3); HGB 13.6 g/dL (12.0-15.0); Lymphocytes # (A) 0.33 X 10*3/uL (0.90-5.00); Lymphocytes % (A) 4.7 %; MCH 29.1 pg (27.0-32.0); MCHC 28.9 g/dL (32.0-37.0); MCV 100.9 fL (80.0-97.0); Mean Platelet Volume 9.8 fL (9.5-12.2); Monocytes # (A) 0.31 X 10*3/uL (0.20-1.00); Monocytes % (A) 4.4 %; NRBC Per 100 WBC 0 /100 WBCS (0.0-0.0); Neutrophils # (A) 6.29 X 10*3/uL (1.80-7.70); Neutrophils % (A) 89.8 %; Platelet Count 220 X 10*3/uL (140-440); RBC 4.67 X 10*6/uL (4.10-5.20); RDW 15.1 % (11.5-14.5); WBC 7.01 X 10*3/uL (4.50-10.00)
[2022-04-08 10:08] LABS: African American GFR (CKD) 125.4 (60.0-200.0); BUN/Creat Ratio 28.6 Ratio (12.00-20.00); Blood Urea Nitrogen 14.3 mg/dL (9.0-27.0); Calcium 9.1 mg/dL (8.7-10.3); Non-African American GFR(CKD) 108.2 (60.0-200.0); Potassium 4.6 mmol/L (3.5-5.5)
--- NOTE | 2022-04-08 10:48 | P.PN ---
Subjective Progress Note Date: 04/08/22 This is a 57-year-old female with history of severe COPD, O2 dependent, patient is also known to have history of recurrent hypoxic and hypercapnic respiratory failure. Patient was recently at [facility] with an acute episode of hypercapnic respiratory failure requiring placement on BiPAP. Patient was eventually discharged home on 2 L nasal cannula, and she is chronically on oxygen at home, but she does not have BiPAP at home. Yesterday, the patient came into the ER complaining of increased shortness of breath, cough, wheezing, cough is nonproductive. Patient had no fever no chills, no nausea no vomiting no abdominal pain. Patient was noted to be hypoxic and hypercapnic, patient was initially admitted to the regular medical floor, however the rapid response team was notified about this patient having worsening shortness of breath, wheezing, and worsening pulmonary status ABG done by the rapid response team showed a pO2 of 109 pCO2 114 pH of 7.26. I was notified about this patient, recommended transferred to the ICU, placement on BiPAP, and follow-up ABG this morning showed a pO2 of 57 pCO2 of 98 pH of 7.36. ABG is done on BiPAP with FiO2 of 40%, IPAP of 16 and EPAP of 6. Patient is awake, follows simple instructions, does not seem to be in any distress, however she is still BiPAP dependent at this point. Her IV fluid to KVO. Blood pressure is 107/61, and the patient is hemodynamically stable. Patient was placed back on her bronchodilators, IV Solu-Medrol, and will likely resume to a regular medical floor sometime later today. In the meantime we will hopefully arrange for BiPAP machine to have at home. Reevaluated today on 04/07/22, patient remains in the ICU, she is presently on overflow, she is doing much better, breathing a lot easier, she is on 3 L nasal cannula, and doing well. She is not requiring BiPAP at this point, but considering her presentation and her recurrent episodes of hypercapnia requiring hospital admission, I believe this patient will definitely benefit from having BiPAP at home. I will try to arrange for the patient to have BiPAP, and the settings will be 16/6 and 30% FiO2. Patient is already on home oxygen. And I believe she needs to have BiPAP. Otherwise the patient will continue to come back to the hospital with similar episodes. In the meantime we'll continue her bronchodilators, and I am planning thoracic the patient out of the ICU to regular medical floor today. WBC count is 8.7 hemoglobin is 13.9. Normal bicarb is 47 The patient is seen today 04/08/2022 in follow-up on the regular medical floor. She currently sitting up in a chair at the bedside. Awake and alert in no acute distress. Her breathing is nearly back to her baseline. Maintaining O2 saturations at 99% on 5 L high flow nasal cannula. Afebrile. Hemodynamically stable. She is continued on DuoNeb inhalations, Symbicort, Solu-Medrol. Heparin for DVT prophylaxis. White count 7.0. Hemoglobin 13.6. Sodium 139. Bicarb 40. BUN 14. Creatinine 0.5. Glucose 246. Arrangements are being made with through [facility] for home BiPAP. Objective - Vital Signs Vital signs: Vital Signs Temp 98.2 F 04/08/22 04:05 Pulse 88 04/08/22 07:45 Resp 15 04/08/22 04:05 BP 106/63 04/08/22 04:05 Pulse Ox 99 04/08/22 04:05 FiO2 28 04/07/22 03:26 Intake & Output 04/07/22 04/08/22 04/08/22 18:59 06:59 18:59 Intake Total 1050 Output Total 1050 Balance 0 Intake: Oral 1050 Output: Urine 1050 Other: Voiding Method Diaper Diaper External Catheter External Catheter # Voids 1 2 # Bowel Movements 0 - Exam GENERAL EXAM: Alert, obese 57-year-old female, on 5 L nasal cannula with O2 saturation 99%, comfortable in no apparent distress. HEAD: Normocephalic. EYES: Normal reaction of pupils, equal size. NOSE: Clear with pink turbinates. THROAT: No erythema or exudates. NECK: No masses, no JVD. CHEST: No chest wall deformity. LUNGS: Equal air entry with no crackles, wheeze, rhonchi or dullness. Diminished. CVS: S1 and S2 normal with no audible murmur, regular rhythm. ABDOMEN: No hepatosplenomegaly, normal bowel sounds, no guarding or rigidity. SPINE: No scoliosis or deformity SKIN: No rashes CENTRAL NERVOUS SYSTEM: No focal deficits, tone is normal in all 4 extremities. EXTREMITIES: There is no peripheral edema. No clubbing, no cyanosis. Per ipheral pulses are intact. - Labs CBC & Chem 7: 04/08/22 03:46 04/08/22 03:46 Labs: Abnormal Lab Results - Last 24 Hours (Table) 04/07/22 04/07/22 04/07/22 Range/Units 12:02 16:47 20:33 Hct (37.2-46.3) % MCV (80.0-97.0) fL MCHC (32.0-37.0) g/dL RDW (11.5-14.5) % Immature Gran # (0.00-0.04) X 10*3/uL Lymphocytes # (0.90-5.00) X 10*3/uL Eosinophils # (0.04-0.35) X 10*3/uL Chloride (96-109) mmol/L Carbon Dioxide (20.0-27.5) mmol/L Anion Gap (10.00-18.00) mmol/L Creatinine (0.6-1.5) mg/dL BUN/Creatinine Ratio (12.00-20.00) Ratio Glucose (70-110) mg/dL POC Glucose (mg/dL) 250 H 281 H 271 H (70-110) mg/dL 04/08/22 04/08/22 04/08/22 Range/Units 03:46 03:46 07:10 Hct 47.1 H (37.2-46.3) % MCV 100.9 H (80.0-97.0) fL MCHC 28.9 L (32.0-37.0) g/dL RDW 15.1 H (11.5-14.5) % Immature Gran # 0.07 H (0.00-0.04) X 10*3/uL Lymphocytes # 0.33 L (0.90-5.00) X 10*3/uL Eosinophils # 0 L (0.04-0.35) X 10*3/uL Chloride 89 L (96-109) mmol/L Carbon Dioxide 40.9 H* (20.0-27.5) mmol/L Anion Gap 9.10 L (10.00-18.00) mmol/L Creatinine 0.5 L (0.6-1.5) mg/dL BUN/Creatinine Ratio 28.60 H (12.00-20.00) Ratio Glucose 246 H (70-110) mg/dL POC Glucose (mg/dL) 235 H (70-110) mg/dL Assessment and Plan Assessment: Acute on chronic hypoxic and hypercapnic respiratory failure patient is known to have severe COPD, FEV1 is no more than 21% Chronic ongoing tobacco dependence History of obstructive sleep apnea, not compliant with CPAP, patient does not have CPAP or BiPAP at home History of noncompliance Plan: The patient was seen and evaluated Stable and back to her baseline Cleared for discharge from the pulmonary standpoint BiPAP being arranged for home via [facility] Continue her home pulmonary medications Complete a prednisone taper starting at 40 mg for 4 days Follow up in the office in 1-2 weeks' I have personally seen and examined the patient, performed the documentation and the assessment and plan as written. Number of minutes spent on the visit: 10.
[2022-04-08 11:17] LABS: Glucose,Whole Blood 203 mg/dL (70-110)
[2022-04-08 17:10] LABS: Glucose,Whole Blood 217 mg/dL (70-110)
[2022-04-08 20:23] LABS: Glucose,Whole Blood 298 mg/dL (70-110)
[2022-04-08] MEDS: INSULIN DETEMIR (LEVEMIR) 100 UNIT/ML SYR SQ SCH (20:54)
[2022-04-08] MEDS ORDERED: MELATONIN 5 MG TABLET PO PRN (23:29)
[2022-04-09 07:05] LABS: Glucose,Whole Blood 197 mg/dL (70-110)
[2022-04-09] MEDS: IPRATROPIUM-ALBUTEROL 3 ML NEB INHALATION SCH ×4 (07:42→20:06)
[2022-04-09] MEDS: SYMBICORT 80-4.5 MCG INHALER INHALATION SCH ×2 (07:42→20:06)
[2022-04-09] MEDS: predniSONE 20 MG TAB PO SCH (08:25)
[2022-04-09] MEDS: FAMOTIDINE 20 MG TAB PO SCH (08:25)
[2022-04-09] MEDS: INSULIN ASPART (NovoLOG) 100 UNIT/ML VIAL SQ SCH ×7 (08:26→21:54)
[2022-04-09] MEDS: HEPARIN SODIUM,PORCINE/PF 5,000 UNIT/0.5 ML SYRINGE SQ SCH ×2 (08:26→14:57)
[2022-04-09 11:07] LABS: Glucose,Whole Blood 78 mg/dL (70-110)
[2022-04-09 11:50] VITALS: RESP 18
--- NOTE | 2022-04-09 15:02 | P.PN ---
Subjective Progress Note Date: 04/09/22 Principal diagnosis: Acute on chronic hypoxic and hypercapnic respiratory failure secondary to severe COPD and acute exacerbation of severe This is a 57-year-old female with history of severe COPD, O2 dependent, patient is also known to have history of recurrent hypoxic and hypercapnic respiratory failure. Patient was recently at [facility] with an acute episod e of hypercapnic respiratory failure requiring placement on BiPAP. Patient was eventually discharged home on 2 L nasal cannula, and she is chronically on oxygen at home, but she does not have BiPAP at home. Yesterday, the patient came into the ER complaining of increased shortness of breath, cough, wheezing, cough is nonproductive. Patient had no fever no chills, no nausea no vomiting no abdominal pain. Patient was noted to be hypoxic and hypercapnic, patient was initially admitted to the regular medical floor, however the rapid response team was notified about this patient having worsening shortness of breath, wheezing, and worsening pulmonary status ABG done by the rapid response team showed a pO2 of 109 pCO2 114 pH of 7.26. I was notified about this patient, recommended transferred to the ICU, placement on BiPAP, and follow-up ABG this morning showed a pO2 of 57 pCO2 of 98 pH of 7.36. ABG is done on BiPAP with FiO2 of 40%, IPAP of 16 and EPAP of 6. Patient is awake, follows simple instructions, does not seem to be in any distress, however she is still BiPAP dependent at thi s point. Her IV fluid to KVO. Blood pressure is 107/61, and the patient is hemodynamically stable. Patient was placed back on her bronchodilators, IV Solu-Medrol, and will likely resume to a regular medical floor sometime later today. In the meantime we will hopefully arrange for BiPAP machine to have at home. Reevaluated today on 04/07/22, patient remains in the ICU, she is presently on overflow, she is doing much better, breathing a lot easier, she is on 3 L nasal cannula, and doing well. She is not requiring BiPAP at this point, but considering her presentation and her recurrent episodes of hypercapnia requiring hospital admission, I believe this patient will definitely benefit from having BiPAP at home. I will try to arrange for the patient to have BiPAP, and the settings will be 16/6 and 30% FiO2. Patient is already on home oxygen. And I believe she needs to have BiPAP. Otherwise the patient will continue to come back to the hospital with similar episodes. In the meantime we'll continue her bronchodilators, and I am planning thoracic the patient out of the ICU to regul or medical floor today. WBC count is 8.7 hemoglobin is 13.9. Normal bicarb is 47 Reevaluated today on 04/09/22 feeling better, breathing easier, remains on bronchodilators, awaiting possible authorization for BiPAP machine to avoid recurrent admissions with acute on chronic hypercapnic respiratory failure. Objective - Vital Signs Vital signs: Vital Signs Temp 98.2 F 04/09/22 11:05 Pulse 92 04/09/22 11:33 Resp 18 04/09/22 11:05 BP 96/66 04/09/22 11:05 Pulse Ox 99 04/09/22 07:44 FiO2 28 04/07/22 03:26 Intake & Output 04/08/22 04/09/22 04/09/22 18:59 06:59 18:59 Intake Total 360 Output Total 3 Balance 360 -3 Intake: Oral 360 Output: Urine 3 Other: Voiding Method Diaper External Catheter # Voids 4 1 - Exam GENERAL EXAM: 57-year-old obese female patient. In no distress on 2 L nasal cannula HEAD: Normocephalic. EYES: Normal reaction of pupils, equal size. NOSE: Clear with pink turbinates. THROAT: Moist mucous membranes, no erythema, no exudates. NECK: Short. No masses, no JVD. CHEST: No chest wall deformity. LUNGS: Diminished breath sounds, no crackles or rhonchi or wheezing CVS: S1 and S2 normal with no audible murmur, regular rhythm. ABDOMEN: No hepatosplenomegaly, normal bowel sounds, no guarding or rigidity. SKIN: No rashes CENTRAL NERVOUS SYSTEM: Alert and oriented 3, no gross focal deficit EXTREMITIES: No clubbing edema or cyanosis, good pulses bilaterally. - Labs CBC & Chem 7: 04/08/22 03:46 04/08/22 03:46 Labs: Abnormal Lab Results - Last 24 Hours (Table) 04/08/22 04/08/22 04/09/22 Range/Units 17:09 20:18 07:04 POC Glucose (mg/dL) 217 H 298 H 197 H (70-110) mg/dL Assessment and Plan Assessment: Impression: Acute on chronic hypoxic and hypercapnic respiratory failure patient is known to have severe COPD, FEV1 is no more than 21% Chronic ongoing tobacco dependence History of obstructive sleep apnea, not compliant with CPAP, patient does not have CPAP or BiPAP at home History of noncompliance. Recommendation: Continue bronchodilators Continue prednisone GI and DVT prophylaxis Counseled regarding smoking cessation We will arrange for possible BiPAP at home Discharge patient home if BiPAP could be made available for the patient Follow-up on outpatient basis. Time with Patient: Less than 30
[2022-04-09 17:11] LABS: Glucose,Whole Blood 258 mg/dL (70-110)
[2022-04-09 20:41] LABS: Glucose,Whole Blood 197 mg/dL (70-110)
[2022-04-09 21:52] LABS: Glucose,Whole Blood 189 mg/dL (70-110)
[2022-04-09] MEDS: INSULIN DETEMIR (LEVEMIR) 100 UNIT/ML SYR SQ SCH (21:55)
[2022-04-10] MEDS: HEPARIN SODIUM,PORCINE/PF 5,000 UNIT/0.5 ML SYRINGE SQ SCH ×2 (00:15→08:11)
[2022-04-10 06:27] VITALS: TEMP 98.4
[2022-04-10 07:04] LABS: Glucose,Whole Blood 115 mg/dL (70-110)
[2022-04-10] MEDS: IPRATROPIUM-ALBUTEROL 3 ML NEB INHALATION SCH ×2 (07:52→11:25)
[2022-04-10] MEDS: SYMBICORT 80-4.5 MCG INHALER INHALATION SCH (07:53)
[2022-04-10] MEDS: INSULIN ASPART (NovoLOG) 100 UNIT/ML VIAL SQ SCH ×2 (07:56→08:12)
[2022-04-10] MEDS: predniSONE 20 MG TAB PO SCH (08:11)
[2022-04-10] MEDS: FAMOTIDINE 20 MG TAB PO SCH (08:11)
[2022-04-10 09:24] LABS: Anion Gap 9.1 mmol/L (10.00-18.00); Carbon Dioxide 40.9 mmol/L (20.0-27.5)
--- NOTE | 2022-04-10 10:02 | P.PN ---
Subjective Progress Note Date: 04/07/22 Patient is a 57-year-old female with a known history of COPD on home oxygen and currently everyday smoker presents to ER with complaints of worsening shortness of breath. Patient also having cough without sputum production. No fever no chills. No nausea vomiting or abdominal pain or diarrhea. Patient was hypoxic and requiring BiPAP on admission. Chest x-ray showed no active Cardiopulmonary disease. No change. There is probably COPD EKG showed sinus tachycardia with short CA interval. Laboratory data showed WBC 7.9 hemoglobin 15.0 and platelets 213 ABGs showed pH 7.26 PCO2 114 and PO2 109 Sodium 132 potassium 4.4 chloride 80 bicarb is 45 BUN 10 and creatinine 0.4 and blood sugar is 293. Liver enzymes are not elevated and COVID-19 PCR not detected. proBNP 71 04/07/2022 Patient is currently sitting in the chair. Remains in the ICU. Shortness of breath did improve. Patient is transitioned to oxygen at 2 L via nasal cannula. Patient did not require BiPAP last night. Pulmonary recommends a BiPAP at home. No complaints of fever or chills. Does have cough without sputum production. Patient is being continued on IV steroids, DuoNeb's and oxygen supplementation. Pulmonary is on board. Patient is being transferred to medical floor today. Laboratory data showed WBC 8.7 hemoglobin 13.9 and platelets 2:15 Sodium 132 potassium 4.5 chloride 80 bicarb is 47 BUN 18 and creatinine 0.54 and blood sugar is 237 A1c level is 7.6. Current medications reviewed. Objective - Vital Signs Vital signs: Vital Signs Temp 98.1 F 04/07/22 19:41 Pulse 90 04/07/22 20:57 Resp 15 04/07/22 19:41 BP 100/59 04/07/22 19:41 Pulse Ox 96 04/07/22 19:41 FiO2 28 04/07/22 03:26 Intake & Output 04/07/22 04/07/22 04/08/22 06:59 18:59 06:59 Intake Total 750 1050 Output Total 850 1050 Balance -100 0 Weight 84 kg Intake: Oral 750 1050 Output: Urine 850 1050 Other: Voiding Method Diaper Diaper Diaper External Catheter External Catheter External Catheter # Voids 1 1 # Bowel Movements 0 - Exam PHYSICAL EXAMINATION: Patient is lying in the bed comfortably, no acute distress, awake alert and oriented.. HEENT: Normocephalic. Neck is supple. Pupils reactive. Nostrils clear. Oral cavity is moist. Neck reveals no JVD, carotid bruits, or thyromegaly. CHEST EXAMINATION: Trachea is central. Symmetrical expansion. Bilateral expiratory wheezing. CARDIAC: Normal S1, S2 with no gallops. No murmurs ABDOMEN: Soft. Bowel sounds normal. No organomegaly. No abdominal bruits. Extremities: reveal no edema. No clubbing or cyanosis Neurologically awake, alert, oriented x3 with well-coordinated movements. No focal deficits noted Skin: No rash or skin lesions. Psychiatric: Coperative. Nonsuicidal Musculoskeletal: No joint swelling or deformity. Normal range of motion. - Labs CBC & Chem 7: 04/08/22 03:46 04/08/22 03:46 Labs: Abnormal Lab Results - Last 24 Hours (Table) 04/07/22 04/07/22 04/07/22 Range/Units 04:17 04:17 04:17 Hct 47.6 H (34.0-46.0) % MCHC 29.1 L (31.0-37.0) g/dL Neutrophils # 8.0 H (1.3-7.7) k/uL Lymphocytes # 0.4 L (1.0-4.8) k/uL Sodium 132 L (137-145) mmol/L Chloride 80 L (98-107) mmol/L Carbon Dioxide 47 H* (22-30) mmol/L BUN 18 H (7-17) mg/dL Glucose 237 H (74-99) mg/dL POC Glucose (mg/dL) (70-110) mg/dL Hemoglobin A1c 7.6 H (0.0-6.0) % 04/07/22 04/07/22 04/07/22 Range/Units 12:02 16:47 20:33 Hct (34.0-46.0) % MCHC (31.0-37.0) g/dL Neutrophils # (1.3-7.7) k/uL Lymphocytes # (1.0-4.8) k/uL Sodium (137-145) mmol/L Chloride (98-107) mmol/L Carbon Dioxide (22-30) mmol/L BUN (7-17) mg/dL Glucose (74-99) mg/dL POC Glucose (mg/dL) 250 H 281 H 271 H (70-110) mg/dL Hemoglobin A1c (0.0-6.0) % Assessment and Plan Assessment: Acute on chronic hypercarbic and hypoxic respiratory failure requiring BiPAP on admission COPD on home oxygen dependent and chronic hypoxic and hypercapnic respiratory fa ilure Obstructive sleep apnea not on CPAP currently at home Hyperglycemia Currently everyday smoker GI and DVT prophylaxis Plan: Patient is being current on oxygen supplementation at 2 L via nasal cannula currently. Off BiPAP. Continue as needed. Pulmonary is on board. Continue with IV steroids, duo nebs and insulin sliding scale patient was started on Levemir 10 units at bedtime and insulin sliding scale. A1c 7.6. Would benefit from BiPAP at home. Pulmonary is on board. Continue to monitor closely in the ICU. Time with Patient: Greater than 30
--- NOTE | 2022-04-10 10:04 | P.PN ---
Subjective Progress Note Date: 04/08/22 Patient is a 57-year-old female with a known history of COPD on home oxygen and currently everyday smoker presents to ER with complaints of worsening shortness of breath. Patient also having cough without sputum production. No fever no chills. No nausea vomiting or abdominal pain or diarrhea. Patient was hypoxic and requiring BiPAP on admission. Chest x-ray showed no active Cardiopulmonary disease. No change. There is probably COPD EKG showed sinus tachycardia with short [place] interval. Laboratory data showed WBC 7.9 hemoglobin 15.0 and platelets 213 ABGs showed pH 7.26 PCO2 114 and PO2 109 Sodium 132 potassium 4.4 chloride 80 bicarb is 45 BUN 10 and creatinine 0.4 and blood sugar is 293. Liver enzymes are not elevated and COVID-19 PCR not detected. proBNP 71 04/07/2022 Patient is currently sitting in the chair. Remains in the ICU. Shortness of breath did improve. Patient is transitioned to oxygen at 2 L via nasal cannula. Patient did not require BiPAP last night. Pulmonary recommends a BiPAP at home. No complaints of fever or chills. Does have cough without sputum production. Patient is being continued on IV steroids, DuoNeb's and oxygen supplementation. Pulmonary is on board. Patient is being transferred to medical floor today. Laboratory data showed WBC 8.7 hemoglobin 13.9 and platelets 2:15 Sodium 132 potassium 4.5 chloride 80 bicarb is 47 BUN 18 and creatinine 0.54 and blood sugar is 237 A1c level is 7.6. 04/08/2022 Patient is in the medical floor. Sitting in a chair. Awake alert and oriented 3. Breathing status is improving. Patient is on oxygen 2 L via nasal cannula. from production. Afebrile. No headache or dizziness or lightheadedness. Patient is being continued on IV some modality AND Symbicort. Laboratory data showed WBC 7.0 hemoglobin 13.6 and platelets 220 Sodium 139 potassium 4.6 chloride 89 bicarb is 40.9 BUN 14.3 and creatinine 0.5 Current medications reviewed. Objective - Vital Signs Vital signs: Vital Signs Temp 98.2 F 04/08/22 20:40 Pulse 95 04/08/22 20:40 Resp 18 04/08/22 20:40 BP 124/76 04/08/22 20:40 Pulse Ox 97 04/08/22 19:55 FiO2 28 04/07/22 03:26 Intake & Output 04/08/22 04/08/22 04/09/22 06:59 18:59 06:59 Intake Total 360 Balance 360 Intake: Oral 360 Other: Voiding Method Diaper External Catheter # Voids 2 4 - Exam PHYSICAL EXAMINATION: Patient is lying in the bed comfortably, no acute distress, awake alert and oriented.. HEENT: Normocephalic. Neck is supple. Pupils reactive. Nostrils clear. Oral cavity is moist. Neck reveals no JVD, carotid bruits, or thyromegaly. CHEST EXAMINATION: Trachea is central. Symmetrical expansion. Bilateral expiratory wheezing. CARDIAC: Normal S1, S2 with no gallops. No murmurs ABDOMEN: Soft. Bowel sounds normal. No organomegaly. No abdominal bruits. Extremities: reveal no edema. No clubbing or cyanosis Neurologically awake, alert, oriented x3 with well-coordinated movements. No focal deficits noted Skin: No rash or skin lesions. Psychiatric: Coperative. Nonsuicidal Musculoskeletal: No joint swelling or deformity. Normal range of motion. - Labs CBC & Chem 7: 04/08/22 03:46 04/08/22 03:46 Labs: Abnormal Lab Results - Last 24 Hours (Table) 04/08/22 04/08/22 04/08/22 Range/Units 03:46 03:46 07:10 Hct 47.1 H (37.2-46.3) % MCV 100.9 H (80.0-97.0) fL MCHC 28.9 L (32.0-37.0) g/dL RDW 15.1 H (11.5-14.5) % Immature Gran # 0.07 H (0.00-0.04) X 10*3/uL Lymphocytes # 0.33 L (0.90-5.00) X 10*3/uL Eosinophils # 0 L (0.04-0.35) X 10*3/uL Chloride 89 L (96-109) mmol/L Carbon Dioxide 40.9 H* (20.0-27.5) mmol/L Anion Gap 9.10 L (10.00-18.00) mmol/L Creatinine 0.5 L (0.6-1.5) mg/dL BUN/Creatinine Ratio 28.60 H (12.00-20.00) Ratio Glucose 246 H (70-110) mg/dL POC Glucose (mg/dL) 235 H (70-110) mg/dL 04/08/22 04/08/22 04/08/22 Range/Units 11:15 17:09 20:18 Hct (37.2-46.3) % MCV (80.0-97.0) fL MCHC (32.0-37.0) g/dL RDW (11.5-14.5) % Immature Gran # (0.00-0.04) X 10*3/uL Lymphocytes # (0.90-5.00) X 10*3/uL Eosinophils # (0.04-0.35) X 10*3/uL Chloride (96-109) mmol/L Carbon Dioxide (20.0-27.5) mmol/L Anion Gap (10.00-18.00) mmol/L Creatinine (0.6-1.5) mg/dL BUN/Creatinine Ratio (12.00-20.00) Ratio Glucose (70-110) mg/dL POC Glucose (mg/dL) 203 H 217 H 298 H (70-110) mg/dL Assessment and Plan Assessment: Acute on chronic hypercarbic and hypoxic respiratory failure requiring BiPAP on admission COPD on home oxygen dependent and chronic hypoxic and hypercapnic respiratory failure Obstructive sleep apnea not on CPAP currently at home Hyperglycemia Currently everyday smoker GI and DVT prophylaxis Plan: Patient is being current on oxygen supplementation at 2 L via nasal cannula currently. Off BiPAP. Continue as needed. Pulmonary is on board. Continue with IV steroids, duo nebs and insulin sliding scale patient was started on Levemir 10 units at bedtime and insulin sliding scale. A1c 7.6. Would benefit from BiPAP at home. Pulmonary is on board. Continue to monitor closely in the ICU. Time with Patient: Greater than 30
--- NOTE | 2022-04-10 10:08 | P.PN ---
Subjective Progress Note Date: 04/09/22 Patient is a 57-year-old female with a known history of COPD on home oxygen and currently everyday smoker presents to ER with complaints of worsening shortness of breath. Patient also having cough without sputum production. No fever no chills. No nausea vomiting or abdominal pain or diarrhea. Patient was hypoxic and requiring BiPAP on admission. Chest x-ray showed no active Cardiopulmonary disease. No change. There is probably COPD EKG showed sinus tachycardia with short [place] interval. Laboratory data showed WBC 7.9 hemoglobin 15.0 and platelets 213 ABGs showed pH 7.26 PCO2 114 and PO2 109 Sodium 132 potassium 4.4 chloride 80 bicarb is 45 BUN 10 and creatinine 0.4 and blood sugar is 293. Liver enzymes are not elevated and COVID-19 PCR not detected. proBNP 71 04/07/2022 Patient is currently sitting in the chair. Remains in the ICU. Shortness of breath did improve. Patient is transitioned to oxygen at 2 L via nasal cannula. Patient did not require BiPAP last night. Pulmonary recommends a BiPAP at home. No complaints of fever or chills. Does have cough without sputum production. Patient is being continued on IV steroids, DuoNeb's and oxygen supplementation. Pulmonary is on board. Patient is being transferred to medical floor today. Laboratory data showed WBC 8.7 hemoglobin 13.9 and platelets 2:15 Sodium 132 potassium 4.5 chloride 80 bicarb is 47 BUN 18 and creatinine 0.54 and blood sugar is 237 A1c level is 7.6. 04/08/2022 Patient is in the medical floor. Sitting in a chair. Awake alert and oriented 3. Breathing status is improving. Patient is on oxygen 2 L via nasal cannula. from production. Afebrile. No headache or dizziness or lightheadedness. Patient is being continued on IV some modality AND Symbicort. Laboratory data showed WBC 7.0 hemoglobin 13.6 and platelets 220 Sodium 139 potassium 4.6 chloride 89 bicarb is 40.9 BUN 14.3 and creatinine 0.5 04/09/2022 Patient is currently sitting in the bed. Awake alert and oriented 3. Bilateral expiratory wheezing present. Patient is requiring oxygen at 2 L by nasal cannula. Afebrile. No cough or sputum production. Pulmonary is on board. Recommended outpatient BiPAP. Laboratory data reviewed. No chest pain. No nausea vomiting or diarrhea. Tolerating oral diet. Anticipate discharged in next 24 hours. IV steroids transitioned to prednisone 40 mg daily Current medications reviewed. Objective - Vital Signs Vital signs: Vital Signs Temp 98.4 F 04/09/22 17:10 Pulse 100 04/09/22 20:20 Resp 18 04/09/22 17:10 BP 103/70 04/09/22 17:10 Pulse Ox 92 L 04/09/22 17:10 FiO2 28 04/07/22 03:26 Intake & Output 04/09/22 04/09/22 04/10/22 06:59 18:59 06:59 Output Total 5 Balance -5 Output: Urine 5 Other: Voiding Method Diaper External Catheter # Voids 1 - Exam PHYSICAL EXAMINATION: Patient is lying in the bed comfortably, no acute distress, awake alert and oriented.. HEENT: Normocephalic. Neck is supple. Pupils reactive. Nostrils clear. Oral cavity is moist. Neck reveals no JVD, carotid bruits, or thyromegaly. CHEST EXAMINATION: Trachea is central. Symmetrical expansion. Bilateral expiratory wheezing. CARDIAC: Normal S1, S2 with no gallops. No murmurs ABDOMEN: Soft. Bowel sounds normal. No organomegaly. No abdominal bruits. Extremities: reveal no edema. No clubbing or cyanosis Neurologically awake, alert, oriented x3 with well-coordinated movements. No focal deficits noted Skin: No rash or skin lesions. Psychiatric: Coperative. Nonsuicidal Musculoskeletal: No joint swelling or deformity. Normal range of motion. - Labs CBC & Chem 7: 04/08/22 03:46 04/08/22 03:46 Labs: Abnormal Lab Results - Last 24 Hours (Table) 04/09/22 04/09/22 04/09/22 Range/Units 07:04 17:08 20:40 POC Glucose (mg/dL) 197 H 258 H 197 H (70-110) mg/dL Assessment and Plan Assessment: Acute on chronic hypercarbic and hypoxic respiratory failure requiring BiPAP on admission COPD on home oxygen dependent and chronic hypoxic and hypercapnic respiratory failure Obstructive sleep apnea not on CPAP currently at home Hyperglycemia Currently everyday smoker GI and DVT prophylaxis Plan: Patient is being current on oxygen supplementation at 2 L via nasal cannula currently. Off BiPAP. Continue as needed. Pulmonary is on board. Continue with IV steroids, duo nebs and insulin sliding scale patient was started on Levemir 10 units at bedtime and insulin sliding scale. A1c 7.6. Would benefit from BiPAP at home. Pulmonary is on board. Continue to monitor closely in the ICU. Time with Patient: Greater than 30
[2022-04-10 10:47] LABS: Basophils % (A) 0 %; Eosinophils % (A) 1 %; HGB 14.1 gm/dL (11.4-16.0); Hypochromasia Marked; Lymphocytes # (A) 0.8 k/uL (1.0-4.8); Lymphocytes % (A) 13 %; MCH 29.6 pg (25.0-35.0); MCHC 29.4 g/dL (31.0-37.0); MCV 100.7 fL (80.0-100.0); Macrocytosis Slight; Mean Platelet Volume 7.6; Monocytes # (A) 0.5 k/uL (0-1.0); Monocytes % (A) 8 %; Neutrophils # (A) 4.4 k/uL (1.3-7.7); Neutrophils % (A) 77 %; Platelet Count 179 k/uL (150-450); RBC 4.76 m/uL (3.80-5.40); RDW 14.6 % (11.5-15.5); WBC 5.7 k/uL (3.8-10.6)
[2022-04-10 10:59] LABS: African American GFR (CKD) >90 (>60 ml/min/1.73 sqM); Anion Gap 6 mmol/L; Blood Urea Nitrogen 13 mg/dL (7-17); Calcium 9.2 mg/dL (8.4-10.2); Chloride 88 mmol/L (98-107); Glucose 90 mg/dL (74-99); Non-African American GFR(CKD) >90 (>60 ml/min/1.73 sqM); Potassium 4.5 mmol/L (3.5-5.1); Sodium 134 mmol/L (137-145)
[2022-04-10 11:05] LABS: Carbon Dioxide 40 mmol/L (22-30)
[2022-04-10 11:15] VITALS: BP 113/63; PULSE 91
[2022-04-10 11:17] LABS: Glucose,Whole Blood 147 mg/dL (70-110)
--- NOTE | 2022-04-10 13:28 | P.PN ---
Subjective Progress Note Date: 04/10/22 This is a 57-year-old female with history of severe COPD, O2 dependent, patient is also known to have history of recurrent hypoxic and hypercapnic respiratory failure. Patient was recently at [facility] with an acute episode of hypercapnic respiratory failure requiring placement on BiPAP. Patient was eventually discharged home on 2 L nasal cannula, and she is chronically on oxygen at home, but she does not have BiPAP at home. Yesterday, the patient came into the ER complaining of increased shortness of breath, cough, wheezing, cough is nonproductive. Patient had no fever no chills, no nausea no vomiting no abdominal pain. Patient was noted to be hypoxic and hypercapnic, patient was initially admitted to the regular medical floor, however the rapid response team was notified about this patient having worsening shortness of breath, wheezing, and worsening pulmonary status ABG done by the rapid response team showed a pO2 of 109 pCO2 114 pH of 7.26. I was notified about this patient, recommended transferred to the ICU, placement on BiPAP, and follow-up ABG this morning showed a pO2 of 57 pCO2 of 98 pH of 7.36. ABG is done on BiPAP with FiO2 of 40%, IPAP of 16 and EPAP of 6. Patient is awake, follows simple instructions, does not seem to be in any distress, however she is still BiPAP dependent at this point. Her IV fluid to KVO. Blood pressure is 107/61, and the patient is hemodynamically stable. Patient was placed back on her bronchodilators, IV Solu-Medrol, and will likely resume to a regular medical floor sometime later today. In the meantime we will hopefully arrange for BiPAP machine to have at home. Reevaluated today on 04/07/22, patient remains in the ICU, she is presently on overflow, she is doing much better, breathing a lot easier, she is on 3 L nasal cannula, and doing well. She is not requiring BiPAP at this point, but considering her presentation and her recurrent episodes of hypercapnia requiring hospital admission, I believe this patient will definitely benefit from having BiPAP at home. I will try to arrange for the patient to have BiPAP, and the settings will be 16/6 and 30% FiO2. Patient is already on home oxygen. And I believe she needs to have BiPAP. Otherwise the patient will continue to come back to the hospital with similar episodes. In the meantime we'll continue her bronchodilators, and I am planning thoracic the patient out of the ICU to regular medical floor today. WBC count is 8.7 hemoglobin is 13.9. Normal bicarb is 47 The patient is seen today 04/08/2022 in follow-up on the regular medical floor. She currently sitting up in a chair at the bedside. Awake and alert in no acute distress. Her breathing is nearly back to her baseline. Maintaining O2 saturations at 99% on 5 L high flow nasal cannula. Afebrile. Hemodynamically stable. She is continued on DuoNeb inhalations, Symbicort, Solu-Medrol. Heparin for DVT prophylaxis. White count 7.0. Hemoglobin 13.6. Sodium 139. Bicarb 40. BUN 14. Creatinine 0.5. Glucose 246. Arrangements are being made with through [facility] for home BiPAP. The patient is seen today 04/10/2022 in follow-up on the regular medical floor. She is awake and alert in no acute distress. Sitting up in a chair at baseline. Anxious to go home. She is maintaining O2 saturations in the 90s on 2 L/m per nasal cannula. Hemodynamically stable. Afebrile. White count 5.7. Hemoglobin 14.1. Sodium 134. Bicarb 40. BUN 13. Creatinine 0.45. Objective - Vital Signs Vital signs: Vital Signs Temp 98.4 F 04/10/22 11:00 Pulse 91 04/10/22 11:00 Resp 18 04/10/22 11:00 BP 113/63 04/10/22 11:00 Pulse Ox 95 04/10/22 11:00 FiO2 28 04/07/22 03:26 Intake & Output 04/09/22 04/10/22 04/10/22 18:59 06:59 18:59 Output Total 5 1 Balance -5 -1 Output: Urine 5 1 Other: Voiding Method Diaper External Catheter # Voids 3 - Exam GENERAL EXAM: Alert, obese 57-year-old female, on 2 L nasal cannula with O2 saturation 99%, comfortable in no apparent distress. HEAD: Normocephalic. EYES: Normal reaction of pupils, equal size. NOSE: Clear with pink turbinates. THROAT: No erythema or exudates. NECK: No masses, no JVD. CHEST: No chest wall deformity. LUNGS: Equal air entry with no crackles, wheeze, rhonchi or dullness. Diminished. CVS: S1 and S2 normal with no audible murmur, regular rhythm. ABDOMEN: No hepatosplenomegaly, normal bowel sounds, no guarding or rigidity. SPINE: No scoliosis or deformity SKIN: No rashes CENTRAL NERVOUS SYSTEM: No focal deficits, tone is normal in all 4 extremities. EXTREMITIES: There is no peripheral edema. No clubbing, no cyanosis. Peripheral pulses are intact. - Labs CBC & Chem 7: 04/10/22 10:16 04/10/22 10:16 Labs: Abnormal Lab Results - Last 24 Hours (Table) 04/08/22 04/09/22 04/09/22 Range/Units 03:46 17:08 20:40 Hct (34.0-46.0) % MCV (80.0-100.0) fL MCHC (31.0-37.0) g/dL Lymphocytes # (1.0-4.8) k/uL Sodium (137-145) mmol/L Chloride (98-107) mmol/L Carbon Dioxide 40.9 H* (20.0-27.5) mmol/L Anion Gap 9.10 L (10.00-18.00) mmol/L Creatinine (0.52-1.04) mg/dL POC Glucose (mg/dL) 258 H 197 H (70-110) mg/dL 04/09/22 04/10/22 04/10/22 Range/Units 21:51 07:03 10:16 Hct 48.0 H (34.0-46.0) % MCV 100.7 H (80.0-100.0) fL MCHC 29.4 L (31.0-37.0) g/dL Lymphocytes # 0.8 L (1.0-4.8) k/uL Sodium (137-145) mmol/L Chloride (98-107) mmol/L Carbon Dioxide (20.0-27.5) mmol/L Anion Gap (10.00-18.00) mmol/L Creatinine (0.52-1.04) mg/dL POC Glucose (mg/dL) 189 H 115 H (70-110) mg/dL 04/10/22 04/10/22 Range/Units 10:16 11:01 Hct (34.0-46.0) % MCV (80.0-100.0) fL MCHC (31.0-37.0) g/dL Lymphocytes # (1.0-4.8) k/uL Sodium 134 L (137-145) mmol/L Chloride 88 L (98-107) mmol/L Carbon Dioxide 40 H (20.0-27.5) mmol/L Anion Gap (10.00-18.00) mmol/L Creatinine 0.45 L (0.52-1.04) mg/dL POC Glucose (mg/dL) 147 H (70-110) mg/dL Assessment and Plan Assessment: Acute on chronic hypoxic and hypercapnic respiratory failure patient is known to have severe COPD, FEV1 is no more than 21% Chronic ongoing tobacco dependence History of obstructive sleep apnea, not compliant with CPAP, patient does not have CPAP or BiPAP at home History of noncompliance Plan: The patient was seen and evaluated Stable and back to her baseline Cleared for discharge from the pulmonary standpoint BiPAP being arranged for home via [facility] Continue her home pulmonary medications Complete a prednisone taper starting at 40 mg for 4 days Follow up in the office in 1 week I have personally seen and examined the patient, performed the documentation and the assessment and plan as written. Number of minutes spent on the visit: 10.
== END 2022-04-10 11:54 | disposition home health service (06) | DRG 189 ==
LOC: EC 16:26 → 3SCARD 18:40 → 2SICU 23:26 → 5NMEDONC 04-07 19:35
PROVIDERS: ADMIT Hospitalist; ATTEND Hospitalist
PROC: 5A09357 Assistance with Respiratory Ventilation, Less than 24 Consecutive Hours, Continuous Positive Airway Pressure (ICD-10-PCS; principal; 2022-04-05)
DX: J96.21 Acute and chronic respiratory failure with hypoxia (principal); J44.1 Chronic obstructive pulmonary disease with (acute) exacerbation; J96.22 Acute and chronic respiratory failure with hypercapnia; G47.33 Obstructive sleep apnea (adult) (pediatric); F17.210 Nicotine dependence, cigarettes, uncomplicated; Z79.84 Long term (current) use of oral hypoglycemic drugs; Z79.899 Other long term (current) drug therapy; Z91.199 Patient's noncompliance with other medical treatment and regimen due to unspecified reason; Z99.81 Dependence on supplemental oxygen; Z28.310 Unvaccinated for COVID-19; Z28.21 Immunization not carried out because of patient refusal; N39.3 Stress incontinence (female) (male); Z83.2 Family history of diseases of the blood and blood-forming organs and certain disorders involving the immune mechanism; Z79.51 Long term (current) use of inhaled steroids; Z79.52 Long term (current) use of systemic steroids; R00.0 Tachycardia, unspecified; Z20.822 Contact with and (suspected) exposure to COVID-19
CPT/HCPCS: 36415; 36600; 71045; 80048; 80053; 82805; 83036; 83735; 83880; 84484; 85025; 85610; 85730; 87502; 87635; 93005; 94640; 94660; 94760; 94762; 96365; 96375; 99285

== ENCOUNTER 2022-11-26 18:51 | Inpatient (IN) | payer MEDICARE ==
[2022-11-26] MEDS ORDERED: DEXTROSE 5%-0.45% NACL 1,000 ML IV SCH (19:00)
[2022-11-26] MEDS ORDERED: SODIUM CHLORIDE 0.9% 500 ML 500 ML IV STA (19:00)
[2022-11-26] MEDS ORDERED: IPRATROPIUM-ALBUTEROL 3 ML NEB INHALATION PRN (19:00)
[2022-11-26] MEDS ORDERED: NITROGLYCERIN OINT 1 INCH/GM PACKET TOPICAL STA (19:00)
[2022-11-26] MEDS ORDERED: HEPARIN SOD,PORK IN 0.45% NACL 25,000 UNIT in 0.45% NACL 1 250ML.BAG IV SCH (19:00)
[2022-11-26] MEDS ORDERED: ASPIRIN 81 MG PO STA (19:00)
[2022-11-26] MEDS ORDERED: NALOXONE 0.4 MG/ML 1 ML VIAL IV PRN (19:00)
[2022-11-26] MEDS ORDERED: MORPHINE SULFATE 4 MG/ML SYRINGE IV PRN (19:00)
[2022-11-26] MEDS ORDERED: NITROGLYCERIN SL TABS 0.4 MG TAB SUBLINGUAL PRN (19:00)
[2022-11-26] MEDS ORDERED: HEPARIN SODIUM 1,000 UN/ML (10ML VL) IV ONE (19:00)
--- NOTE | 2022-11-26 19:04 | ED ---
CPR HPI - General Chief Complaint: Altered Mental Status Stated Complaint: Cardiac Arrest Time Seen by Provider: 11/26/22 19:00 Source: EMS, RN notes reviewed, old records reviewed Mode of arrival: EMS Limitations: physical limitation - History of Present Illness Initial Comments: This 57 show female to the emergency department for evaluation patient comes in status post cardiac arrest loss of pulse, ventricular tachycardia with cardioversion, intubation CPR with return of spontaneous circulation patient presents from those conditions with no spontaneous neurological movement. MD Complaint: found unresponsive, stopped breathing, collapsed during rest, unknown (PATIENT'S history of present illness is unknown on noticed patient was found down by family) -: unknown Bystander CPR Performed: Yes AED Applied by Bystander/Direct Chill Caster: Yes Shock Advised: Yes Number of Shocks Delivered: 1 Initial Findings in the Field: unresponsive, no pulse, VTACH/VFIB ROSC in the Field: Yes Associated Injuries: No Treatments Prior to Arrival: BMV, chest compressions, defibrillated shocks #, epinephrine mgs # - Related Data Home Medications Medication Instructions Recorded Confirmed Albuterol Sulfate [Albuterol 2 puff PO RT-Q4H 07/04/21 11/26/22 Sulfate Hfa] Fluticasone/Umeclidin/Vilanter 1 puff INHALATION RT-DAILY 07/04/21 11/26/22 [Trelegy Ellipta 100-62.5-25] Furosemide [Lasix] 40 mg PO DAILY 07/04/21 11/26/22 Allergies Allergy/AdvReac Type Severity Reaction Status Date / Time No Known Allergies Allergy Verified 04/05/22 19:13 Review of Systems ROS Statement: Those systems with pertinent positive or pertinent negative responses have been documented in the HPI. ROS Other: All systems not noted in ROS Statement are negative. Past Medical History Past Medical History: COPD Additional Past Medical History / Comment(s): STRESS URINARY INCONTINENCE. MINIMAL LUNG FUNCTION. SLEEP APNEA (DOES NOT USE CPAP) History of Any Multi-Drug Resistant Organisms: None Reported Past Surgical History: Cholecystectomy, Tonsillectomy, Tubal Ligation Additional Past Surgical History / Comment(s): CERVICAL SURGERY, pneumothorax CHEST TUBE Past Anesthesia/Blood Transfusion Reactions: No Reported Reaction Past Psychological History: No Psychological Hx Reported Smoking Status: Current every day smoker Past Alcohol Use History: None Reported Past Drug Use History: None Reported - Past Family History Sister(s) Family Medical History: Deep Vein Thrombosis (DVT), Pulmonary Embolus Brother(s) Family Medical History: Deep Vein Thrombosis (DVT) General Exam Limitations: physical limitation General appearance: alert, in no apparent distress Head exam: Present: atraumatic, normocephalic, normal inspection Eye exam: Present: normal appearance, PERRL, EOMI. Absent: scleral icterus, conjunctival injection, periorbital swelling ENT exam: Present: normal exam, mucous membranes moist Neck exam: Present: normal inspection. Absent: tenderness, meningismus, lymphadenopathy Respiratory exam: Present: normal lung sounds bilaterally. Absent: respiratory distress, wheezes, rales, rhonchi, stridor Cardiovascular Exam: Present: regular rate, normal rhythm, normal heart sounds. Absent: systolic murmur, diastolic murmur, rubs, gallop, clicks GI/Abdominal exam: Present: soft, normal bowel sounds. Absent: distended, tenderness, guarding, rebound, rigid Extremities exam: Present: normal inspection, full ROM, normal capillary refill. Absent: tenderness, pedal edema, joint swelling, calf tenderness Back exam: Present: normal inspection Neurological exam: Present: alert, oriented X3, CN II-XII intact Psychiatric exam: Present: normal affect, normal mood Skin exam: Present: warm, dry, intact, normal color. Absent: rash Course Vital Signs 11/26/22 11/26/22 11/26/22 18:55 18:56 18:58 Pulse Rate 84 Respiratory 14 Rate Blood Pressure 88/56 O2 Sat by Pulse 98 Oximetry Fraction of 100 100 Inspired Oxygen (FIO2) 11/26/22 11/26/22 19:04 19:15 Pulse Rate 80 78 Respiratory 18 33 H Rate Blood Pressure 94/61 103/66 O2 Sat by Pulse 98 98 Oximetry Fraction of Inspired Oxygen (FIO2) - Reevaluation(s) Reevaluation #1: 11/27/22 00:09 Medical records reviewed STEMI was paged based on prehospital EKG and ventricular tachycardic cardiac arrest Reevaluation #2: 11/27/22 00:09 Patient remains without neurological activity here in the ER for positive ROS s ee Reevaluation #3: 11/27/22 00:10 Family spoke with at length informed of results informed of condition and prognosis and questions are answered Reevaluation #4: 11/27/22 00:10 Was pt. sent in by a medical professional or institution? @ -no Did you speak to anyone other than the patient for history? @ -no Did you review nursing and triage notes? @ -agree Were old charts reviewed? @ -no Differential Diagnosis? @ -prior EKG interpreted by me (3pts min.)? @ -yes X-rays interpreted by me (1pt min.)? @ -yes CT interpreted by me (1pt min.)? @ -no U/S interpreted by me (1pt. min.)? @ -no What testing was considered but not performed? (CT, X-rays, U/S, labs)? Why? @ -no What meds were considered but not given? Why? @ -no Did you discuss the management of the patient with other professionals? @ -no Did you reconcile home meds? @ -no Was smoking cessation discussed for >3mins.? @ -no Was critical care preformed (if so, how long)? @ -no Were there social determinants of health that impacted care today? How? (Homelessness, low income, unemployed, alcoholism, drug addiction, transportation, low edu. Level, literacy, decrease access to med. care, long term, rehab)? @ -no Was there de-escalation of care discussed even if they declined? (Discuss DNR or withdrawal of care, Hospice)? @ -no What co-morbidities impacted this encounter? (DM, HTN, Smoking, COPD, CAD, Cancer, CVA, Hep., AIDS, mental health diagnosis, sleep apnea, morbid obesity)? @ -none Was patient admitted / discharged? @ -[address] elevated [place], patient admitted to the hospital for cardiac catheterization after questionable V. tach arrest V. fib arrest code, could be related to hypoxia from COPD Admitted Undiagnosed new problem with uncertain prognosis? @ -no Drug Therapy requiring intensive monitoring for toxicity (Heparin, Nitro, In sulin, Cardizem)? @ -no Were any procedures done? @ -no Diagnosis/symptom? @ -STEMI Acute, or Chronic, or Acute on Chronic? @ -no Uncomplicated (without systemic symptoms) or Complicated (systemic symptoms)? @ -uncomplicated Side effects of treatment? @ -no Exacerbation, Progression, or Severe Exacerbation] @ -no Poses a threat to life or bodily function? @ -yes acute ACS OK Reevaluation #5: 11/27/22 00:10 Differential 5Hs 5Ts - Consultations Consultation #1: Spoke with cardiology and many physicians regarding admission there is able cardiology will take to the catheterization lab Medical Decision Making - Medical Decision Making 57 female Jojo with cardiopulmonary arrest presents the emergency department with return of spontaneous circulation , per EMS as well as a ventricular tachycardia persistent ventricular fibrillation arrest with cardioversion, job ent is intubated and sent the Product Development Ecologist for acute ST elevated OK - Lab Data Result diagrams: 11/28/22 17:10 11/28/22 17:10 - EKG Data -: EKG Interpreted by Me - Radiology Data Radiology results: report reviewed (Chest x-rays positive for ET tube), image reviewed Critical Care Time Critical Care Time: Yes Total Critical Care Time: 31 Disposition Clinical Impression: Altered mental status, STEMI (ST elevation myocardial infarction), Cardiopulmonary arrest with successful resuscitation, ACS (acute coronary syndrome), Ventricular tachycardia, COPD exacerbation, Respiratory failure Disposition: ADMITTED IP TO THIS HOSP Condition: Critical Is patient prescribed a controlled substance at d/c from ED?: No Time of Disposition: 19:00
[2022-11-26] MEDS: NOREPINEPHRINE 4 MG in SODIUM CHLORIDE 0.9% 250 ML IV SCH ×2 (19:10→19:38)
[2022-11-26] MEDS ORDERED: HEPARIN SODIUM 1,000 UN/ML (10ML VL) ONE (19:12)
[2022-11-26] MEDS ORDERED: VERAPAMIL 2.5 MG/ML 2 ML AMP ONE (19:12)
[2022-11-26] MEDS ORDERED: LIDOCAINE 1% INJ 10MG/ML (20 ML MDV) ONE (19:12)
[2022-11-26] MEDS ORDERED: LIDOCAINE 1% INJ 10MG/ML (30 ML VIAL-PF) SQ ONE (19:30)
[2022-11-26] MEDS ORDERED: SODIUM CHLORIDE 0.9% 1,000 ML IV ONE (19:38)
[2022-11-26] MEDS ORDERED: SODIUM CHLORIDE 0.9% 500 ML 500 ML IV ONE (19:38)
--- NOTE | 2022-11-26 19:43 | XR ---
EXAMINATION TYPE: XR chest 1V portable DATE OF EXAM: 11/26/2022 7:11 PM COMPARISON: Chest radiographs from 11/26/2022 TECHNIQUE: XR chest 1V portable Frontal view of the chest. CLINICAL INDICATION:Female, 57 years old with history of Stemi; FINDINGS: Lungs/Pleura: New multifocal airspace opacities within the right lung base and left midlung. No evide nce of pneumothorax or pleural effusion. Pulmonary vascularity: Unremarkable. Heart/mediastinum: Cardiomediastinal silhouette is unremarkable. Musculoskeletal: No acute osseous pathology. Other findings: None Lines/Tubes: Endotracheal tube with distal tip 4.9 cm above the susana. Nasogastric tube with its distal tip and side-port projecting under the diaphragm. IMPRESSION: Interstitial opacities within the left midlung and right lung base correlate for pulmonary edema.
[2022-11-26] MEDS ORDERED: RX INFO: IV CONTRAST WAS GIVEN 1 EACH MISC MISCELLANE PRN (19:54)
[2022-11-26] MEDS ORDERED: IOPAMIDOL-370 100ML BTL INJ ONE (19:55)
[2022-11-26] MEDS ORDERED: SODIUM CHLORIDE 0.9% 1,000 ML IV SCH (20:00)
[2022-11-26 20:07] LABS: African American GFR (CKD) >90 (>60 ml/min/1.73 sqM); Albumin 3.7 g/dL (3.5-5.0); Alkaline Phosphatase 75 U/L (38-126); Blood Urea Nitrogen 12 mg/dL (7-17); Calcium 8.6 mg/dL (8.4-10.2); Chloride 81 mmol/L (98-107); Non-African American GFR(CKD) >90 (>60 ml/min/1.73 sqM); Potassium 5.5 mmol/L (3.5-5.1); Sodium 135 mmol/L (137-145); Total Bilirubin 0.8 mg/dL (0.2-1.3); Total Protein 6.1 g/dL (6.3-8.2)
[2022-11-26 20:08] LABS: INR 1.1 (<1.2); Partial Thromboplastin Time 27.6 sec (22.0-30.0); Prothrombin Time 11.2 sec (9.0-12.0)
[2022-11-26 20:09] LABS: Glucose,Whole Blood 313 mg/dL (70-110)
[2022-11-26 20:14] LABS: AST 131 U/L (14-36); Anion Gap 16 mmol/L; Carbon Dioxide 38 mmol/L (22-30)
[2022-11-26 20:15] LABS: ALT 93 U/L (4-34)
[2022-11-26 20:16] LABS: Basophils % (A) 1 %; Eosinophils # (A) 0.1 k/uL (0-0.7); Eosinophils % (A) 1 %; HCT 49.8 % (34.0-46.0); HGB 14.4 gm/dL (11.4-16.0); Hypochromasia Marked; Lymphocytes # (A) 1.9 k/uL (1.0-4.8); Lymphocytes % (A) 27 %; MCH 29.4 pg (25.0-35.0); MCHC 28.8 g/dL (31.0-37.0); MCV 101.9 fL (80.0-100.0); Macrocytosis Slight; Mean Platelet Volume 9.4; Monocytes # (A) 0.4 k/uL (0-1.0); Monocytes % (A) 5 %; Neutrophils # (A) 4.6 k/uL (1.3-7.7); Neutrophils % (A) 65 %; Platelet Count 130 k/uL (150-450); RBC 4.89 m/uL (3.80-5.40); RDW 15.2 % (11.5-15.5); WBC 7.1 k/uL (3.8-10.6)
[2022-11-26 20:17] LABS: Glucose 308 mg/dL (74-99)
--- NOTE | 2022-11-26 20:35 | XR ---
EXAMINATION TYPE: XR chest 1V portable DATE OF EXAM: 11/26/2022 8:26 PM COMPARISON: Chest radiographs from same day TECHNIQUE: XR chest 1V portable Frontal view of the chest. CLINICAL INDICATION:Female, 57 years old with history of intubation; FINDINGS: Lungs/Pleura: Prominent interstitial lung markings are seen scattered throughout the lungs with jai ening of the diaphragm and increased lucency of the lung apices. Increased interstitial opacities in the right lung base and left perihilar region. No evidence of focal consolidation, pneumothorax or pl eural effusion. Pulmonary vascularity: Unremarkable. Heart/mediastinum: Cardiomediastinal silhouette is unremarkable. Musculoskeletal: No acute osseous pathology. Other findings: None Lines/Tubes: Endotracheal tube with distal tip 4.1 cm above the susana. Nasogastric tube with its distal tip and side-port projecting under the diaphragm. IMPRESSION: 1. Interstitial opacities in the left midlung and right lung base are unchanged: For pulmonary edema . 2. Stable support tubes. 3. COPD changes.
[2022-11-26 20:44] LABS: ABG Base Excess 13.8 mmol/L; ABG Oxygen Saturation 99.9 % (94-97); ABG PH 7.33 (7.35-7.45); ABG PO2 >400 mmHg (83-108); ABG TCO2 42 mmol/L (19-24); Allen Test Performed? Yes
[2022-11-26 20:46] LABS: ABG HCO3 40 mmol/L (21-25); ABG PCO2 75 mmHg (35-45)
[2022-11-26] MEDS ORDERED: propofoL 100 ML IV ONE (21:57)
[2022-11-26 22:01] LABS: ALT 90 U/L (4-34); AST 152 U/L (14-36); African American GFR (CKD) >90 (>60 ml/min/1.73 sqM); Albumin 3.6 g/dL (3.5-5.0); Anion Gap 10 mmol/L; Blood Urea Nitrogen 15 mg/dL (7-17); Calcium 8.6 mg/dL (8.4-10.2); Carbon Dioxide 39 mmol/L (22-30); Chloride 86 mmol/L (98-107); Glucose 250 mg/dL (74-99); Non-African American GFR(CKD) >90 (>60 ml/min/1.73 sqM); Phosphorus 6.6 mg/dL (2.5-4.5); Potassium 5.2 mmol/L (3.5-5.1); Sodium 135 mmol/L (137-145); Total Bilirubin 0.9 mg/dL (0.2-1.3)
--- NOTE | 2022-11-26 22:12 | CC ---
CARDIAC CATHETERIZATION REPORT INDICATION: Cardiac arrest with ventricular tachycardia and fibrillation. PROCEDURE NOTE: After obtaining informed consent, left heart catheterization and coronary angiogram were performed via right femoral artery using standard Meño catheters. The patient tolerated the procedure well without any obvious immediate complications. A femoral angiogram was performed, and Angio-Seal was deployed for hemostasis. The patient received moderate conscious sedation. Total sedation time was 10 minutes. HEMODYNAMICS: Left ventricular end-diastolic pressure is 16 mm. There is no significant gradient across the aortic valve. Left ventriculogram: Left ventriculogram is not performed. ANGIOGRAPHIC DATA: Left main coronary artery: Left main coronary artery is a normal-sized vessel and is free of stenosis. It divides into left anterior descending coronary artery and circumflex coronary artery. There is a large-caliber diagonal branch that shows ostial 70% to 80% stenosis. LAD is free of disease. Circumflex coronary artery which is a codominant vessel is free of significant stenosis. Right coronary artery is a large codominant vessel and is free of significant stenosis. CONCLUSION: Focal significant stenosis involving the ostial portion of the diagonal branch. PLAN: The patient's clinical presentation is not explained by the cardiac catheterization findings. It appears as if the patient had a respiratory arrest related to her underlying COPD. MMODL / IJN: [id number] /
[2022-11-26 22:16] LABS: Alkaline Phosphatase 79 U/L (38-126)
[2022-11-26] MEDS: SODIUM CHLORIDE 0.9% 1,000 ML IV SCH (22:20)
--- NOTE | 2022-11-26 22:24 | CONS ---
CONSULTATION HISTORY OF PRESENT ILLNESS: Sara is a 57-year-old lady with history of severe COPD, who presented to the hospital as a cardiorespiratory arrest and Cardiology was consulted as part of STEMI. I received a phone call from telling me that the patient's EKG was consistent with ST elevation UT and the patient was resuscitated in the EMS and he was about to intubate the patient. I met the patient in the quality control lab technician for the first time. She is intubated, vented, hypotensive, critically ill. An EKG that was done in this hospital revealed sinus rhythm with right bundle branch block without any acute ST-segment elevation. We proceeded with cardiac catheterization to rule out significant CAD stated that the EKG done in the field showed ST elevation. PAST MEDICAL HISTORY: Significant for previous COPD. MEDICATIONS: As charted. ALLERGIES: I am unable to obtain from the patient. FAMILY HISTORY: I am unable to obtain from the patient. SOCIAL HISTORY: I am unable to obtain from the patient. REVIEW OF SYSTEMS: I am unable to obtain from the patient. PHYSICAL EXAMINATION: GENERAL: She is intubated, vented and sedated. VITAL SIGNS: Heart rate is 90 beats per minute, blood pressure is 76/60, respiratory rate is 22. CHEST: Reveals diffuse bilateral wheezing. HEART: Reveals first and second heart sounds. No gallop. No murmur. ABDOMEN: Soft. EXTREMITIES: Exam of extremities did not reveal any edema. Peripheral pulses are diminished. ASSESSMENT: 1. Status post cardiorespiratory arrest. 2. Ventricular tachycardia fibrillation as per communication with the EMS. PLAN: The patient will undergo emergent cardiac catheterization. It is unclear for how long the patient was down. Prognosis is guarded. We will give her Levophed to improve the blood pressure. MMODL / IJN: [id number] /
[2022-11-26 22:38] LABS: Basophils % (A) 0 %; Eosinophils % (A) 0 %; HCT 49.5 % (34.0-46.0); Hypochromasia Marked; Lymphocytes # (A) 0.9 k/uL (1.0-4.8); Lymphocytes % (A) 7 %; MCH 30.4 pg (25.0-35.0); MCHC 30.2 g/dL (31.0-37.0); MCV 100.6 fL (80.0-100.0); Macrocytosis Slight; Mean Platelet Volume 9.2; Monocytes # (A) 0.5 k/uL (0-1.0); Monocytes % (A) 3 %; Neutrophils # (A) 11.7 k/uL (1.3-7.7); Neutrophils % (A) 88 %; Platelet Count 136 k/uL (150-450); RBC 4.92 m/uL (3.80-5.40); RDW 15.3 % (11.5-15.5); WBC 13.3 k/uL (3.8-10.6)
[2022-11-26 23:39] LABS: Partial Thromboplastin Time 28.2 sec (22.0-30.0); Prothrombin Time 10.8 sec (9.0-12.0)
[2022-11-27] MEDS: IPRATROPIUM-ALBUTEROL 3 ML NEB INHALATION SCH ×7 (00:32→19:51)
[2022-11-27] MEDS ORDERED: DEXTROSE 50% SYRINGE 50 ML IVP PRN ×2 (01:58)
--- NOTE | 2022-11-27 02:24 | XR ---
EXAM: XR Chest, 1 View CLINICAL HISTORY: ITS.REASON XR Reason: OG tube placement TECHNIQUE: Frontal view of the chest. COMPARISON: No relevant prior studies available. IMPRESSION: Feeding tube side-port is at the GE junction. Recommend advancing 5 cm
--- NOTE | 2022-11-27 02:34 | P.CNPUL ---
History of Present Illness Consult date: 11/27/22 Requesting physician: Zohaib Dial Reason for consult: other (ICU management) Chief complaint: Cardiac arrest History of present illness: I'm seeing this patient in new consultation today 11/27/2022 in the intensive care unit post [id number] cardiac arrest. Patient is a 57-year-old white female with past medical history significant for severe COPD with an FEV1 24% of predicted, obstructive sleep apnea with home VPAP machine, and current 2 pack per day smoker. She does follow with Dr. Lopez in the office for management of her very severe COPD and sleep medicine. Apparently, earlier yesterday evening the patient was found down at home by her family member who was out of the house for a couple hours. EMS was called and the patient was found to be in pulseless ventricular tachycardia. The patient was intubated in the field, and ROSC was achieved. Estimated downtime is unknown. On arrival to the emergency room, there was concern for an ST elevation WA, and the patient was taken to the Cooling Room Attendant. Findings indicated a 70-80% stenosed diagonal branch, without any significant disease of the LAD or remaining vessels. It was felt that the patient's cardiac arrest was not related to her coronary artery disease, and no PCI or stenting were performed. Patient is currently intubated, and synchronous with the mechanical ventilator. Initial ventilator settings were assist control, respiratory rate 18, tidal volume 400, FiO2 100%, and PEEP of 5. ABG done on these settings showed a PaO2 greater than 400, pCO2 75, pH of 7.33. Patient's ventilator settings were adjusted, and the respiratory rate was increased to 20 and FiO2 dropped to 60%. Peak pressures are high around 50 and plateau pressure was 27. There are minimal thin secretions. Patient is bronchospastic, and bronchodilators were added. Chest x-ray shows endotracheal tube 4 cm above the susana, an orogastric tube coursing below the diaphragm, and interstitial opacities within the left midlung and right lung base concerning for pulmonary edema. She is minimally sedated with 10 mcg/kg/m of propofol. Sh e does withdrawal to painful stimuli and has an intact gag reflex. She does not follow commands. Blood pressure is hypotensive requiring norepinephrine which is infusing at 0.25 mcg/kg/m. Patient was fluid resuscitated with 2 L normal saline bolus. Most recent lactic acid level was 2.7. Urine output is low, around 10-15 ML's per hour. Most recent CBC from last night shows a WBC count of 13.3, hemoglobin 15, hematocrit 49.5, platelets 136,000. BMP from last night shows a sodium of 135, potassium 5.2, chloride 86, serum CO2 chronically elevated at 39, BUN 15, creatinine 0.61, glucose 250. Normal saline is infusing at 100 mL per hour. Troponins were elevated at 0.081. LFTs minimally elevated. Patient is a full code, and will be monitored in the intensive care unit. Review of Systems ROS unobtainable: due to endotracheal tube Past Medical History Past Medical History: COPD Additional Past Medical History / Comment(s): STRESS URINARY INCONTINENCE. MINIMAL LUNG FUNCTION. SLEEP APNEA (DOES NOT USE CPAP) History of Any Multi-Drug Resistant Organisms: None Reported Past Surgical History: Cholecystectomy, Tonsillectomy, Tubal Ligation Additional Past Surgical History / Comment(s): CERVICAL SURGERY, pneumothorax CHEST TUBE Past Anesthesia/Blood Transfusion Reactions: No Reported Reaction Past Psychological History: No Psychological Hx Reported Smoking Status: Current every day smoker Past Alcohol Use History: None Reported Past Drug Use History: None Reported - Past Family History Sister(s) Family Medical History: Deep Vein Thrombosis (DVT), Pulmonary Embolus Brother(s) Family Medical History: Deep Vein Thrombosis (DVT) Medications and Allergies Home Medications Medication Instructions Recorded Confirmed Type RX: Albuterol Sulfate [Albuterol 2 puff PO RT-Q4H 07/04/21 11/26/22 History Sulfate Hfa] RX: Fluticasone/Umeclidin/Vilanter 1 puff INHALATION RT-DAILY 07/04/21 11/26/22 History [Trelegy Ellipta 100-62.5-25] RX: Furosemide [Lasix] 40 mg PO DAILY 07/04/21 11/26/22 History Allergies Allergy/AdvReac Type Severity Reaction Status Date / Time No Known Allergies Allergy Verified 04/05/22 19:13 Physical Exam Osteopathic Statement: *. No significant issues noted on an osteopathic structural exam other than those noted in the History and Physical/Consult. Vitals: Vital Signs Temp Pulse Resp BP Pulse Ox FiO2 11/27/22 01:00 111 H 20 96/69 96 11/27/22 00:50 111 H 11/27/22 00:45 114 H 20 96/69 92 L 11/27/22 00:36 114 H 60 11/27/22 00:30 112 H 20 92 L 11/27/22 00:15 20 90 L 11/27/22 00:00 98.0 F 111 H 20 88 L 60 11/26/22 23:45 111 H 20 89 L 11/26/22 23:30 110 H 20 91 L 11/26/22 23:15 111 H 20 94 L 11/26/22 23:00 112 H 13 76/57 90 L 11/26/22 22:45 113 H 3 L 67/50 90 L 11/26/22 22:30 102 H 20 51/35 91 L 11/26/22 22:15 102 H 20 79/44 94 L 11/26/22 22:00 96 20 80/57 95 11/26/22 21:45 101 H 20 72/53 92 L 11/26/22 21:32 60 11/26/22 21:30 95 20 80/63 90 L 11/26/22 21:15 95 20 93/36 86 L 11/26/22 21:00 93 20 87/55 11/26/22 20:53 40 11/26/22 20:48 60 11/26/22 20:45 86 20 90/51 100 11/26/22 20:30 81 20 85/51 99 11/26/22 20:15 94 F L 77 20 101/66 100 11/26/22 20:09 78 14 101/66 99 11/26/22 19:15 78 33 H 103/66 98 11/26/22 19:04 80 18 94/61 98 11/26/22 18:58 100 11/26/22 18:56 84 14 88/56 98 11/26/22 18:55 100 Intake and Output 11/26/22 11/26/22 11/27/22 14:59 22:59 06:59 Intake Total 7076.595 7084 Output Total 170 35 Balance 892.810 9068 Intake: IV 1010 1300 Sodium Chloride 0.9% 1, 200 300 000 ml @ 100 mls/hr IV . Q10H [facility] Rx#:[id number] Sodium Chloride 0.9% 500 1000 ml 500 ml @ 999 mls/hr IV .Q31M STA Rx#:[id number] Intake, IV Titration 52.148 Amount Norepinephrine 4 mg In 49.702 Sodium Chloride 0.9% 250 ml @ 0.05 MCG/KG/MIN 12. 426 mls/hr IV .[id number] [facility] Rx#:[id number] propofoL 1,000 mg In 2.446 Empty Bag 1 bag @ 15 MCG/ KG/MIN 5.87 mls/hr IV . Q17H3M [facility] Rx#:[id number] Output: Urine 170 35 Other: Voiding Method Indwelling Catheter Weight 65.227 kg ABP, PAP, CO, CI - Last 8 Hours Arterial Blood Pressure 99/65 Arterial Blood Pressure 78/69 Arterial Blood Pressure 86/67 Arterial Blood Pressure 104/67 Arterial Blood Pressure 72/66 Arterial Blood Pressure 70/62 Arterial Blood Pressure 88/64 Arterial Blood Pressure 100/65 Arterial Blood Pressure 88/57 GENERAL EXAM: Sedated 57-year-old white female, synchronous mechanical ventilator HEAD: Normocephalic and atraumatic EYES: Pinpoint pupils, equal in size. Not deviated NOSE: Clear with pink turbinates. THROAT: No erythema or exudates. NECK: No masses, no JVD. CHEST: No chest wall deformity. LUNGS: Equal air entry with expiratory wheezes heard throughout. No crackles or rhonchi. Intubated to the mechanical ventilator. CVS: S1 and S2 normal with no audible murmur, regular rhythm. No extra heart sounds ABDOMEN: No hepatosplenomegaly, active bowel sounds, no guarding or rigidity. SPINE: No scoliosis or deformity SKIN: No rashes CENTRAL NERVOUS SYSTEM: No focal deficits, tone is normal in all 4 extremities. EXTREMITIES: There is no peripheral edema, clubbing, or cyanosis. Bilateral pedal pulses found with Doppler. Toes are rogelio in color. Feet are cool Results - Laboratory Findings CBC and BMP: 11/27/22 04:30 11/27/22 04:30 ABG ABG pH 7.33 (7.35-7.45) L 11/26/22 20:40 ABG pCO2 75 mmHg (35-45) H* 11/26/22 20:40 ABG pO2 >400 mmHg (83-108) H 11/26/22 20:40 ABG O2 Saturation 99.9 % (94-97) H 11/26/22 20:40 PT/INR, D-dimer PT 10.8 sec (9.0-12.0) 11/26/22 23:05 INR 1.0 (<1.2) 11/26/22 23:05 Abnormal lab findings: Abnormal Labs 11/26/22 11/26/22 11/26/22 19:04 19:04 19:04 WBC Hct 49.8 H MCV 101.9 H MCHC 28.8 L Plt Count 130 L Neutrophils # Lymphocytes # ABG pH ABG pCO2 ABG pO2 ABG HCO3 ABG Total CO2 ABG O2 Saturation Sodium 135 L Potassium 5.5 H Chloride 81 L Carbon Dioxide 38 H Glucose 308 H POC Glucose (mg/dL) Plasma Lactic Acid Guevara Phosphorus AST 131 H ALT 93 H Troponin I 0.081 H* Total Protein 6.1 L 11/26/22 11/26/22 11/26/22 20:07 20:40 20:51 WBC Hct MCV MCHC Plt Count Neutrophils # Lymphocytes # ABG pH 7.33 L ABG pCO2 75 H* ABG pO2 >400 H ABG HCO3 40 H* ABG Total CO2 42 H ABG O2 Saturation 99.9 H Sodium 135 L Potassium 5.2 H Chloride 86 L Carbon Dioxide 39 H Glucose 250 H POC Glucose (mg/dL) 313 H Plasma Lactic Acid Guevara Phosphorus 6.6 H AST 152 H ALT 90 H Troponin I Total Protein 6.0 L 11/26/22 11/26/22 20:51 23:05 WBC 13.3 H Hct 49.5 H MCV 100.6 H MCHC 30.2 L Plt Count 136 L Neutrophils # 11.7 H Lymphocytes # 0.9 L ABG pH ABG pCO2 ABG pO2 ABG HCO3 ABG Total CO2 ABG O2 Saturation Sodium Potassium Chloride Carbon Dioxide Glucose POC Glucose (mg/dL) Plasma Lactic Acid Guevara 2.7 H* Phosphorus AST ALT Troponin I Total Protein - Diagnostic Findings Chest x-ray: image reviewed Assessment and Plan Assessment: Out of hospital cardiac arrest with unknown downtime. Presenting rhythm was pulseless ventricular tachycardia, and ROSC was achieved in the field. Not felt to be related to acute coronary event. Chest x-ray on arrival showed some interstitial opacities within the left midlung and right lung base concerning for pulmonary edema. Patient's downtime is unknown, and there is concern for possible anoxic brain injury. Exacerbation of patient's very severe COPD with an FEV1 24% of predicted Acute on chronic hypoxemic and hypercapnic respiratory failure secondary to above, currently on the mechanical ventilator Hypotension and shock currently requiring vasopressors Lactic acidemia Elevated LFTs, probably related to shock liver Elevated troponins, post cardiac arrest Hyperglycemia, with no documented history of diabetes Leukocytosis Obstructive sleep apnea, with home BiPAP and questionable compliance Chronic nicotine dependence, reportedly a current 2 pack per day smoker Plan: Patient's medications, labs, chest x-ray reviewed Continue on mechanical ventilator Respiratory rate was increased to 20 and FiO2 dropped to 60% Continue to titrate FiO2 Start the patient on bronchodilators Continue norepinephrine infusion Propofol for sedation Empiric antibiotics Roach cultures Patient has an unknown downtime, and neurology was consulted Dietary consult was placed for tube feeding Echocardiogram was ordered Repeat ABG and labs in the morning Heparin for DVT prophylaxis Protonix for GI prophylaxis NovoLog insulin to scale Prognosis is guarded We will continue to monitor the patient will intensive care unit I have personally seen and examined the patient, performed the documentation and the assessment and plan as written. Number of minutes spent on the visit:20 Time with Patient: Greater than 30
[2022-11-27 03:12] LABS: Glucose,Whole Blood 240 mg/dL (70-110)
[2022-11-27] MEDS: INSULIN ASPART (NovoLOG) 100 UNIT/ML VIAL SQ SCH ×6 (03:53→23:54)
[2022-11-27] MEDS: PIPERACILLIN-TAZOBACTAM 3.375 GM in SODIUM CHLORIDE 0.9% 100 ML IVPB SCH ×3 (03:53→18:42)
[2022-11-27] MEDS: NOREPINEPHRINE 4 MG in SODIUM CHLORIDE 0.9% 250 ML IV SCH ×3 (03:53→20:00)
[2022-11-27 04:59] LABS: Basophils % (A) 0 %; Eosinophils % (A) 0 %; HCT 45.9 % (34.0-46.0); HGB 14.4 gm/dL (11.4-16.0); Hypochromasia Slight; Lymphocytes # (A) 0.5 k/uL (1.0-4.8); Lymphocytes % (A) 4 %; MCH 30.7 pg (25.0-35.0); MCHC 31.4 g/dL (31.0-37.0); MCV 97.6 fL (80.0-100.0); Mean Platelet Volume 8.6; Monocytes # (A) 0.5 k/uL (0-1.0); Monocytes % (A) 5 %; Neutrophils % (A) 90 %; Platelet Count 133 k/uL (150-450); RDW 15.3 % (11.5-15.5); WBC 11.1 k/uL (3.8-10.6)
[2022-11-27 05:20] LABS: ALT 91 U/L (4-34); AST 143 U/L (14-36); African American GFR (CKD) >90 (>60 ml/min/1.73 sqM); Alkaline Phosphatase 75 U/L (38-126); Blood Urea Nitrogen 24 mg/dL (7-17); Calcium 7.8 mg/dL (8.4-10.2); Chloride 92 mmol/L (98-107); Glucose 236 mg/dL (74-99); Magnesium 1.6 mg/dL (1.6-2.3); Non-African American GFR(CKD) >90 (>60 ml/min/1.73 sqM); Phosphorus 1.9 mg/dL (2.5-4.5); Sodium 137 mmol/L (137-145); Total Bilirubin 0.6 mg/dL (0.2-1.3); Total Protein 5.2 g/dL (6.3-8.2)
[2022-11-27] MEDS: VASOPRESSIN 60 UNIT in SODIUM CHLORIDE 0.9% 150 ML IV SCH (05:21)
[2022-11-27 05:26] LABS: Anion Gap 4 mmol/L
[2022-11-27 05:35] LABS: Carbon Dioxide 41 mmol/L (22-30)
[2022-11-27 06:09] LABS: ABG Base Excess 17.5 mmol/L; ABG Oxygen Saturation 93.9 % (94-97); ABG PCO2 59 mmHg (35-45); ABG PH 7.45 (7.35-7.45); ABG PO2 64 mmHg (83-108); ABG TCO2 43 mmol/L (19-24); Allen Test Performed? Yes
[2022-11-27 06:28] LABS: ABG HCO3 41 mmol/L (21-25)
[2022-11-27] MEDS: SODIUM CHLORIDE 0.9% 1,000 ML IV SCH ×2 (06:39→18:58)
[2022-11-27 06:48] LABS: Glucose,Whole Blood 221 mg/dL (70-110)
--- NOTE | 2022-11-27 07:15 | P.PN ---
Subjective Progress Note Date: 11/27/22 Principal diagnosis: Cardiac pulmonary arrest The patient is a 57-year-old female patient with a past medical history significant for smoking and COPD who had out of the hospital cardiopulmonary arrest. She was brought to the hospital and the EKG showed sinus mechanism was our PCP. There was a concern about ventricular tachycardia/fibrillation. An emergent heart catheterization was performed and showed severe disease involving the ostial diagonal branch filled to be alleviated to the cardiopulmonary arrest. An echo is in process to be done. November [id number] The patient was seen and evaluated this morning. She still intubated and she is requiring norepinephrine. There is concern about anoxic encephalopathy. From the cardiovascular standpoint of view, and in the light of the above finding of heart catheterization, we will continue the current medical regimen. Follow-up with the echocardiogram. No need for any cardiac intervention at this point. Further recommendation to follow the echocardiogram Assessment Status post cardiopulmonary arrest Coronary artery disease as described above History of smoking COPD Plan Continue the current medical regimen Further recommendation to follow the echocardiogram Objective - Vital Signs Vital signs: Vital Signs Temp 99.9 F H 11/27/22 06:30 Pulse 113 H 11/27/22 07:00 Resp 20 11/27/22 07:00 BP 120/82 11/27/22 04:00 Pulse Ox 94 L 11/27/22 07:00 FiO2 60 11/27/22 04:47 Intake & Output 11/26/22 11/27/22 11/27/22 18:59 06:59 18:59 Intake Total 3294.740 100 Output Total 430 10 Balance 2864.740 90 Weight 65.227 kg 69.2 kg Intake: IV 2910 100 Piperacillin-Tazobactam 3 100 .375 gm In Sodium Chloride 0.9% 100 ml @ 25 mls/hr IVPB Q8H SYD Rx#: [id number] Sodium Chloride 0.9% 1, 1000 100 000 ml @ 100 mls/hr IV . Q10H SYD Rx#:[id number] Sodium Chloride 0.9% 500 1000 ml 500 ml @ 999 mls/hr IV .Q31M STA Rx#:[id number] Intake, IV Titration 384.740 Amount Norepinephrine 4 mg In 329.654 Sodium Chloride 0.9% 250 ml @ 0.05 MCG/KG/MIN 12. 426 mls/hr IV .[id number] SYD Rx#:[id number] propofoL 1,000 mg In 55.086 Empty Bag 1 bag @ 15 MCG/ KG/MIN 5.87 mls/hr IV . Q17H3M [facility] Rx#:[id number] Output: Gastric Drainage 150 Urine 280 10 Other: Voiding Method Indwelling Catheter ABP, PAP, CO, CI - Last Documented Arterial Blood Pressure 94/65 - Labs CBC & Chem 7: 11/27/22 04:30 11/27/22 04:30 Labs: Abnormal Lab Results - Last 24 Hours (Table) 11/26/22 11/26/22 11/26/22 Range/Units 19:04 19:04 19:04 WBC (3.8-10.6) k/uL Hct 49.8 H (34.0-46.0) % MCV 101.9 H (80.0-100.0) fL MCHC 28.8 L (31.0-37.0) g/dL Plt Count 130 L (150-450) k/uL Neutrophils # (1.3-7.7) k/uL Lymphocytes # (1.0-4.8) k/uL D-Dimer (<0.60) mg/L FEU ABG pH (7.35-7.45) ABG pCO2 (35-45) mmHg ABG pO2 (83-108) mmHg ABG HCO3 (21-25) mmol/L ABG Total CO2 (19-24) mmol/L ABG O2 Saturation (94-97) % Sodium 135 L (137-145) mmol/L Potassium 5.5 H (3.5-5.1) mmol/L Chloride 81 L (98-107) mmol/L Carbon Dioxide 38 H (22-30) mmol/L BUN (7-17) mg/dL Glucose 308 H (74-99) mg/dL POC Glucose (mg/dL) (70-110) mg/dL Plasma Lactic Acid Guevara (0.7-2.0) mmol/L Calcium (8.4-10.2) mg/dL Phosphorus (2.5-4.5) mg/dL AST 131 H (14-36) U/L ALT 93 H (4-34) U/L Troponin I 0.081 H* (0.000-0.034) ng/mL Total Protein 6.1 L (6.3-8.2) g/dL Albumin (3.5-5.0) g/dL 11/26/22 11/26/22 11/26/22 Range/Units 20:07 20:40 20:51 WBC (3.8-10.6) k/uL Hct (34.0-46.0) % MCV (80.0-100.0) fL MCHC (31.0-37.0) g/dL Plt Count (150-450) k/uL Neutrophils # (1.3-7.7) k/uL Lymphocytes # (1.0-4.8) k/uL D-Dimer (<0.60) mg/L FEU ABG pH 7.33 L (7.35-7.45) ABG pCO2 75 H* (35-45) mmHg ABG pO2 >400 H (83-108) mmHg ABG HCO3 40 H* (21-25) mmol/L ABG Total CO2 42 H (19-24) mmol/L ABG O2 Saturation 99.9 H (94-97) % Sodium 135 L (137-145) mmol/L Potassium 5.2 H (3.5-5.1) mmol/L Chloride 86 L (98-107) mmol/L Carbon Dioxide 39 H (22-30) mmol/L BUN (7-17) mg/dL Glucose 250 H (74-99) mg/dL POC Glucose (mg/dL) 313 H (70-110) mg/dL Plasma Lactic Acid Guevara (0.7-2.0) mmol/L Calcium (8.4-10.2) mg/dL Phosphorus 6.6 H (2.5-4.5) mg/dL AST 152 H (14-36) U/L ALT 90 H (4-34) U/L Troponin I (0.000-0.034) ng/mL Total Protein 6.0 L (6.3-8.2) g/dL Albumin (3.5-5.0) g/dL 11/26/22 11/26/22 11/27/22 Range/Units 20:51 23:05 03:10 WBC 13.3 H (3.8-10.6) k/uL Hct 49.5 H (34.0-46.0) % MCV 100.6 H (80.0-100.0) fL MCHC 30.2 L (31.0-37.0) g/dL Plt Count 136 L (150-450) k/uL Neutrophils # 11.7 H (1.3-7.7) k/uL Lymphocytes # 0.9 L (1.0-4.8) k/uL D-Dimer (<0.60) mg/L FEU ABG pH (7.35-7.45) ABG pCO2 (35-45) mmHg ABG pO2 (83-108) mmHg ABG HCO3 (21-25) mmol/L ABG Total CO2 (19-24) mmol/L ABG O2 Saturation (94-97) % Sodium (137-145) mmol/L Potassium (3.5-5.1) mmol/L Chloride (98-107) mmol/L Carbon Dioxide (22-30) mmol/L BUN (7-17) mg/dL Glucose (74-99) mg/dL POC Glucose (mg/dL) 240 H (70-110) mg/dL Plasma Lactic Acid Guevara 2.7 H* (0.7-2.0) mmol/L Calcium (8.4-10.2) mg/dL Phosphorus (2.5-4.5) mg/dL AST (14-36) U/L ALT (4-34) U/L Troponin I (0.000-0.034) ng/mL Total Protein (6.3-8.2) g/dL Albumin (3.5-5.0) g/dL 11/27/22 11/27/22 11/27/22 Range/Units 04:30 04:30 04:30 WBC 11.1 H (3.8-10.6) k/uL Hct (34.0-46.0) % MCV (80.0-100.0) fL MCHC (31.0-37.0) g/dL Plt Count 133 L (150-450) k/uL Neutrophils # 10.0 H (1.3-7.7) k/uL Lymphocytes # 0.5 L (1.0-4.8) k/uL D-Dimer 28.24 H (<0.60) mg/L FEU ABG pH (7.35-7.45) ABG pCO2 (35-45) mmHg ABG pO2 (83-108) mmHg ABG HCO3 (21-25) mmol/L ABG Total CO2 (19-24) mmol/L ABG O2 Saturation (94-97) % Sodium (137-145) mmol/L Potassium (3.5-5.1) mmol/L Chloride 92 L (98-107) mmol/L Carbon Dioxide 41 H* (22-30) mmol/L BUN 24 H (7-17) mg/dL Glucose 236 H (74-99) mg/dL POC Glucose (mg/dL) (70-110) mg/dL Plasma Lactic Acid Guevara (0.7-2.0) mmol/L Calcium 7.8 L (8.4-10.2) mg/dL Phosphorus 1.9 L (2.5-4.5) mg/dL AST 143 H (14-36) U/L ALT 91 H (4-34) U/L Troponin I (0.000-0.034) ng/mL Total Protein 5.2 L (6.3-8.2) g/dL Albumin 3.0 L (3.5-5.0) g/dL 11/27/22 11/27/22 Range/Units 06:05 06:47 WBC (3.8-10.6) k/uL Hct (34.0-46.0) % MCV (80.0-100.0) fL MCHC (31.0-37.0) g/dL Plt Count (150-450) k/uL Neutrophils # (1.3-7.7) k/uL Lymphocytes # (1.0-4.8) k/uL D-Dimer (<0.60) mg/L FEU ABG pH (7.35-7.45) ABG pCO2 59 H (35-45) mmHg ABG pO2 64 L (83-108) mmHg ABG HCO3 41 H* (21-25) mmol/L ABG Total CO2 43 H (19-24) mmol/L ABG O2 Saturation 93.9 L (94-97) % Sodium (137-145) mmol/L Potassium (3.5-5.1) mmol/L Chloride (98-107) mmol/L Carbon Dioxide (22-30) mmol/L BUN (7-17) mg/dL Glucose (74-99) mg/dL POC Glucose (mg/dL) 221 H (70-110) mg/dL Plasma Lactic Acid Guevara (0.7-2.0) mmol/L Calcium (8.4-10.2) mg/dL Phosphorus (2.5-4.5) mg/dL AST (14-36) U/L ALT (4-34) U/L Troponin I (0.000-0.034) ng/mL Total Protein (6.3-8.2) g/dL Albumin (3.5-5.0) g/dL
--- NOTE | 2022-11-27 07:50 | OP ---
OPERATIVE REPORT DATE OF SERVICE : PREOPERATIVE DIAGNOSES: Hypotension, frequent blood draws and blood gas checks. POSTOPERATIVE DIAGNOSES: Hypotension, frequent blood draws and blood gas checks. CO-SURGEON: CHUCK Bauer PROCEDURE PERFORMED: Right radial art line. ARTERIAL LINE PLACEMENT: Indications: Hemodynamic monitoring. A time-out was completed verifying correct patient, procedure, site, positioning, and implant(s) or special equipment if applicable. Shin's test was performed to ensure adequate perfusion. The patient's right/left wrist or right/left groin was prepped and draped in sterile fashion. 1% Lidocaine was used to anesthetize the area. An 18G Arrow arterial line was introduced into the radial/femoral artery. The catheter was threaded over the guide wire and the needle was removed with appropriate pulsatile blood return. Blood loss was minimal. The catheter was then sutured in place to the skin and a sterile dressing applied. Perfusion to the extremity distal to the point of catheter insertion was checked and found to be adequate. There was good waveform and blood pressure reading. The patient tolerated the procedure well. The art line was sutured in place. There was no immediate complication. MMODL / IJN: [id number] /
--- NOTE | 2022-11-27 08:01 | XR ---
EXAMINATION TYPE: XR chest 1V portable DATE OF EXAM: 11/27/2022 Comparison: 11/27/2022 Clinical History: 57-year-old female Tube placement Findings: The extreme apices are from view. ET and NG tubes are satisfactory. Heart is normal size. Interstitia l densities in the mid and lower lungs similar to possibly minimally increased. Suspect background bu llous emphysema. No pleural effusion. Impression: Suspect background bullous emphysema. Ongoing interstitial opacities/infiltrates at the mid and lower lungs which may be slightly increased.
[2022-11-27] MEDS: PANTOPRAZOLE 40 MG/10 ML VIAL IV SCH (08:20)
[2022-11-27] MEDS: HEPARIN SODIUM,PORCINE/PF 5,000 UNIT/0.5 ML SYRINGE SQ SCH ×2 (08:21→20:41)
[2022-11-27] MEDS: MAGNESIUM SULFATE-D5W PMX 1 GM in DEXTROSE/WATER 1 100ML.BAG IVPB SCH ×2 (08:21→09:09)
[2022-11-27] MEDS: CHLORHEXIDINE GLUCONATE 15 ML CUP MUCOUS MEM SCH ×2 (08:21→20:40)
[2022-11-27 08:27] LABS: Appearance,Urine Turbid (Clear); Bacteria,Urine Rare /hpf; Bilirubin,Urine 1+ (Negative); Blood,Urine Small (Negative); Color,Urine Yellow; Glucose,Urine (UA) 1+ (Negative); Ketones,Urine Trace (Negative); Leukocyte Esterase,Urine Small (Negative); Nitrite,Urine Negative (Negative); Protein,Urine 2+ (Negative); RBC,Urine 33 /hpf (0-5); Squamous Epithelial Cell,Urine <1 /hpf (0-4); WBC,Urine 20 /hpf (0-5)
[2022-11-27 08:28] LABS: Specific Gravity,Urine >1.050 (1.001-1.035)
[2022-11-27] MEDS: BUDESONIDE 1 MG/2 ML NEBU INHALATION SCH ×2 (08:34→19:51)
[2022-11-27] MEDS: FORMOTEROL FUMARATE 20 MCG/2 ML NEBU INHALATION SCH ×2 (08:34→19:51)
[2022-11-27 08:37] LABS: Glucose,Whole Blood 235 mg/dL (70-110)
[2022-11-27] MEDS ORDERED: CISATRACURIUM 2 MG/ML 5 ML VIAL IV ONE ×2 (09:16→09:18)
--- NOTE | 2022-11-27 09:52 | XR ---
EXAMINATION TYPE: XR chest 1V confirm line [facility] DATE OF EXAM: 11/27/2022 HISTORY: Shortness of breath. COMPARISON: 11/27/2022 TECHNIQUE: Single view of the chest is submitted. FINDINGS: Endotracheal tube is 5.4 cm from the susana unchanged from prior study. NG tube is seen coursing into the stomach. Left IJ central venous line with its distal tip overlying the SVC. No evidence of pneum othorax. Left perihilar and basilar reticular nodular infiltrates persist. Moderate emphysematous changes pers ist. The heart is stable. Hilar and mediastinal structures are within normal limits. Degenerative changes are seen of the dorsal spine. IMPRESSION: 1. Indwelling tubes and catheters as noted. 2. Left perihilar and basilar reticular nodular infiltrates persist.
--- NOTE | 2022-11-27 09:56 | PCN ---
PROCEDURE NOTE PROCEDURES PERFORMED: Left internal jugular triple-lumen catheter. PREOPERATIVE DIAGNOSIS: Administration of fluids and pressors. POSTOPERATIVE DIAGNOSIS: Administration of fluids and pressors. We used the left internal jugular vein. We went via the posterior approach. TRIPLE LUMEN CATHETER PLACEMENT: Indication: Hemodynamic monitoring/Intravenous access. A time-out was completed verifying correct patient, procedure, site, positioning, and implant(s) or special equipment if applicable. The patient was placed in a dependent position appropriate for triple lumen catheter placement based on the vein to be cannulated. The patient's left neck was prepped and draped in sterile fashion. 1% Lidocaine was used to anesthetize the surrounding skin area. A triple lumen 9F Cordis catheter was introduced into the left internal jugular vein using Seldinger technique. The catheter was threaded smoothly over the guide wire and appropriate blood return was obtained. Each lumen of the catheter was evacuated of air and flushed with sterile saline. The catheter was then sutured in place to the skin and a sterile dressing applied. Perfusion to the extremity distal to the point of catheter insertion was checked and found to be adequate. There was good blood return from all 3 ports. The patient tolerated the procedure well. The catheter was sutured in place. Sterile dressing was applied by the nurse. The tip of the catheter was seen at the junction of superior vena cava right atrium. There was no immediate complication. Chest x-ray records were ordered. MARCO / JENN: [id number] /
[2022-11-27] MEDS ORDERED: NOREPINEPHRINE 8 MG in SODIUM CHLORIDE 0.9% 250 ML IV SCH (11:15)
[2022-11-27 11:46] LABS: Glucose,Whole Blood 243 mg/dL (70-110)
[2022-11-27 12:31] VITALS: BMI 25.4
--- NOTE | 2022-11-27 13:10 | P.CNNES ---
History of Present Illness Consult date: 11/27/22 Requesting physician: Riaz Goodwin Reason for Consult: neuro responses post cardiac arrest History of Present Illness: This is a 57-year-old woman with significant history of COPD, obstructive sleep apnea on BiPAP, tobacco use who presented emergency department because of outside hospital cardiac arrest. History was obtained from medical record and ICU nure. It appears the patient was found down at home by family members she was last normal at 4:30 PM yesterday and then was found down at 6:30 PM yesterday. EMS was called and the patient the was found to be pulseless ventricular tachycardia and the patient was intubated in the field and [place] was achieved at. The exact downtime is unknown. 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 It is reported the patient clinical presentation is not explained by the cardiac cath finding. It appears at as if the patient had respiratory arrest related to her underlying COPD according to the cath note (by Dr. Stewart). According to patient nurse, she is on IV propofol 30mcg/kg/hr in AM that was turned weaned down then eventually turned off around 11:45A.M. She was given Nimbex 10mg once around 9:18A.M Some of the workup during this hospital visit consisted of: Initial serum glucose is 308 and was currently it's in the 200s. AST is 143 ALTs 91. Ammonia level is 17. His recent sodium is 137. ABG most recent bicarbonate is 41, the pO2 is a 64 and the CO2 was 59 pH is 7.45 and oxygen saturation is 93.9. Past Medical History Past Medical History: COPD Additional Past Medical History / Comment(s): STRESS URINARY INCONTINENCE. MINIMAL LUNG FUNCTION. SLEEP APNEA (DOES NOT USE CPAP) History of Any Multi-Drug Resistant Organisms: None Reported Past Surgical History: Cholecystectomy, Tonsillectomy, Tubal Ligation Additional Past Surgical History / Comment(s): CERVICAL SURGERY, pneumothorax CHEST TUBE Past Anesthesia/Blood Transfusion Reactions: No Reported Reaction Past Psychological History: No Psychological Hx Reported Smoking Status: Current every day smoker Past Alcohol Use History: None Reported Past Drug Use History: None Reported - Past Family History Sister(s) Family Medical History: Deep Vein Thrombosis (DVT), Pulmonary Embolus Brother(s) Family Medical History: Deep Vein Thrombosis (DVT) Medications and Allergies Home Medications Medication Instructions Recorded Confirmed Type Albuterol Sulfate [Albuterol 2 puff PO RT-Q4H 07/04/21 11/26/22 History Sulfate Hfa] Fluticasone/Umeclidin/Vilanter 1 puff INHALATION RT-DAILY 07/04/21 11/26/22 History [Trelegy Ellipta 100-62.5-25] Furosemide [Lasix] 40 mg PO DAILY 07/04/21 11/26/22 History Allergies Allergy/AdvReac Type Severity Reaction Status Date / Time No Known Allergies Allergy Verified 04/05/22 19:13 Physical Examination - Vital Signs Vital Signs: Vital Signs Temp Pulse Resp BP Pulse Ox FiO2 11/27/22 12:04 112 H 11/27/22 12:00 98.9 F 114 H 20 95 60 11/27/22 11:59 60 11/27/22 11:30 114 H 20 96 11/27/22 11:00 117 H 20 94 L 11/27/22 10:30 112 H 20 95 11/27/22 10:00 115 H 20 95 11/27/22 09:30 116 H 20 94 L 11/27/22 09:00 112 H 20 94 L 60 11/27/22 08:57 112 H 11/27/22 08:56 112 H 11/27/22 08:34 110 H 11/27/22 08:30 112 H 20 95 11/27/22 08:28 60 11/27/22 08:00 100.3 F H 112 H 20 94 L 60 11/27/22 07:30 112 H 20 94 L 11/27/22 07:00 113 H 20 94 L 11/27/22 06:45 113 H 20 94 L 11/27/22 06:30 99.9 F H 121 H 20 95 11/27/22 06:15 112 H 20 94 L 11/27/22 06:00 112 H 20 93 L 11/27/22 05:45 120 H 20 92 L 11/27/22 05:30 115 H 20 94 L 11/27/22 05:15 128 H 20 92 L 11/27/22 05:12 122 H 11/27/22 05:00 125 H 20 93 L 11/27/22 04:47 118 H 60 11/27/22 04:45 130 H 20 94 L 11/27/22 04:30 140 H 20 94 L 11/27/22 04:15 99.1 F 142 H 20 93 L 60 11/27/22 04:00 98.9 F 142 H 20 120/82 92 L 60 11/27/22 03:45 130 H 72 H 94 L 11/27/22 03:30 125 H 9 L 96 11/27/22 03:15 123 H 20 111/80 96 11/27/22 03:00 118 H 20 117/87 96 11/27/22 02:45 116 H 20 95 11/27/22 02:30 113 H 20 96 11/27/22 02:15 113 H 20 96 11/27/22 02:00 114 H 20 96 11/27/22 01:45 112 H 20 96 11/27/22 01:30 110 H 20 96 11/27/22 01:15 111 H 20 96 11/27/22 01:00 111 H 20 96/69 96 11/27/22 00:50 111 H 11/27/22 00:45 114 H 20 96/69 92 L 11/27/22 00:36 114 H 60 11/27/22 00:30 112 H 20 92 L 11/27/22 00:15 20 90 L 11/27/22 00:00 98.0 F 111 H 20 88 L 60 11/26/22 23:45 111 H 20 89 L 11/26/22 23:30 110 H 20 91 L 11/26/22 23:15 111 H 20 94 L 11/26/22 23:00 112 H 13 76/57 90 L 11/26/22 22:45 113 H 3 L 67/50 90 L 11/26/22 22:30 102 H 20 51/35 91 L 11/26/22 22:15 102 H 20 79/44 94 L 11/26/22 22:00 96 20 80/57 95 11/26/22 21:45 101 H 20 72/53 92 L 11/26/22 21:32 60 11/26/22 21:30 95 20 80/63 90 L 11/26/22 21:15 95 20 93/36 86 L 11/26/22 21:00 93 20 87/55 11/26/22 20:53 40 11/26/22 20:48 60 05/21/23 20:45 86 20 90/51 100 11/26/22 20:30 81 20 85/51 99 11/26/22 20:15 94 F L 77 20 101/66 100 11/26/22 20:09 78 14 101/66 99 11/26/22 19:15 78 33 H 103/66 98 11/26/22 19:04 80 18 94/61 98 11/26/22 18:58 100 11/26/22 18:56 84 14 88/56 98 11/26/22 18:55 100 Intake and Output 11/26/22 11/27/22 11/27/22 22:59 06:59 14:59 Intake Total 8892.445 6576.592 860.142 Output Total 170 260 170 Balance 176.916 3826.592 690.142 Intake: IV 1010 1900 600 Piperacillin-Tazobactam 3 100 .375 gm In Sodium Chloride 0.9% 100 ml @ 25 mls/hr IVPB Q8H SYD Rx#: [id number] Sodium Chloride 0.9% 1, 200 800 600 000 ml @ 100 mls/hr IV . Q10H SYD Rx#:[id number] Sodium Chloride 0.9% 500 1000 ml 500 ml @ 999 mls/hr IV .Q31M STA Rx#:[id number] Intake, IV Titration 52.148 332.592 260.142 Amount Magnesium Sulfate-D5w Pmx 100 1 gm In Dextrose/Water 1 100ml.bag @ 100 mls/hr IVPB Q1H SYD Rx#: [id number] Norepinephrine 4 mg In 49.702 279.952 127.985 Sodium Chloride 0.9% 250 ml @ 0.05 MCG/KG/MIN 12. 426 mls/hr IV .[id number] SYD Rx#:[id number] propofoL 1,000 mg In 2.446 52.640 32.157 Empty Bag 1 bag @ 15 MCG/ KG/MIN 5.87 mls/hr IV . Q17H3M SYD Rx#:[id number] Output: Gastric Drainage 150 Urine 170 110 170 Other: Voiding Method Indwelling Catheter Indwelling Catheter Weight 65.227 kg 69.2 kg 69.2 kg ABP, PAP, CO, CI - Last 8 Hours Arterial Blood Pressure 96/63 Arterial Blood Pressure 101/64 Arterial Blood Pressure 89/62 Arterial Blood Pressure 106/68 Arterial Blood Pressure 93/64 Arterial Blood Pressure 109/72 Arterial Blood Pressure 113/72 Arterial Blood Pressure 120/74 Arterial Blood Pressure 98/65 Arterial Blood Pressure 99/66 Arterial Blood Pressure 94/65 Arterial Blood Pressure 99/68 Arterial Blood Pressure 146/85 Arterial Blood Pressure 83/58 Arterial Blood Pressure 80/55 Arterial Blood Pressure 81/57 Arterial Blood Pressure 108/67 Arterial Blood Pressure 59/43 Arterial Blood Pressure 57/40 General: Is lying in bed and does not appear in acute distress. Lung: Intubated on ventilator. Cardio: No edema noted in lowers. Neuro: Very limited because of condition. IV propofol has been held for 1 hour prior to examination (was on 30mcg/kg/min in A.M. and received 10mg Nimbex dose at 9;18A.M.) Higher mental function: Comatose GCS 3 (E1, VT1, M1). No following commands or verbalizing. I had to manually open eyes. Primary gaze is midline. Right pupil is 6mm and left 5mm and nonreactive to light. No corneal reflex or occulocephalic reflex. No gag or cough. Not breathing over the vent (AC set at 20 and is breathing at 20. Upon taking setting down to 1 not breathing over the vent). No facial w eakness. Strength: No movement noted. Sensory: Unable to assess but no movement and not grimacing to painful stimuli. Reflex: 0 throughout. Plantars: Mute bilaterally. Results - Laboratory Findings CBC and BMP: 11/27/22 04:30 11/27/22 04:30 Abnormal Lab Findings: Abnormal Labs 11/26/22 11/26/22 11/26/22 19:04 19:04 19:04 WBC Hct 49.8 H MCV 101.9 H MCHC 28.8 L Plt Count 130 L Neutrophils # Lymphocytes # D-Dimer ABG pH ABG pCO2 ABG pO2 ABG HCO3 ABG Total CO2 ABG O2 Saturation Sodium 135 L Potassium 5.5 H Chloride 81 L Carbon Dioxide 38 H BUN Glucose 308 H POC Glucose (mg/dL) Plasma Lactic Acid [place] Calcium Phosphorus AST 131 H ALT 93 H Troponin I 0.081 H* Total Protein 6.1 L Albumin Urine Appearance Ur Specific [place] Urine Protein Urine Glucose (UA) Urine Ketones Urine Blood Urine Bilirubin Ur Leukocyte Esterase Urine RBC Urine WBC Urine Bacteria 11/26/22 11/26/22 11/26/22 20:07 20:40 20:51 WBC Hct MCV MCHC Plt Count Neutrophils # Lymphocytes # D-Dimer ABG pH 7.33 L ABG pCO2 75 H* ABG pO2 >400 H ABG HCO3 40 H* ABG Total CO2 42 H ABG O2 Saturation 99.9 H Sodium 135 L Potassium 5.2 H Chloride 86 L Carbon Dioxide 39 H BUN Glucose 250 H POC Glucose (mg/dL) 313 H Plasma Lactic Acid [place] Calcium Phosphorus 6.6 H AST 152 H ALT 90 H Troponin I Total Protein 6.0 L Albumin Urine Appearance Ur Specific [place] Urine Protein Urine Glucose (UA) Urine Ketones Urine Blood Urine Bilirubin Ur Leukocyte Esterase Urine RBC Urine WBC Urine Bacteria 11/26/22 11/26/22 11/27/22 20:51 23:05 03:10 WBC 13.3 H Hct 49.5 H MCV 100.6 H MCHC 30.2 L Plt Count 136 L Neutrophils # 11.7 H Lymphocytes # 0.9 L D-Dimer ABG pH ABG pCO2 ABG pO2 ABG HCO3 ABG Total CO2 ABG O2 Saturation Sodium Potassium Chloride Carbon Dioxide BUN Glucose POC Glucose (mg/dL) 240 H Plasma Lactic Acid [place] 2.7 H* Calcium Phosphorus AST ALT Troponin I Total Protein Albumin Urine Appearance Ur Specific [place] Urine Protein Urine Glucose (UA) Urine Ketones Urine Blood Urine Bilirubin Ur Leukocyte Esterase Urine RBC Urine WBC Urine Bacteria 11/27/22 11/27/22 11/27/22 04:30 04:30 04:30 WBC 11.1 H Hct MCV MCHC Plt Count 133 L Neutrophils # 10.0 H Lymphocytes # 0.5 L D-Dimer 28.24 H ABG pH ABG pCO2 ABG pO2 ABG HCO3 ABG Total CO2 ABG O2 Saturation Sodium Potassium Chloride 92 L Carbon Dioxide 41 H* BUN 24 H Glucose 236 H POC Glucose (mg/dL) Plasma Lactic Acid [place] Calcium 7.8 L Phosphorus 1.9 L AST 143 H ALT 91 H Troponin I Total Protein 5.2 L Albumin 3.0 L Urine Appearance Ur Specific [place] Urine Protein Urine Glucose (UA) Urine Ketones Urine Blood Urine Bilirubin Ur Leukocyte Esterase Urine RBC Urine WBC Urine Bacteria 11/27/22 11/27/22 11/27/22 06:05 06:47 07:44 WBC Hct MCV MCHC Plt Count Neutrophils # Lymphocytes # D-Dimer ABG pH ABG pCO2 59 H ABG pO2 64 L ABG HCO3 41 H* ABG Total CO2 43 H ABG O2 Saturation 93.9 L Sodium Potassium Chloride Carbon Dioxide BUN Glucose POC Glucose (mg/dL) 221 H Plasma Lactic Acid [place] Calcium Phosphorus AST ALT Troponin I Total Protein Albumin Urine Appearance Turbid H Ur Specific [place] >1.050 H Urine Protein 2+ H Urine Glucose (UA) 1+ H Urine Ketones Trace H Urine Blood Small H Urine Bilirubin 1+ H Ur Leukocyte Esterase Small H Urine RBC 33 H Urine WBC 20 H Urine Bacteria Rare H 11/27/22 11/27/22 08:35 11:44 WBC Hct MCV MCHC Plt Count Neutrophils # Lymphocytes # D-Dimer ABG pH ABG pCO2 ABG pO2 ABG HCO3 ABG Total CO2 ABG O2 Saturation Sodium Potassium Chloride Carbon Dioxide BUN Glucose POC Glucose (mg/dL) 235 H 243 H Plasma Lactic Acid [place] Calcium Phosphorus AST ALT Troponin I Total Protein Albumin Urine Appearance Ur Specific [place] Urine Protein Urine Glucose (UA) Urine Ketones Urine Blood Urine Bilirubin Ur Leukocyte Esterase Urine RBC Urine WBC Urine Bacteria Assessment and Plan Assessment: Out of the hospital cardiopulmomary arrest of unknown downtime. She was last seen normal at 4:3030 p.m. on 11/26/2022 and was found down at 6:30 PM. Presented with a rhythm of pulseless ventricular tachycardia with [place] achieved on the field. Per Report possible due to respiratory arrest. Anoxic brain injury due to above Focal significant stenosis involving the ostial portion of the diagonal branch Acute on chronic hypoxemic and hypercapnic respiratory failure History of COPD Elevated liver function Obstructive sleep apnea Chronic nicotine dependence Plan: I ordered an EEG as well as a CT of the head. Defer the rest of the medical management to the primary and ICU team. Cardiology is on board Condition is critical. I feel overall prognosis appears very poor. So far there is no brainstem reflexes but the patient was on IV propofol and Nimbex that she received early in the morning. Please avoid any sedation for a good neurological examination. The plan was discussed with the patient's ICU nurse at. We'll attempt to speak with the family. Thank you for the consultation. UPDATE around 3:40pm: Routine EEG: Is abnormal. There is no cerebral activity over bilateral hemisphere. No focal slowing, epileptiform discharges or seizure. CT head is reported as atrophy and chronic small vessel ischemic change without acute intracranial process seen at this time. I personally reviewed the CT of the head and I personally feel the patient has diffuse global cerebral edema that is significant. The edema is compressing on the entire ventricular system and I only appreciate small size of the anterior horn bilateral ventricles. I spoke with the patient's family members (daughter and son) and they stated she was last seen normal yesterday at 2:30pm yesterday and then when came back at around 6pm she unresponsive. I have updated them on patient's condition and that it appears very poor (especially with severe global cerebral edema, no cerebral activity on routine EEG and clinically) and they want to move forward with [employer] [facility] life since that was the patient's wish. In the mean time, I have ordered a dose of Mannitol IV. Spoke with [facility] team and I have asked her if there is anybody that I can speak with to expedite the process of donation and was told no. Time with Patient: Greater than 30
--- NOTE | 2022-11-27 13:29 | CT ---
EXAMINATION TYPE: CT brain wo con DATE OF EXAM: 11/27/2022 COMPARISON: None HISTORY: Altered mental status CT DLP: 1158.[address] of the brain was performed. The ventricles, basal cisterns and sulci overlying the cerebral convexities demonstrate mild enlargem ent. Examination is limited with regards to small hemorrhage given the fact that there is contrast within the arterial and venous system from recent cardiac catheterization. There is decreased attenuation about the periventricular white matter and deep white matter of both c erebral hemispheres, compatible with chronic small vessel ischemia. Differential diagnosis does inclu de demyelination. No mass effects are seen.No midline shift. Osseous calvarium is intact. Mild chronic pansinusitis. If symptoms persist consider MRI. IMPRESSION: 1. Age related atrophic and chronic small vessel ischemic change without acute intracranial process s een at this time.
--- NOTE | 2022-11-27 13:49 | P.HPIM ---
History of Present Illness H&P Date: 11/27/22 History of present illness; patient is a 57-year-old white female with past medical history significant for severe COPD,smoking brought in to the ER after being found unresponsive at home. Apparently, yesterday evening the patient was found down at home by her family member who was out of the house for a couple hours. EMS was called and the patient was found to be in pulseless ventricular tachycardia, patient was cardioverted and was intubated in the field, and ROSC was achieved. Estimated downtime is unknown. Patient was transferred to [facility] . On arrival to the emergency room, there was concern for an ST elevation ND, and the patient was taken to the Acute Care Nurse. Findings indicated a 70-80% stenosed diagonal branch, without any significant disease of the LAD or remaining vessels. It was felt that the patient's cardiac arrest was not related to her coronary artery disease, and no PCI or stenting were performed. Patient was later transferred to ICU. REVIEW OF SYSTEMS: Cannot be obtained as patient is intubated and sedated PHYSICAL EXAMINATION: GENERAL: The patient is intubated, HEENT: . No corneal reflex or occulocephalic reflex. No gag or cough.No conjunctival pallor. Normocephalic, atraumatic. No pharyngeal erythema. No thyromegaly. CARDIOVASCULAR: S1 and S2 present. No murmurs, rubs, or gallops. PULMONARY: Chest is clear to auscultation, no wheezing or crackles. ABDOMEN: Soft, nontender, nondistended, normoactive bowel sounds. No palpable organomegaly. MUSCULOSKELETAL: No joint swelling or deformity. EXTREMITIES: No cyanosis, clubbing, or pedal edema. NEUROLOGICAL: Currently intubated and sedated SKIN: No rashes. Assessment and plan cardiac arrest with unknown downtime. pulseless ventricular tachycardia Acute COPD exacerbation Acute on chronic hypoxemic and hypercapnic respiratory failure secondary to above, currently on the mechanical ventilator Hypotension and shock currently requiring vasopressors Lactic acidosis Elevated LFTs, probably related to shock liver Elevated troponins, post cardiac arrest Hyperglycemia, with no documented history of diabetes Leukocytosis Obstructive sleep apnea, with home BiPAP and questionable compliance Chronic nicotine dependence, reportedly a current 2 pack per day smoker Plan; monitor vital signs Monitor CBC monitor CMP Continue telemetry monitoring Continue vent management per ICU Continue Levophed Continue prophylactic antibiotics in the form of IV Zosyn EEG ordered CT head without contrast ordered Neurology consulted Critical care following the patient Past Medical History Past Medical History: COPD Additional Past Medical History / Comment(s): STRESS URINARY INCONTINENCE. MINIMAL LUNG FUNCTION. SLEEP APNEA (DOES NOT USE CPAP) History of Any Multi-Drug Resistant Organisms: None Reported Past Surgical History: Cholecystectomy, Tonsillectomy, Tubal Ligation Additional Past Surgical History / Comment(s): CERVICAL SURGERY, pneumothorax CH EST TUBE Past Anesthesia/Blood Transfusion Reactions: No Reported Reaction Past Psychological History: No Psychological Hx Reported Smoking Status: Current every day smoker Past Alcohol Use History: None Reported Past Drug Use History: None Reported - Past Family History Sister(s) Family Medical History: Deep Vein Thrombosis (DVT), Pulmonary Embolus Brother(s) Family Medical History: Deep Vein Thrombosis (DVT) Medications and Allergies Home Medications Medication Instructions Recorded Confirmed Type Albuterol Sulfate [Albuterol 2 puff PO RT-Q4H 07/04/21 11/26/22 History Sulfate Hfa] Fluticasone/Umeclidin/Vilanter 1 puff INHALATION RT-DAILY 07/04/21 11/26/22 History [Trelegy Ellipta 100-62.5-25] Furosemide [Lasix] 40 mg PO DAILY 07/04/21 11/26/22 History Allergies Allergy/AdvReac Type Severity Reaction Status Date / Time No Known Allergies Allergy Verified 04/05/22 19:13 Physical Exam Vitals: Vital Signs Temp Pulse Resp BP Pulse Ox FiO2 11/27/22 09:00 112 H 20 94 L 60 11/27/22 08:57 112 H 11/27/22 08:56 112 H 11/27/22 08:34 110 H 11/27/22 08:30 112 H 20 95 11/27/22 08:28 60 11/27/22 08:00 100.3 F H 112 H 20 94 L 60 11/27/22 07:30 112 H 20 94 L 11/27/22 07:00 113 H 20 94 L 11/27/22 06:45 113 H 20 94 L 11/27/22 06:30 99.9 F H 121 H 20 95 11/27/22 06:15 112 H 20 94 L 11/27/22 06:00 112 H 20 93 L 11/27/22 05:45 120 H 20 92 L 11/27/22 05:30 115 H 20 94 L 11/27/22 05:15 128 H 20 92 L 11/27/22 05:12 122 H 11/27/22 05:00 125 H 20 93 L 11/27/22 04:47 118 H 60 11/27/22 04:45 130 H 20 94 L 11/27/22 04:30 140 H 20 94 L 11/27/22 04:15 99.1 F 142 H 20 93 L 60 11/27/22 04:00 98.9 F 142 H 20 120/82 92 L 60 11/27/22 03:45 130 H 72 H 94 L 11/27/22 03:30 125 H 9 L 96 11/27/22 03:15 123 H 20 111/80 96 11/27/22 03:00 118 H 20 117/87 96 11/27/22 02:45 116 H 20 95 11/27/22 02:30 113 H 20 96 11/27/22 02:15 113 H 20 96 11/27/22 02:00 114 H 20 96 11/27/22 01:45 112 H 20 96 11/27/22 01:30 110 H 20 96 11/27/22 01:15 111 H 20 96 11/27/22 01:00 111 H 20 96/69 96 11/27/22 00:50 111 H 11/27/22 00:45 114 H 20 96/69 92 L 11/27/22 00:36 114 H 60 11/27/22 00:30 112 H 20 92 L 11/27/22 00:15 20 90 L 11/27/22 00:00 98.0 F 111 H 20 88 L 60 11/26/22 23:45 111 H 20 89 L 11/26/22 23:30 110 H 20 91 L 11/26/22 23:15 111 H 20 94 L 11/26/22 23:00 112 H 13 76/57 90 L 11/26/22 22:45 113 H 3 L 67/50 90 L 11/26/22 22:30 102 H 20 51/35 91 L 11/26/22 22:15 102 H 20 79/44 94 L 11/26/22 22:00 96 20 80/57 95 11/26/22 21:45 101 H 20 72/53 92 L 11/26/22 21:32 60 05/21/23 21:30 95 20 80/63 90 L 11/26/22 21:15 95 20 93/36 86 L 11/26/22 21:00 93 20 87/55 11/26/22 20:53 40 11/26/22 20:48 60 11/26/22 20:45 86 20 90/51 100 11/26/22 20:30 81 20 85/51 99 11/26/22 20:15 94 F L 77 20 101/66 100 11/26/22 20:09 78 14 101/66 99 11/26/22 19:15 78 33 H 103/66 98 11/26/22 19:04 80 18 94/61 98 11/26/22 18:58 100 11/26/22 18:56 84 14 88/56 98 11/26/22 18:55 100 Intake and Output 11/26/22 11/27/22 11/27/22 22:59 06:59 14:59 Intake Total 2689.636 7839.592 553.619 Output Total 170 260 70 Balance 147.011 0479.592 483.619 Intake: IV 1010 1900 300 Piperacillin-Tazobactam 3 100 .375 gm In Sodium Chloride 0.9% 100 ml @ 25 mls/hr IVPB Q8H SYD Rx#: [id number] Sodium Chloride 0.9% 1, 200 800 300 000 ml @ 100 mls/hr IV . Q10H SYD Rx#:[id number] Sodium Chloride 0.9% 500 1000 ml 500 ml @ 999 mls/hr IV .Q31M STA Rx#:[id number] Intake, IV Titration 52.148 332.592 253.619 Amount Magnesium Sulfate-D5w Pmx 100 1 gm In Dextrose/Water 1 100ml.bag @ 100 mls/hr IVPB Q1H SYD Rx#: [id number] Norepinephrine 4 mg In 49.702 279.952 127.985 Sodium Chloride 0.9% 250 ml @ 0.05 MCG/KG/MIN 12. 426 mls/hr IV .[id number] SYD Rx#:[id number] propofoL 1,000 mg In 2.446 52.640 25.634 Empty Bag 1 bag @ 15 MCG/ KG/MIN 5.87 mls/hr IV . Q17H3M SYD Rx#:[id number] Output: Gastric Drainage 150 Urine 170 110 70 Other: Voiding Method Indwelling Catheter Weight 65.227 kg 69.2 kg ABP, PAP, CO, CI - Last 8 Hours Arterial Blood Pressure 113/72 Arterial Blood Pressure 120/74 Arterial Blood Pressure 98/65 Arterial Blood Pressure 99/66 Arterial Blood Pressure 94/65 Arterial Blood Pressure 99/68 Arterial Blood Pressure 146/85 Arterial Blood Pressure 83/58 Arterial Blood Pressure 80/55 Arterial Blood Pressure 81/57 Arterial Blood Pressure 108/67 Arterial Blood Pressure 59/43 Arterial Blood Pressure 57/40 Arterial Blood Pressure 82/53 Arterial Blood Pressure 90/58 Arterial Blood Pressure 86/62 Arterial Blood Pressure 90/60 Arterial Blood Pressure 92/61 Arterial Blood Pressure 109/98 Arterial Blood Pressure 93/87 Arterial Blood Pressure 90/82 Arterial Blood Pressure 94/79 Arterial Blood Pressure 100/76 Arterial Blood Pressure 90/83 Arterial Blood Pressure 118/68 Arterial Blood Pressure 95/70 Results CBC & Chem 7: 11/27/22 04:30 11/27/22 04:30 Labs: Abnormal Lab Results - Last 24 Hours (Table) 11/26/22 11/26/22 11/26/22 Range/Units 19:04 19:04 19:04 WBC (3.8-10.6) k/uL Hct 49.8 H (34.0-46.0) % MCV 101.9 H (80.0-100.0) fL MCHC 28.8 L (31.0-37.0) g/dL Plt Count 130 L (150-450) k/uL Neutrophils # (1.3-7.7) k/uL Lymphocytes # (1.0-4.8) k/uL D-Dimer (<0.60) mg/L FEU ABG pH (7.35-7.45) ABG pCO2 (35-45) mmHg ABG pO2 (83-108) mmHg ABG HCO3 (21-25) mmol/L ABG Total CO2 (19-24) mmol/L ABG O2 Saturation (94-97) % Sodium 135 L (137-145) mmol/L Potassium 5.5 H (3.5-5.1) mmol/L Chloride 81 L (98-107) mmol/L Carbon Dioxide 38 H (22-30) mmol/L BUN (7-17) mg/dL Glucose 308 H (74-99) mg/dL POC Glucose (mg/dL) (70-110) mg/dL Plasma Lactic Acid Guevara (0.7-2.0) mmol/L Calcium (8.4-10.2) mg/dL Phosphorus (2.5-4.5) mg/dL AST 131 H (14-36) U/L ALT 93 H (4-34) U/L Troponin I 0.081 H* (0.000-0.034) ng/mL Total Protein 6.1 L (6.3-8.2) g/dL Albumin (3.5-5.0) g/dL Urine Appearance (Clear) Ur Specific [place] (1.001-1.035) Urine Protein (Negative) Urine Glucose (UA) (Negative) Urine Ketones (Negative) Urine Blood (Negative) Urine Bilirubin (Negative) Ur Leukocyte Esterase (Negative) Urine RBC (0-5) /hpf Urine WBC (0-5) /hpf Urine Bacteria (None) /hpf 11/26/22 11/26/22 11/26/22 Range/Units 20:07 20:40 20:51 WBC (3.8-10.6) k/uL Hct (34.0-46.0) % MCV (80.0-100.0) fL MCHC (31.0-37.0) g/dL Plt Count (150-450) k/uL Neutrophils # (1.3-7.7) k/uL Lymphocytes # (1.0-4.8) k/uL D-Dimer (<0.60) mg/L FEU ABG pH 7.33 L (7.35-7.45) ABG pCO2 75 H* (35-45) mmHg ABG pO2 >400 H (83-108) mmHg ABG HCO3 40 H* (21-25) mmol/L ABG Total CO2 42 H (19-24) mmol/L ABG O2 Saturation 99.9 H (94-97) % Sodium 135 L (137-145) mmol/L Potassium 5.2 H (3.5-5.1) mmol/L Chloride 86 L (98-107) mmol/L Carbon Dioxide 39 H (22-30) mmol/L BUN (7-17) mg/dL Glucose 250 H (74-99) mg/dL POC Glucose (mg/dL) 313 H (70-110) mg/dL Plasma Lactic Acid Guevara (0.7-2.0) mmol/L Calcium (8.4-10.2) mg/dL Phosphorus 6.6 H (2.5-4.5) mg/dL AST 152 H (14-36) U/L ALT 90 H (4-34) U/L Troponin I (0.000-0.034) ng/mL Total Protein 6.0 L (6.3-8.2) g/dL Albumin (3.5-5.0) g/dL Urine Appearance (Clear) Ur Specific [place] (1.001-1.035) Urine Protein (Negative) Urine Glucose (UA) (Negative) Urine Ketones (Negative) Urine Blood (Negative) Urine Bilirubin (Negative) Ur Leukocyte Esterase (Negative) Urine RBC (0-5) /hpf Urine WBC (0-5) /hpf Urine Bacteria (None) /hpf 11/26/22 11/26/22 11/27/22 Range/Units 20:51 23:05 03:10 WBC 13.3 H (3.8-10.6) k/uL Hct 49.5 H (34.0-46.0) % MCV 100.6 H (80.0-100.0) fL MCHC 30.2 L (31.0-37.0) g/dL Plt Count 136 L (150-450) k/uL Neutrophils # 11.7 H (1.3-7.7) k/uL Lymphocytes # 0.9 L (1.0-4.8) k/uL D-Dimer (<0.60) mg/L FEU ABG pH (7.35-7.45) ABG pCO2 (35-45) mmHg ABG pO2 (83-108) mmHg ABG HCO3 (21-25) mmol/L ABG Total CO2 (19-24) mmol/L ABG O2 Saturation (94-97) % Sodium (137-145) mmol/L Potassium (3.5-5.1) mmol/L Chloride (98-107) mmol/L Carbon Dioxide (22-30) mmol/L BUN (7-17) mg/dL Glucose (74-99) mg/dL POC Glucose (mg/dL) 240 H (70-110) mg/dL Plasma Lactic Acid Guevara 2.7 H* (0.7-2.0) mmol/L Calcium (8.4-10.2) mg/dL Phosphorus (2.5-4.5) mg/dL AST (14-36) U/L ALT (4-34) U/L Troponin I (0.000-0.034) ng/mL Total Protein (6.3-8.2) g/dL Albumin (3.5-5.0) g/dL Urine Appearance (Clear) Ur Specific [place] (1.001-1.035) Urine Protein (Negative) Urine Glucose (UA) (Negative) Urine Ketones (Negative) Urine Blood (Negative) Urine Bilirubin (Negative) Ur Leukocyte Esterase (Negative) Urine RBC (0-5) /hpf Urine WBC (0-5) /hpf Urine Bacteria (None) /hpf 11/27/22 11/27/22 11/27/22 Range/Units 04:30 04:30 04:30 WBC 11.1 H (3.8-10.6) k/uL Hct (34.0-46.0) % MCV (80.0-100.0) fL MCHC (31.0-37.0) g/dL Plt Count 133 L (150-450) k/uL Neutrophils # 10.0 H (1.3-7.7) k/uL Lymphocytes # 0.5 L (1.0-4.8) k/uL D-Dimer 28.24 H (<0.60) mg/L FEU ABG pH (7.35-7.45) ABG pCO2 (35-45) mmHg ABG pO2 (83-108) mmHg ABG HCO3 (21-25) mmol/L ABG Total CO2 (19-24) mmol/L ABG O2 Saturation (94-97) % Sodium (137-145) mmol/L Potassium (3.5-5.1) mmol/L Chloride 92 L (98-107) mmol/L Carbon Dioxide 41 H* (22-30) mmol/L BUN 24 H (7-17) mg/dL Glucose 236 H (74-99) mg/dL POC Glucose (mg/dL) (70-110) mg/dL Plasma Lactic Acid Guevara (0.7-2.0) mmol/L Calcium 7.8 L (8.4-10.2) mg/dL Phosphorus 1.9 L (2.5-4.5) mg/dL AST 143 H (14-36) U/L ALT 91 H (4-34) U/L Troponin I (0.000-0.034) ng/mL Total Protein 5.2 L (6.3-8.2) g/dL Albumin 3.0 L (3.5-5.0) g/dL Urine Appearance (Clear) Ur Specific [place] (1.001-1.035) Urine Protein (Negative) Urine Glucose (UA) (Negative) Urine Ketones (Negative) Urine Blood (Negative) Urine Bilirubin (Negative) Ur Leukocyte Esterase (Negative) Urine RBC (0-5) /hpf Urine WBC (0-5) /hpf Urine Bacteria (None) /hpf 11/27/22 11/27/22 11/27/22 Range/Units 06:05 06:47 07:44 WBC (3.8-10.6) k/uL Hct (34.0-46.0) % MCV (80.0-100.0) fL MCHC (31.0-37.0) g/dL Plt Count (150-450) k/uL Neutrophils # (1.3-7.7) k/uL Lymphocytes # (1.0-4.8) k/uL D-Dimer (<0.60) mg/L FEU ABG pH (7.35-7.45) ABG pCO2 59 H (35-45) mmHg ABG pO2 64 L (83-108) mmHg ABG HCO3 41 H* (21-25) mmol/L ABG Total CO2 43 H (19-24) mmol/L ABG O2 Saturation 93.9 L (94-97) % Sodium (137-145) mmol/L Potassium (3.5-5.1) mmol/L Chloride (98-107) mmol/L Carbon Dioxide (22-30) mmol/L BUN (7-17) mg/dL Glucose (74-99) mg/dL POC Glucose (mg/dL) 221 H (70-110) mg/dL Plasma Lactic Acid Guevara (0.7-2.0) mmol/L Calcium (8.4-10.2) mg/dL Phosphorus (2.5-4.5) mg/dL AST (14-36) U/L ALT (4-34) U/L Troponin I (0.000-0.034) ng/mL Total Protein (6.3-8.2) g/dL Albumin (3.5-5.0) g/dL Urine Appearance Turbid H (Clear) Ur Specific [place] >1.050 H (1.001-1.035) Urine Protein 2+ H (Negative) Urine Glucose (UA) 1+ H (Negative) Urine Ketones Trace H (Negative) Urine Blood Small H (Negative) Urine Bilirubin 1+ H (Negative) Ur Leukocyte Esterase Small H (Negative) Urine RBC 33 H (0-5) /hpf Urine WBC 20 H (0-5) /hpf Urine Bacteria Rare H (None) /hpf 11/27/22 Range/Units 08:35 WBC (3.8-10.6) k/uL Hct (34.0-46.0) % MCV (80.0-100.0) fL MCHC (31.0-37.0) g/dL Plt Count (150-450) k/uL Neutrophils # (1.3-7.7) k/uL Lymphocytes # (1.0-4.8) k/uL D-Dimer (<0.60) mg/L FEU ABG pH (7.35-7.45) ABG pCO2 (35-45) mmHg ABG pO2 (83-108) mmHg ABG HCO3 (21-25) mmol/L ABG Total CO2 (19-24) mmol/L ABG O2 Saturation (94-97) % Sodium (137-145) mmol/L Potassium (3.5-5.1) mmol/L Chloride (98-107) mmol/L Carbon Dioxide (22-30) mmol/L BUN (7-17) mg/dL Glucose (74-99) mg/dL POC Glucose (mg/dL) 235 H (70-110) mg/dL Plasma Lactic Acid Guevara (0.7-2.0) mmol/L Calcium (8.4-10.2) mg/dL Phosphorus (2.5-4.5) mg/dL AST (14-36) U/L ALT (4-34) U/L Troponin I (0.000-0.034) ng/mL Total Protein (6.3-8.2) g/dL Albumin (3.5-5.0) g/dL Urine Appearance (Clear) Ur Specific [place] (1.001-1.035) Urine Protein (Negative) Urine Glucose (UA) (Negative) Urine Ketones (Negative) Urine Blood (Negative) Urine Bilirubin (Negative) Ur Leukocyte Esterase (Negative) Urine RBC (0-5) /hpf Urine WBC (0-5) /hpf Urine Bacteria (None) /hpf Thrombosis Risk Factor Assmnt - Choose All That Apply Any of the Below Risk Factors Present?: Yes Each Factor Represents 1 point: Abnormal pulmonary function (COPD), Age 41-60 years Thrombosis Risk Factor Assessment Total Risk Factor Score: 2 Thrombosis Risk Factor Assessment Level: Low Risk
[2022-11-27 16:27] LABS: Glucose,Whole Blood 183 mg/dL (70-110)
[2022-11-27] MEDS ORDERED: MANNITOL 20% IV ONE (16:30)
[2022-11-27] MEDS ORDERED: SALINE IV ONE (16:30)
--- NOTE | 2022-11-27 17:33 | CA ---
Transthoracic Echo Report Name: Sara Pastor Age: 57 Gender: F : 1965 Exam Date: 11/27/2022 09:38 Exam Location: [facility] Ht (in): 65 Wt (lb): 152 Ordering Physician: Oswaldo Garcia Attending/Referring Phys: [employer] Information Architect Moises Dobbs Procedure CPT: Indications: evaluate LV function Cardiac Hx: Technical Quality: Fair Contrast 1: Total Dose (mL): Contrast 2: Total Dose (mL): MEASUREMENTS (Male / Female) Normal Values 2D ECHO LV Diastolic Diameter PLAX 3.6 cm 4.2 - 5.9 / 3.9 - 5.3 cm IVS Diastolic Thickness 1.3 cm 0.6 - 1.0 / 0.6 - 0.9 cm LVPW Diastolic Thickness 1.2 cm 0.6 - 1.0 / 0.6 - 0.9 cm LV Relative Wall Thickness 0.7 RV Internal Dim ED PLAX 3.7 cm LVOT Diameter 1.0 cm Aortic Root Diameter 2.3 cm LA Systolic Diameter LX 2.4 cm 3.0 - 4.0 / 2.7 - 3.8 cm LV Diastolic Volume MOD 4C 51.2 cm??? LV Systolic Volume MOD 4C 24.9 cm??? LV Ejection Fraction MOD 4C 51.4 % LV Diastolic Length 4C 6.3 cm LV Systolic Length 4C 5.8 cm DOPPLER AV Peak Velocity 118.3 cm/s AV Peak Gradient 5.6 mmHg Mitral E Point Velocity 59.3 cm/s Mitral A Point Velocity 80.5 cm/s Mitral E to A Ratio 0.7 MV Deceleration Time 138.6 ms TR Peak Velocity 144.8 cm/s TR Peak Gradient 8.4 mmHg Right Ventricular Systolic Press 14.0 mmHg FINDINGS Left Ventricle Off axis apical views. Left ventricular ejection fraction is estimated at 25- 30 %. Right Ventricle Right ventricular dilatation. Right Atrium Grossly Normal RA size. Left Atrium Grossly normal LA dimensions. Mitral Valve Structurally normal mitral valve. No mitral stenosis, regurgitation or prolapse. Aortic Valve Trileaflet aortic valve. No aortic valve stenosis or regurgitation. Tricuspid Valve Structurally normal tricuspid valve. No tricuspid stenosis, regurgitation or prolapse. Pulmonic Valve Pulmonic valve not well visualized. No pulmonic regurgitation. Pericardium Normal pericardium. Aorta Normal size aortic root and proximal ascending aorta. CONCLUSIONS Severe LV dysfunction, ejection fraction 25% Dilated right ventricle with hypokinesis Previewed by: Dr. Campos Garcia MD (Electronically Signed) Final Date: 27 Nov 2022 17:32
[2022-11-27 18:57] LABS: Basophils % (A) 0 %; Eosinophils % (A) 0 %; HCT 43.9 % (34.0-46.0); HGB 14.1 gm/dL (11.4-16.0); Hypochromasia Slight; Lymphocytes # (A) 1.3 k/uL (1.0-4.8); Lymphocytes % (A) 10 %; MCHC 32.2 g/dL (31.0-37.0); MCV 96.1 fL (80.0-100.0); Mean Platelet Volume 8.8; Monocytes # (A) 0.7 k/uL (0-1.0); Monocytes % (A) 5 %; Neutrophils # (A) 11.4 k/uL (1.3-7.7); Neutrophils % (A) 85 %; Platelet Count 143 k/uL (150-450); RBC 4.57 m/uL (3.80-5.40); RDW 15.6 % (11.5-15.5); WBC 13.4 k/uL (3.8-10.6)
[2022-11-27 19:07] LABS: ALT 73 U/L (4-34); AST 103 U/L (14-36); African American GFR (CKD) >90 (>60 ml/min/1.73 sqM); Albumin 2.7 g/dL (3.5-5.0); Alkaline Phosphatase 67 U/L (38-126); Anion Gap 4 mmol/L; Blood Urea Nitrogen 27 mg/dL (7-17); Carbon Dioxide 38 mmol/L (22-30); Chloride 96 mmol/L (98-107); Glucose 146 mg/dL (74-99); Non-African American GFR(CKD) >90 (>60 ml/min/1.73 sqM); Potassium 3.2 mmol/L (3.5-5.1); Sodium 138 mmol/L (137-145); Total Bilirubin 0.7 mg/dL (0.2-1.3); Total Protein 4.9 g/dL (6.3-8.2)
[2022-11-27 19:58] LABS: ABG Base Excess 13.8 mmol/L; ABG HCO3 39 mmol/L (21-25); ABG Oxygen Saturation 93.8 % (94-97); ABG PCO2 63 mmHg (35-45); ABG PO2 66 mmHg (83-108); ABG TCO2 41 mmol/L (19-24); Allen Test Performed? Yes
[2022-11-27] MEDS ORDERED: Potassium Replacement Protocol 1 EACH MISC MISCELLANE PRN (20:24)
[2022-11-27 20:30] LABS: Bilirubin, Delta 0.2 mg/dL (0.0-0.2); Bilirubin,Unconjugated 0.5 mg/dL (0.0-1.1); Phosphorus 2.6 mg/dL (2.5-4.5); Total Bilirubin 0.7 mg/dL (0.2-1.3)
[2022-11-27] MEDS: POTASSIUM BICARBONATE/CIT AC 20 MEQ TABLET.EFF NG-TUBE SCH ×2 (20:40→22:22)
[2022-11-27 20:51] LABS: Ionized Calcium 4.8 mg/dL (4.5-5.3)
[2022-11-27 21:20] LABS: INR 1.1 (<1.2); Prothrombin Time 11.4 sec (9.0-12.0)
[2022-11-27 21:24] LABS: Partial Thromboplastin Time 21.3 sec (22.0-30.0)
--- NOTE | 2022-11-27 21:41 | EEG ---
ELECTROENCEPHALOGRAM REPORT CLINICAL HISTORY: This is a 57-year-old woman, who presented because of outside hospital cardiac arrest, who has altered mental status. The video EEG is obtained to evaluate for seizure epileptiform activity. RELEVANT MEDICATION: IV propofol and has been held for about an hour and 50 minutes prior to this test. He received Nimbex 10 mg at 9:18 a.m., which is about 3 hours prior to this test. EEG TYPE: A routine 21-channel EEG is performed with video using the 10/20 electrode placement system. DESCRIPTION: The patient is intubated on a ventilator. There is no cerebral activity noted throughout bilateral hemisphere during this routine EEG even upon decreasing the sensitivity to 2 microvolts. There is no focal slowing noted. Interictal and ictal is none. ACTIVATION PROCEDURE: Photic stimulation, no photic driving noted and no abnormality during the photic stimulation. Hyperventilation is not performed. CLINICAL INTERPRETATION: This is an abnormal routine EEG. There is no appreciable cerebral activity over bilateral hemisphere noted during this routine EEG. Otherwise, there is no focal slowing, epileptiform discharges, or seizure on the EEG. Clinical correlation is recommended. MARCO / JENN: [id number] / MTDD
[2022-11-27 23:51] LABS: Glucose,Whole Blood 142 mg/dL (70-110)
[2022-11-28] MEDS: IPRATROPIUM-ALBUTEROL 3 ML NEB INHALATION SCH ×7 (01:03→20:51)
[2022-11-28] MEDS: NOREPINEPHRINE 4 MG in SODIUM CHLORIDE 0.9% 250 ML IV SCH (01:32)
[2022-11-28] MEDS: PIPERACILLIN-TAZOBACTAM 3.375 GM in SODIUM CHLORIDE 0.9% 100 ML IVPB SCH ×3 (02:52→16:57)
[2022-11-28] MEDS ORDERED: NOREPINEPHRINE 32 MG in SODIUM CHLORIDE 0.9% 218 ML IV SCH (03:45)
[2022-11-28 04:06] LABS: ABG Base Excess 9.5 mmol/L; ABG HCO3 35 mmol/L (21-25); ABG Oxygen Saturation 96.2 % (94-97); ABG PCO2 65 mmHg (35-45); ABG PH 7.34 (7.35-7.45); ABG PO2 82 mmHg (83-108); ABG TCO2 37 mmol/L (19-24); Allen Test Performed? Yes
[2022-11-28 04:12] LABS: Glucose,Whole Blood 170 mg/dL (70-110)
[2022-11-28 04:32] LABS: Ionized Calcium 4.8 mg/dL (4.5-5.3)
[2022-11-28 04:40] LABS: ALT 63 U/L (4-34); AST 90 U/L (14-36); African American GFR (CKD) >90 (>60 ml/min/1.73 sqM); Albumin 2.6 g/dL (3.5-5.0); Alkaline Phosphatase 75 U/L (38-126); Anion Gap 5 mmol/L; Bilirubin, Delta 0.4 mg/dL (0.0-0.2); Bilirubin,Unconjugated 0.7 mg/dL (0.0-1.1); Blood Urea Nitrogen 25 mg/dL (7-17); Calcium 7.9 mg/dL (8.4-10.2); Carbon Dioxide 35 mmol/L (22-30); Chloride 98 mmol/L (98-107); Glucose 165 mg/dL (74-99); Non-African American GFR(CKD) >90 (>60 ml/min/1.73 sqM); Potassium 2.9 mmol/L (3.5-5.1); Sodium 138 mmol/L (137-145); Total Bilirubin 1.1 mg/dL (0.2-1.3); Total Protein 4.8 g/dL (6.3-8.2)
[2022-11-28] MEDS: SODIUM CHLORIDE 0.9% 1,000 ML IV SCH ×2 (04:50→12:27)
[2022-11-28] MEDS: VASOPRESSIN 60 UNIT in SODIUM CHLORIDE 0.9% 150 ML IV SCH (04:51)
[2022-11-28] MEDS: INSULIN ASPART (NovoLOG) 100 UNIT/ML VIAL SQ SCH ×4 (04:51→16:58)
[2022-11-28 04:55] LABS: Basophils # (A) 0.1 k/uL (0-0.2); Basophils % (A) 0 %; Eosinophils # (A) 0.1 k/uL (0-0.7); Eosinophils % (A) 1 %; HCT 45.9 % (34.0-46.0); HGB 14.3 gm/dL (11.4-16.0); Hypochromasia Moderate; Lymphocytes # (A) 1.1 k/uL (1.0-4.8); Lymphocytes % (A) 7 %; MCH 30.4 pg (25.0-35.0); MCHC 31.1 g/dL (31.0-37.0); MCV 97.8 fL (80.0-100.0); Mean Platelet Volume 8.5; Monocytes # (A) 0.5 k/uL (0-1.0); Monocytes % (A) 3 %; Neutrophils # (A) 13.6 k/uL (1.3-7.7); Neutrophils % (A) 88 %; Platelet Count 109 k/uL (150-450); RDW 15.6 % (11.5-15.5); WBC 15.4 k/uL (3.8-10.6)
[2022-11-28 05:05] LABS: INR 1.2 (<1.2); Prothrombin Time 12.1 sec (9.0-12.0)
[2022-11-28] MEDS: POTASSIUM CHLORIDE 20 MEQ in WATER FOR INJECTION 1 100ML.BAG IVPB SCH ×6 (05:14→18:09)
[2022-11-28 07:58] LABS: Glucose,Whole Blood 169 mg/dL (70-110)
[2022-11-28] MEDS: PANTOPRAZOLE 40 MG/10 ML VIAL IV SCH (08:02)
[2022-11-28] MEDS: HEPARIN SODIUM,PORCINE/PF 5,000 UNIT/0.5 ML SYRINGE SQ SCH (08:02)
[2022-11-28] MEDS: CHLORHEXIDINE GLUCONATE 15 ML CUP MUCOUS MEM SCH (08:02)
[2022-11-28 08:24] LABS: ABG Base Excess 5.5 mmol/L; ABG HCO3 32 mmol/L (21-25); ABG Oxygen Saturation 90.5 % (94-97); ABG PCO2 66 mmHg (35-45); ABG PO2 63 mmHg (83-108); ABG TCO2 34 mmol/L (19-24); Allen Test Performed? Yes
[2022-11-28] MEDS: FORMOTEROL FUMARATE 20 MCG/2 ML NEBU INHALATION SCH ×3 (08:31→20:51)
[2022-11-28] MEDS: BUDESONIDE 1 MG/2 ML NEBU INHALATION SCH ×4 (08:31→20:51)
--- NOTE | 2022-11-28 09:25 | CT ---
EXAMINATION TYPE: CT ChestAbdPelvis w con CT DLP: mGycm, Automated exposure control for dose reduction was used. DATE OF EXAM: 11/28/2022 2:45 AM COMPARISON: None. CLINICAL INDICATION:Female, 57 years old with history of [employer]; Technique: Multiple axial images of the chest, abdomen, and pelvis were obtained. Two-dimensional cor onal and sagittal reconstructions were obtained. Contrast used: none Oral contrast used: None Findings: CHEST: LUNGS/ PLEURA: Moderate to severe emphysema changes throughout the lungs. There is left lower lung an d right lower lung airspace opacities. AIRWAY: Endotracheal tube terminates of the susana. HEART: Size within normal limits. MEDIASTINUM: No gross evidence of adenopathy. VASCULATURE: No aortic aneurysm. MUSCULOSKELETAL: No acute osseous abnormalities. SOFT TISSUES/LYMPH NODES: Unremarkable. LOWER NECK: No significant findings. ABDOMEN: ABDOMEN LIVER: The liver is somewhat heterogenous in enhancement. GALLBLADDER AND BILE DUCTS: The gallbladder is surgically absent. PANCREAS: Unremarkable. SPLEEN: Unremarkable. ADRENAL GLANDS: Unremarkable. KIDNEYS AND URETERS: No evidence of hydronephrosis or renal calculus. The ureters are unremarkable. PELVIS BLADDER: Unremarkable REPRODUCTIVE: Unremarkable. ABDOMEN & PELVIS STOMACH AND BOWEL: No evidence of bowel obstruction. Nasogastric tube terminates within the gastric l umen. PERITONEUM: No evidence of pneumoperitoneum or free fluid. VASCULATURE: No evidence of aortic aneurysm. Atherosclerosis of the arterial vasculature. MUSCULOSKELETAL: No acute osseous abnormalities LYMPH NODES: No gross evidence for lymphadenopathy. SOFT TISSUE/ABDOMINAL WALL: Unremarkable IMPRESSION: * Severe emphysema changes. * Bilateral lower lobe airspace opacities correlate for pneumonia/aspiration. * Endotracheal nasogastric tube in appropriate position. * Moderate atherosclerosis of the arterial vasculature. * Normal appearance of the spleen and kidneys. * Somewhat heterogenous enhancement of the liver could be due to phase of contrast. Correlate with s alberto markers. * Normal appearance of the adrenal glands. * The heart is within normal size with mild left circumflex coronary artery atherosclerosis.
--- NOTE | 2022-11-28 09:29 | PCN ---
PROCEDURE NOTE CRITICAL CARE PROCEDURE NOTE: PROCEDURE PERFORMED: Left femoral art line. PREOPERATIVE DIAGNOSES: Frequent blood draws and blood gas monitoring, hypotension. POSTOPERATIVE DIAGNOSES: Frequent blood draws and blood gas monitoring, hypotension. OPERATORS: Dr. Rodriguez and Dr. Carmella Cabrera. ARTERIAL LINE PLACEMENT: Indications: Hemodynamic monitoring. A time-out was completed verifying correct patient, procedure, site, positioning, and implant(s) or special equipment if applicable. Shin's test was performed to ensure adequate perfusion. The patient's left wrist or left groin was prepped and draped in sterile fashion. 1% Lidocaine was used to anesthetize the area. An 18G Arrow arterial line was introduced into the left femoral artery. The catheter was threaded over the guide wire and the needle was removed with appropriate pulsatile blood return. Blood loss was minimal. The catheter was then sutured in place to the skin and a sterile dressing applied. Perfusion to the extremity distal to the point of catheter insertion was checked and found to be adequate. There were no immediate complications. There was good blood return and waveform. The patient tolerated the procedure well. The catheter was sutured in place. There was informed consent and universal timeout. MMODL / IJN: [id number] /
[2022-11-28 10:12] LABS: ABG Base Excess 5.7 mmol/L; ABG HCO3 32 mmol/L (21-25); ABG Oxygen Saturation 99.9 % (94-97); ABG PCO2 67 mmHg (35-45); ABG PH 7.29 (7.35-7.45); ABG PO2 228 mmHg (83-108); ABG TCO2 34 mmol/L (19-24); Allen Test Performed? Yes
--- NOTE | 2022-11-28 10:16 | P.PN ---
Subjective Progress Note Date: 11/28/22 Principal diagnosis: Respiratory failure. I'm seeing this patient in new consultation today 11/27/2022 in the intensive care unit post [id number] cardiac arrest. Patient is a 57-year-old white female with past medical history significant for severe COPD with an FEV1 24% of predicted, obstructive sleep apnea with home VPAP machine, and current 2 pack per day smoker. She does follow with Dr. Lopez in the office for management of her very severe COPD and sleep medicine. Apparently, earlier yesterday evening the patient was found down at home by her family member who was out of the house for a couple hours. EMS was called and the patient was found to be in pulseless ventricular tachycardia. The patient was intubated in the field, and ROSC was achieved. Estimated downtime is unknown. On arrival to the emergency room, there was concern for an ST elevation CO, and the patient was taken to the [facility]. Findings indicated a 70-80% stenosed diagonal branch, without any significant disease of the LAD or remaining vessels. It was felt that the patient's cardiac arrest was not related to her coronary artery disease, and no PCI or stenting were performed. Patient is currently intubated, and synchronous with the mechanical ventilator. Initial ventilator settings were assist control, respiratory rate 18, tidal volume 400, FiO2 100%, and PEEP of 5. ABG done on these settings showed a PaO2 greater than 400, pCO2 75, pH of 7.33. Patient's ventilator settings were adjusted, and the respiratory rate was increased to 20 and FiO2 dropped to 60%. Peak pressures are high around 50 and plateau pressure was 27. There are minimal thin secretions. Patient is bronchospastic, and bronchodilators were added. Chest x-ray shows endotracheal tube 4 cm above the susana, an orogastric tube coursing below the diaphragm, and interstitial opacities within the left midlung and right lung base concerning for pulmonary edema. She is minimally sedated with 10 mcg/kg/m of propofol. She does withdrawal to painful stimuli and has an intact gag reflex. She does not follow commands. Blood pressure is hypotensive requiring norepinephrine which is infusing at 0.25 mcg/kg/m. Patient was fluid resuscitated with 2 L normal saline bolus. Most recent lactic acid level was 2.7. Urine output is low, around 10-15 ML's per hour. Most recent CBC from last night shows a WBC count of 13.3, hemoglobin 15, hematocrit 49.5, platelets 136,000. BMP from last night shows a sodium of 135, potassium 5.2, chloride 86, serum CO2 chronically elevated at 39, BUN 15, creatinine 0.61, glucose 250. Normal saline is infusing at 100 mL per hour. Troponins were elevated at 0.081. LFTs minimally elevated. Patient is a full code, and will be monitored in the intensive care unit. Progress note dated 11/28/2022. 57-year-old female with history of severe end-stage COPD, who had an out of hospital cardiac arrest. The patient's FEV1 is 24% of predicted. The patient remains on the mechanical ventilator. She is on volume assist control, rate 20, tidal volume 400, FiO2 70%, PEEP of 12. The patient blood gases show pO2 of 82, pCO2 65, and a pH is 7.34. The patient's on norepinephrine at 33 mcg/m, saline at 100 mL an hour, and vasopressin at 0.03 units per minute. A new femoral art line was placed this morning. [facility] has been consulted. White count 15.4, hemoglobin 14.3, hematocrit 45.9, and platelet count 109,000. Most recent blood gases show pO2 of 63, pCO2 of 66, and a pH is 7.3. Sodium 138, potassium 2.9, chlorides 98, CO2 35, BUN 25, and creatinine 0.57. Brain CT showed atrophic and chronic small vessel ischemic changes. There is nothing acute seen on the computed tomography scan of the brain. Computed tomography scan showed severe emphysematous changes, bilateral lower lobe airspace opacities, a properly placed endotracheal tube, moderate atherosclerosis of the arterial vasculature, normal appearance of the splenic kidneys, somewhat heterogenous enhancement of the liver, normal appearance of the adrenal glands, and her heart which is of normal size. Objective - Vital Signs Vital signs: Vital Signs Temp 98 F 11/28/22 08:00 Pulse 115 H 11/28/22 10:00 Resp 20 11/28/22 10:00 BP 86/62 11/28/22 10:00 Pulse Ox 98 11/28/22 10:00 FiO2 100 11/28/22 08:30 Intake & Output 05/22/23 05/23/23 05/23/23 18:59 06:59 18:59 Intake Total 8607.464 3621.301 600 Output Total 335 375 125 Balance 4789.105 6314.301 475 Weight 69.2 kg 73.4 kg Intake: IV 1300 1400 600 Piperacillin-Tazobactam 3 100 100 100 .375 gm In Sodium Chloride 0.9% 100 ml @ 25 mls/hr IVPB Q8H SYD Rx#: [id number] Potassium Chloride 20 meq 100 100 In Water For Injection 1 100ml.bag @ 50 mls/hr IVPB Q2H SYD Rx#: [id number] Sodium Chloride 0.9% 1, 1200 1200 400 000 ml @ 100 mls/hr IV . Q10H SYD Rx#:[id number] Intake, IV Titration 514.142 409.301 Amount Magnesium Sulfate-D5w Pmx 100 1 gm In Dextrose/Water 1 100ml.bag @ 100 mls/hr IVPB Q1H SYD Rx#: [id number] Norepinephrine 32 mg In 18.650 Sodium Chloride 0.9% 218 ml @ 0.03 MCG/KG/MIN 0. 973 mls/hr IV .Q24H SYD Rx#:[id number] Norepinephrine 4 mg In 381.985 282.786 Sodium Chloride 0.9% 250 ml @ 0.05 MCG/KG/MIN 12. 426 mls/hr IV .[id number] SYD Rx#:[id number] Vasopressin 60 unit In 107.865 Sodium Chloride 0.9% 150 ml @ 0.03 UNITS/MIN 4.59 mls/hr IV .Q24H SYD Rx#: [id number] propofoL 1,000 mg In 32.157 Empty Bag 1 bag @ 15 MCG/ KG/MIN 5.87 mls/hr IV . Q17H3M SYD Rx#:[id number] Output: Urine 335 375 125 Other: Voiding Method Indwelling Catheter Indwelling Catheter Indwelling Catheter ABP, PAP, CO, CI - Last Documented Arterial Blood Pressure 108/57 - Exam No acute distress, no response to painful stimuli or verbal stimuli. HEENT examination is grossly unremarkable. Orally placed endotracheal tube is noted. Neck supple. Full range of motion. No adenopathy thyromegaly or neck vein distention. Cardiovascular examination reveals regular rhythm rate. S1-S2 normal. No S3 or S4. No discernible murmur noted. Heart rate 115 bpm. Lungs reveal scattered bilateral rhonchi. No wheezes or crackles. Breath sounds are equal. Saturations are 98%. Abdomen soft, without bowel sounds. No masses. Extremities are intact. No cyanosis clubbing or edema. Skin is without rash or lesion. Neurologic examination reveals a nonresponsive patient to verbal and painful stimuli. The patient lacks a gag reflex. There is no corneal reflex. Doll's eye reflex is absent. The patient is not spontaneously triggering the ventilator. Pupils are fixed and dilated. - Labs CBC & Chem 7: 11/28/22 04:16 11/28/22 04:16 Labs: Abnormal Lab Results - Last 24 Hours (Table) 11/27/22 11/27/22 11/27/22 Range/Units 11:44 16:25 18:46 WBC 13.4 H (3.8-10.6) k/uL RDW 15.6 H (11.5-15.5) % Plt Count 143 L (150-450) k/uL Neutrophils # 11.4 H (1.3-7.7) k/uL PT (9.0-12.0) sec INR (<1.2) APTT (22.0-30.0) sec Fibrinogen (200-500) mg/dL D-Dimer (<0.60) mg/L FEU ABG pH (7.35-7.45) ABG pCO2 (35-45) mmHg ABG pO2 (83-108) mmHg ABG HCO3 (21-25) mmol/L ABG Total CO2 (19-24) mmol/L ABG O2 Saturation (94-97) % Potassium (3.5-5.1) mmol/L Chloride (98-107) mmol/L Carbon Dioxide (22-30) mmol/L BUN (7-17) mg/dL Glucose (74-99) mg/dL POC Glucose (mg/dL) 243 H 183 H (70-110) mg/dL Hemoglobin A1c (0.0-6.0) % Calcium (8.4-10.2) mg/dL Delta Bilirubin (0.0-0.2) mg/dL AST (14-36) U/L ALT (4-34) U/L Troponin I (0.000-0.034) ng/mL Total Protein (6.3-8.2) g/dL Albumin (3.5-5.0) g/dL Lipase (23-300) U/L 11/27/22 11/27/22 11/27/22 Range/Units 18:46 19:55 19:55 WBC (3.8-10.6) k/uL RDW (11.5-15.5) % Plt Count (150-450) k/uL Neutrophils # (1.3-7.7) k/uL PT (9.0-12.0) sec INR (<1.2) APTT (22.0-30.0) sec Fibrinogen 551 H (200-500) mg/dL D-Dimer 8.41 H (<0.60) mg/L FEU ABG pH (7.35-7.45) ABG pCO2 (35-45) mmHg ABG pO2 (83-108) mmHg ABG HCO3 (21-25) mmol/L ABG Total CO2 (19-24) mmol/L ABG O2 Saturation (94-97) % Potassium 3.2 L (3.5-5.1) mmol/L Chloride 96 L (98-107) mmol/L Carbon Dioxide 38 H (22-30) mmol/L BUN 27 H (7-17) mg/dL Glucose 146 H (74-99) mg/dL POC Glucose (mg/dL) (70-110) mg/dL Hemoglobin A1c (0.0-6.0) % Calcium 8.0 L (8.4-10.2) mg/dL Delta Bilirubin (0.0-0.2) mg/dL AST 103 H (14-36) U/L ALT 73 H (4-34) U/L Troponin I (0.000-0.034) ng/mL Total Protein 4.9 L (6.3-8.2) g/dL Albumin 2.7 L (3.5-5.0) g/dL Lipase 17 L (23-300) U/L 11/27/22 11/27/22 11/27/22 Range/Units 19:55 19:55 19:55 WBC (3.8-10.6) k/uL RDW (11.5-15.5) % Plt Count (150-450) k/uL Neutrophils # (1.3-7.7) k/uL PT (9.0-12.0) sec INR (<1.2) APTT 21.3 L (22.0-30.0) sec Fibrinogen (200-500) mg/dL D-Dimer (<0.60) mg/L FEU ABG pH (7.35-7.45) ABG pCO2 63 H (35-45) mmHg ABG pO2 66 L (83-108) mmHg ABG HCO3 39 H (21-25) mmol/L ABG Total CO2 41 H (19-24) mmol/L ABG O2 Saturation 93.8 L (94-97) % Potassium (3.5-5.1) mmol/L Chloride (98-107) mmol/L Carbon Dioxide (22-30) mmol/L BUN (7-17) mg/dL Glucose (74-99) mg/dL POC Glucose (mg/dL) (70-110) mg/dL Hemoglobin A1c (0.0-6.0) % Calcium (8.4-10.2) mg/dL Delta Bilirubin (0.0-0.2) mg/dL AST (14-36) U/L ALT (4-34) U/L Troponin I 0.223 H* (0.000-0.034) ng/mL Total Protein (6.3-8.2) g/dL Albumin (3.5-5.0) g/dL Lipase (23-300) U/L 11/27/22 11/28/22 11/28/22 Range/Units 23:49 04:00 04:11 WBC (3.8-10.6) k/uL RDW (11.5-15.5) % Plt Count (150-450) k/uL Neutrophils # (1.3-7.7) k/uL PT (9.0-12.0) sec INR (<1.2) APTT (22.0-30.0) sec Fibrinogen (200-500) mg/dL D-Dimer (<0.60) mg/L FEU ABG pH 7.34 L (7.35-7.45) ABG pCO2 65 H (35-45) mmHg ABG pO2 82 L (83-108) mmHg ABG HCO3 35 H (21-25) mmol/L ABG Total CO2 37 H (19-24) mmol/L ABG O2 Saturation (94-97) % Potassium (3.5-5.1) mmol/L Chloride (98-107) mmol/L Carbon Dioxide (22-30) mmol/L BUN (7-17) mg/dL Glucose (74-99) mg/dL POC Glucose (mg/dL) 142 H 170 H (70-110) mg/dL Hemoglobin A1c (0.0-6.0) % Calcium (8.4-10.2) mg/dL Delta Bilirubin (0.0-0.2) mg/dL AST (14-36) U/L ALT (4-34) U/L Troponin I (0.000-0.034) ng/mL Total Protein (6.3-8.2) g/dL Albumin (3.5-5.0) g/dL Lipase (23-300) U/L 11/28/22 11/28/22 11/28/22 Range/Units 04:16 04:16 04:16 WBC 15.4 H (3.8-10.6) k/uL RDW 15.6 H (11.5-15.5) % Plt Count 109 L (150-450) k/uL Neutrophils # 13.6 H (1.3-7.7) k/uL PT (9.0-12.0) sec INR (<1.2) APTT (22.0-30.0) sec Fibrinogen (200-500) mg/dL D-Dimer (<0.60) mg/L FEU ABG pH (7.35-7.45) ABG pCO2 (35-45) mmHg ABG pO2 (83-108) mmHg ABG HCO3 (21-25) mmol/L ABG Total CO2 (19-24) mmol/L ABG O2 Saturation (94-97) % Potassium 2.9 L (3.5-5.1) mmol/L Chloride (98-107) mmol/L Carbon Dioxide 35 H (22-30) mmol/L BUN 25 H (7-17) mg/dL Glucose 165 H (74-99) mg/dL POC Glucose (mg/dL) (70-110) mg/dL Hemoglobin A1c 6.8 H (0.0-6.0) % Calcium 7.9 L (8.4-10.2) mg/dL Delta Bilirubin 0.4 H (0.0-0.2) mg/dL AST 90 H (14-36) U/L ALT 63 H (4-34) U/L Troponin I (0.000-0.034) ng/mL Total Protein 4.8 L (6.3-8.2) g/dL Albumin 2.6 L (3.5-5.0) g/dL Lipase (23-300) U/L 11/28/22 11/28/22 11/28/22 Range/Units 04:16 07:55 08:20 WBC (3.8-10.6) k/uL RDW (11.5-15.5) % Plt Count (150-450) k/uL Neutrophils # (1.3-7.7) k/uL PT 12.1 H (9.0-12.0) sec INR 1.2 H (<1.2) APTT (22.0-30.0) sec Fibrinogen (200-500) mg/dL D-Dimer (<0.60) mg/L FEU ABG pH 7.30 L (7.35-7.45) ABG pCO2 66 H (35-45) mmHg ABG pO2 63 L (83-108) mmHg ABG HCO3 32 H (21-25) mmol/L ABG Total CO2 34 H (19-24) mmol/L ABG O2 Saturation 90.5 L (94-97) % Potassium (3.5-5.1) mmol/L Chloride (98-107) mmol/L Carbon Dioxide (22-30) mmol/L BUN (7-17) mg/dL Glucose (74-99) mg/dL POC Glucose (mg/dL) 169 H (70-110) mg/dL Hemoglobin A1c (0.0-6.0) % Calcium (8.4-10.2) mg/dL Delta Bilirubin (0.0-0.2) mg/dL AST (14-36) U/L ALT (4-34) U/L Troponin I (0.000-0.034) ng/mL Total Protein (6.3-8.2) g/dL Albumin (3.5-5.0) g/dL Lipase (23-300) U/L Microbiology - Last 24 Hours (Table) 05/21/23 19:20 Sputum Culture - Preliminary Sputum Assessment and Plan Assessment: Out of hospital cardiac arrest with unknown downtime. Presenting rhythm was pulseless ventricular tachycardia, and ROSC was achieved in the field. Not felt to be related to acute coronary event. Chest x-ray on arrival showed some interstitial opacities within the left midlung and right lung base concerning for pulmonary edema. Patient's downtime is unknown, and there is concern for possible anoxic brain injury. Severe anoxic brain injury, and possibly brain . Exacerbation of patient's very severe COPD with an FEV1 24% of predicted. Acute on chronic hypoxemic and hypercapnic respiratory failure secondary to above, currently on the mechanical ventilator. Hypotension and shock currently requiring vasopressors. Lactic acidemia. Elevated LFTs, probably related to shock liver. Elevated troponins, post cardiac arrest. Hyperglycemia, with no documented history of diabetes. Leukocytosis. Obstructive sleep apnea, with home BiPAP and questionable compliance. Chronic nicotine dependence, reportedly a current 2 pack per day smoker. Plan: Plan dated the 2022. The patient had a bedside neurologic evaluation, which revealed pupils that are fixed and dilated, absence of gag reflex and corneal reflexes, as well as absence response to painful or verbal stimuli. The patient did not trigger the ventilator. Doll's eye reflex was absent. The patient will have an apneic oxygenation test. [facility] was notified and consulted. A new femoral art line was placed. Prognosis is obviously very poor. Neurology has been consulted as well. Time with Patient: Greater than 30
[2022-11-28 10:43] LABS: ALT 47 U/L (4-34); AST 71 U/L (14-36); African American GFR (CKD) >90 (>60 ml/min/1.73 sqM); Albumin 2.1 g/dL (3.5-5.0); Alkaline Phosphatase 64 U/L (38-126); Anion Gap 1 mmol/L; Blood Urea Nitrogen 23 mg/dL (7-17); Calcium 7.7 mg/dL (8.4-10.2); Carbon Dioxide 34 mmol/L (22-30); Chloride 102 mmol/L (98-107); Glucose 186 mg/dL (74-99); Non-African American GFR(CKD) >90 (>60 ml/min/1.73 sqM); Potassium 3.5 mmol/L (3.5-5.1); Sodium 137 mmol/L (137-145); Total Protein 4.1 g/dL (6.3-8.2)
[2022-11-28 10:49] LABS: ABG Base Excess 4.5 mmol/L; ABG HCO3 33 mmol/L (21-25); ABG Oxygen Saturation 95.1 % (94-97); ABG PO2 92 mmHg (83-108); ABG TCO2 36 mmol/L (19-24); Allen Test Performed? Yes
[2022-11-28 10:50] LABS: ABG PCO2 93 mmHg (35-45); ABG PH 7.16 (7.35-7.45)
[2022-11-28 11:25] LABS: Glucose,Whole Blood 201 mg/dL (70-110)
[2022-11-28] MEDS ORDERED: HYDROCORTISONE SUCCINATE 100 MG/2 ML VIAL IV STA (11:41)
[2022-11-28] MEDS ORDERED: DEXTROSE 10% IN WATER 500 ML in EMPTY BAG 1 BAG IV SCH (11:45)
[2022-11-28 12:04] LABS: Anisocytosis Slight; Basophils # (A) 0.1 k/uL (0-0.2); Basophils % (A) 0 %; Eosinophils # (A) 0.2 k/uL (0-0.7); Eosinophils % (A) 1 %; HCT 43.5 % (34.0-46.0); HGB 13.4 gm/dL (11.4-16.0); Hypochromasia Moderate; Lymphocytes # (A) 1.1 k/uL (1.0-4.8); Lymphocytes % (A) 6 %; MCH 30.1 pg (25.0-35.0); MCHC 30.8 g/dL (31.0-37.0); MCV 97.7 fL (80.0-100.0); Macrocytosis Slight; Mean Platelet Volume 9.8; Monocytes # (A) 0.8 k/uL (0-1.0); Monocytes % (A) 4 %; Neutrophils # (A) 16.6 k/uL (1.3-7.7); Neutrophils % (A) 88 %; Platelet Count 120 k/uL (150-450); RBC 4.45 m/uL (3.80-5.40); RDW 16.1 % (11.5-15.5); WBC 18.9 k/uL (3.8-10.6)
[2022-11-28 12:20] LABS: INR 1.1 (<1.2); Prothrombin Time 11.5 sec (9.0-12.0)
[2022-11-28 12:35] LABS: ALT 50 U/L (4-34); AST 72 U/L (14-36); African American GFR (CKD) >90 (>60 ml/min/1.73 sqM); Albumin 2.2 g/dL (3.5-5.0); Alkaline Phosphatase 73 U/L (38-126); Amylase <30 U/L (30-110); Anion Gap 3 mmol/L; Blood Urea Nitrogen 22 mg/dL (7-17); Calcium 7.7 mg/dL (8.4-10.2); Carbon Dioxide 33 mmol/L (22-30); Chloride 102 mmol/L (98-107); Glucose 198 mg/dL (74-99); Lipase 16 U/L (23-300); Magnesium 1.9 mg/dL (1.6-2.3); Non-African American GFR(CKD) >90 (>60 ml/min/1.73 sqM); Phosphorus 2.8 mg/dL (2.5-4.5); Potassium 3.3 mmol/L (3.5-5.1); Sodium 138 mmol/L (137-145); Total Protein 4.3 g/dL (6.3-8.2)
--- NOTE | 2022-11-28 12:44 | XR ---
EXAMINATION TYPE: XR chest 1V portable DATE OF EXAM: 11/28/2022 Comparison: 11/27/2022 Clinical History: 57-year-old female GOL Findings: ET and NG tubes are satisfactory. Left CVC tip at the mid SVC. Heart normal size. Advanced emphysematous change. Airspace opacity left mid and lower lung and patchy changes to a lesser extent at the right lower lung. Overall changes have increased from prior exam. Possible trace pleural effusions. Impression: Consider developing atypical pulmonary edema superimposed on advanced emphysema. Interval worsening f rom prior exam. Trace pleural effusions. Pneumonia can be excluded on a clinical basis.
--- NOTE | 2022-11-28 13:10 | P.PN ---
Subjective Progress Note Date: 11/28/22 Patient seen at bedside and the she has not been on any further sedation since prior at least 11am yesterday. Patient is on norepinephrine and vasopressin. ICU has performed of brain and patient had no brainstem reflexes according to the nurse. Objective - Vital Signs Vital signs: Vital Signs Temp 97.7 F 11/28/22 12:00 Pulse 116 H 11/28/22 12:25 Resp 22 11/28/22 12:00 BP 95/63 11/28/22 12:00 Pulse Ox 90 L 11/28/22 12:00 FiO2 100 11/28/22 12:15 Intake & Output 11/27/22 11/28/22 11/28/22 18:59 06:59 18:59 Intake Total 8974.443 6069.301 2807.744 Output Total 335 375 170 Balance 9094.715 5148.301 2637.744 Weight 69.2 kg 73.4 kg Intake: IV 1300 1400 2700 LR 2000 Piperacillin-Tazobactam 3 100 100 100 .375 gm In Sodium Chloride 0.9% 100 ml @ 25 mls/hr IVPB Q8H SYD Rx#: [id number] Potassium Chloride 20 meq 100 100 In Water For Injection 1 100ml.bag @ 50 mls/hr IVPB Q2H SYD Rx#: [id number] Sodium Chloride 0.9% 1, 1200 1200 500 000 ml @ 100 mls/hr IV . Q10H SYD Rx#:[id number] Intake, IV Titration 514.142 409.301 107.744 Amount Magnesium Sulfate-D5w Pmx 100 1 gm In Dextrose/Water 1 100ml.bag @ 100 mls/hr IVPB Q1H SYD Rx#: [id number] Norepinephrine 32 mg In 18.650 107.744 Sodium Chloride 0.9% 218 ml @ 0.03 MCG/KG/MIN 0. 973 mls/hr IV .Q24H SYD Rx#:[id number] Norepinephrine 4 mg In 381.985 282.786 Sodium Chloride 0.9% 250 ml @ 0.05 MCG/KG/MIN 12. 426 mls/hr IV .[id number] SYD Rx#:[id number] Vasopressin 60 unit In 107.865 Sodium Chloride 0.9% 150 ml @ 0.03 UNITS/MIN 4.59 mls/hr IV .Q24H SYD Rx#: [id number] propofoL 1,000 mg In 32.157 Empty Bag 1 bag @ 15 MCG/ KG/MIN 5.87 mls/hr IV . Q17H3M SYD Rx#:[id number] Output: Urine 335 375 170 Other: Voiding Method Indwelling Catheter Indwelling Catheter Indwelling Catheter ABP, PAP, CO, CI - Last Documented Arterial Blood Pressure 109/59 - Exam GENERAL: The patient is lying in bed and does not appear in acute distress. NEUROLOGICAL: No on any sedation since at least prior to 11AM yesterday. Higher mental function: The patient is comatose GCS 3 (E1, VT1, M1). No verbalizing or following commands. Cranial nerves: The pupils are round, right pupil is 6mm and left is 4-5 and nonreactive to light. Primary gaze if midline. No corneal reflex, occulocephalic reflex. No cough, gag. Absent caloric test bilaterally. Not breahing over the vent. No facial weakness. Motor: The strength is no spontaneous movement. Not withdrawaling to painful stimuli throughout. Decrease tone throughout. Normal bulk. Cerebellum: Unable to assess. Sensation: Unable to assess light touch but to painful stimuli not withdrawaling or grimacing face. . Plantars are mute bilaterally. - Labs CBC & Chem 7: 11/28/22 17:10 11/28/22 17:10 Labs: Abnormal Lab Results - Last 24 Hours (Table) 11/27/22 11/27/22 11/27/22 Range/Units 16:25 18:46 18:46 WBC 13.4 H (3.8-10.6) k/uL MCHC (31.0-37.0) g/dL RDW 15.6 H (11.5-15.5) % Plt Count 143 L (150-450) k/uL Neutrophils # 11.4 H (1.3-7.7) k/uL PT (9.0-12.0) sec INR (<1.2) APTT (22.0-30.0) sec Fibrinogen (200-500) mg/dL D-Dimer (<0.60) mg/L FEU ABG pH (7.35-7.45) ABG pCO2 (35-45) mmHg ABG pO2 (83-108) mmHg ABG HCO3 (21-25) mmol/L ABG Total CO2 (19-24) mmol/L ABG O2 Saturation (94-97) % Potassium 3.2 L (3.5-5.1) mmol/L Chloride 96 L (98-107) mmol/L Carbon Dioxide 38 H (22-30) mmol/L BUN 27 H (7-17) mg/dL Glucose 146 H (74-99) mg/dL POC Glucose (mg/dL) 183 H (70-110) mg/dL Hemoglobin A1c (0.0-6.0) % Calcium 8.0 L (8.4-10.2) mg/dL Delta Bilirubin (0.0-0.2) mg/dL AST 103 H (14-36) U/L ALT 73 H (4-34) U/L Troponin I (0.000-0.034) ng/mL Total Protein 4.9 L (6.3-8.2) g/dL Albumin 2.7 L (3.5-5.0) g/dL Amylase (30-110) U/L Lipase (23-300) U/L 11/27/22 11/27/22 11/27/22 Range/Units 19:55 19:55 19:55 WBC (3.8-10.6) k/uL MCHC (31.0-37.0) g/dL RDW (11.5-15.5) % Plt Count (150-450) k/uL Neutrophils # (1.3-7.7) k/uL PT (9.0-12.0) sec INR (<1.2) APTT (22.0-30.0) sec Fibrinogen 551 H (200-500) mg/dL D-Dimer 8.41 H (<0.60) mg/L FEU ABG pH (7.35-7.45) ABG pCO2 (35-45) mmHg ABG pO2 (83-108) mmHg ABG HCO3 (21-25) mmol/L ABG Total CO2 (19-24) mmol/L ABG O2 Saturation (94-97) % Potassium (3.5-5.1) mmol/L Chloride (98-107) mmol/L Carbon Dioxide (22-30) mmol/L BUN (7-17) mg/dL Glucose (74-99) mg/dL POC Glucose (mg/dL) (70-110) mg/dL Hemoglobin A1c (0.0-6.0) % Calcium (8.4-10.2) mg/dL Delta Bilirubin (0.0-0.2) mg/dL AST (14-36) U/L ALT (4-34) U/L Troponin I 0.223 H* (0.000-0.034) ng/mL Total Protein (6.3-8.2) g/dL Albumin (3.5-5.0) g/dL Amylase (30-110) U/L Lipase 17 L (23-300) U/L 11/27/22 11/27/22 11/27/22 Range/Units 19:55 19:55 23:49 WBC (3.8-10.6) k/uL MCHC (31.0-37.0) g/dL RDW (11.5-15.5) % Plt Count (150-450) k/uL Neutrophils # (1.3-7.7) k/uL PT (9.0-12.0) sec INR (<1.2) APTT 21.3 L (22.0-30.0) sec Fibrinogen (200-500) mg/dL D-Dimer (<0.60) mg/L FEU ABG pH (7.35-7.45) ABG pCO2 63 H (35-45) mmHg ABG pO2 66 L (83-108) mmHg ABG HCO3 39 H (21-25) mmol/L ABG Total CO2 41 H (19-24) mmol/L ABG O2 Saturation 93.8 L (94-97) % Potassium (3.5-5.1) mmol/L Chloride (98-107) mmol/L Carbon Dioxide (22-30) mmol/L BUN (7-17) mg/dL Glucose (74-99) mg/dL POC Glucose (mg/dL) 142 H (70-110) mg/dL Hemoglobin A1c (0.0-6.0) % Calcium (8.4-10.2) mg/dL Delta Bilirubin (0.0-0.2) mg/dL AST (14-36) U/L ALT (4-34) U/L Troponin I (0.000-0.034) ng/mL Total Protein (6.3-8.2) g/dL Albumin (3.5-5.0) g/dL Amylase (30-110) U/L Lipase (23-300) U/L 11/28/22 11/28/22 11/28/22 Range/Units 04:00 04:11 04:16 WBC (3.8-10.6) k/uL MCHC (31.0-37.0) g/dL RDW (11.5-15.5) % Plt Count (150-450) k/uL Neutrophils # (1.3-7.7) k/uL PT (9.0-12.0) sec INR (<1.2) APTT (22.0-30.0) sec Fibrinogen (200-500) mg/dL D-Dimer (<0.60) mg/L FEU ABG pH 7.34 L (7.35-7.45) ABG pCO2 65 H (35-45) mmHg ABG pO2 82 L (83-108) mmHg ABG HCO3 35 H (21-25) mmol/L ABG Total CO2 37 H (19-24) mmol/L ABG O2 Saturation (94-97) % Potassium (3.5-5.1) mmol/L Chloride (98-107) mmol/L Carbon Dioxide (22-30) mmol/L BUN (7-17) mg/dL Glucose (74-99) mg/dL POC Glucose (mg/dL) 170 H (70-110) mg/dL Hemoglobin A1c 6.8 H (0.0-6.0) % Calcium (8.4-10.2) mg/dL Delta Bilirubin (0.0-0.2) mg/dL AST (14-36) U/L ALT (4-34) U/L Troponin I (0.000-0.034) ng/mL Total Protein (6.3-8.2) g/dL Albumin (3.5-5.0) g/dL Amylase (30-110) U/L Lipase (23-300) U/L 11/28/22 11/28/22 11/28/22 Range/Units 04:16 04:16 04:16 WBC 15.4 H (3.8-10.6) k/uL MCHC (31.0-37.0) g/dL RDW 15.6 H (11.5-15.5) % Plt Count 109 L (150-450) k/uL Neutrophils # 13.6 H (1.3-7.7) k/uL PT 12.1 H (9.0-12.0) sec INR 1.2 H (<1.2) APTT (22.0-30.0) sec Fibrinogen (200-500) mg/dL D-Dimer (<0.60) mg/L FEU ABG pH (7.35-7.45) ABG pCO2 (35-45) mmHg ABG pO2 (83-108) mmHg ABG HCO3 (21-25) mmol/L ABG Total CO2 (19-24) mmol/L ABG O2 Saturation (94-97) % Potassium 2.9 L (3.5-5.1) mmol/L Chloride (98-107) mmol/L Carbon Dioxide 35 H (22-30) mmol/L BUN 25 H (7-17) mg/dL Glucose 165 H (74-99) mg/dL POC Glucose (mg/dL) (70-110) mg/dL Hemoglobin A1c (0.0-6.0) % Calcium 7.9 L (8.4-10.2) mg/dL Delta Bilirubin 0.4 H (0.0-0.2) mg/dL AST 90 H (14-36) U/L ALT 63 H (4-34) U/L Troponin I (0.000-0.034) ng/mL Total Protein 4.8 L (6.3-8.2) g/dL Albumin 2.6 L (3.5-5.0) g/dL Amylase (30-110) U/L Lipase (23-300) U/L 11/28/22 11/28/22 11/28/22 Range/Units 07:55 08:20 10:10 WBC (3.8-10.6) k/uL MCHC (31.0-37.0) g/dL RDW (11.5-15.5) % Plt Count (150-450) k/uL Neutrophils # (1.3-7.7) k/uL PT (9.0-12.0) sec INR (<1.2) APTT (22.0-30.0) sec Fibrinogen (200-500) mg/dL D-Dimer (<0.60) mg/L FEU ABG pH 7.30 L 7.29 L (7.35-7.45) ABG pCO2 66 H 67 H (35-45) mmHg ABG pO2 63 L 228 H (83-108) mmHg ABG HCO3 32 H 32 H (21-25) mmol/L ABG Total CO2 34 H 34 H (19-24) mmol/L ABG O2 Saturation 90.5 L 99.9 H (94-97) % Potassium (3.5-5.1) mmol/L Chloride (98-107) mmol/L Carbon Dioxide (22-30) mmol/L BUN (7-17) mg/dL Glucose (74-99) mg/dL POC Glucose (mg/dL) 169 H (70-110) mg/dL Hemoglobin A1c (0.0-6.0) % Calcium (8.4-10.2) mg/dL Delta Bilirubin (0.0-0.2) mg/dL AST (14-36) U/L ALT (4-34) U/L Troponin I (0.000-0.034) ng/mL Total Protein (6.3-8.2) g/dL Albumin (3.5-5.0) g/dL Amylase (30-110) U/L Lipase (23-300) U/L 11/28/22 11/28/22 11/28/22 Range/Units 10:13 10:39 11:23 WBC (3.8-10.6) k/uL MCHC (31.0-37.0) g/dL RDW (11.5-15.5) % Plt Count (150-450) k/uL Neutrophils # (1.3-7.7) k/uL PT (9.0-12.0) sec INR (<1.2) APTT (22.0-30.0) sec Fibrinogen (200-500) mg/dL D-Dimer (<0.60) mg/L FEU ABG pH 7.16 L* (7.35-7.45) ABG pCO2 93 H* (35-45) mmHg ABG pO2 (83-108) mmHg ABG HCO3 33 H (21-25) mmol/L ABG Total CO2 36 H (19-24) mmol/L ABG O2 Saturation (94-97) % Potassium (3.5-5.1) mmol/L Chloride (98-107) mmol/L Carbon Dioxide 34 H (22-30) mmol/L BUN 23 H (7-17) mg/dL Glucose 186 H (74-99) mg/dL POC Glucose (mg/dL) 201 H (70-110) mg/dL Hemoglobin A1c (0.0-6.0) % Calcium 7.7 L (8.4-10.2) mg/dL Delta Bilirubin (0.0-0.2) mg/dL AST 71 H (14-36) U/L ALT 47 H (4-34) U/L Troponin I (0.000-0.034) ng/mL Total Protein 4.1 L (6.3-8.2) g/dL Albumin 2.1 L (3.5-5.0) g/dL Amylase (30-110) U/L Lipase (23-300) U/L 11/28/22 11/28/22 11/28/22 Range/Units 11:49 11:49 11:49 WBC 18.9 H (3.8-10.6) k/uL MCHC 30.8 L (31.0-37.0) g/dL RDW 16.1 H (11.5-15.5) % Plt Count 120 L (150-450) k/uL Neutrophils # 16.6 H (1.3-7.7) k/uL PT (9.0-12.0) sec INR (<1.2) APTT (22.0-30.0) sec Fibrinogen 565 H (200-500) mg/dL D-Dimer 4.14 H (<0.60) mg/L FEU ABG pH (7.35-7.45) ABG pCO2 (35-45) mmHg ABG pO2 (83-108) mmHg ABG HCO3 (21-25) mmol/L ABG Total CO2 (19-24) mmol/L ABG O2 Saturation (94-97) % Potassium 3.3 L (3.5-5.1) mmol/L Chloride (98-107) mmol/L Carbon Dioxide 33 H (22-30) mmol/L BUN 22 H (7-17) mg/dL Glucose 198 H (74-99) mg/dL POC Glucose (mg/dL) (70-110) mg/dL Hemoglobin A1c (0.0-6.0) % Calcium 7.7 L (8.4-10.2) mg/dL Delta Bilirubin (0.0-0.2) mg/dL AST 72 H (14-36) U/L ALT 50 H (4-34) U/L Troponin I (0.000-0.034) ng/mL Total Protein 4.3 L (6.3-8.2) g/dL Albumin 2.2 L (3.5-5.0) g/dL Amylase <30 L (30-110) U/L Lipase 16 L (23-300) U/L Microbiology - Last 24 Hours (Table) 11/26/22 19:20 Gram Stain - Preliminary Sputum Sputum Culture - Preliminary Yeast species Assessment and Plan Assessment: Out of the hospital cardiopulmomary arrest of unknown downtime. She was last seen normal at 2:30 p.m. on 11/26/2022 and was found down at 6ish PM. Presented with a rhythm of pulseless ventricular tachycardia with Ross achieved on the field. Per Report possible due to respiratory arrest. No brain stem reflexes. CT head reveals severe global cerebral edema and routine EEG reveal no appreciable cerebral activity. 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 There is no cerebral activity over bilateral hemisphere. No focal slowing, epileptiform discharges or seizure. -CT head is reported as atrophy and chronic small vessel ischemic change without acute intracranial process seen at this time. I personally reviewed the CT of the head and I personally feel the patient has diffuse global cerebral edema that is significant. The edema is compressing on the entire ventricular system and I only appreciate small size of the anterior horn bilateral ventricles. -She received Mannitol dose yesterday -From Neurological perspective she is proclaimed brain from my examination around 11:35am today. She did not have any brainstem reflexes. Her condition is irreversible. -[facility] is on board and family wants to pursue with donation. The plan is discussed with her nurse. Time with Patient: Greater than 30
--- NOTE | 2022-11-28 13:10 | P.PN ---
Subjective Progress Note Date: 11/28/22 patient is a 57-year-old white female with past medical history significant for severe COPD,smoking brought in to the ER after being found unresponsive at home. Apparently, yesterday evening the patient was found down at home by her family member who was out of the house for a couple hours. EMS was called and the patient was found to be in pulseless ventricular tachycardia, patient was cardioverted and was intubated in the field, and ROSC was achieved. Estimated downtime is unknown. Patient was transferred to [facility] . On arrival to the emergency room, there was concern for an ST elevation [place], and the patient was taken to the [facility]. Findings indicated a 70-80% stenosed diagonal branch, without any significant disease of the LAD or remaining vessels. It was felt that the patient's cardiac arrest was not related to her coronary artery disease, and no PCI or stenting were performed. Patient was later transferred to ICU 11/28. Patient seen and examined. Patient continues to be intubated, [employer] has been consulted. Patient has absence of gag and corneal reflexes. REVIEW OF SYSTEMS: Cannot be obtained as patient is intubated PHYSICAL EXAMINATION: GENERAL: The patient is intubated HEENT: Pupils are fixed and dilated No pharyngeal erythema. No thyromegaly. CARDIOVASCULAR: S1 and S2 present. No murmurs, rubs, or gallops. PULMONARY: Coarse breath sounds bilaterally ABDOMEN: Soft, nontender, nondistended, normoactive bowel sounds. No palpable organomegaly. MUSCULOSKELETAL: No joint swelling or deformity. EXTREMITIES: No cyanosis, clubbing, or pedal edema. NEUROLOGICAL: Cannot be obtained because of patient is intubated and not resp onsive SKIN: No rashes. Assessment and plan Monitor vital signs Monitor CBC Monitor CMP Continue pressors Patient had bedside neurology eval, patient had absence of gag and corneal reflexes, neurology and critical care following the patient, [employer] has been notified. Objective - Vital Signs Vital signs: Vital Signs Temp 97.7 F 11/28/22 12:00 Pulse 118 H 11/28/22 13:00 Resp 22 11/28/22 13:00 BP 93/63 11/28/22 13:00 Pulse Ox 95 11/28/22 13:00 FiO2 100 11/28/22 12:15 Intake & Output 11/27/22 11/28/22 11/28/22 18:59 06:59 18:59 Intake Total 4527.155 9460.301 3062.744 Output Total 335 375 230 Balance 9068.916 8035.301 2832.744 Weight 69.2 kg 73.4 kg Intake: IV 1300 1400 2955 Dextrose 10% in Water 500 80 ml In Empty Bag 1 bag @ 40 mls/hr IV .[id number] SYD Rx#:[id number] LR 2000 Piperacillin-Tazobactam 3 100 100 100 .375 gm In Sodium Chloride 0.9% 100 ml @ 25 mls/hr IVPB Q8H SYD Rx#: [id number] Potassium Chloride 20 meq 100 100 In Water For Injection 1 100ml.bag @ 50 mls/hr IVPB Q2H SYD Rx#: [id number] Sodium Chloride 0.9% 1, 1200 1200 675 000 ml @ 75 mls/hr IV . [id number] SYD Rx#:[id number] Intake, IV Titration 514.142 409.301 107.744 Amount Magnesium Sulfate-D5w Pmx 100 1 gm In Dextrose/Water 1 100ml.bag @ 100 mls/hr IVPB Q1H SYD Rx#: [id number] Norepinephrine 32 mg In 18.650 107.744 Sodium Chloride 0.9% 218 ml @ 0.03 MCG/KG/MIN 0. 973 mls/hr IV .Q24H SYD Rx#:[id number] Norepinephrine 4 mg In 381.985 282.786 Sodium Chloride 0.9% 250 ml @ 0.05 MCG/KG/MIN 12. 426 mls/hr IV .[id number] SYD Rx#:[id number] Vasopressin 60 unit In 107.865 Sodium Chloride 0.9% 150 ml @ 0.03 UNITS/MIN 4.59 mls/hr IV .Q24H SYD Rx#: [id number] propofoL 1,000 mg In 32.157 Empty Bag 1 bag @ 15 MCG/ KG/MIN 5.87 mls/hr IV . Q17H3M SYD Rx#:[id number] Output: Urine 335 375 230 Other: Voiding Method Indwelling Catheter Indwelling Catheter Indwelling Catheter ABP, PAP, CO, CI - Last Documented Arterial Blood Pressure 113/73 - Labs CBC & Chem 7: 11/28/22 11:49 11/28/22 11:49 Labs: Abnormal Lab Results - Last 24 Hours (Table) 11/27/22 11/27/22 11/27/22 Range/Units 16:25 18:46 18:46 WBC 13.4 H (3.8-10.6) k/uL MCHC (31.0-37.0) g/dL RDW 15.6 H (11.5-15.5) % Plt Count 143 L (150-450) k/uL Neutrophils # 11.4 H (1.3-7.7) k/uL PT (9.0-12.0) sec INR (<1.2) APTT (22.0-30.0) sec Fibrinogen (200-500) mg/dL D-Dimer (<0.60) mg/L FEU ABG pH (7.35-7.45) ABG pCO2 (35-45) mmHg ABG pO2 (83-108) mmHg ABG HCO3 (21-25) mmol/L ABG Total CO2 (19-24) mmol/L ABG O2 Saturation (94-97) % Potassium 3.2 L (3.5-5.1) mmol/L Chloride 96 L (98-107) mmol/L Carbon Dioxide 38 H (22-30) mmol/L BUN 27 H (7-17) mg/dL Glucose 146 H (74-99) mg/dL POC Glucose (mg/dL) 183 H (70-110) mg/dL Hemoglobin A1c (0.0-6.0) % Calcium 8.0 L (8.4-10.2) mg/dL Delta Bilirubin (0.0-0.2) mg/dL AST 103 H (14-36) U/L ALT 73 H (4-34) U/L Troponin I (0.000-0.034) ng/mL Total Protein 4.9 L (6.3-8.2) g/dL Albumin 2.7 L (3.5-5.0) g/dL Amylase (30-110) U/L Lipase (23-300) U/L 11/27/22 11/27/22 11/27/22 Range/Units 19:55 19:55 19:55 WBC (3.8-10.6) k/uL MCHC (31.0-37.0) g/dL RDW (11.5-15.5) % Plt Count (150-450) k/uL Neutrophils # (1.3-7.7) k/uL PT (9.0-12.0) sec INR (<1.2) APTT (22.0-30.0) sec Fibrinogen 551 H (200-500) mg/dL D-Dimer 8.41 H (<0.60) mg/L FEU ABG pH (7.35-7.45) ABG pCO2 (35-45) mmHg ABG pO2 (83-108) mmHg ABG HCO3 (21-25) mmol/L ABG Total CO2 (19-24) mmol/L ABG O2 Saturation (94-97) % Potassium (3.5-5.1) mmol/L Chloride (98-107) mmol/L Carbon Dioxide (22-30) mmol/L BUN (7-17) mg/dL Glucose (74-99) mg/dL POC Glucose (mg/dL) (70-110) mg/dL Hemoglobin A1c (0.0-6.0) % Calcium (8.4-10.2) mg/dL Delta Bilirubin (0.0-0.2) mg/dL AST (14-36) U/L ALT (4-34) U/L Troponin I 0.223 H* (0.000-0.034) ng/mL Total Protein (6.3-8.2) g/dL Albumin (3.5-5.0) g/dL Amylase (30-110) U/L Lipase 17 L (23-300) U/L 11/27/22 11/27/22 11/27/22 Range/Units 19:55 19:55 23:49 WBC (3.8-10.6) k/uL MCHC (31.0-37.0) g/dL RDW (11.5-15.5) % Plt Count (150-450) k/uL Neutrophils # (1.3-7.7) k/uL PT (9.0-12.0) sec INR (<1.2) APTT 21.3 L (22.0-30.0) sec Fibrinogen (200-500) mg/dL D-Dimer (<0.60) mg/L FEU ABG pH (7.35-7.45) ABG pCO2 63 H (35-45) mmHg ABG pO2 66 L (83-108) mmHg ABG HCO3 39 H (21-25) mmol/L ABG Total CO2 41 H (19-24) mmol/L ABG O2 Saturation 93.8 L (94-97) % Potassium (3.5-5.1) mmol/L Chloride (98-107) mmol/L Carbon Dioxide (22-30) mmol/L BUN (7-17) mg/dL Glucose (74-99) mg/dL POC Glucose (mg/dL) 142 H (70-110) mg/dL Hemoglobin A1c (0.0-6.0) % Calcium (8.4-10.2) mg/dL Delta Bilirubin (0.0-0.2) mg/dL AST (14-36) U/L ALT (4-34) U/L Troponin I (0.000-0.034) ng/mL Total Protein (6.3-8.2) g/dL Albumin (3.5-5.0) g/dL Amylase (30-110) U/L Lipase (23-300) U/L 11/28/22 11/28/22 11/28/22 Range/Units 04:00 04:11 04:16 WBC (3.8-10.6) k/uL MCHC (31.0-37.0) g/dL RDW (11.5-15.5) % Plt Count (150-450) k/uL Neutrophils # (1.3-7.7) k/uL PT (9.0-12.0) sec INR (<1.2) APTT (22.0-30.0) sec Fibrinogen (200-500) mg/dL D-Dimer (<0.60) mg/L FEU ABG pH 7.34 L (7.35-7.45) ABG pCO2 65 H (35-45) mmHg ABG pO2 82 L (83-108) mmHg ABG HCO3 35 H (21-25) mmol/L ABG Total CO2 37 H (19-24) mmol/L ABG O2 Saturation (94-97) % Potassium (3.5-5.1) mmol/L Chloride (98-107) mmol/L Carbon Dioxide (22-30) mmol/L BUN (7-17) mg/dL Glucose (74-99) mg/dL POC Glucose (mg/dL) 170 H (70-110) mg/dL Hemoglobin A1c 6.8 H (0.0-6.0) % Calcium (8.4-10.2) mg/dL Delta Bilirubin (0.0-0.2) mg/dL AST (14-36) U/L ALT (4-34) U/L Troponin I (0.000-0.034) ng/mL Total Protein (6.3-8.2) g/dL Albumin (3.5-5.0) g/dL Amylase (30-110) U/L Lipase (23-300) U/L 11/28/22 11/28/22 11/28/22 Range/Units 04:16 04:16 04:16 WBC 15.4 H (3.8-10.6) k/uL MCHC (31.0-37.0) g/dL RDW 15.6 H (11.5-15.5) % Plt Count 109 L (150-450) k/uL Neutrophils # 13.6 H (1.3-7.7) k/uL PT 12.1 H (9.0-12.0) sec INR 1.2 H (<1.2) APTT (22.0-30.0) sec Fibrinogen (200-500) mg/dL D-Dimer (<0.60) mg/L FEU ABG pH (7.35-7.45) ABG pCO2 (35-45) mmHg ABG pO2 (83-108) mmHg ABG HCO3 (21-25) mmol/L ABG Total CO2 (19-24) mmol/L ABG O2 Saturation (94-97) % Potassium 2.9 L (3.5-5.1) mmol/L Chloride (98-107) mmol/L Carbon Dioxide 35 H (22-30) mmol/L BUN 25 H (7-17) mg/dL Glucose 165 H (74-99) mg/dL POC Glucose (mg/dL) (70-110) mg/dL Hemoglobin A1c (0.0-6.0) % Calcium 7.9 L (8.4-10.2) mg/dL Delta Bilirubin 0.4 H (0.0-0.2) mg/dL AST 90 H (14-36) U/L ALT 63 H (4-34) U/L Troponin I (0.000-0.034) ng/mL Total Protein 4.8 L (6.3-8.2) g/dL Albumin 2.6 L (3.5-5.0) g/dL Amylase (30-110) U/L Lipase (23-300) U/L 11/28/22 11/28/22 11/28/22 Range/Units 07:55 08:20 10:10 WBC (3.8-10.6) k/uL MCHC (31.0-37.0) g/dL RDW (11.5-15.5) % Plt Count (150-450) k/uL Neutrophils # (1.3-7.7) k/uL PT (9.0-12.0) sec INR (<1.2) APTT (22.0-30.0) sec Fibrinogen (200-500) mg/dL D-Dimer (<0.60) mg/L FEU ABG pH 7.30 L 7.29 L (7.35-7.45) ABG pCO2 66 H 67 H (35-45) mmHg ABG pO2 63 L 228 H (83-108) mmHg ABG HCO3 32 H 32 H (21-25) mmol/L ABG Total CO2 34 H 34 H (19-24) mmol/L ABG O2 Saturation 90.5 L 99.9 H (94-97) % Potassium (3.5-5.1) mmol/L Chloride (98-107) mmol/L Carbon Dioxide (22-30) mmol/L BUN (7-17) mg/dL Glucose (74-99) mg/dL POC Glucose (mg/dL) 169 H (70-110) mg/dL Hemoglobin A1c (0.0-6.0) % Calcium (8.4-10.2) mg/dL Delta Bilirubin (0.0-0.2) mg/dL AST (14-36) U/L ALT (4-34) U/L Troponin I (0.000-0.034) ng/mL Total Protein (6.3-8.2) g/dL Albumin (3.5-5.0) g/dL Amylase (30-110) U/L Lipase (23-300) U/L 11/28/22 11/28/22 11/28/22 Range/Units 10:13 10:39 11:23 WBC (3.8-10.6) k/uL MCHC (31.0-37.0) g/dL RDW (11.5-15.5) % Plt Count (150-450) k/uL Neutrophils # (1.3-7.7) k/uL PT (9.0-12.0) sec INR (<1.2) APTT (22.0-30.0) sec Fibrinogen (200-500) mg/dL D-Dimer (<0.60) mg/L FEU ABG pH 7.16 L* (7.35-7.45) ABG pCO2 93 H* (35-45) mmHg ABG pO2 (83-108) mmHg ABG HCO3 33 H (21-25) mmol/L ABG Total CO2 36 H (19-24) mmol/L ABG O2 Saturation (94-97) % Potassium (3.5-5.1) mmol/L Chloride (98-107) mmol/L Carbon Dioxide 34 H (22-30) mmol/L BUN 23 H (7-17) mg/dL Glucose 186 H (74-99) mg/dL POC Glucose (mg/dL) 201 H (70-110) mg/dL Hemoglobin A1c (0.0-6.0) % Calcium 7.7 L (8.4-10.2) mg/dL Delta Bilirubin (0.0-0.2) mg/dL AST 71 H (14-36) U/L ALT 47 H (4-34) U/L Troponin I (0.000-0.034) ng/mL Total Protein 4.1 L (6.3-8.2) g/dL Albumin 2.1 L (3.5-5.0) g/dL Amylase (30-110) U/L Lipase (23-300) U/L 11/28/22 11/28/22 11/28/22 Range/Units 11:49 11:49 11:49 WBC 18.9 H (3.8-10.6) k/uL MCHC 30.8 L (31.0-37.0) g/dL RDW 16.1 H (11.5-15.5) % Plt Count 120 L (150-450) k/uL Neutrophils # 16.6 H (1.3-7.7) k/uL PT (9.0-12.0) sec INR (<1.2) APTT (22.0-30.0) sec Fibrinogen 565 H (200-500) mg/dL D-Dimer 4.14 H (<0.60) mg/L FEU ABG pH (7.35-7.45) ABG pCO2 (35-45) mmHg ABG pO2 (83-108) mmHg ABG HCO3 (21-25) mmol/L ABG Total CO2 (19-24) mmol/L ABG O2 Saturation (94-97) % Potassium 3.3 L (3.5-5.1) mmol/L Chloride (98-107) mmol/L Carbon Dioxide 33 H (22-30) mmol/L BUN 22 H (7-17) mg/dL Glucose 198 H (74-99) mg/dL POC Glucose (mg/dL) (70-110) mg/dL Hemoglobin A1c (0.0-6.0) % Calcium 7.7 L (8.4-10.2) mg/dL Delta Bilirubin (0.0-0.2) mg/dL AST 72 H (14-36) U/L ALT 50 H (4-34) U/L Troponin I (0.000-0.034) ng/mL Total Protein 4.3 L (6.3-8.2) g/dL Albumin 2.2 L (3.5-5.0) g/dL Amylase <30 L (30-110) U/L Lipase 16 L (23-300) U/L Microbiology - Last 24 Hours (Table) 11/26/22 19:20 Gram Stain - Preliminary Sputum Sputum Culture - Preliminary Yeast species
[2022-11-28] MEDS ORDERED: MAGNESIUM SULFATE-D5W PMX 1 GM in DEXTROSE/WATER 1 100ML.BAG IVPB ONE (13:14)
[2022-11-28] MEDS ORDERED: Magnesium Replacement Protocol 1 EACH MISC MISCELLANE PRN (13:14)
[2022-11-28] MEDS ORDERED: SODIUM CHLORIDE 0.45% 1,000 ML IV SCH (13:30)
[2022-11-28 16:35] LABS: Glucose,Whole Blood 257 mg/dL (70-110)
[2022-11-28 16:53] VITALS: TEMP 97.8
[2022-11-28 17:03] LABS: ABG Base Excess 4.9 mmol/L; ABG HCO3 32 mmol/L (21-25); ABG Oxygen Saturation 94.3 % (94-97); ABG PCO2 65 mmHg (35-45); ABG PH 7.29 (7.35-7.45); ABG PO2 73 mmHg (83-108); ABG TCO2 34 mmol/L (19-24); Allen Test Performed? Yes
[2022-11-28 17:40] LABS: Anisocytosis Slight; Basophils % (A) 0 %; Eosinophils % (A) 0 %; HGB 13.9 gm/dL (11.4-16.0); Hypochromasia Moderate; Lymphocytes # (A) 0.4 k/uL (1.0-4.8); Lymphocytes % (A) 2 %; MCH 30.2 pg (25.0-35.0); MCHC 30.8 g/dL (31.0-37.0); Macrocytosis Slight; Mean Platelet Volume 9.3; Monocytes # (A) 0.7 k/uL (0-1.0); Monocytes % (A) 3 %; Neutrophils # (A) 20.2 k/uL (1.3-7.7); Neutrophils % (A) 94 %; Platelet Count 120 k/uL (150-450); RBC 4.59 m/uL (3.80-5.40); RDW 16.3 % (11.5-15.5); WBC 21.5 k/uL (3.8-10.6)
[2022-11-28 17:45] LABS: Ionized Calcium 5.1 mg/dL (4.5-5.3)
[2022-11-28 17:58] LABS: INR 1.1 (<1.2); Partial Thromboplastin Time 26.6 sec (22.0-30.0); Prothrombin Time 11.3 sec (9.0-12.0)
[2022-11-28 18:05] LABS: ALT 50 U/L (4-34); AST 78 U/L (14-36); African American GFR (CKD) >90 (>60 ml/min/1.73 sqM); Albumin 2.3 g/dL (3.5-5.0); Alkaline Phosphatase 84 U/L (38-126); Anion Gap 2 mmol/L; Bilirubin, Delta 0.4 mg/dL (0.0-0.2); Bilirubin,Unconjugated 0.5 mg/dL (0.0-1.1); Blood Urea Nitrogen 21 mg/dL (7-17); Carbon Dioxide 32 mmol/L (22-30); Chloride 101 mmol/L (98-107); Glucose 271 mg/dL (74-99); Magnesium 2.1 mg/dL (1.6-2.3); Non-African American GFR(CKD) >90 (>60 ml/min/1.73 sqM); Phosphorus 2.8 mg/dL (2.5-4.5); Potassium 4.5 mmol/L (3.5-5.1); Sodium 135 mmol/L (137-145); Total Bilirubin 0.9 mg/dL (0.2-1.3); Total Protein 4.5 g/dL (6.3-8.2)
[2022-11-28 18:13] LABS: Amylase <30 U/L (30-110)
[2022-11-28 19:14] VITALS: BP 103/75; PULSE 117; RESP 22
[2022-11-28] MEDS ORDERED: HYDROCORTISONE SUCCINATE 100 MG/2 ML VIAL IV SCH (20:00)
== END 2022-11-28 21:20 | disposition other institution (70) | DRG 208 ==
LOC: EC 18:51 → 2SICU 19:01
PROVIDERS: ADMIT Hospitalist; ATTEND Hospitalist
PROC: B2111ZZ Fluoroscopy of Multiple Coronary Arteries using Low Osmolar Contrast (ICD-10-PCS; 2022-11-26)
PROC: 4A023N7 Measurement of Cardiac Sampling and Pressure, Left Heart, Percutaneous Approach (ICD-10-PCS; 2022-11-26)
PROC: 0DH67UZ Insertion of Feeding Device into Stomach, Via Natural or Artificial Opening (ICD-10-PCS; 2022-11-26)
PROC: 5A1945Z Respiratory Ventilation, 24-96 Consecutive Hours (ICD-10-PCS; principal; 2022-11-26 19:02)
PROC: 0BH17EZ Insertion of Endotracheal Airway into Trachea, Via Natural or Artificial Opening (ICD-10-PCS; principal; 2022-11-26 19:02)
PROC: 02HV33Z Insertion of Infusion Device into Superior Vena Cava, Percutaneous Approach (ICD-10-PCS; 2022-11-27)
PROC: 03HY32Z Insertion of Monitoring Device into Upper Artery, Percutaneous Approach (ICD-10-PCS; 2022-11-27)
PROC: 4A133B1 Monitoring of Arterial Pressure, Peripheral, Percutaneous Approach (ICD-10-PCS; 2022-11-27)
PROC: 4A133J1 Monitoring of Arterial Pulse, Peripheral, Percutaneous Approach (ICD-10-PCS; 2022-11-27)
PROC: 3E043XZ Introduction of Vasopressor into Central Vein, Percutaneous Approach (ICD-10-PCS; 2022-11-27)
PROC: 3E0G76Z Introduction of Nutritional Substance into Upper GI, Via Natural or Artificial Opening (ICD-10-PCS; 2022-11-27)
PROC: 04HY32Z Insertion of Monitoring Device into Lower Artery, Percutaneous Approach (ICD-10-PCS; 2022-11-28)
PROC: 4A133J1 Monitoring of Arterial Pulse, Peripheral, Percutaneous Approach (ICD-10-PCS; 2022-11-28)
PROC: 4A133B1 Monitoring of Arterial Pressure, Peripheral, Percutaneous Approach (ICD-10-PCS; 2022-11-28)
DX: J96.21 Acute and chronic respiratory failure with hypoxia (principal); G93.6 Cerebral edema; I21.3 ST elevation (STEMI) myocardial infarction of unspecified site; I46.2 Cardiac arrest due to underlying cardiac condition; I49.01 Ventricular fibrillation; K72.00 Acute and subacute hepatic failure without coma; E87.20 Acidosis, unspecified; G93.1 Anoxic brain damage, not elsewhere classified; I47.20 Ventricular tachycardia, unspecified; J44.1 Chronic obstructive pulmonary disease with (acute) exacerbation; R57.9 Shock, unspecified; R73.9 Hyperglycemia, unspecified; N39.3 Stress incontinence (female) (male); J96.22 Acute and chronic respiratory failure with hypercapnia; F17.210 Nicotine dependence, cigarettes, uncomplicated; D72.829 Elevated white blood cell count, unspecified; G47.33 Obstructive sleep apnea (adult) (pediatric); I25.10 Atherosclerotic heart disease of native coronary artery without angina pectoris; I45.10 Unspecified right bundle-branch block; Z79.899 Other long term (current) drug therapy; Z71.3 Dietary counseling and surveillance; Z20.822 Contact with and (suspected) exposure to COVID-19; Z28.310 Unvaccinated for COVID-19; Z28.21 Immunization not carried out because of patient refusal
CPT/HCPCS: 36600; 70450; 71045; 71260; 74177; 80053; 81001; 82140; 82150; 82248; 82330; 82550; 82805; 83036; 83605; 83690; 83735; 83880; 84100; 84484; 85025; 85379; 85384; 85610; 85730; 86850; 86900; 86901; 87040; 87070; 87205; 87636; 93005; 93306; 93458; 94002; 94003; 94640; 95816